=== PATIENT | female | born 1965 | race African-American/Black ===

== ENCOUNTER → 2016-10-08 | Outpatient (CLI) | payer OTHER ==
[~2016-10-08] MED LIST: AMLO10 PO; GLUCTES27 TOP; GLYB5TAB3 PO; METF500T PO; PRIN20TA2 PO; ZOCO40TA PO
[2016-10-08 11:07] LABS: AUTOMATED NEUTROPHIL # 4.6 TH/MM3 (1.8-7.7); BASOPHIL # 0.1 TH/MM3 (0-0.2); BASOPHIL % 0.9 % (0.0-2.0); EOSINOPHIL # 0.3 TH/MM3 (0-0.4); EOSINOPHIL % 4.1 % (0.0-4.0); HEMATOCRIT 37.1 % (35.0-46.0); HEMO FLAGS DIFF FINAL; LYMPH % 18.7 % (9.0-44.0); LYMPHOCYTE # 1.3 TH/MM3 (1.0-4.8); MEAN CORPUSCULAR HEMOGLOBIN 27.5 PG (27.0-34.0); MEAN CORPUSCULAR HGB CONC 33.5 % (32.0-36.0); MONO % 7.8 % (0.0-8.0); NEUT % 68.5 % (16.0-70.0); PLATELET COUNT 285 TH/MM3 (150-450); RED BLOOD COUNT 4.53 MIL/MM3 (4.00-5.30); RED CELL DISTRIBUTION WIDTH 15.8 % (11.6-17.2); WHITE BLOOD COUNT 6.7 TH/MM3 (4.0-11.0)
[2016-10-08 11:27] LABS: ALKALINE PHOSPHATASE 100 U/L (45-117); ALT (GPT) 32 U/L (10-53); ANION GAP 6 MEQ/L (5-15); AST (GOT) 14 U/L (15-37); BICARBONATE 28.8 MEQ/L (21.0-32.0); BLOOD UREA NITROGEN 16 MG/DL (7-18); CHLORIDE 103 MEQ/L (98-107); GLOMERULAR FILTRATION RATE 87 ML/MIN (>89); GLUCOSE,FASTING 236 MG/DL (74-99); HDL CHOLESTEROL 77.8 MG/DL (40.0-60.0); LDL CHOLESTEROL 109 MG/DL (0-99); POTASSIUM 4.1 MEQ/L (3.5-5.1); SODIUM (NA) 138 MEQ/L (136-145); TOTAL BILIRUBIN ADULT 0.5 MG/DL (0.2-1.0)
[2016-10-08 16:28] LABS: HEMOGLOBIN A1a 1.2 %; HEMOGLOBIN A1b 2.8 %; HEMOGLOBIN Ao 78.4 %; HEMOGLOBIN LA1C 3.1 %; HEMOGLOBIN P3 5.1 %
== END ==
LOC: CLAB 10:13
PROVIDERS: ATTEND Family Medicine
DX: E11.9 Type 2 diabetes mellitus without complications (principal); E78.5 Hyperlipidemia, unspecified; I10 Essential (primary) hypertension; E66.9 Obesity, unspecified
CPT/HCPCS: 36415; 80053; 80061; 83036; 84443; 85025

== ENCOUNTER 2017-03-16 18:06 | Inpatient (IN) | payer SELFPAY ==
[~2017-03-16] VITALS: Ht 170.2 cm; Wt 104.5 kg
[2017-03-16 18:40] VITALS: BP 183/86; PULSE 115; RESP 16; TEMP 98.6; O2SAT 97
[2017-03-16] MEDS ORDERED: SODIUM CHLOR 0.9% 1000 ML INJ 1,000 ML IV SCH (18:59)
--- NOTE | 2017-03-16 18:59 | PD ---
HPI Chief Complaint: Hypertension/Nausea/Vomitting/Back pain/Chills Time Seen by Provider: 18:47 Travel History International Travel<30 days: No Contact w/Intl Traveler<30days: No Traveled to known affect area: No History of Present Illness HPI 51-year-old Afro-[place] female presents the emergency department with sudden onset lower back pain, chills, nausea, and vomiting since this morning. Patient also states she's been out of her lisinopril for 2 weeks, which she takes with her amlodipine for her hypertension. Patient states no specific fever but has had chills through the day. She denies urinary symptoms. She denies diarrhea, or anterior abdominal pain. Patient continues to be nauseous but has not vomited since approximately 11 this morning. She denies any upper respiratory symptoms. Currently his pain is localized in the lower lumbar region, and does not localize to either flank. Pain is currently and 7/10. The patient is a type II diabetic for which she only takes metformin. Patient is allergic to hydrodiuril. PFSH Past Medical History Autoimmune Disease: No Anxiety: No Depression: No Cancer: No Cardiovascular Problems: Yes High Cholesterol: Yes Diabetes: Yes Diminished Hearing: No Endocrine: Yes Genitourinary: No Hypertension: Yes Immune Disorder: No Kidney Stones: Yes Musculoskeletal: Yes Neurologic: No Psychiatric: No Reproductive: No Respiratory: No Sickle Cell Disease: No Menopausal: Yes : 6 Para: 3 Miscarriage: 1 : 2 Past Surgical History Section: Yes (x 3) Genitourinary Surgery: Yes (Lithotripsy ) Gynecologic Surgery: Yes (3 c-sections) Hysterectomy: Yes (2011) Social History Alcohol Use: Yes (occasional) Tobacco Use: No Substance Use: No Allergies-Medications (Allergen,Severity, Reaction): Coded Allergies: Hydrodiuril (Verified Adverse Reaction, Intermediate, Nausea/Vomiting, ) Reported Meds & Prescriptions Reported Meds & Active Scripts Active Norvasc (Amlodipine Besylate) 10 Mg Tab 10 Mg PO DAILY Zocor (Simvastatin) 40 Mg Tab 40 Mg PO HS Prinivil (Lisinopril) 20 Mg Tab 20 Mg PO BID Metformin (Metformin HCl) 500 Mg Tab 2 Tab PO BIDPC With meals Glyburide 5 Mg Tab 5 Mg PO BID Take with meals at the same time each day Worlds Contour Next Blood Test Strips (Blood Glucose Test Strips) 1 Alanis Alanis 1 Strip TOP TID Review of Systems Except as stated in HPI: all other systems reviewed are Neg General / Constitutional: Positive: Chills, No: Fever Eyes: No: Visual changes HENT: No: Headaches Cardiovascular: No: Chest Pain or Discomfort Respiratory: No: Shortness of Breath Gastrointestinal: Positive: Nausea, Vomiting, Loss of Appetite, No: Diarrhea, Abdominal Pain Genitourinary: No: Urgency, Dysuria, Hematuria Musculoskeletal: Positive: Myalgias, No: Arthralgias, Limited ROM, Pain Skin: No Rash Neurologic: No: Weakness Psychiatric: No: Depression Endocrine: No: Polydipsia Hematologic/Lymphatic: No: Easy Bruising Physical Exam Narrative GENERAL: Patient appears in mild to moderate distress SKIN: Warm and dry. Normal color. Normal turgor. No diaphoresis. HEAD: Atraumatic. Normocephalic. EYES: Pupils equal and round. No scleral icterus. No injection or drainage. ENT: No nasal bleeding or discharge. Mucous membranes pink and moist. Pharynx is clear. Airway is patent. NECK: Trachea midline. No JVD. Supple and nontender. CARDIOVASCULAR: Regular rate and rhythm. RESPIRATORY: No accessory muscle use. Clear to auscultation. Breath sounds equal bilaterally. GASTROINTESTINAL: Abdomen soft, non-tender, nondistended. Hepatic and splenic margins not palpable. No CVA tenderness. MUSCULOSKELETAL: Extremities without clubbing, cyanosis, or edema. No obvious deformities. NEUROLOGICAL: Awake and alert. No obvious cranial nerve deficits. Motor grossly within normal limits. Five out of 5 muscle strength in the arms and legs. Normal speech. PSYCHIATRIC: Appropriate mood and affect; insight and judgment normal. Data Data Last Documented VS Vital Signs Date Time Temp Pulse Resp B/P Pulse Ox O2 Delivery O2 Flow Rate FiO2 03/16/17 19:00 110 16 97 Room Air 03/16/17 18:40 98.6 183/86 Orders Complete Blood Count With Diff (03/16/17 18:59) Comprehensive Metabolic Panel (03/16/17 18:59) Lipase (03/16/17 18:59) Urinalysis - C+S If Indicated (03/16/17 18:59) Iv Access Insert/Monitor (03/16/17 18:59) Ecg Monitoring (03/16/17 18:59) Oximetry (03/16/17 18:59) Ondansetron Inj (Zofran Inj) (03/16/17 19:00) Sodium Chlor 0.9% 1000 Ml Inj (Ns 1000 M (03/16/17 18:59) Sodium Chloride 0.9% Flush (Ns Flush) (03/16/17 19:00) Electrocardiogram (03/16/17 18:59) Ketorolac Inj (Toradol Inj) (03/16/17 19:00) Influenzae A/B Antigen (03/16/17 18:59) Lisinopril (Prinivil) (03/16/17 19:00) Lactic Acid (03/16/17 20:06) Ceftriaxone Inj (Rocephin Inj) (03/16/17 20:15) Urine Culture (03/16/17 19:00) Sodium Chlor 0.9% 1000 Ml Inj (Ns 1000 M (03/16/17 20:30) Admit To Inpatient (03/16/17 ) Vital Signs (Adult) Q4H (03/16/17 21:25) Activity Oob With Assistance (03/16/17 21:25) Disability Program Navigator / Telemetry .CONTINUOUS (03/16/17 21:25) Diet 1800 Ada Cons Carb (03/17/17 Breakfast) Diet Heart Healthy (03/17/17 Breakfast) Sodium Chloride 0.9% Flush (Ns Flush) (03/16/17 21:30) Sodium Chloride 0.9% Flush (Ns Flush) (03/17/17 09:00) Basic Metabolic Panel (Bmp) (03/17/17 06:00) Complete Blood Count With Diff (03/17/17 06:00) Case Management Consult (03/16/17 21:25) Naloxone Inj (Narcan Inj) (03/16/17 21:30) Inpatient Certification (03/16/17 ) Ceftriaxone Inj (Rocephin Inj) (03/17/17 20:00) Admit Order (Ed Use Only) (03/16/17 21:31) Labs Laboratory Tests Test 03/16/17 03/16/17 03/16/17 19:00 19:25 20:10 Urine Color YELLOW Urine Turbidity HAZY Urine pH 6.5 Urine Specific [place] 1.011 Urine Protein TRACE mg/dL Urine Glucose (UA) NEG mg/dL Urine Ketones TRACE mg/dL Urine Occult Blood SMALL Urine Nitrite NEG Urine Bilirubin NEG Urine Urobilinogen LESS THAN 2.0 MG/DL Urine Leukocyte Esterase LARGE Urine RBC 7 /hpf Urine WBC 36 /hpf Urine Squamous Epithelial 3 /hpf Cells Urine Bacteria OCC /hpf Microscopic Urinalysis Comment CULTURE INDICATED White Blood Count 20.8 TH/MM3 Red Blood Count 4.67 MIL/MM3 Hemoglobin 12.4 GM/DL Hematocrit 38.9 % Mean Corpuscular Volume 83.2 FL Mean Corpuscular Hemoglobin 26.6 PG Mean Corpuscular Hemoglobin 31.9 % Concent Red Cell Distribution Width 15.9 % Platelet Count 299 TH/MM3 Mean Platelet Volume 7.7 FL Neutrophils (%) (Auto) 93.9 % Lymphocytes (%) (Auto) 1.0 % Monocytes (%) (Auto) 4.7 % Eosinophils (%) (Auto) 0.0 % Basophils (%) (Auto) 0.4 % Neutrophils # (Auto) 19.5 TH/MM3 Lymphocytes # (Auto) 0.2 TH/MM3 Monocytes # (Auto) 1.0 TH/MM3 Eosinophils # (Auto) 0.0 TH/MM3 Basophils # (Auto) 0.1 TH/MM3 CBC Comment DIFF FINAL Differential Comment Sodium Level 139 MEQ/L Potassium Level 3.3 MEQ/L Chloride Level 104 MEQ/L Carbon Dioxide Level 25.3 MEQ/L Anion Gap 10 MEQ/L Blood Urea Nitrogen 13 MG/DL Creatinine 0.96 MG/DL Estimat Glomerular Filtration 74 ML/MIN Rate Random Glucose 217 MG/DL Calcium Level 9.0 MG/DL Total Bilirubin 1.1 MG/DL Aspartate Amino Transf 26 U/L (AST/SGOT) Alanine Aminotransferase 23 U/L (ALT/SGPT) Alkaline Phosphatase 111 U/L Total Protein 7.1 GM/DL Albumin 3.1 GM/DL Lipase 77 U/L Lactic Acid Level 2.4 mmol/L MDM Medical Decision Making Medical Screen Exam Complete: Yes Emergency Medical Condition: Yes Differential Diagnosis Nausea and vomiting. Viral illness. Influenza. Hypertension. Low back pain. Narrative Course Patient is medically stable at time of exam. Labs ordered including CBC, CMP, urinalysis, and rapid influenza A and B. IV access is obtained patient is given 30 mg Toradol IV as well as 20 mg lisinopril by mouth, and 4 mg Zofran IV. Patient is given 1000 mg normal saline bolus. EKG shows sinus tachycardia which is unchanged from previous. This is reviewed with Dr. Gonzalez. CBC shows elevated WBC of 20.8, with left shift. Lactic acid was added. Patient is given 1 g Rocephin IV. Urinalysis is sinus suggestive for urinary tract infection, and culture is pending. Potassium slightly low at 3.3, total bilirubin is 1.1, albumin is 3.1, and glucose is 217. Lactic acid is 2.4. Patient is given an additional 1000 mL was normal saline bolus. Patient discussed with Dr. Gonzalez who feels the patient may have urosepsis and meets sepsis criteria. Admission is recommended. 2110 hrs. call was placed to the hospitalist for admission. Patient was discussed with Dr. Stone, who agreed to admit the patient. Sepsis Criteria SIRS Criteria (2 or more): Heart rate over 90, WBC > 45094, < 4000 or > 10% bands Sepsis Criteria (SIRS+source): Infect source susp/known Severe Sepsis (+one): Lactate >2 Criteria Outcome: Meets sepsis criteria Diagnosis Primary Impression: Sepsis Qualified Code: A41.9 - Sepsis, due to unspecified organism Additional Impressions: Urinary tract infection Qualified Code: N30.00 - Acute cystitis without hematuria Hypertension Qualified Code: I10 - Essential hypertension Type 2 diabetes mellitus Qualified Code: E11.9 - Type 2 diabetes mellitus without complication, without long-term current use of insulin Admitting Information Admitting Physician Requests: Admit Condition: Stable Marco Bustillo Mar 16, 2017 18:59
[2017-03-16] MEDS ORDERED: KETOROLAC TROMETHAMINE 30 MG/ML (IVP) VIAL IVP ONE (19:00)
[2017-03-16] MEDS ORDERED: ONDANSETRON HCL 4 MG/2 ML VIAL IVP ONE (19:00)
[2017-03-16] MEDS ORDERED: LISINOPRIL 20 MG TAB PO ONE (19:00)
[2017-03-16] MEDS ORDERED: SODIUM CHLORIDE 0.9% FLUSH 10 ML FLUSH IV FLUSH PRN ×2 (19:00→21:30)
[2017-03-16 19:57] LABS: AUTOMATED NEUTROPHIL # 19.5 TH/MM3 (1.8-7.7); BASOPHIL # 0.1 TH/MM3 (0-0.2); BASOPHIL % 0.4 % (0.0-2.0); HEMATOCRIT 38.9 % (35.0-46.0); HEMO FLAGS DIFF FINAL; LYMPHOCYTE # 0.2 TH/MM3 (1.0-4.8); MEAN CELL VOLUME 83.2 FL (80.0-100.0); MEAN CORPUSCULAR HEMOGLOBIN 26.6 PG (27.0-34.0); MEAN CORPUSCULAR HGB CONC 31.9 % (32.0-36.0); MONO % 4.7 % (0.0-8.0); NEUT % 93.9 % (16.0-70.0); PLATELET COUNT 299 TH/MM3 (150-450); RED BLOOD COUNT 4.67 MIL/MM3 (4.00-5.30); RED CELL DISTRIBUTION WIDTH 15.9 % (11.6-17.2); WHITE BLOOD COUNT 20.8 TH/MM3 (4.0-11.0)
[2017-03-16 20:00] VITALS: BP 190/82; PULSE 102; RESP 18; O2SAT 93
[2017-03-16 20:11] LABS: BACTERIA, URINE OCC /hpf; BLOOD, URINE SMALL (NEG); COMMENT (UR) CULTURE INDICATED; CULTURE IF INDICATED CULTURE INDICATED; GLUCOSE,URINE NEG (NEG); KETONE, URINE TRACE mg/dL (NEG); NITRITE,URINE NEG (NEG); PH, URINE 6.5 (5.0-8.5); SQUAMOUS EPITHELIAL CELL URINE 3 /hpf (0-5); URINE COLOR YELLOW (YELLW/STRAW)
[2017-03-16] MEDS ORDERED: cefTRIAXone INJ 1,000 MG in SODIUM CHLORIDE 0.9% INJ 100 ML IV ONE (20:15)
[2017-03-16 20:21] LABS: ANION GAP 10 MEQ/L (5-15); AST (GOT) 26 U/L (15-37); BICARBONATE 25.3 MEQ/L (21.0-32.0); BLOOD UREA NITROGEN 13 MG/DL (7-18); CHLORIDE 104 MEQ/L (98-107); GLOMERULAR FILTRATION RATE 74 ML/MIN (>89); POTASSIUM 3.3 MEQ/L (3.5-5.1); SODIUM (NA) 139 MEQ/L (136-145)
[2017-03-16 20:22] LABS: ALT (GPT) 23 U/L (10-53)
[2017-03-16 20:24] LABS: ALKALINE PHOSPHATASE 111 U/L (45-117); TOTAL BILIRUBIN ADULT 1.1 MG/DL (0.2-1.0)
[2017-03-16] MEDS ORDERED: SODIUM CHLOR 0.9% 1000 ML INJ 1,000 ML IV ONE (20:30)
[2017-03-16 21:00] VITALS: BP 143/63; PULSE 108; RESP 18; O2SAT 97
[2017-03-16] MEDS ORDERED: NALOXONE HCL 0.4 MG/ML AMP IV PRN (21:30)
[2017-03-16 22:00] VITALS: BP_SYST 139; BP_SYST 143; BP_DIAS 63; PULSE 105; PULSE 108; RESP 18; O2SAT 96; O2SAT 97
[2017-03-17] VITALS (14 sets, daily range): BP systolic 138–162; BP diastolic 62–80; PULSE 82–123; RESP 14–18; TEMP 98.3–101.2; O2SAT 85–100
[2017-03-17] MEDS ORDERED: DIATRIZOATE MEGLUM/DIATRIZOATE SOD 9 ML CUP PO SCH (02:30)
--- NOTE | 2017-03-17 02:32 | HHI.HP ---
[facility] Griselda Armstrong MD Admission Diagnosis Sepsis/UTI/HTN Diagnoses: Travel History International Travel<30 Days: No Contact w/Intl Traveler <30 Da: No Traveled to Known Affected Are: No History of Present Illness pain in right flank and across the abdomen just started yesterday am was vomiting - about 4 x no black or red color vomit no burning or pain on urination went to restroom often than normal but not diarrhea had chills and shaking so daughter called 911 no cough no fever had hysterectomy prior, but no other abdominal sx except c section had hx of renal stone removed denies other symptoms such as chest pain/palpitations/shortness of breath/focal weakness. Denies any hematemesis/hematochezia/melena/hematuria. Review of Systems Except as stated in HPI: all other systems reviewed are Neg Past Family Social History Past Medical History htn- off lisinopril for 2 weeks as she ran out of it dm Hyperlipidemia enlarged heart hx of kidney stone Past Surgical History hysterectomy c section Allergies: Coded Allergies: Hydrodiuril (Verified Adverse Reaction, Intermediate, Nausea/Vomiting, ) Family History grandma - dm Social History no smoking/ no etoh/ no drugs Physical Exam Vital Signs Vital Signs Date Time Temp Pulse Resp B/P Pulse Ox O2 Delivery O2 Flow Rate FiO2 03/17/17 00:00 96 16 142/62 96 Nasal Cannula 2 03/16/17 22:00 105 18 139/63 96 Nasal Cannula 2 03/16/17 21:00 108 18 143/63 97 Nasal Cannula 2 03/16/17 20:00 102 18 190/82 93 Nasal Cannula 2 03/16/17 19:00 110 16 97 Room Air 03/16/17 18:40 98.6 115 16 183/86 97 Physical Exam GENERAL: This is a well-nourished, well-developed patient, in no apparent distress. SKIN: No rashes, ecchymoses or lesions. Cool and dry. HEAD: Atraumatic. Normocephalic. No temporal or scalp tenderness. EYES: No scleral icterus. No injection or drainage. ENT: Nose without bleeding, purulent drainage or septal hematoma. Airway patent. NECK: Trachea midline. No JVD CARDIOVASCULAR: Regular rate and rhythm without murmurs, gallops, or rubs. RESPIRATORY: Clear to auscultation. Breath sounds equal bilaterally. No wheezes , rales, or rhonchi. GASTROINTESTINAL: Abdomen soft, tenderness diffusely. Left flank pain. Abdomen is nondistended. No guarding. MUSCULOSKELETAL: Extremities without clubbing, cyanosis, or edema. No calf tenderness. NEUROLOGICAL: Awake and alert. Motor and sensory grossly within normal limits. Normal speech. Laboratory Laboratory Tests Test 03/16/17 03/16/17 03/16/17 19:00 19:25 20:10 Urine Color YELLOW Urine Turbidity HAZY Urine pH 6.5 Urine Specific [place] 1.011 Urine Protein TRACE Urine Glucose (UA) NEG Urine Ketones TRACE Urine Occult Blood SMALL Urine Nitrite NEG Urine Bilirubin NEG Urine Urobilinogen LESS THAN 2.0 Urine Leukocyte Esterase LARGE Urine RBC 7 Urine WBC 36 Urine Squamous Epithelial 3 Cells Urine Bacteria OCC Microscopic Urinalysis Comment CULTURE INDICATED White Blood Count 20.8 Red Blood Count 4.67 Hemoglobin 12.4 Hematocrit 38.9 Mean Corpuscular Volume 83.2 Mean Corpuscular Hemoglobin 26.6 Mean Corpuscular Hemoglobin 31.9 Concent Red Cell Distribution Width 15.9 Platelet Count 299 Mean Platelet Volume 7.7 Neutrophils (%) (Auto) 93.9 Lymphocytes (%) (Auto) 1.0 Monocytes (%) (Auto) 4.7 Eosinophils (%) (Auto) 0.0 Basophils (%) (Auto) 0.4 Neutrophils # (Auto) 19.5 Lymphocytes # (Auto) 0.2 Monocytes # (Auto) 1.0 Eosinophils # (Auto) 0.0 Basophils # (Auto) 0.1 CBC Comment DIFF FINAL Differential Comment Sodium Level 139 Potassium Level 3.3 Chloride Level 104 Carbon Dioxide Level 25.3 Anion Gap 10 Blood Urea Nitrogen 13 Creatinine 0.96 Estimat Glomerular Filtration 74 Rate Random Glucose 217 Calcium Level 9.0 Total Bilirubin 1.1 Aspartate Amino Transf 26 (AST/SGOT) Alanine Aminotransferase 23 (ALT/SGPT) Alkaline Phosphatase 111 Total Protein 7.1 Albumin 3.1 Lipase 77 Lactic Acid Level 2.4 Date/Time Procedure Status Source Growth 7/24/17 19:25 Influenza Types A,B Antigen (GIO) - Final Complete Nasal Washing NEGATIVE FOR FLU A AND B ANTIGEN.... 03/16/17 19:00 Urine Culture Received Urine Clean Catch Pending Result Diagram: 03/16/17192403/16/171924 Imaging Last 48 hours Impressions Abdomen/Pelvis CT 03/17/17 0000 Signed Impressions: Service Date/Time: Friday, March 17, 2017 03:45 - CONCLUSION: 1. There are multiple stones lined in the distal left ureter extending to the ureterovesical junction measuring up to 8 mm. This is causing mild left hydronephrosis and hydroureter and perinephric inflammation. 2. There are innumerable stones within the kidneys bilaterally measuring up to 10 mm. 3. There is a small amount of air within the left intrarenal collecting system. Bucky Nesbitt MD Assessment and Plan Assessment and Plan Impression: sepsis likely pyelonephritis Possible renal stones hypertension diabetes hyperlipidemia Plan: iv hydration pain control antibiotics Rocephin 1 g IV every 24 hours. We'll adjust if no improvement on antibiotics. Hold long-acting insulin and oral hypoglycemics. We'll monitor fingersticks and cover with sliding scale coverage. Obtain CT of abdomen and pelvis without IV contrast to rule out renal stones. This was done and personally reviewed later on. Reveals multiple renal stones bilaterally, with mild left hydronephrosis Consult urology DVT prophylaxisheparin Discussed Condition With patient, ER PA, nursing staff Physician Certification 2 Midnight Certification Type: Admission for Inpatient Services Order for Inpatient Services The services are ordered in accordance with Medicare regulations or non- Medicare payer requirements, as applicable. In the case of services not specified as inpatient-only, they are appropriately provided as inpatient services in accordance with the 2-midnight benchmark. Estimated LOS (days): 3 days is the estimated time the patient will need to remain in the hospital, assuming treatment plan goals are met and no additional complications. Post-Hospital Plan: Home Josee Stone MD Mar 17, 2017 02:31
[2017-03-17 04:13] LABS: AUTOMATED NEUTROPHIL # 17.9 TH/MM3 (1.8-7.7); BASOPHIL # 0.1 TH/MM3 (0-0.2); BASOPHIL % 0.3 % (0.0-2.0); EOSINOPHIL # 0.1 TH/MM3 (0-0.4); EOSINOPHIL % 0.3 % (0.0-4.0); HEMATOCRIT 34.5 % (35.0-46.0); HEMO FLAGS DIFF FINAL; LYMPH % 5.4 % (9.0-44.0); LYMPHOCYTE # 1.1 TH/MM3 (1.0-4.8); MEAN CELL VOLUME 83.2 FL (80.0-100.0); MEAN CORPUSCULAR HEMOGLOBIN 27.1 PG (27.0-34.0); MEAN CORPUSCULAR HGB CONC 32.6 % (32.0-36.0); MONO % 3.6 % (0.0-8.0); NEUT % 90.4 % (16.0-70.0); PLATELET COUNT 242 TH/MM3 (150-450); RED BLOOD COUNT 4.14 MIL/MM3 (4.00-5.30); RED CELL DISTRIBUTION WIDTH 15.9 % (11.6-17.2); WHITE BLOOD COUNT 19.8 TH/MM3 (4.0-11.0)
[2017-03-17 04:29] LABS: AMPHETAMINE, URINE NEG (NEG); BARBITURATES, URINE NEG (NEG); COCAINE, URINE NEG (NEG)
[2017-03-17 04:35] LABS: BICARBONATE 24.4 MEQ/L (21.0-32.0); POTASSIUM 3.8 MEQ/L (3.5-5.1)
--- NOTE | 2017-03-17 04:36 | RADRPT ---
EXAM DATE/TIME: 03/17/2017 03:45 [facility] COMPARISON: No previous studies available for comparison. INDICATIONS : Diffuse abdominal pain. ORAL CONTRAST: Prescribed oral contrast ingested. RADIATION DOSE: 17.13 CTDIvol (mGy) MEDICAL HISTORY : Cardiovascular disease. Hypertension. Renal calculi. SURGICAL HISTORY : section. Hysterectomy. ENCOUNTER: Initial ACUITY: 1 day PAIN SCALE: 8/10 LOCATION: Bilateral abdomen TECHNIQUE: Volumetric scanning of the abdomen and pelvis was performed. Using automated exposure control and ad justment of the mA and/or kV according to patient size, radiation dose was kept as low as reasonably achievable to obtain optimal diagnostic quality images. DICOM format image data is available electro nically for review and comparison. FINDINGS: LOWER LUNGS: The visualized lower lungs are clear. There is dependent atelectasis bilaterally. LIVER: Homogeneous density without lesion. There is no dilation of the biliary tree. Patient is post shankar cystectomy. SPLEEN: Normal size without lesion. PANCREAS: Within normal limits. KIDNEYS: Normal in size and shape. There are innumerable stones within the right renal collecting system with the largest in the renal pelvis measuring 10 mm. There are also innumerable stones in the left intrar enal collecting system with the largest measuring 10 mm. There is air in the collecting system. There is mild left hydronephrosis and hydroureter with perinephric stranding and there are multiple stones lined in the distal ureter extending to the ureterovesical junction. The largest stone distally vito ures 8 mm. ADRENAL GLANDS: Within normal limits. VASCULAR: There is no aortic aneurysm. There is mild atherosclerotic disease. BOWEL/MESENTERY: The stomach, small bowel, and colon demonstrate no acute abnormality. There is no free intraperitone al air or fluid. Small hiatal hernia is present. ABDOMINAL WALL: Within normal limits. RETROPERITONEUM: There is no lymphadenopathy. BLADDER: No wall thickening or mass. REPRODUCTIVE: Within normal limits. INGUINAL: There is no lymphadenopathy or hernia. MUSCULOSKELETAL: There degenerative changes of the lumbar spine with sclerosis at the SI joints bilaterally. CONCLUSION: 1. There are multiple stones lined in the distal left ureter extending to the ureterovesical junction measuring up to 8 mm. This is causing mild left hydronephrosis and hydroureter and perinephric infla mmation. 2. There are innumerable stones within the kidneys bilaterally measuring up to 10 mm. 3. There is a small amount of air within the left intrarenal collecting system. Bucky Nesbitt MD on March 17, 2017 at 4:30 Board Certified Radiologist. This report was verified electronically.
[2017-03-17] MEDS: SODIUM CHLOR 0.9% 1000 ML INJ 1,000 ML IV SCH ×3 (06:26→20:12)
[2017-03-17] MEDS: MORPHINE SULFATE 4 MG/ML INJ IV PUSH PRN ×2 (06:27→10:21)
[2017-03-17] MEDS: SODIUM CHLORIDE 0.9% FLUSH 10 ML FLUSH IV FLUSH SCH ×2 (09:14→20:12)
[2017-03-17] MEDS: LISINOPRIL 20 MG TAB PO SCH ×2 (09:14→20:12)
--- NOTE | 2017-03-17 12:33 | PD.CONS ---
[facility] Service Urology Consult Requested By Dr. Stone Reason for Consult Renal and ureteral calculi Primary Care Physician Griselda Armstrong MD Diagnosis: History of Present Illness 51-year-old female with history nephrolithiasis who presented to the emergency room with acute onset left flank pain. Workup included a CT scan of the abdomen and pelvis that demonstrated multiple bilateral renal calculi as well as multiple stones involving the left distal ureter causing mild left hydroureteronephrosis. Patient reports that she was treated with a percutaneous nephrolithotomy in the past. She had been feeling well up to the day prior to presentation to the emergency room. She denies fever, shaking chills or gross hematuria. At the time of consultation her pain was well- controlled. Review of Systems Constitutional: DENIES: Fever, Night Sweats Gastrointestinal: COMPLAINS OF: Abdominal pain (left lower abdomen) Genitourinary: DENIES: Hematuria Musculoskeletal: COMPLAINS OF: Back pain (left flank) Past Family Social History Past Medical History Nephrolithiasis Hypertension Diabetes mellitus Hyperlipidemia Questionable history congestive heart failure Past Surgical History Status post hysterectomy Status post section Reported Medications Refer to EMR Allergies: Coded Allergies: Hydrodiuril (Verified Adverse Reaction, Intermediate, Nausea/Vomiting, ) Active Ordered Medications Refer to EMR Family History Grandmother with diabetes mellitus Social History Denies tobacco, alcohol or intravenous drug abuse history Physical Exam Vital Signs Date Time Temp Pulse Resp B/P Pulse Ox O2 Delivery O2 Flow Rate FiO2 03/17/17 08:57 99.0 110 144/66 92 03/17/17 04:00 93 18 158/78 98 Room Air 03/17/17 00:00 96 16 142/62 96 Nasal Cannula 2 03/16/17 22:00 105 18 139/63 96 Nasal Cannula 2 03/16/17 21:00 108 18 143/63 97 Nasal Cannula 2 03/16/17 20:00 102 18 190/82 93 Nasal Cannula 2 03/16/17 19:00 110 16 97 Room Air 03/16/17 18:40 98.6 115 16 183/86 97 Physical Exam GENERAL: This is a well-nourished, well-developed patient, in no apparent distress. SKIN: No rashes, ecchymoses or lesions. Cool and dry. HEAD: Atraumatic. Normocephalic. No temporal or scalp tenderness. EYES: Pupils equal round and reactive. Extraocular motions intact. No scleral icterus. No injection or drainage. ENT: Nose without bleeding, purulent drainage or septal hematoma. Throat without erythema, tonsillar hypertrophy or exudate. Uvula midline. Airway patent. NECK: Trachea midline. No JVD or lymphadenopathy. Supple, nontender, no meningeal signs. CARDIOVASCULAR: Regular rate and rhythm without murmurs, gallops, or rubs. RESPIRATORY: Clear to auscultation. Breath sounds equal bilaterally. No wheezes , rales, or rhonchi. GASTROINTESTINAL: Abdomen soft, non-tender, nondistended. No hepato-splenomegaly , or palpable masses. No guarding. GENITOURINARY:No CVAT MUSCULOSKELETAL: Extremities without clubbing, cyanosis, or edema. No joint tenderness, effusion, or edema noted. No calf tenderness. Negative Homans sign bilaterally. NEUROLOGICAL: Awake and alert. Cranial nerves II through XII intact. Motor and sensory grossly within normal limits. Five out of 5 muscle strength in all muscle groups. Normal speech. Lab results reviewed: Yes Laboratory Tests Test 03/16/17 03/16/17 03/16/17 03/17/17 19:00 19:25 20:10 03:59 Urine Color YELLOW Urine Turbidity HAZY Urine pH 6.[address] 1.011 Urine Protein TRACE Urine Glucose (UA) NEG Urine Ketones TRACE Urine Occult Blood SMALL Urine Nitrite NEG Urine Bilirubin NEG Urine Urobilinogen LESS THAN 2.0 Urine Leukocyte Esterase LARGE Urine RBC 7 Urine WBC 36 Urine Squamous Epithelial 3 Cells Urine Bacteria OCC Microscopic Urinalysis Comment CULTURE INDICATED Urine Opiates Screen NEG Urine Barbiturates Screen NEG Urine Amphetamines Screen NEG Urine Benzodiazepines Screen NEG Urine Cocaine Screen NEG Urine Cannabinoids Screen NEG White Blood Count 20.8 19.8 Red Blood Count 4.67 4.14 Hemoglobin 12.4 11.2 Hematocrit 38.9 34.5 Mean Corpuscular Volume 83.2 83.2 Mean Corpuscular Hemoglobin 26.6 27.1 Mean Corpuscular Hemoglobin 31.9 32.6 Concent Red Cell Distribution Width 15.9 15.9 Platelet Count 299 242 Mean Platelet Volume 7.7 7.7 Neutrophils (%) (Auto) 93.9 90.4 Lymphocytes (%) (Auto) 1.0 5.4 Monocytes (%) (Auto) 4.7 3.6 Eosinophils (%) (Auto) 0.0 0.3 Basophils (%) (Auto) 0.4 0.3 Neutrophils # (Auto) 19.5 17.9 Lymphocytes # (Auto) 0.2 1.1 Monocytes # (Auto) 1.0 0.7 Eosinophils # (Auto) 0.0 0.1 Basophils # (Auto) 0.1 0.1 CBC Comment DIFF FINAL DIFF FINAL Differential Comment Sodium Level 139 140 Potassium Level 3.3 3.8 Chloride Level 104 107 Carbon Dioxide Level 25.3 24.4 Anion Gap 10 9 Blood Urea Nitrogen 13 16 Creatinine 0.96 1.17 Estimat Glomerular Filtration 74 59 Rate Random Glucose 217 210 Calcium Level 9.0 8.4 Total Bilirubin 1.1 Aspartate Amino Transf 26 (AST/SGOT) Alanine Aminotransferase 23 (ALT/SGPT) Alkaline Phosphatase 111 Total Protein 7.1 Albumin 3.1 Lipase 77 Lactic Acid Level 2.4 Date/Time Procedure Status Source Growth 03/16/17 19:25 Influenza Types A,B Antigen (GIO) - Final Complete Nasal Washing NEGATIVE FOR FLU A AND B ANTIGEN.... 03/16/17 19:00 Urine Culture Received Urine Clean Catch Pending Result Diagram: 03/17/17 0359 03/17/17 0359 Personally reviewed images: Yes Imaging Last Impressions Abdomen/Pelvis CT 03/17/17 0000 Signed Impressions: Service Date/Time: Friday, March 17, 2017 03:45 - CONCLUSION: 1. There are multiple stones lined in the distal left ureter extending to the ureterovesical junction measuring up to 8 mm. This is causing mild left hydronephrosis and hydroureter and perinephric inflammation. 2. There are innumerable stones within the kidneys bilaterally measuring up to 10 mm. 3. There is a small amount of air within the left intrarenal collecting system. Bucky Nesbitt MD Assessment and Plan Assessment and Plan UROLOGIC IMPRESSION: 1. Multiple obstructing left distal ureteral calculi 2. Multiple bilateral renal calculi RECOMMENDATIONS: 1. npo after midnight 2. Schedule for cysto, left rpg, left ureteroscopy with laser lithotripsy and possible left stent insertion for tomorrow 3. Continue analgesic support Ananda Joaquin MD Mar 17, 2017 12:33
[2017-03-17] MEDS: INSULIN ASPART SUPPLEMENTAL SCALE SQ SCH ×2 (15:42→22:13)
[2017-03-17] MEDS: HEPARIN SODIUM - SQ 10,000 UNITS/ML VIAL SQ SCH ×2 (15:42→22:12)
[2017-03-17] MEDS ORDERED: SODIUM CHLORID 0.9% 500 ML INJ 500 ML IV ONE (15:45)
[2017-03-17] MEDS ORDERED: oxyCODONE/ACETAMINOPHEN 5 MG/325 MG TAB PO PRN (15:45)
[2017-03-17] MEDS ORDERED: ACETAMINOPHEN 325 MG TAB PO PRN (15:45)
--- NOTE | 2017-03-17 16:01 | EKG ---
Date Performed: 03/16/2017 Time Performed: 19:20:22 PTAGE: 51 years EKG: SINUS TACHYCARDIA POSSIBLE LEFT ATRIAL ENLARGEMENT NONSPECIFIC ST & T-WAVE ABNORMALITY QRS voltage is not as high as in prior tracing. ST-T abnormalities slightly less prominent. ABNORMAL RHYT ECG PREVIOUS TRACING : 10/02/2014 20.51 DOCTOR: Sandeep Gonzalez Interpretating Date/Time 03/17/2017 16:00:18
--- NOTE | 2017-03-17 16:02 | HHI.FPPN ---
Addendum to progress note ADDENDUM Reason for addendum: Additonal documentation Additional information Came to see patient after I received a page that the patient was having some pain, fever and tachycardia. She was admitted this morning. Patient did not tolerate morphine, stated it made her head hurt. She endorsed fevers and chills. I added the below orders - NS 500 cc bolus x1 now - blood cultures to be obtained - stop morphine, started oxycodone 5 mg q6 for pain control - tylenol x 1 for fever (try to minimize acetaminophen use) - continue IV rocephin for urosepsis, has not yet been 24 hrs on abx, will follow her clinically and broaden as indicated. - her lactic acid was elevated on admission, will repeat - low dose sliding scale for her hyperglycemia - NPO at midnight for her procedure by urology I discussed this plan with the patient and nurse. Kae Mejia MD Mar 17, 2017 16:02
[2017-03-17] MEDS ORDERED: ONDANSETRON HCL 4 MG/2 ML VIAL IV PUSH ONE (19:15)
[2017-03-17] MEDS: cefTRIAXone INJ 1,000 MG in SODIUM CHLORIDE 0.9% INJ 100 ML IV SCH (20:11)
[2017-03-17] MEDS: PRAVASTATIN SOD 40 MG TAB PO SCH (20:12)
[2017-03-17] MEDS ORDERED: Vancomycin Consult Pharmacy 1 EA OTHER SCH (22:15)
[2017-03-17] MEDS ORDERED: VANCOMYCIN INJ 2,000 MG in SODIUM CHLORID 0.9% 500 ML INJ 500 ML IV SCH (23:00)
[2017-03-18] VITALS (18 sets, daily range): BP systolic 143–183; BP diastolic 73–90; PULSE 64–117; RESP 18–20; TEMP 98–98.9; O2SAT 90–97
[2017-03-18] MEDS ORDERED: SODIUM CHLORID 0.9% 500 ML IV PRN (01:45)
[2017-03-18] MEDS ORDERED: LACTATED RINGER'S 1000 ML IV PRN (01:45)
[2017-03-18] MEDS ORDERED: CHLORHEXIDINE GLUCONATE 2 % 1 PACK (2 CLOTHS) TOPICAL PRN (01:45)
[2017-03-18] MEDS ORDERED: METOPROLOL TARTRATE 25 MG TAB PO PRN (01:45)
[2017-03-18] MEDS ORDERED: POVIDONE IODINE 5% (ANTISEPSIS KIT) 4 APPLICATIONS EACH NARE PRN (01:45)
[2017-03-18] MEDS ORDERED: INSULIN HUMAN REGULAR 1,000 UNITS/10 ML VIAL SQ PRN (01:45)
[2017-03-18 05:41] LABS: BASOPHIL # 0.1 TH/MM3 (0-0.2); BASOPHIL % 0.4 % (0.0-2.0); EOSINOPHIL % 0.2 % (0.0-4.0); HEMATOCRIT 32.7 % (35.0-46.0); HEMO FLAGS DIFF FINAL; LYMPH % 5.2 % (9.0-44.0); LYMPHOCYTE # 1.1 TH/MM3 (1.0-4.8); MEAN CELL VOLUME 83.4 FL (80.0-100.0); MEAN CORPUSCULAR HEMOGLOBIN 26.2 PG (27.0-34.0); MEAN CORPUSCULAR HGB CONC 31.4 % (32.0-36.0); MONO % 6.5 % (0.0-8.0); NEUT % 87.7 % (16.0-70.0); PLATELET COUNT 198 TH/MM3 (150-450); RED BLOOD COUNT 3.92 MIL/MM3 (4.00-5.30); RED CELL DISTRIBUTION WIDTH 16.5 % (11.6-17.2); WHITE BLOOD COUNT 21.6 TH/MM3 (4.0-11.0)
[2017-03-18] MEDS: HEPARIN SODIUM - SQ 10,000 UNITS/ML VIAL SQ SCH ×3 (06:00→21:34)
[2017-03-18] MEDS: INSULIN ASPART SUPPLEMENTAL SCALE SQ SCH ×4 (06:02→21:37)
[2017-03-18 06:04] LABS: BICARBONATE 24.6 MEQ/L (21.0-32.0); POTASSIUM 3.6 MEQ/L (3.5-5.1)
--- NOTE | 2017-03-18 08:30 | HHI.PR ---
Subjective Remarks still with pain to the left flank. Tmax 101.2. still with nausea. d/w the RN at the bedside. Objective Vitals Vital Signs Date Time Temp Pulse Resp B/P Pulse Ox O2 Delivery O2 Flow Rate FiO2 03/18/17 06:00 95 03/18/17 05:00 86 03/18/17 04:00 98.1 75 18 143/73 95 03/18/17 04:00 78 03/18/17 04:00 95 Nasal Cannula 2.00 03/18/17 03:00 93 03/18/17 02:00 80 03/18/17 01:00 82 03/18/17 00:00 86 03/17/17 23:10 98.3 94 18 142/79 93 03/17/17 23:00 91 03/17/17 23:00 93 Nasal Cannula 2.00 03/17/17 22:00 86 03/17/17 21:00 98 03/17/17 20:00 100 03/17/17 19:45 93 Nasal Cannula 2.00 03/17/17 19:45 98.5 103 18 138/69 85 03/17/17 19:45 85 Room Air 03/17/17 19:00 106 03/17/17 17:15 16 03/17/17 16:30 100.9 123 18 138/71 98 03/17/17 15:33 123 03/17/17 15:31 100.9 123 16 138/71 98 03/17/17 13:37 101.2 82 14 162/80 100 03/17/17 08:57 99.0 110 144/66 92 I/O 03/17/17 03/17/17 03/17/17 03/18/17 03/18/17 03/18/17 06:59 14:59 22:59 06:59 14:59 22:59 Intake Total 1400 ml 1810 ml Output Total 450 ml 800 ml Balance 950 ml 1010 ml Intake Oral 600 ml 480 ml IV Total 800 ml 1330 ml Output Urine Total 450 ml 800 ml # Bowel Movements 0 Result Diagram: 03/18/17 0335 03/18/17 0335 Imaging Last Impressions Abdomen/Pelvis CT 03/17/17 0000 Signed Impressions: Service Date/Time: Friday, March 17, 2017 03:45 - CONCLUSION: 1. There are multiple stones lined in the distal left ureter extending to the ureterovesical junction measuring up to 8 mm. This is causing mild left hydronephrosis and hydroureter and perinephric inflammation. 2. There are innumerable stones within the kidneys bilaterally measuring up to 10 mm. 3. There is a small amount of air within the left intrarenal collecting system. Bucky Nesbitt MD Objective Remarks GENERAL: This is a well-nourished, well-developed patient, in no apparent distress. CARDIOVASCULAR: Regular rate and regular rhythm without murmurs, gallops, or rubs. RESPIRATORY: Clear to auscultation. Breath sounds equal bilaterally. No wheezes , rales, or rhonchi. GASTROINTESTINAL: Abdomen soft, left flank tenderness, nondistended. Normal, active bowel sounds MUSCULOSKELETAL: Extremities without clubbing, cyanosis, or edema. NEURO: Alert & Oriented x4 to person, place, time, situation. Moves all ext x4 Medications and IVs Current Medications Ondansetron HCl 4 mg 4 mg ONCE ONCE IVP Last administered on 03/16/17 19:40; Start 03/16/17 at 19:00; Stop 03/16/17 at 19:02; Status DC Sodium Chloride (NS 1000 ml Inj) 1,000 ml @ 1,000 mls/hr Q1H IV Last administered on 03/16/17 19:39; Start 03/16/17 at 18:59; Stop 03/16/17 at 19:58 ; Status DC Sodium Chloride (NS Flush) 2 ml UNSCH PRN IV FLUSH FLUSH AFTER USING IV ACCESS Last administered on 03/16/17 19:41; Start 03/16/17 at 19:00; Stop 03/16/17 at 21:31; Status DC Ketorolac Tromethamine (Toradol Inj) 30 mg ONCE ONCE IVP Last administered on 03/16/17 19:40; Start 03/16/17 at 19:00; Stop 03/16/17 at 19:02; Status DC Lisinopril 20 mg 20 mg ONCE ONCE PO Last administered on 03/16/17 19:41; Start 03/16/17 at 19:00; Stop 03/16/17 at 19:02; Status DC Ceftriaxone Sodium 1000 mg/ Sodium Chloride 100 ml @ 200 mls/hr ONCE ONCE IV Last administered on 03/16/17 20:34; Start 03/16/17 at 20:15; Stop 03/16/17 at 20:44; Status DC Sodium Chloride (NS 1000 ml Inj) 1,000 ml @ 999 mls/hr BOLUS ONCE IV Last administered on 03/16/17 20:34; Start 03/16/17 at 20:30; Stop 03/16/17 at 21:30 ; Status DC Sodium Chloride (NS Flush) 2 ml UNSCH PRN IV FLUSH FLUSH AFTER USING IV ACCESS ; Start 03/16/17 at 21:30 Sodium Chloride (NS Flush) 2 ml BID IV FLUSH Last administered on 03/17/17 09: 14; Start 03/17/17 at 09:00 Naloxone HCl 0.4 mg 0.4 mg UNSCH PRN IV SEE LABEL COMMENTS; Start 03/16/17 at 21:30 Ceftriaxone Sodium/Sodium Chloride (Rocephin Inj/NS Inj) 100 ml @ 200 mls/hr Q24H IV Last administered on 03/17/17 20:11; Start 03/17/17 at 20:00 Amlodipine Besylate (Norvasc) 10 mg DAILY PO Last administered on 03/17/17 09: 14; Start 03/17/17 at 09:00 Lisinopril (Prinivil) 20 mg BID PO Last administered on 03/17/17 20:12; Start 03/17/17 at 09:00 Pravastatin Sodium (Pravachol) 80 mg HS PO CM Last administered on 03/17/17 20: 12; Start 03/17/17 at 21:00 Diatrizoate Meglum/ Diatrizoate Sod 18 ml 18 ml UNSCH X1 PO Last administered on 03/17/17 02:48; Start 03/17/17 at 02:30; Stop 03/17/17 at 03:30; Status DC Sodium Chloride (NS 1000 ml Inj) 1,000 ml @ 100 mls/hr Q10H IV Last administered on 03/17/17 20:12; Start 03/17/17 at 05:30 Morphine Sulfate (Morphine Inj) 2 mg Q3H PRN IV PUSH pain >5 Last administered on 03/17/17 10:21; Start 03/17/17 at 06:00; Stop 03/17/17 at 15:34; Status DC Heparin Sodium (Porcine) (Heparin Inj) 5,000 units Q8HR SQ Last administered on 03/17/17 22:12; Start 03/17/17 at 14:00 Insulin Aspart (NovoLOG SUPPLEMENTAL SCALE) 1 ACHS SLIDING SCALE SQ Last administered on 03/17/17 22:13; Start 03/17/17 at 16:00 Oxycodone/ Acetaminophen 1 tab 1 tab Q6H PRN PO PAIN SCALE 5 TO 10; Start 03/17 at 15:45; Stop 03/17/17 at 15:56; Status DC Sodium Chloride (NS 500 ml Inj) 500 ml @ 500 mls/hr BOLUS ONCE IV Last administered on 03/17/17 15:45; Start 03/17/17 at 15:45; Stop 03/17/17 at 16:44 ; Status DC Acetaminophen (Tylenol) 325 mg Q4H PRN PO Fever; Start 03/17/17 at 15:45 Oxycodone HCl (Roxicodone) 5 mg Q6H PRN PO PAIN SCALE 5 TO 10 Last administered on 03/17/17 22:12; Start 03/17/17 at 16:00 Ondansetron HCl (Zofran Inj) 4 mg Q6H PRN IV PUSH NAUSEA; Start 03/17/17 at 19: 15 Ondansetron HCl 4 mg 4 mg NOW ONCE IV PUSH ; Start 03/17/17 at 19:15; Stop at 19:16; Status DC Pharmacy Profile Note 0 ml @ 0 mls/hr UNSCH OTHER ; Start 03/17/17 at 22:15 Vancomycin HCl 2000 mg/Sodium Chloride 500 ml @ 250 mls/hr DAILY@23 IV Last administered on 03/17/17 23:11; Start 03/17/17 at 23:00; Stop 03/18/17 at 02:00 ; Status DC Lactated Ringer's 1,000 ml @ 30 mls/hr Q24H PRN IV SEE LABEL COMMENTS; Start at 01:45; Stop 03/21/17 at 01:44 Sodium Chloride (NS 500 ml Inj) 500 ml @ 30 mls/hr [id number] PRN IV SEE LABEL COMMENTS; Start 03/18/17 at 01:45; Stop 03/21/17 at 01:44 Metoprolol Tartrate (Lopressor) 25 mg [employer]ACKJACK [employer] PRN PO SEE LABEL COMMENTS; Start 03/18/17 at 01:45; Stop 03/21/17 at 01:44 Povidone Iodine (Betadine 5% Antisepsis Kit) 1 applic [employer] PRN EACH NARE SEE LABEL COMMENTS; Start 03/18/17 at 01:45; Stop 03/21/17 at 01:44 Chlorhexidine Gluconate (Chlorhexidine 2% Cloth) 3 pack [employer] PRN TOPICAL SEE LABEL COMMENTS; Start 03/18/17 at 01:45; Stop 03/21/17 at 01:44 Insulin Human Regular (NovoLIN R INJ) See Protocol Table ... [employer]JACK [employer]OR PRN SQ SEE PROTOCOL TABLE; Start 03/18/17 at 01:45; Stop 03/21/17 at 01:44 A/P Assessment and Plan A/P sepsis due to pyelonephritis with nephrolithiasis and left hydronephrosis UC with gram negative yaneth continue with IV antibiotic- follow the cultures- monitor temps- CBC in am urology consult appreciated; plan for cystoscopy today. continue with pain control. hypertension ; continue lisinopril and norvasc- will monitor and adjust the regimen as needed. diabetes mellitus; accu-check with SSI hyperlipidemia; on statin DVT prophylaxis; subq Heparin- on hold for planned procedure. Brandon Clayton MD Mar 18, 2017 08:30
[2017-03-18] MEDS: LISINOPRIL 20 MG TAB PO SCH ×2 (08:34→21:26)
[2017-03-18] MEDS: SODIUM CHLORIDE 0.9% FLUSH 10 ML FLUSH IV FLUSH SCH ×2 (08:34→21:00)
[2017-03-18] MEDS: ONDANSETRON HCL 4 MG/2 ML VIAL IV PUSH PRN (08:34)
[2017-03-18] MEDS: SODIUM CHLOR 0.9% 1000 ML INJ 1,000 ML IV SCH ×2 (11:30→18:05)
[2017-03-18] MEDS ORDERED: ONDANSETRON HCL 4 MG/2 ML VIAL IV PUSH ONE (12:00)
[2017-03-18] MEDS ORDERED: PROPOFOL 200 MG/20 ML AMP IV ONE (12:00)
[2017-03-18] MEDS: VANCOMYCIN INJ 1,500 MG in SODIUM CHLORID 0.9% 500 ML INJ 500 ML IV SCH ×2 (15:00→15:47)
[2017-03-18] MEDS ORDERED: FAMOTIDINE 20 MG/2 ML VIAL ONE (16:02)
[2017-03-18] MEDS ORDERED: IOHEXOL 350 MG/ML 50 ML BTL (for RAD DIAG) OTHER ONE (17:02)
[2017-03-18] MEDS ORDERED: SUGAMMADEX SODIUM 200 MG/2 ML VIAL IV PUSH ONE ×2 (17:02)
--- NOTE | 2017-03-18 17:28 | PD.OP ---
Operative Report Date of Surgery: Mar 18, 2017 Preoperative Diagnosis: (1) Ureteral calculus, left Postoperative Diagnosis: (1) Ureteral calculus, left Procedure: Cystoscopy, left ureteroscopy, left retrograde pyelogram and left penitentiary ureteral stent placement Anesthesia: General Surgeon: Ananda Joaquin Gallery Assistant(s): None Operation and Findings: Indication for procedure: A very pleasant 51-year-old female with multiple bilateral renal calculi and multiple obstructing left distal ureteral calculi who presents now for cystoscopy, left ventricle pyelogram and left ureteral stent placement. Operative procedure in detail: Patient was brought to the operating room suite and placed supine on the cystoscopy table. She was next placed under general endotracheal and anesthesia. She was then prepped and draped in normal sterile fashion. After an appropriate timeout was undertaken I proceeded with cystoscopic evaluation utilizing the rigid cystoscope with a 20 [place]ese sheath and 30 lens. Both right and left ureteral orifices were correct anatomic position with clear reflux noted on the right and no reflux noted on the left. 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 I next attempted to pass a sensor 35 wire up the patient's left ureter however the wire kept coiling back upon itself due to the obstructing stones. The cystoscope was then exchanged for the self dilating ureteroscope and ureteroscopic evaluation was performed of the left distal ureter to facilitate passage of the wire. The scope was advanced approximately 2 cm from the ureteral orifice and multiple stones were visualized. The guidewire was then advanced around the stones and up into the left kidney. The ureteroscope was then exchanged for the rigid cystoscope and the guidewire was backloaded. A 5 [place]ese open-ended ureteral catheter was advanced over the wire approximately half-way up the ureter and the wire was withdrawn. There was purulent urine expressed from the open-ended catheter and a sample sent off to the left for culture and sensitivity. The guidewire was reintroduced and the open-ended ureteral catheter was exchanged for a 6 [place]ese 22 cm continuous churn buttermaker [place] stent. Once the stent was in proper position and the trailing string was removed. A 16 [place]ese 10 cc Mosley catheter was next placed and connected to gravity drainage. The patient tolerated the procedures without complications and was transferred to the PACU in satisfactory condition. Ananda Joaquin MD Mar 18, 2017 17:28
[2017-03-18] MEDS ORDERED: fentaNYL CITRATE 250 MCG/5 ML AMP ONE (17:49)
[2017-03-18] MEDS ORDERED: *ONDANSETRON 4 MG VIAL PERIprocedural Use ONLY ONE (17:54)
[2017-03-18] MEDS ORDERED: DO NOT ADM ANY ANTICOAGULANT DRUGS PRN (18:45)
[2017-03-18] MEDS: cefTRIAXone INJ 1,000 MG in SODIUM CHLORIDE 0.9% INJ 100 ML IV SCH (21:22)
[2017-03-18] MEDS: PRAVASTATIN SOD 40 MG TAB PO SCH (21:26)
[2017-03-19] VITALS (7 sets, daily range): BP systolic 158–187; BP diastolic 70–92; PULSE 78–100; RESP 16–20; TEMP 97.7–98.5; O2SAT 91–96
[2017-03-19] MEDS: HEPARIN SODIUM - SQ 10,000 UNITS/ML VIAL SQ SCH ×3 (04:58→23:17)
[2017-03-19] MEDS: INSULIN ASPART SUPPLEMENTAL SCALE SQ SCH ×4 (06:14→23:06)
[2017-03-19 07:35] LABS: AUTOMATED NEUTROPHIL # 16.5 TH/MM3 (1.8-7.7); BASOPHIL % 0.2 % (0.0-2.0); EOSINOPHIL # 0.3 TH/MM3 (0-0.4); EOSINOPHIL % 1.5 % (0.0-4.0); HEMATOCRIT 33.6 % (35.0-46.0); HEMO FLAGS DIFF FINAL; LYMPHOCYTE # 1.2 TH/MM3 (1.0-4.8); MEAN CORPUSCULAR HEMOGLOBIN 26.5 PG (27.0-34.0); MONO % 7.7 % (0.0-8.0); NEUT % 84.6 % (16.0-70.0); PLATELET COUNT 194 TH/MM3 (150-450); RED BLOOD COUNT 4.05 MIL/MM3 (4.00-5.30); RED CELL DISTRIBUTION WIDTH 16.4 % (11.6-17.2); WHITE BLOOD COUNT 19.6 TH/MM3 (4.0-11.0)
[2017-03-19] MEDS: LISINOPRIL 20 MG TAB PO SCH ×2 (07:59→23:16)
[2017-03-19] MEDS: VANCOMYCIN INJ 1,500 MG in SODIUM CHLORID 0.9% 500 ML INJ 500 ML IV SCH (08:00)
[2017-03-19] MEDS: SODIUM CHLOR 0.9% 1000 ML INJ 1,000 ML IV SCH ×2 (08:00→17:45)
[2017-03-19] MEDS: SODIUM CHLORIDE 0.9% FLUSH 10 ML FLUSH IV FLUSH SCH ×2 (08:00→23:14)
--- NOTE | 2017-03-19 11:53 | HHI.PR ---
Subjective Remarks looks and feels better today. afebrile. pain is better. Objective Vitals Vital Signs Date Time Temp Pulse Resp B/P Pulse Ox O2 Delivery O2 Flow Rate FiO2 03/19/17 10:07 18 03/19/17 09:55 91 Room Air 03/19/17 08:00 97.7 84 20 169/72 91 03/19/17 04:00 158/70 03/19/17 04:00 98.5 96 20 160/72 94 03/19/17 00:00 98.3 93 20 160/72 96 03/18/17 20:00 Room Air 03/18/17 20:00 98.0 93 20 170/86 97 03/18/17 20:00 89 03/18/17 19:00 98.0 99 20 179/86 90 03/18/17 18:30 98.2 87 24 155/70 94 Nasal Cannula 3 03/18/17 18:15 86 24 167/74 94 Nasal Cannula 3 03/18/17 18:00 96 24 160/73 95 Nasal Cannula 3 03/18/17 17:45 77 24 134/72 96 Nasal Cannula 3 03/18/17 17:41 98.5 73 20 141/73 95 Simple Mask 6 03/18/17 15:00 98.2 64 18 158/89 94 03/18/17 15:00 94 Room Air 03/18/17 15:00 91 03/18/17 14:13 98 03/18/17 13:31 96 03/18/17 12:00 98 I/O 03/18/17 03/18/17 03/18/17 03/19/17 03/19/17 03/19/17 06:59 14:59 22:59 06:59 14:59 22:59 Intake Total 1810 ml 2180 ml 903 ml Output Total 800 ml 1915 ml 1200 ml Balance 1010 ml 265 ml -297 ml Intake Oral 480 ml 360 ml 240 ml IV Total 1330 ml 1620 ml 663 ml Other 200 ml Output Urine Total 800 ml 1910 ml 1200 ml Estimated Blood Loss 5 ml # Bowel Movements 0 0 Result Diagram: 03/19/17 0601 03/19/17 0601 Imaging Last Impressions Abdomen/Pelvis CT 03/17/17 0000 Signed Impressions: Service Date/Time: [place], March 17, 2017 03:45 - CONCLUSION: 1. There are multiple stones lined in the distal left ureter extending to the ureterovesical junction measuring up to 8 mm. This is causing mild left hydronephrosis and hydroureter and perinephric inflammation. 2. There are innumerable stones within the kidneys bilaterally measuring up to 10 mm. 3. There is a small amount of air within the left intrarenal collecting system. Bucky Nesbitt MD Objective Remarks GENERAL: This is a well-nourished, well-developed patient, in no apparent distress. CARDIOVASCULAR: Regular rate and regular rhythm without murmurs, gallops, or rubs. RESPIRATORY: Clear to auscultation. Breath sounds equal bilaterally. No wheezes , rales, or rhonchi. GASTROINTESTINAL: Abdomen soft, left flank tenderness, nondistended. Normal, active bowel sounds MUSCULOSKELETAL: Extremities without clubbing, cyanosis, or edema. NEURO: Alert & Oriented x4 to person, place, time, situation. Moves all ext x4 Medications and IVs Current Medications Ondansetron HCl 4 mg 4 mg ONCE ONCE IVP Last administered on 03/16/17 19:40; Start 03/16/17 at 19:00; Stop 03/16/17 at 19:02; Status DC Sodium Chloride (NS 1000 ml Inj) 1,000 ml @ 1,000 mls/hr Q1H IV Last administered on 03/16/17 19:39; Start 03/16/17 at 18:59; Stop 03/16/17 at 19:58 ; Status DC Sodium Chloride (NS Flush) 2 ml UNSCH PRN IV FLUSH FLUSH AFTER USING IV ACCESS Last administered on 03/16/17 19:41; Start 03/16/17 at 19:00; Stop 03/16/17 at 21:31; Status DC Ketorolac Tromethamine (Toradol Inj) 30 mg ONCE ONCE IVP Last administered on 03/16/17 19:40; Start 03/16/17 at 19:00; Stop 03/16/17 at 19:02; Status DC Lisinopril 20 mg 20 mg ONCE ONCE PO Last administered on 03/16/17 19:41; Start 03/16/17 at 19:00; Stop 03/16/17 at 19:02; Status DC Ceftriaxone Sodium 1000 mg/ Sodium Chloride 100 ml @ 200 mls/hr ONCE ONCE IV Last administered on 03/16/17 20:34; Start 03/16/17 at 20:15; Stop 03/16/17 at 20:44; Status DC Sodium Chloride (NS 1000 ml Inj) 1,000 ml @ 999 mls/hr BOLUS ONCE IV Last administered on 03/16/17 20:34; Start 03/16/17 at 20:30; Stop 03/16/17 at 21:30 ; Status DC Sodium Chloride (NS Flush) 2 ml UNSCH PRN IV FLUSH FLUSH AFTER USING IV ACCESS ; Start 03/16/17 at 21:30 Sodium Chloride (NS Flush) 2 ml BID IV FLUSH Last administered on 03/17/17 09: 14; Start 03/17/17 at 09:00 Naloxone HCl 0.4 mg 0.4 mg UNSCH PRN IV SEE LABEL COMMENTS; Start 03/16/17 at 21:30 Ceftriaxone Sodium/Sodium Chloride (Rocephin Inj/NS Inj) 100 ml @ 200 mls/hr Q24H IV Last administered on 03/18/17 21:22; Start 03/17/17 at 20:00 Amlodipine Besylate (Norvasc) 10 mg DAILY PO Last administered on 03/19/17 07: 59; Start 03/17/17 at 09:00 Lisinopril (Prinivil) 20 mg BID PO Last administered on 03/19/17 07:59; Start 03/17/17 at 09:00 Pravastatin Sodium (Pravachol) 80 mg HS PO CM Last administered on 03/18/17 21: 26; Start 03/17/17 at 21:00 Diatrizoate Meglum/ Diatrizoate Sod 18 ml 18 ml UNSCH X1 PO Last administered on 03/17/17 02:48; Start 03/17/17 at 02:30; Stop 03/17/17 at 03:30; Status DC Sodium Chloride (NS 1000 ml Inj) 1,000 ml @ 100 mls/hr Q10H IV Last administered on 03/19/17 08:00; Start 03/17/17 at 05:30 Morphine Sulfate (Morphine Inj) 2 mg Q3H PRN IV PUSH pain >5 Last administered on 03/17/17 10:21; Start 03/17/17 at 06:00; Stop 03/17/17 at 15:34; Status DC Heparin Sodium (Porcine) (Heparin Inj) 5,000 units Q8HR SQ Last administered on 03/17/17 22:12; Start 03/17/17 at 14:00 Insulin Aspart (NovoLOG SUPPLEMENTAL SCALE) 1 ACHS SLIDING SCALE SQ Last administered on 03/19/17 06:14; Start 03/17/17 at 16:00 Oxycodone/ Acetaminophen 1 tab 1 tab Q6H PRN PO PAIN SCALE 5 TO 10; Start 03/17 at 15:45; Stop 03/17/17 at 15:56; Status DC Sodium Chloride (NS 500 ml Inj) 500 ml @ 500 mls/hr BOLUS ONCE IV Last administered on 03/17/17 15:45; Start 03/17/17 at 15:45; Stop 03/17/17 at 16:44 ; Status DC Acetaminophen (Tylenol) 325 mg Q4H PRN PO Fever; Start 03/17/17 at 15:45 Oxycodone HCl (Roxicodone) 5 mg Q6H PRN PO PAIN SCALE 5 TO 10 Last administered on 03/19/17 07:59; Start 03/17/17 at 16:00 Ondansetron HCl (Zofran Inj) 4 mg Q6H PRN IV PUSH NAUSEA Last administered on 08:34; Start 03/17/17 at 19:15 Ondansetron HCl 4 mg 4 mg NOW ONCE IV PUSH ; Start 03/17/17 at 19:15; Stop at 19:16; Status DC Pharmacy Profile Note 0 ml @ 0 mls/hr UNSCH OTHER ; Start 03/17/17 at 22:15 Vancomycin HCl 2000 mg/Sodium Chloride 500 ml @ 250 mls/hr DAILY@23 IV Last administered on 03/17/17 23:11; Start 03/17/17 at 23:00; Stop 03/18/17 at 02:00 ; Status DC Lactated Ringer's 1,000 ml @ 30 mls/hr Q24H PRN IV SEE LABEL COMMENTS; Start at 01:45; Stop 03/18/17 at 18:37; Status DC Sodium Chloride (NS 500 ml Inj) 500 ml @ 30 mls/hr [id number] PRN IV SEE LABEL COMMENTS; Start 03/18/17 at 01:45; Stop 03/18/17 at 18:37; Status DC Metoprolol Tartrate (Lopressor) 25 mg RADIOLOGIC TECHNOLOGY INSTRUCTOR PRN PO SEE LABEL COMMENTS; Start 03/18/17 at 01:45; Stop 03/18/17 at 18:37; Status DC Povidone Iodine (Betadine 5% Antisepsis Kit) 1 applic RADIOLOGIC TECHNOLOGY INSTRUCTOR PRN EACH NARE SEE LABEL COMMENTS; Start 03/18/17 at 01:45; Stop 03/18/17 at 18:37; Status DC Chlorhexidine Gluconate (Chlorhexidine 2% Cloth) 3 pack RADIOLOGIC TECHNOLOGY INSTRUCTOR PRN TOPICAL SEE LABEL COMMENTS; Start 03/18/17 at 01:45; Stop 03/18/17 at 18:37; Status DC Insulin Human Regular See Protocol Table ... RADIOLOGIC TECHNOLOGY INSTRUCTOR PRN SQ SEE PROTOCOL TABLE ; Start 03/18/17 at 01:45; Stop 03/18/17 at 18:37; Status DC Vancomycin HCl/ Sodium Chloride (Vancomycin Inj/ NS 500 ml Inj) 515 ml @ 250 mls/hr Q18H IV Last administered on 03/19/17 08:00; Start 03/18/17 at 15:00 Miscellaneous Information SPECIFIC LAB TO BE DRAWN:VANCOMYCIN TROUGH DATE TO... ONCE ONCE .XX ; Start 03/20/17 at 02:45; Stop 03/20/17 at 02:46 Famotidine (Pepcid Inj) 20 mg STK-MED ONCE .ROUTE ; Start 03/18/17 at 16:02; Stop 03/18/17 at 16:03; Status DC Sugammadex Sodium (Bridion Inj) 200 mg STK-MED ONCE IV PUSH ; Start 03/18/17 at 17:02; Stop 03/18/17 at 17:03; Status DC Fentanyl Citrate (fentaNYL INJ) 250 mcg STK-MED ONCE .ROUTE ; Start 03/18/17 at 17:49; Stop 03/18/17 at 17:50; Status DC Ondansetron HCl (*ZOFRAN INJ PERIprocedural ONLY) 4 mg STK-MED ONCE .ROUTE Last administered on 03/18/17 17:54; Start 03/18/17 at 17:54; Stop 03/18/17 at 17:55; Status DC Iohexol (Omnipaque 350 Inj) 50 ml STK-MED ONCE OTHER Last administered on t 17:02; Start 03/18/17 at 17:02; Stop 03/18/17 at 18:35; Status DC Miscellaneous Information ALL NURSING DEPARTME... 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 hypertension ; continue lisinopril and norvasc- will monitor and adjust the regimen as needed. diabetes mellitus; accu-check with SSI hyperlipidemia; on statin DVT prophylaxis; subq Heparin- on hold for planned procedure. Discharge Planning dc home tomorrow if cleared by urology and remains stable. Brandon Clayton MD Mar 19, 2017 11:52
--- NOTE | 2017-03-19 15:02 | HHI.PR ---
Subjective Patient symptoms today Sitting up and eating lunch Denies complaints Tolerating stent well Objective Vital Signs Vital Signs Date Time Temp Pulse Resp B/P Pulse Ox O2 Delivery O2 Flow Rate FiO2 03/19/17 12:00 97.7 100 20 160/86 91 03/19/17 11:48 91 Room Air 03/19/17 10:07 18 03/19/17 09:55 91 Room Air 03/19/17 08:00 97.7 84 20 169/72 91 03/19/17 04:00 158/70 03/19/17 04:00 98.5 96 20 160/72 94 03/19/17 00:00 98.3 93 20 160/72 96 03/18/17 20:00 Room Air 03/18/17 20:00 98.0 93 20 170/86 97 03/18/17 20:00 89 03/18/17 19:00 98.0 99 20 179/86 90 03/18/17 18:30 98.2 87 24 155/70 94 Nasal Cannula 3 03/18/17 18:15 86 24 167/74 94 Nasal Cannula 3 03/18/17 18:00 96 24 160/73 95 Nasal Cannula 3 03/18/17 17:45 77 24 134/72 96 Nasal Cannula 3 03/18/17 17:41 98.5 73 20 141/73 95 Simple Mask 6 Intake & Output 03/19/17 03/19/17 07:00 19:00 Intake Total 1663 ml 480 ml Output Total 2200 ml Balance -537 ml 480 ml Intake Oral 480 ml 480 ml IV Total 1183 ml Output Urine Total 2200 ml # Voids 3 # Bowel Movements 2 Result Diagram: 03/19/17 0603/19/17 0601 Objective Remarks Mosley catheter draining yellow urine Medications and IVs Current Medications Medications (Trade) Dose Ordered Sig/Rohit Route Start Time Stop Time Status Last Admin (NS Flush) 2 ml UNSCH PRN IV FLUSH 03/16/17 21:30 (NS Flush) 2 ml BID IV FLUSH 03/17/17 09:00 03/17/17 09:14 Naloxone HCl 0.4 mg 0.4 mg UNSCH PRN IV 03/16/17 21:30 (Rocephin Inj/NS Inj) 100 ml @ 200 mls/hr Q24H IV 03/17/17 20:00 03/18/17 21:22 (Norvasc) 10 mg DAILY PO 03/17/17 09:00 03/19/17 07:59 (Prinivil) 20 mg BID PO 03/17/17 09:00 03/19/17 07:59 Pravastatin Sodium 80 mg 80 mg HS PO 03/17/17 21:00 03/18/17 21:26 (NS 1000 ml Inj) 1,000 ml @ 100 mls/hr Q10H IV 03/17/17 05:30 03/19/17 08:00 (Heparin Inj) 5,000 units Q8HR SQ 03/17/17 14:00 03/17/17 22:12 (Tylenol) 325 mg Q4H PRN PO 03/17/17 15:45 (Roxicodone) 5 mg Q6H PRN PO 03/17/17 16:00 03/19/17 07:59 (Zofran Inj) 4 mg Q6H PRN IV PUSH 03/17/17 19:15 03/18/17 08:34 Miscellaneous Information SPECIFIC LAB TO BE DRAWN:VANCOMYCIN TROUGH DATE TO... ONCE ONCE .XX 03/20/17 02:45 03/20/17 02:46 Miscellaneous Information ALL NURSING DEPARTME... UNSCH PRN .XX 03/18/17 18:45 03/19/17 18:44 Assessment and Plan Assessment and Plan UROLOGIC IMPRESSION: 1. Multiple obstructing left distal ureteral calculi status post left longterm ureteral stent placement 2. Multiple bilateral renal calculi RECOMMENDATIONS: #1 okay to discharge home when medically stable on oral antibiotics #2 please arrange follow up office visit with me within the next 2-3 weeks for reassessment [phone] Ananda Joaquin MD Mar 19, 2017 15:02
[2017-03-19] MEDS: PRAVASTATIN SOD 40 MG TAB PO SCH (21:00)
[2017-03-19] MEDS: cefTRIAXone INJ 1,000 MG in SODIUM CHLORIDE 0.9% INJ 100 ML IV SCH (23:08)
[2017-03-19] MEDS: ONDANSETRON HCL 4 MG/2 ML VIAL IV PUSH PRN (23:11)
[2017-03-20] MEDS ORDERED: cloNIDine HCL 0.1 MG TAB PO ONE (01:00)
[2017-03-20] MEDS ORDERED: PHARMACY ORDERED LAB ONE (02:45)
[2017-03-20 04:30] VITALS: BP 163/79; PULSE 94; RESP 16; TEMP 97.8; O2SAT 95
[2017-03-20] MEDS: SODIUM CHLOR 0.9% 1000 ML INJ 1,000 ML IV SCH (04:32)
[2017-03-20] MEDS: INSULIN ASPART SUPPLEMENTAL SCALE SQ SCH (06:02)
[2017-03-20] MEDS: HEPARIN SODIUM - SQ 10,000 UNITS/ML VIAL SQ SCH (06:02)
[2017-03-20 06:54] LABS: AUTOMATED NEUTROPHIL # 9.3 TH/MM3 (1.8-7.7); BASOPHIL # 0.1 TH/MM3 (0-0.2); EOSINOPHIL # 0.5 TH/MM3 (0-0.4); EOSINOPHIL % 3.9 % (0.0-4.0); HEMATOCRIT 33.3 % (35.0-46.0); LYMPH % 9.6 % (9.0-44.0); LYMPHOCYTE # 1.2 TH/MM3 (1.0-4.8); MEAN CELL VOLUME 83.5 FL (80.0-100.0); MEAN CORPUSCULAR HEMOGLOBIN 26.5 PG (27.0-34.0); MEAN CORPUSCULAR HGB CONC 31.7 % (32.0-36.0); NEUT % 75.5 % (16.0-70.0); PLATELET COUNT 214 TH/MM3 (150-450); RED BLOOD COUNT 3.98 MIL/MM3 (4.00-5.30); RED CELL DISTRIBUTION WIDTH 16.4 % (11.6-17.2); WHITE BLOOD COUNT 12.3 TH/MM3 (4.0-11.0)
[2017-03-20 07:21] LABS: HEMO FLAGS AUTO DIFF
[2017-03-20 08:00] VITALS: BP 167/80; PULSE 83; RESP 18; TEMP 98.3; O2SAT 96
[2017-03-20] MEDS: LISINOPRIL 20 MG TAB PO SCH (08:12)
[2017-03-20] MEDS: SODIUM CHLORIDE 0.9% FLUSH 10 ML FLUSH IV FLUSH SCH (08:13)
[2017-03-20 08:39] LABS: BANDS 4 % (0-6); BASOPHILS 1 % (0-2); CORRECTED NUCLEATED RBC 1 /100 WBC (0-0); EOSINOPHILS 4 % (0-4); METAMYELOCYTES 2 % (0-1); NEUTROPHIL # MANUAL DIFF 9.6 TH/MM3 (1.8-7.7); PLASMA CELLS 1 % (0-0); POLYS (SEG NEUTROPHILS) 72 % (16-70); WBC DIFF SAMPLE 100
[2017-03-20 08:41] LABS: PLATELET ESTIMATE SMEAR NORMAL (NORMAL); PLATELET MORPHOLOGY NORMAL (NORMAL); SCAN/DIFF FINAL DIFF MANUAL
[2017-03-20 10:33] VITALS: O2SAT 92
[2017-03-20 12:00] VITALS: BP 160/74; PULSE 81; RESP 18; TEMP 97.9; O2SAT 96
--- NOTE | 2017-03-20 12:06 | HHI.PR ---
Subjective Remarks resting in no acute distress. pain has much improved. afebrile. Objective Vitals Vital Signs Date Time Temp Pulse Resp B/P Pulse Ox O2 Delivery O2 Flow Rate FiO2 03/20/17 04:30 97.8 94 16 163/79 95 03/19/17 23:45 98.5 91 16 187/91 93 178/90 03/19/17 20:35 98.1 100 16 170/84 96 168/92 03/19/17 20:00 Room Air 03/19/17 18:57 93 Room Air 03/19/17 18:53 18 03/19/17 16:00 98.0 78 20 158/75 93 I/O 03/19/17 03/19/17 03/19/17 03/20/17 03/20/17 03/20/17 07:00 15:00 23:00 07:00 15:00 23:00 Intake Total 903 ml 480 ml 2154 ml 637 ml Output Total 1200 ml 2550 ml 900 ml Balance -297 ml 480 ml -396 ml -263 ml Intake Oral 240 ml 480 ml 360 ml 0 ml IV Total 663 ml 1794 ml 637 ml Output Urine Total 1200 ml 2550 ml 900 ml # Voids 3 # Bowel Movements 2 2 0 Result Diagram: 03/20/17 0615 03/19/17 0601 Imaging Last Impressions Abdomen/Pelvis CT 03/17/17 0000 Signed Impressions: Service Date/Time: Friday, March 17, 2017 03:45 - CONCLUSION: 1. There are multiple stones lined in the distal left ureter extending to the ureterovesical junction measuring up to 8 mm. This is causing mild left hydronephrosis and hydroureter and perinephric inflammation. 2. There are innumerable stones within the kidneys bilaterally measuring up to 10 mm. 3. There is a small amount of air within the left intrarenal collecting system. Bucky Nesbitt MD Objective Remarks GENERAL: This is a well-nourished, well-developed patient, in no apparent distress. CARDIOVASCULAR: Regular rate and regular rhythm without murmurs, gallops, or rubs. RESPIRATORY: Clear to auscultation. Breath sounds equal bilaterally. No wheezes , rales, or rhonchi. GASTROINTESTINAL: Abdomen soft, left flank tenderness has much improved, nondistended. Normal, active bowel sounds MUSCULOSKELETAL: Extremities without clubbing, cyanosis, or edema. NEURO: Alert & Oriented x4 to person, place, time, situation. Moves all ext x4 Procedures Cystoscopy, left ureteroscopy, left retrograde pyelogram and left intermediate ureteral stent placement Medications and IVs Current Medications Ondansetron HCl 4 mg 4 mg ONCE ONCE IVP Last administered on 03/16/17 19:40; Start 03/16/17 at 19:00; Stop 03/16/17 at 19:02; Status DC Sodium Chloride (NS 1000 ml Inj) 1,000 ml @ 1,000 mls/hr Q1H IV Last administered on 03/16/17 19:39; Start 03/16/17 at 18:59; Stop 03/16/17 at 19:58 ; Status DC Sodium Chloride (NS Flush) 2 ml UNSCH PRN IV FLUSH FLUSH AFTER USING IV ACCESS Last administered on 03/16/17 19:41; Start 03/16/17 at 19:00; Stop 03/16/17 at 21:31; Status DC Ketorolac Tromethamine (Toradol Inj) 30 mg ONCE ONCE IVP Last administered on 03/16/17 19:40; Start 03/16/17 at 19:00; Stop 03/16/17 at 19:02; Status DC Lisinopril 20 mg 20 mg ONCE ONCE PO Last administered on 03/16/17 19:41; Start 03/16/17 at 19:00; Stop 03/16/17 at 19:02; Status DC Ceftriaxone Sodium 1000 mg/ Sodium Chloride 100 ml @ 200 mls/hr ONCE ONCE IV Last administered on 03/16/17 20:34; Start 03/16/17 at 20:15; Stop 03/16/17 at 20:44; Status DC Sodium Chloride (NS 1000 ml Inj) 1,000 ml @ 999 mls/hr BOLUS ONCE IV Last administered on 03/16/17 20:34; Start 03/16/17 at 20:30; Stop 03/16/17 at 21:30 ; Status DC Sodium Chloride (NS Flush) 2 ml UNSCH PRN IV FLUSH FLUSH AFTER USING IV ACCESS ; Start 03/16/17 at 21:30 Sodium Chloride (NS Flush) 2 ml BID IV FLUSH Last administered on 03/19/17 23: 14; Start 03/17/17 at 09:00 Naloxone HCl 0.4 mg 0.4 mg UNSCH PRN IV SEE LABEL COMMENTS; Start 03/16/17 at 21:30 Ceftriaxone Sodium/Sodium Chloride (Rocephin Inj/NS Inj) 100 ml @ 200 mls/hr Q24H IV Last administered on 03/19/17 23:08; Start 03/17/17 at 20:00 Amlodipine Besylate (Norvasc) 10 mg DAILY PO Last administered on 03/20/17 08: 12; Start 03/17/17 at 09:00 Lisinopril (Prinivil) 20 mg BID PO Last administered on 03/20/17 08:12; Start 03/17/17 at 09:00 Pravastatin Sodium (Pravachol) 80 mg HS PO CM Last administered on 03/18/17 21: 26; Start 03/17/17 at 21:00 Diatrizoate Meglum/ Diatrizoate Sod 18 ml 18 ml UNSCH X1 PO Last administered on 03/17/17 02:48; Start 03/17/17 at 02:30; Stop 03/17/17 at 03:30; Status DC Sodium Chloride (NS 1000 ml Inj) 1,000 ml @ 100 mls/hr Q10H IV Last administered on 03/20/17 04:32; Start 03/17/17 at 05:30 Morphine Sulfate (Morphine Inj) 2 mg Q3H PRN IV PUSH pain >5 Last administered on 03/17/17 10:21; Start 03/17/17 at 06:00; Stop 03/17/17 at 15:34; Status DC Heparin Sodium (Porcine) (Heparin Inj) 5,000 units Q8HR SQ Last administered on 03/20/17 06:02; Start 03/17/17 at 14:00 Insulin Aspart (NovoLOG SUPPLEMENTAL SCALE) 1 ACHS SLIDING SCALE SQ Last administered on 03/19/17 23:06; Start 03/17/17 at 16:00 Oxycodone/ Acetaminophen 1 tab 1 tab Q6H PRN PO PAIN SCALE 5 TO 10; Start 03/17 at 15:45; Stop 03/17/17 at 15:56; Status DC Sodium Chloride (NS 500 ml Inj) 500 ml @ 500 mls/hr BOLUS ONCE IV Last administered on 03/17/17 15:45; Start 03/17/17 at 15:45; Stop 03/17/17 at 16:44 ; Status DC Acetaminophen (Tylenol) 325 mg Q4H PRN PO Fever; Start 03/17/17 at 15:45 Oxycodone HCl (Roxicodone) 5 mg Q6H PRN PO PAIN SCALE 5 TO 10 Last administered on 03/20/17 08:17; Start 03/17/17 at 16:00 Ondansetron HCl (Zofran Inj) 4 mg Q6H PRN IV PUSH NAUSEA Last administered on 23:11; Start 03/17/17 at 19:15 Ondansetron HCl 4 mg 4 mg NOW ONCE IV PUSH ; Start 03/17/17 at 19:15; Stop at 19:16; Status DC Pharmacy Profile Note 0 ml @ 0 mls/hr UNSCH OTHER ; Start 03/17/17 at 22:15; Stop 03/19/17 at 11:54; Status DC Vancomycin HCl 2000 mg/Sodium Chloride 500 ml @ 250 mls/hr DAILY@23 IV Last administered on 03/17/17 23:11; Start 03/17/17 at 23:00; Stop 03/18/17 at 02:00 ; Status DC Lactated Ringer's 1,000 ml @ 30 mls/hr Q24H PRN IV SEE LABEL COMMENTS; Start at 01:45; Stop 03/18/17 at 18:37; Status DC Sodium Chloride (NS 500 ml Inj) 500 ml @ 30 mls/hr [id number] PRN IV SEE LABEL COMMENTS; Start 03/18/17 at 01:45; Stop 03/18/17 at 18:37; Status DC Metoprolol Tartrate (Lopressor) 25 mg NONPROFIT DIRECTOR PRN PO SEE LABEL COMMENTS; Start 03/18/17 at 01:45; Stop 03/18/17 at 18:37; Status DC Povidone Iodine (Betadine 5% Antisepsis Kit) 1 applic NONPROFIT DIRECTOR PRN EACH NARE SEE LABEL COMMENTS; Start 03/18/17 at 01:45; Stop 03/18/17 at 18:37; Status DC Chlorhexidine Gluconate (Chlorhexidine 2% Cloth) 3 pack NONPROFIT DIRECTOR PRN TOPICAL SEE LABEL COMMENTS; Start 03/18/17 at 01:45; Stop 03/18/17 at 18:37; Status DC Insulin Human Regular See Protocol Table ... NONPROFIT DIRECTOR PRN SQ SEE PROTOCOL TABLE ; Start 03/18/17 at 01:45; Stop 03/18/17 at 18:37; Status DC Vancomycin HCl/ Sodium Chloride (Vancomycin Inj/ NS 500 ml Inj) 515 ml @ 250 mls/hr Q18H IV Last administered on 03/19/17 08:00; Start 03/18/17 at 15:00; Stop 03/19/17 at 11:54; Status DC Miscellaneous Information SPECIFIC LAB TO BE DRAWN:VANCOMYCIN TROUGH DATE TO... ONCE ONCE .XX ; Start 03/20/17 at 02:45; Stop 03/20/17 at 02:46; Status Cancel Famotidine (Pepcid Inj) 20 mg STK-MED ONCE .ROUTE ; Start 03/18/17 at 16:02; Stop 03/18/17 at 16:03; Status DC Sugammadex Sodium (Bridion Inj) 200 mg STK-MED ONCE IV PUSH ; Start 03/18/17 at 17:02; Stop 03/18/17 at 17:03; Status DC Fentanyl Citrate (fentaNYL INJ) 250 mcg STK-MED ONCE .ROUTE ; Start 03/18/17 at 17:49; Stop 03/18/17 at 17:50; Status DC Ondansetron HCl (*ZOFRAN INJ PERIprocedural ONLY) 4 mg STK-MED ONCE .ROUTE Last administered on 03/18/17 17:54; Start 03/18/17 at 17:54; Stop 03/18/17 at 17:55; Status DC Iohexol (Omnipaque 350 Inj) 50 ml STK-MED ONCE OTHER Last administered on 17:02; Start 03/18/17 at 17:02; Stop 03/18/17 at 18:35; Status DC Miscellaneous Information ALL NURSING DEPARTME... UNSCH PRN .XX SEE LABEL COMMENTS; Start 03/18/17 at 18:45; Stop 03/19/17 at 18:44; Status DC Clonidine (Catapres) 0.1 mg ONCE ONCE PO Last administered on 03/20/17 01:09 ; Start 03/20/17 at 01:00; Stop 03/20/17 at 01:03; Status DC A/P Assessment and Plan A/P sepsis due to pyelonephritis with nephrolithiasis and left hydronephrosis- resolved. UC with e-coli switch to po antibiotic. 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 hypertension ; continue lisinopril and norvasc- will monitor and adjust the regimen as needed. diabetes mellitus; accu-check with SSI hyperlipidemia; on statin Discharge Planning dc home today with f/u by pcp and urology. see med list. d/w the patient. Brandon Clayton MD Mar 20, 2017 12:06
[2017-03-20] MEDS ORDERED: PRIN20TA2 PO (12:09)
[2017-03-20] MEDS ORDERED: NORC5TAB PO (12:09)
[2017-03-20] MEDS ORDERED: CIPR-9 PO (12:09)
--- NOTE | 2017-03-20 12:09 | HHI.DCPOC ---
Discharge Care Plan Diagnosis: (1) Sepsis (2) Ureteral calculus, left Your Health Problems Are: Urinary Difficulties Chronic Pain Goals to Promote Your Health * To prevent worsening of your condition and complications * To maintain your health at the optimal level Directions to Meet Your Goals Take your medications as prescribed Follow your dietary instruction Follow activity as directed Keep your appointments as scheduled Take your immunizations and boosters as scheduled If your symptoms worsen call your PCP, if no PCP go to Urgent Care Center or Emergency Room Smoking is Dangerous to Your Health. Avoid second hand smoke Call the 24-hour hour crisis hotline for domestic abuse at Brandon Clayton MD Mar 20, 2017 12:09
--- NOTE | 2017-03-20 12:10 | HHI.DS ---
Discharge Summary Admission Date Mar 16, 2017 at 21:33 Discharge Date: Mar 20, 2017 Admitting Diagnosis Sepsis/UTI/HTN (1) Ureteral calculus, left ICD Code: N20.1 Diagnosis: Principal (2) Sepsis ICD Code: A41.9 Diagnosis: Principal Procedures Cystoscopy, left ureteroscopy, left retrograde pyelogram and left terminal carman ureteral stent placement Brief History - From Admission pain in right flank and across the abdomen just started yesterday am was vomiting - about 4 x no black or red color vomit no burning or pain on urination went to restroom often than normal but not diarrhea had chills and shaking so daughter called 911 no cough no fever had hysterectomy prior, but no other abdominal sx except c section had hx of renal stone removed denies other symptoms such as chest pain/palpitations/shortness of breath/focal weakness. Denies any hematemesis/hematochezia/melena/hematuria. CBC/BMP: 03/20/17 0615 03/19/17 0601 Significant Findings Laboratory Tests Test 03/17/17 03/18/17 03/19/17 03/20/17 19:00 03:35 06:01 06:15 Lactic Acid Level 2.7 mmol/L (0.4-2.0) White Blood Count 21.6 TH/MM3 19.6 TH/MM3 12.3 TH/MM3 (4.0-11.0) (4.0-11.0) (4.0-11.0) Red Blood Count 3.92 MIL/MM3 3.98 MIL/MM3 (4.00-5.30) (4.00-5.30) Hemoglobin 10.2 GM/DL 10.7 GM/DL 10.5 GM/DL (11.6-15.3) (11.6-15.3) (11.6-15.3) Hematocrit 32.7 % 33.6 % 33.3 % (35.0-46.0) (35.0-46.0) (35.0-46.0) Mean Corpuscular Hemoglobin 26.2 PG 26.5 PG 26.5 PG (27.0-34.0) (27.0-34.0) (27.0-34.0) Mean Corpuscular Hemoglobin 31.4 % 31.7 % Concent (32.0-36.0) (32.0-36.0) Neutrophils (%) (Auto) 87.7 % 84.6 % 75.5 % (16.0-70.0) (16.0-70.0) (16.0-70.0) Lymphocytes (%) (Auto) 5.2 % 6.0 % (9.0-44.0) (9.0-44.0) Neutrophils # (Auto) 19.0 TH/MM3 16.5 TH/MM3 9.3 TH/MM3 (1.8-7.7) (1.8-7.7) (1.8-7.7) Monocytes # (Auto) 1.4 TH/MM3 1.5 TH/MM3 1.2 TH/MM3 (0-0.9) (0-0.9) (0-0.9) Creatinine 1.10 MG/DL 1.01 MG/DL (0.50-1.00) (0.50-1.00) Estimat Glomerular Filtration 63 ML/MIN (>89) 69 ML/MIN (>89) Rate Random Glucose 167 MG/DL (74-106) Calcium Level 8.4 MG/DL (8.5-10.1) Monocytes (%) (Auto) 10.0 % (0.0-8.0) Eosinophils # (Auto) 0.5 TH/MM3 (0-0.4) Neutrophils % (Manual) 72 % (16-70) Lymphocytes % 6 % (9-44) Monocytes % 10 % (0-8) Neutrophils # (Manual) 9.6 TH/MM3 (1.8-7.7) Metamyelocytes 2 % (0-1) Nucleated Red Blood Cells 1 /100 WBC (0-0) Plasma Cells 1 % (0-0) Imaging Last Impressions Abdomen/Pelvis CT 03/17/17 0000 Signed Impressions: Service Date/Time: Friday, March 17, 2017 03:45 - CONCLUSION: 1. There are multiple stones lined in the distal left ureter extending to the ureterovesical junction measuring up to 8 mm. This is causing mild left hydronephrosis and hydroureter and perinephric inflammation. 2. There are innumerable stones within the kidneys bilaterally measuring up to 10 mm. 3. There is a small amount of air within the left intrarenal collecting system. Bucky Nesbitt MD PE at Discharge GENERAL: This is a well-nourished, well-developed patient, in no apparent distress. CARDIOVASCULAR: Regular rate and regular rhythm without murmurs, gallops, or rubs. RESPIRATORY: Clear to auscultation. Breath sounds equal bilaterally. No wheezes , rales, or rhonchi. GASTROINTESTINAL: Abdomen soft, left flank tenderness has much improved, nondistended. Normal, active bowel sounds MUSCULOSKELETAL: Extremities without clubbing, cyanosis, or edema. NEURO: Alert & Oriented x4 to person, place, time, situation. Moves all ext x4 Hospital Course sepsis due to pyelonephritis with nephrolithiasis and left hydronephrosis- resolved. UC with e-coli switch to po antibiotic. urology consult appreciated-s/p Cystoscopy, left ureteroscopy, left retrograde pyelogram and left long-term ureteral stent placement continue with pain control. hypertension ; continue lisinopril and norvasc- will monitor and adjust the regimen as needed. diabetes mellitus; accu-check with SSI hyperlipidemia; on statin Pt Condition on Discharge: Good Discharge Disposition: Discharge Home Discharge Time: <= 30 minutes Discharge Instructions DIET: Follow Instructions for: Heart Healthy Diet, Diabetic Diet Activities you can perform: Regular-No Restrictions Follow up Referrals: PCP Follow-up Urology New Medications: Ciprofloxacin (Cipro) 500 Mg Tab 500 MG PO BID Infection Days 7 Ref 0 TAB Hydrocodone-Acetaminophen ([place]) 5-325 mg Tab 1 TAB PO Q6H PRN PAIN #14 Ref 0 TAB Continued Medications: Amlodipine (Norvasc) 10 Mg Tab 10 MG PO DAILY Blood Pressure Management #30 Ref 3 TAB Glucose Blood Test Strips (Samantha Contour Next Blood Test Strips) 1 Alanis Alanis 1 STRIP TOP TID #100 Ref 3 Glyburide (Glyburide) 5 Mg Tab 5 MG PO BID Take with meals at the same time each day Blood Sugar Management # 60 Ref 3 TAB Lisinopril (Prinivil) 20 Mg Tab 20 MG PO BID Blood Pressure Management #30 Ref 0 TAB (This prescription has been renewed) Metformin (Metformin) 500 Mg Tab 2 TAB PO BIDPC With meals Blood Sugar Management #60 Ref 3 TAB Simvastatin (Zocor) 40 Mg Tab 40 MG PO HS Cholesterol Management #30 Ref 3 TAB Brandon Clayton MD Mar 20, 2017 12:10
== END 2017-03-20 15:39 | disposition home or self-care (01) | DRG 872 ==
LOC: NEPC 18:06 → NEDA 21:33 → NEDH 03-17 01:33 → HCIS 03-17 13:16 → N04B 03-18 17:42
PROVIDERS: ADMIT Internal Medicine; ATTEND Internal Medicine
PROC: BT1F1ZZ Fluoroscopy of Left Kidney, Ureter and Bladder using Low Osmolar Contrast (ICD-10-PCS; 2017-03-18)
PROC: 0TJB8ZZ Inspection of Bladder, Via Natural or Artificial Opening Endoscopic (ICD-10-PCS; 2017-03-18)
PROC: 0T9B70Z Drainage of Bladder with Drainage Device, Via Natural or Artificial Opening (ICD-10-PCS; 2017-03-18)
PROC: 0T778DZ Dilation of Left Ureter with Intraluminal Device, Via Natural or Artificial Opening Endoscopic (ICD-10-PCS; principal; 2017-03-18 16:23)
DX: A41.9 Sepsis, unspecified organism (principal); E11.65 Type 2 diabetes mellitus with hyperglycemia; I10 Essential (primary) hypertension; N13.6 Pyonephrosis; B96.20 Unspecified Escherichia coli [E. coli] as the cause of diseases classified elsewhere; N39.0 Urinary tract infection, site not specified; Z79.84 Long term (current) use of oral hypoglycemic drugs; E78.00 Pure hypercholesterolemia, unspecified; Z87.442 Personal history of urinary calculi; E78.5 Hyperlipidemia, unspecified; Z83.3 Family history of diabetes mellitus; G89.29 Other chronic pain; Z90.710 Acquired absence of both cervix and uterus
CPT/HCPCS: 74176; 74420; 80048; 80053; 80307; 81001; 82565; 82948; 83605; 83690; 85007; 85025; 85027; 87015; 87040; 87077; 87086; 87102; 87116; 87186; 87206; 87804; 93005; 96361; 96365; 96375; C1769; J0696; J1644; J1815; J1885; J2270; J2405; J3010; J3370; J7030; J7040; Q9963; Q9967

== ENCOUNTER 2017-03-27 20:11 | Observation (INO) | payer OTHER ==
[~2017-03-27] VITALS: Ht 157.5 cm; Wt 96.0 kg
[~2017-03-27 20:11] MED LIST changes: +CIPR-9 PO; +NORC5TAB PO
[2017-03-27 20:17] VITALS: BP 186/103; PULSE 106; RESP 12; TEMP 98.6; O2SAT 97
[2017-03-27] MEDS ORDERED: KETOROLAC TROMETHAMINE 30 MG/ML (IVP) VIAL IVP ONE (22:00)
[2017-03-27] MEDS ORDERED: SODIUM CHLOR 0.9% 1000 ML INJ 1,000 ML IV ONE ×2 (22:00)
[2017-03-27] MEDS ORDERED: ONDANSETRON HCL 4 MG/2 ML VIAL IVP ONE (22:00)
--- NOTE | 2017-03-27 22:01 | PD ---
HPI Chief Complaint: Flank/Kidney Pain Time Seen by Provider: 21:51 Travel History International Travel<30 days: No Contact w/Intl Traveler<30days: No Traveled to known affect area: No History of Present Illness HPI 51 y/o female states she was just discharged from the hospital where she had a stent placed for kidney stone. She states she started having vomiting and abdominal pain tonight and she is about to run out of her medicines so she came in. She states that she is having issues with her insurance. Quality is nonbloody. Severity is multiple episodes. She denies any fever or other concurrent complaints. States she is taking her antibiotic like she should. She feels worse when she moves around. She denies other modifying factors. PFSH Past Medical History Autoimmune Disease: No Anxiety: No Depression: No Cancer: No Cardiovascular Problems: Yes High Cholesterol: Yes Diabetes: Yes Patient Takes Glucophage: Yes (metformin ) Diminished Hearing: No Endocrine: Yes Genitourinary: No Hypertension: Yes Immune Disorder: No Kidney Stones: Yes Musculoskeletal: Yes Neurologic: No Psychiatric: No Reproductive: No Respiratory: No Sickle Cell Disease: No Tetanus Vaccination: < 5 Years Influenza Vaccination: No ?: Not Menopausal: Yes : 6 Para: 3 Miscarriage: 1 : 2 Past Surgical History Section: Yes (x 3) Genitourinary Surgery: Yes (Lithotripsy ) Gynecologic Surgery: Yes (3 c-sections, hysterectomy) Hysterectomy: Yes (2011) Other Surgery: Yes Social History Alcohol Use: Yes (occasional) Tobacco Use: No Substance Use: No Allergies-Medications (Allergen,Severity, Reaction): Coded Allergies: Hydrodiuril (Verified Adverse Reaction, Intermediate, Nausea/Vomiting, 03/27) Reported Meds & Prescriptions Reported Meds & Active Scripts Active [place] (Hydrocodone-Acetaminophen) 5-325 mg Tab 1 Tab PO Q6H PRN Cipro (Ciprofloxacin HCl) 500 Mg Tab 500 Mg PO BID 7 Days Prinivil (Lisinopril) 20 Mg Tab 20 Mg PO BID Norvasc (Amlodipine Besylate) 10 Mg Tab 10 Mg PO DAILY Zocor (Simvastatin) 40 Mg Tab 40 Mg PO HS Metformin (Metformin HCl) 500 Mg Tab 2 Tab PO BIDPC With meals Glyburide 5 Mg Tab 5 Mg PO BID Take with meals at the same time each day Rupture Contour Next Blood Test Strips (Blood Glucose Test Strips) 1 Alanis Alanis 1 Strip TOP TID Review of Systems Except as stated in HPI: all other systems reviewed are Neg Physical Exam Narrative GENERAL: Well-nourished, well-developed patient. Well-appearing SKIN: Warm and dry. HEAD: Normocephalic and atraumatic. EYES: No injection or drainage. ENT: No nasal drainage noted. NECK: Supple, trachea midline. CARDIOVASCULAR: Regular rate and rhythm RESPIRATORY: No increased effort. No accessory muscle use. GASTROINTESTINAL: Abdomen soft, non-tender, nondistended. NEUROLOGICAL: Awake and alert. Motor and sensory grossly within normal limits. Normal speech. Data Data Last Documented VS Vital Signs Date Time Temp Pulse Resp B/P Pulse Ox O2 Delivery O2 Flow Rate FiO2 03/27/17 20:17 98.6 106 12 186/103 97 Room Air Orders Complete Blood Count With Diff (03/27/17 20:59) Comprehensive Metabolic Panel (03/27/17 20:59) Lipase (03/27/17 20:59) Urinalysis - C+S If Indicated (03/27/17 20:59) Ed Urine Pregnancytest Poc (03/27/17 20:59) Abdomen, Kub Only (03/27/17 ) Sodium Chlor 0.9% 1000 Ml Inj (Ns 1000 M (03/27/17 22:00) Iv Access Insert/Monitor (03/27/17 21:52) Ketorolac Inj (Toradol Inj) (03/27/17 22:00) Ondansetron Inj (Zofran Inj) (03/27/17 22:00) Sodium Chlor 0.9% 1000 Ml Inj (Ns 1000 M (03/27/17 22:00) Urine Culture (03/27/17 22:25) Ceftriaxone Inj (Rocephin Inj) (03/27/17 23:15) Admit Order (Ed Use Only) (03/27/17 23:20) Labs Laboratory Tests Test 03/27/17 22:25 White Blood Count 11.8 TH/MM3 Red Blood Count 4.87 MIL/MM3 Hemoglobin 12.8 GM/DL Hematocrit 40.4 % Mean Corpuscular Volume 82.9 FL Mean Corpuscular Hemoglobin 26.3 PG Mean Corpuscular Hemoglobin 31.7 % Concent Red Cell Distribution Width 16.5 % Platelet Count 384 TH/MM3 Mean Platelet Volume 7.2 FL Neutrophils (%) (Auto) 82.4 % Lymphocytes (%) (Auto) 9.6 % Monocytes (%) (Auto) 5.6 % Eosinophils (%) (Auto) 1.8 % Basophils (%) (Auto) 0.6 % Neutrophils # (Auto) 9.7 TH/MM3 Lymphocytes # (Auto) 1.1 TH/MM3 Monocytes # (Auto) 0.7 TH/MM3 Eosinophils # (Auto) 0.2 TH/MM3 Basophils # (Auto) 0.1 TH/MM3 CBC Comment DIFF FINAL Differential Comment Urine Color LIGHT-YELLOW Urine Turbidity HAZY Urine pH 6.0 Urine Specific [place] 1.042 Urine Protein 30 mg/dL Urine Glucose (UA) 70 mg/dL Urine Ketones NEG mg/dL Urine Occult Blood SMALL Urine Nitrite NEG Urine Bilirubin NEG Urine Urobilinogen LESS THAN 2.0 MG/DL Urine Leukocyte Esterase LARGE Urine RBC 9 /hpf Urine WBC /hpf Urine WBC Clumps FEW Urine Squamous Epithelial 3 /hpf Cells Urine Yeast with Hyphae FEW Microscopic Urinalysis Comment CULTURE INDICATED Sodium Level 138 MEQ/L Potassium Level 3.9 MEQ/L Chloride Level 102 MEQ/L Carbon Dioxide Level 28.6 MEQ/L Anion Gap 7 MEQ/L Blood Urea Nitrogen 11 MG/DL Creatinine 1.06 MG/DL Estimat Glomerular Filtration 66 ML/MIN Rate Random Glucose 260 MG/DL Calcium Level 9.7 MG/DL Total Bilirubin 0.6 MG/DL Aspartate Amino Transf 10 U/L (AST/SGOT) Alanine Aminotransferase 27 U/L (ALT/SGPT) Alkaline Phosphatase 199 U/L Total Protein 8.4 GM/DL Albumin 3.4 GM/DL Lipase 114 U/L [facility] Medical Decision Making Medical Screen Exam Complete: Yes Emergency Medical Condition: Yes Medical Record Reviewed: Yes (past history confirmed, recent hospitalization reviewed, 726 had stent placed with Dr. Joaquin, had Escherichia coli in urine) Interpretation(s) CBC & BMP Diagram 03/27/17 22:25 Last 24 hours Impressions Abdomen X-Ray 03/27/17 0000 Signed Impressions: Service Date/Time: Monday, March 27, 2017 21:59 - CONCLUSION: Left double J stent in place. 4 calcified left renal stones and one calcified stone in the right flank. Bert Rosen MD ua with signs of infection Differential Diagnosis Renal failure, UTI, postop pain Narrative Course Will check blood work, KUB, urinalysis and dose with IV fluids, Toradol, Zofran and reevaluate Given UTI despite home Cipro and vomiting will place in observation for IV fluids, antiemetics and antibiotic therapy especially since patient has a stent and recent sepsis visit. First dose Rocephin given Physician Communication Physician Communication dr busch agrees to admit Diagnosis Primary Impression: Urinary tract infection Qualified Code: N39.0 - Urinary tract infection with hematuria, site unspecified Additional Impressions: Vomiting Qualified Code: R11.2 - Nausea and vomiting, intractability of vomiting not specified, unspecified vomiting type Flank pain Admitting Information Admitting Physician Requests: Observation Patricia Beckman MD Mar 27, 2017 22:01
--- NOTE | 2017-03-27 22:41 | RADRPT ---
EXAM DATE/TIME: 03/27/2017 21:59 [place] COMPARISON: No previous studies available for comparison. INDICATIONS : Left side kidney stones. MEDICAL HISTORY : Cardiovascular disease. Hypertension Renal calculi. SURGICAL HISTORY : section. Hysterectomy. ENCOUNTER: Initial ACUITY: 1 day PAIN SCORE: 8/10 LOCATION: Left Abdomen FINDINGS: Double-J stent is present on the left side. There is contrast present in the urinary bladder. 4 [place] stones are seen projected over the left kidney, the largest is superomedial to the proximal lo op of the stent and measures 1.6 cm. There is a solitary calcification projects over the right flank measuring 8 mm. The visualized lower lungs are clear. No dilated loops of small or large bowel. CONCLUSION: Left double J stent in place. 4 calcified left renal stones and one calcified stone in the right fla nk. Bert Rosen MD on March 27, 2017 at 22:38 Board Certified Radiologist. This report was verified electronically.
[2017-03-27 22:47] LABS: AUTOMATED NEUTROPHIL # 9.7 TH/MM3 (1.8-7.7); BASOPHIL # 0.1 TH/MM3 (0-0.2); BASOPHIL % 0.6 % (0.0-2.0); EOSINOPHIL # 0.2 TH/MM3 (0-0.4); EOSINOPHIL % 1.8 % (0.0-4.0); HEMATOCRIT 40.4 % (35.0-46.0); HEMO FLAGS DIFF FINAL; LYMPH % 9.6 % (9.0-44.0); LYMPHOCYTE # 1.1 TH/MM3 (1.0-4.8); MEAN CELL VOLUME 82.9 FL (80.0-100.0); MEAN CORPUSCULAR HEMOGLOBIN 26.3 PG (27.0-34.0); MEAN CORPUSCULAR HGB CONC 31.7 % (32.0-36.0); MONO % 5.6 % (0.0-8.0); NEUT % 82.4 % (16.0-70.0); PLATELET COUNT 384 TH/MM3 (150-450); RED BLOOD COUNT 4.87 MIL/MM3 (4.00-5.30); RED CELL DISTRIBUTION WIDTH 16.5 % (11.6-17.2); WHITE BLOOD COUNT 11.8 TH/MM3 (4.0-11.0)
[2017-03-27 23:05] LABS: BLOOD, URINE SMALL (NEG); COMMENT (UR) CULTURE INDICATED; CULTURE IF INDICATED CULTURE INDICATED; GLUCOSE,URINE 70 mg/dL (NEG); KETONE, URINE NEG (NEG); NITRITE,URINE NEG (NEG); SQUAMOUS EPITHELIAL CELL URINE 3 /hpf (0-5); URINE COLOR LIGHT-YELLOW (YELLW/STRAW)
[2017-03-27 23:08] LABS: ANION GAP 7 MEQ/L (5-15); AST (GOT) 10 U/L (15-37); BICARBONATE 28.6 MEQ/L (21.0-32.0); BLOOD UREA NITROGEN 11 MG/DL (7-18); CHLORIDE 102 MEQ/L (98-107); GLOMERULAR FILTRATION RATE 66 ML/MIN (>89); POTASSIUM 3.9 MEQ/L (3.5-5.1); SODIUM (NA) 138 MEQ/L (136-145)
[2017-03-27 23:09] LABS: ALT (GPT) 27 U/L (10-53)
[2017-03-27 23:11] LABS: ALKALINE PHOSPHATASE 199 U/L (45-117); TOTAL BILIRUBIN ADULT 0.6 MG/DL (0.2-1.0)
[2017-03-27] MEDS ORDERED: cefTRIAXone INJ 1,000 MG in SODIUM CHLORIDE 0.9% INJ 100 ML IV ONE (23:15)
[2017-03-27] MEDS ORDERED: SENNOSIDES 8.6 MG TAB PO PRN (23:30)
[2017-03-27] MEDS ORDERED: MORPHINE SULFATE 4 MG/ML INJ IV PRN (23:30)
[2017-03-27] MEDS ORDERED: MAGNESIUM HYDROXIDE SUSP 30 ML CUP PO PRN (23:30)
[2017-03-27] MEDS ORDERED: PROCHLORPERAZINE INJ 10 MG/2 ML VIAL IV PUSH PRN (23:30)
[2017-03-27] MEDS ORDERED: DEXTROSE 50% IN WATER 50 ML VIAL(D50) IV PRN (23:30)
[2017-03-27] MEDS ORDERED: LACTULOSE SYRUP 20 GM/30 ML CUP PO PRN (23:30)
[2017-03-27] MEDS ORDERED: ACETAMINOPHEN 325 MG TAB PO PRN (23:30)
[2017-03-27] MEDS ORDERED: GLUCAGON 1 MG/ML VIAL OTHER PRN (23:30)
[2017-03-27] MEDS ORDERED: BISACODYL 10 MG SUPP RECTAL PRN (23:30)
[2017-03-27] MEDS ORDERED: SODIUM CHLORIDE 0.9% FLUSH 10 ML FLUSH IV FLUSH PRN (23:30)
[2017-03-28] VITALS (7 sets, daily range): BP systolic 131–161; BP diastolic 63–81; PULSE 72–97; RESP 18–24; TEMP 97.8–98.4; O2SAT 94–100
[2017-03-28] MEDS: SODIUM CHLOR 0.9% 1000 ML INJ 1,000 ML IV SCH ×3 (00:07→18:43)
--- NOTE | 2017-03-28 04:05 | HHI.HP ---
HPI Service [facility] Primary Care Physician Griselda Armstrong MD Admission Diagnosis uti, vomiting, ureteral stent Diagnoses: (1) Intractable nausea and vomiting Diagnosis: Principal (2) Renal stone Diagnosis: Principal (3) UTI (urinary tract infection) Diagnosis: Principal (4) HTN (hypertension) Diagnosis: Principal (5) DM (diabetes mellitus) Diagnosis: Principal Travel History International Travel<30 Days: No Contact w/Intl Traveler <30 Da: No Traveled to Known Affected Are: No History of Present Illness This is a 51-year-old female with a PMH of HTN, Hyperlipidemia, DM and Renal Stone who presented to the ER with complaints of ongoing nausea and vomiting in addition to complaints of abdominal pain. Recent admit 03/16-03/20/17 for similar complaints, found to have Left Renal Stone, s/p Cystoscopy/Retrograde Pyelogram and Ureteral Stent Placement by Dr. Joaquin on 03/18/17. Was d/c'd home on Cipro 500mg bid x7 days, unable to take medications due to ongoing nausea/vomiting. On arrival, BP 186/103, HR 106, O2 sat 97% on RA, Afebrile. W WBC 11.8. Creatinine 1.06, producing 1.01 on 03/19/17. UA with persistent UTI. Abdominal X-ray with left double-J stent in place, for calcified left renal stones and one calcified stone in the right flank. S/p IV Rocephin in ER in addition to analgesics/antiemetics w/ mild improvement. Review of Systems Except as stated in HPI: all other systems reviewed are Neg ROS: 14 point review of systems otherwise negative. Past Family Social History Past Medical History PMH: HTN, Hyperlipidemia, DM and Renal Stone Past Surgical History PAST SURGICAL HISTORY: , Lithotripsy, Hysterectomy Allergies: Coded Allergies: Hydrodiuril (Verified Adverse Reaction, Intermediate, Nausea/Vomiting, 03/27) Family History PAST FAMILY HISTORY: Reviewed, positive for DM. Social History PAST SOCIAL HISTORY: Occasional alcohol. Negative for tobacco or drugs. Physical Exam Vital Signs Vital Signs Date Time Temp Pulse Resp B/P Pulse Ox O2 Delivery O2 Flow Rate FiO2 03/28/17 00:50 98.2 89 18 143/66 96 03/27/17 20:17 98.6 106 12 186/103 97 Room Air Physical Exam PE: GENERAL: Middle-aged black female in no acute distress. HEENT: PERRLA, EOMI. No scleral icterus or conjunctival pallor. No lid lag or facial droop. CARDIOVASCULAR: Regular rate and rhythm. No obvious murmurs to auscultation. No chest tenderness to palpation. RESPIRATORY: No obvious rhonchi or wheezing. Clear to auscultation. Breath sounds equal bilaterally. GASTROINTESTINAL: Abdomen soft, non-tender, nondistended. BS normal. MUSCULOSKELETAL: Extremities without clubbing, cyanosis, or edema. No obvious deformities. NEUROLOGICAL: Awake, alert and oriented x4. No focal neurologic deficits. Moving both upper and lower extremities spontaneously. Laboratory Laboratory Tests Test 03/27/17 22:25 White Blood Count 11.8 Red Blood Count 4.87 Hemoglobin 12.8 Hematocrit 40.4 Mean Corpuscular Volume 82.9 Mean Corpuscular Hemoglobin 26.3 Mean Corpuscular Hemoglobin 31.7 Concent Red Cell Distribution Width 16.5 Platelet Count 384 Mean Platelet Volume 7.2 Neutrophils (%) (Auto) 82.4 Lymphocytes (%) (Auto) 9.6 Monocytes (%) (Auto) 5.6 Eosinophils (%) (Auto) 1.8 Basophils (%) (Auto) 0.6 Neutrophils # (Auto) 9.7 Lymphocytes # (Auto) 1.1 Monocytes # (Auto) 0.7 Eosinophils # (Auto) 0.2 Basophils # (Auto) 0.1 CBC Comment DIFF FINAL Differential Comment Urine Color LIGHT-YELLOW Urine Turbidity HAZY Urine pH 6.0 Urine Specific [place] 1.042 Urine Protein 30 Urine Glucose (UA) 70 Urine Ketones NEG Urine Occult Blood SMALL Urine Nitrite NEG Urine Bilirubin NEG Urine Urobilinogen LESS THAN 2.0 Urine Leukocyte Esterase LARGE Urine RBC 9 Urine WBC Urine WBC Clumps FEW Urine Squamous Epithelial 3 Cells Urine Yeast with Hyphae FEW Microscopic Urinalysis Comment CULTURE INDICATED Sodium Level 138 Potassium Level 3.9 Chloride Level 102 Carbon Dioxide Level 28.6 Anion Gap 7 Blood Urea Nitrogen 11 Creatinine 1.06 Estimat Glomerular Filtration 66 Rate Random Glucose 260 Calcium Level 9.7 Total Bilirubin 0.6 Aspartate Amino Transf 10 (AST/SGOT) Alanine Aminotransferase 27 (ALT/SGPT) Alkaline Phosphatase 199 Total Protein 8.4 Albumin 3.4 Lipase 114 Date/Time Procedure Status Source Growth 03/27/17 22:25 Urine Culture Received Urine Clean Catch Pending Result Diagram: 03/27/17222403/27/172224 Assessment and Plan Problem List: (1) Intractable nausea and vomiting ICD Code: R11.2 Status: Acute (2) Renal stone ICD Code: N20.0 Status: Acute (3) UTI (urinary tract infection) ICD Code: N39.0 Status: Acute (4) HTN (hypertension) ICD Code: I10 Status: Acute (5) DM (diabetes mellitus) ICD Code: E11.9 Status: Acute Assessment and Plan A/P: 1. Intractable Nausea/Vomiting: ongoing nausea/vomiting, unable to take PO. IVF for hydration, diet as tolerated, analgesics/antiemetics as needed. 2. Renal Stone: recent admit 03/16-03/20/17 w/ 8mm left UVJ stone and innumerable stones in kidneys bilaterally, s/p Stent Placement by Dr. Joaquin on 03/18/17. Abd X-ray w/ left double J stent in place, images reviewed by me. Consult Urology as needed, no emergent urologic intervention needed at this time. 3. UTI: Persistent. s/p Cipro 500mg bid, unable to take medications secondary to ongoing nausea/vomiting. S/p Rocephin IV in ER, will continue w/ IV Rocephin, follow up urine cultures. 4. DM: Sliding scale w/ Accu-Cheks. Hold Metformin for now. 5. HTN: BP 180's on arrival, likely compounded by nausea/vomiting, currently 143/66, HR 89. Monitor BP. 6. DVT Prophylaxis: SCD/teds. 7. Social work for DC planning as needed. 8. Case discussed at length with ER physician. Dianne Manzano MD Mar 28, 2017 04:05
[2017-03-28] MEDS: INSULIN ASPART SUPPLEMENTAL SCALE SQ SCH ×4 (07:30→21:00)
[2017-03-28] MEDS ORDERED: PNEUMOCOCCAL POLYVALENT INJ 25 MCG/0.5 ML SYR IM ONE (09:00)
[2017-03-28] MEDS: SODIUM CHLORIDE 0.9% FLUSH 10 ML FLUSH IV FLUSH SCH ×2 (09:00→20:59)
[2017-03-28 09:10] LABS: AUTOMATED NEUTROPHIL # 7.8 TH/MM3 (1.8-7.7); BASOPHIL # 0.1 TH/MM3 (0-0.2); BASOPHIL % 0.7 % (0.0-2.0); EOSINOPHIL # 0.3 TH/MM3 (0-0.4); HEMATOCRIT 35.9 % (35.0-46.0); HEMO FLAGS DIFF FINAL; LYMPH % 10.3 % (9.0-44.0); MEAN CELL VOLUME 82.4 FL (80.0-100.0); MEAN CORPUSCULAR HEMOGLOBIN 26.8 PG (27.0-34.0); MEAN CORPUSCULAR HGB CONC 32.5 % (32.0-36.0); PLATELET COUNT 338 TH/MM3 (150-450); RED BLOOD COUNT 4.35 MIL/MM3 (4.00-5.30); RED CELL DISTRIBUTION WIDTH 16.9 % (11.6-17.2); WHITE BLOOD COUNT 9.9 TH/MM3 (4.0-11.0)
[2017-03-28] MEDS: DOCUSATE SODIUM 50 MG/SENNA 8.6 MG TAB PO SCH ×2 (09:13→20:59)
[2017-03-28 11:07] LABS: ALKALINE PHOSPHATASE 158 U/L (45-117); ALT (GPT) 21 U/L (10-53); ANION GAP 8 MEQ/L (5-15); AST (GOT) 8 U/L (15-37); BLOOD UREA NITROGEN 9 MG/DL (7-18); CHLORIDE 108 MEQ/L (98-107); GLOMERULAR FILTRATION RATE 78 ML/MIN (>89); POTASSIUM 3.8 MEQ/L (3.5-5.1); SODIUM (NA) 143 MEQ/L (136-145); TOTAL BILIRUBIN ADULT 0.6 MG/DL (0.2-1.0)
[2017-03-28] MEDS: ACETAMINOPHEN/HYDROcodone 325 MG/5 MG TAB PO PRN (11:48)
--- NOTE | 2017-03-28 11:59 | HHI.PR ---
Subjective Remarks Follow up for abdominal pain, nausea/vomiting. The patient reports feeling better today, denies any abdominal pain, nausea/vomiting overnight. She was able to tolerate breakfast. She believes the nausea/vomiting is a result of significant pain from her kidney stones. Denies fevers/chills. Denies any dysuria. Objective Vitals Vital Signs Date Time Temp Pulse Resp B/P Pulse Ox O2 Delivery O2 Flow Rate FiO2 03/28/17 09:01 98.4 81 24 131/71 94 03/28/17 04:20 98.0 72 18 158/75 96 03/28/17 00:50 98.2 89 18 143/66 96 03/27/17 20:17 98.6 106 12 186/103 97 Room Air I/O 03/27/17 03/27/17 03/27/17 03/28/17 03/28/17 03/28/17 07:00 15:00 23:00 07:00 15:00 23:00 Intake Total 500 ml Balance 500 ml Intake Oral 500 ml Result Diagram: 03/28/17 0814 03/28/17 0814 Imaging Last Impressions Abdomen X-Ray 03/27/17 0000 Signed Impressions: Service Date/Time: Monday, March 27, 2017 21:59 - CONCLUSION: Left double J stent in place. 4 calcified left renal stones and one calcified stone in the right flank. Bert Rosen MD Objective Remarks GENERAL: Well-nourished, well-developed middle aged female patient in [facility]. SKIN: Warm and dry. No rash. HEENT: Normocephalic. Atraumatic. Pupils equal and round. Mucous membranes pink and moist. NECK: Supple. Trachea midline. CARDIOVASCULAR: Regular rate and rhythm. S1, S2 noted. No murmur appreciated. RESPIRATORY: No accessory muscle use. Clear to auscultation. Breath sounds equal bilaterally. GASTROINTESTINAL: Abdomen soft, non-tender, nondistended. Normoactive bowel sounds x4. MUSCULOSKELETAL: No obvious deformities. Extremities without clubbing, cyanosis , or edema. NEUROLOGICAL: Awake and alert. No obvious cranial nerve deficits. Motor grossly within normal limits. Normal speech. PSYCHIATRIC: Appropriate mood and affect; insight and judgment normal. Medications and IVs Current Medications Medications (Trade) Dose Ordered Sig/Rohit Route Start Time Stop Time Status Last Admin (Rocephin Inj/NS Inj) 100 ml @ 200 mls/hr Q24H IV 03/28/17 23:00 (D50w (Vial) Inj) 50 ml UNSCH PRN IV 03/27/17 23:30 Glucagon 1 mg 1 mg UNSCH PRN OTHER 03/27/17 23:30 (NS 1000 ml Inj) 1,000 ml @ 100 mls/hr Q10H IV 03/27/17 23:18 03/28/17 00:07 (NS Flush) 2 ml UNSCH PRN IV FLUSH 03/27/17 23:30 (NS Flush) 2 ml BID IV FLUSH 03/28/17 09:00 (Zofran Inj) 4 mg Q6H PRN IVP 03/27/17 23:30 (Tylenol) 650 mg Q6H PRN PO 03/27/17 23:30 ([place] 5-325 Mg) 1 tab Q4H PRN PO 03/27/17 23:30 (Morphine Inj) 2 mg Q3H PRN IV 03/27/17 23:30 (Gwen-Colace) 1 tab BID PO 03/28/17 09:00 03/28/17 09:13 (Milk Of Magnesia Liq) 30 ml Q12H PRN PO 03/27/17 23:30 (Senokot) 17.2 mg Q12H PRN PO 03/27/17 23:30 (Dulcolax Supp) 10 mg DAILY PRN RECTAL 03/27/17 23:30 (Lactulose Liq) 30 ml DAILY PRN PO 03/27/17 23:30 (Compazine Inj) 10 mg Q6H PRN IV PUSH 03/27/17 23:30 A/P Problem List: (1) Intractable nausea and vomiting ICD Code: R11.2 Status: Acute (2) Renal stone ICD Code: N20.0 Status: Acute (3) UTI (urinary tract infection) ICD Code: N39.0 Status: Acute (4) HTN (hypertension) ICD Code: I10 Status: Acute (5) DM (diabetes mellitus) ICD Code: E11.9 Status: Acute Assessment and Plan 51-year-old female with a PMH of HTN, Hyperlipidemia, DM and Renal Stone who presented to the ER with complaints of ongoing nausea and vomiting in addition to complaints of abdominal pain. Recent admit 03/16-03/20/17 for similar complaints, found to have Left Renal Stone, s/p Cystoscopy/Retrograde Pyelogram and Ureteral Stent Placement by Dr. Joaquin on 03/18/17. Was d/c'd home on Cipro 500mg bid x7 days, unable to take medications due to ongoing nausea/ vomiting. Intractable Nausea/Vomiting: unable to tolerate oral intake, persistent N/V. Suspect secondary to UTI and renal stones. Give IVF for hydration. Diet as tolerated. Analgesics/antiemetics as needed. Patient improving. Renal Stone: recent admit 03/16-03/20/17 w/ 8mm left UVJ stone and innumerable stones in kidneys bilaterally, s/p Stent Placement by Dr. Joaquin on 03/18/17. Abd X-ray w/ left double J stent in place, images reviewed. Outpatient follow up with urology, no emergent urologic intervention needed at this time. UTI: Persistent, Failed Outpatient. On Cipro 500mg bid at home, unable to take medications secondary to ongoing nausea/vomiting. Continue w/ IV Rocephin, follow up urine cultures. DM: Sliding scale w/ Accu-Cheks. Hold Metformin for now. HTN: BP 180's on arrival, likely compounded by nausea/vomiting, currently improved 131/71. Continue to monitor. DVT Prophylaxis: SCD/teds. Discharge Planning 1150hrs: Likely discharge later today if continues to tolerate oral intake with no further nausea/vomiting. 1700hrs: Patient reassessed, does not feel ready for discharge, still with some abdominal pain and nausea. Will hold off on discharge today. Maryam Crane PA-C Mar 28, 2017 11:58 am
[2017-03-28] MEDS ORDERED: HYDR-3516 PO (13:31)
[2017-03-28] MEDS: ONDANSETRON HCL 4 MG/2 ML VIAL IVP PRN (20:59)
[2017-03-28] MEDS ORDERED: cefTRIAXone INJ 1,000 MG in SODIUM CHLORIDE 0.9% INJ 100 ML IV SCH (23:00)
[2017-03-29 03:36] VITALS: BP 167/74; PULSE 80; RESP 18; TEMP 98.7; O2SAT 97
[2017-03-29] MEDS: SODIUM CHLOR 0.9% 1000 ML INJ 1,000 ML IV SCH (06:31)
[2017-03-29] MEDS: INSULIN ASPART SUPPLEMENTAL SCALE SQ SCH ×2 (06:31→12:52)
[2017-03-29 07:20] VITALS: BP 165/77; PULSE 88; RESP 20; TEMP 98.5; O2SAT 98
[2017-03-29] MEDS: ONDANSETRON HCL 4 MG/2 ML VIAL IVP PRN (08:31)
[2017-03-29] MEDS: SODIUM CHLORIDE 0.9% FLUSH 10 ML FLUSH IV FLUSH SCH (09:00)
[2017-03-29] MEDS: DOCUSATE SODIUM 50 MG/SENNA 8.6 MG TAB PO SCH (09:32)
--- NOTE | 2017-03-29 11:57 | HHI.PR ---
Subjective Remarks Follow up for abdominal pain, nausea/vomiting. The patient states she was feeling much better last night, no further nausea/vomiting, tolerated dinner, slept well; however upon awakening this morning she experienced persistent nausea with episode of vomiting (although unwitnessed by RN). She received Zofran, and did eat breakfast, so far kept down her meal. She reports persistent diffuse flank and low back pain. Denies diarrhea. Denies fevers/ chills. She has no other medical complaints at this time. Objective Vitals Vital Signs Date Time Temp Pulse Resp B/P Pulse Ox O2 Delivery O2 Flow Rate FiO2 03/29/17 07:20 98.5 88 20 165/77 98 03/29/17 03:36 98.7 80 18 167/74 97 03/28/17 23:40 97.8 76 21 140/63 100 03/28/17 19:26 98.1 81 18 139/65 98 03/28/17 17:30 98.3 97 18 161/81 95 03/28/17 12:14 97.8 81 20 160/73 96 Result Diagram: 03/28/17 0814 03/28/17 0814 Imaging Last Impressions Abdomen X-Ray 03/27/17 0000 Signed Impressions: Service Date/Time: Monday, March 27, 2017 21:59 - CONCLUSION: Left double J stent in place. 4 calcified left renal stones and one calcified stone in the right flank. Bert Rosen MD Objective Remarks GENERAL: Well-nourished, well-developed middle aged female patient in [facility]. Sleeping upon my arrival. SKIN: Warm and dry. No rash. HEENT: Normocephalic. Atraumatic. Pupils equal and round. Mucous membranes pink and moist. NECK: Supple. Trachea midline. CARDIOVASCULAR: Regular rate and rhythm. S1, S2 noted. No murmur appreciated. RESPIRATORY: No accessory muscle use. Clear to auscultation. Breath sounds equal bilaterally. GASTROINTESTINAL: Abdomen soft, non-tender, nondistended. Normoactive bowel sounds x4. MUSCULOSKELETAL: No obvious deformities. Extremities without clubbing, cyanosis , or edema. NEUROLOGICAL: Awake and alert. No obvious cranial nerve deficits. Motor grossly within normal limits. Normal speech. PSYCHIATRIC: Appropriate mood and affect; insight and judgment normal. Medications and IVs Current Medications Medications (Trade) Dose Ordered Sig/Rohit Route Start Time Stop Time Status Last Admin (Rocephin Inj/NS Inj) 100 ml @ 200 mls/hr Q24H IV 03/28/17 23:00 03/28/17 23:00 (D50w (Vial) Inj) 50 ml UNSCH PRN IV 03/27/17 23:30 Glucagon 1 mg 1 mg UNSCH PRN OTHER 03/27/17 23:30 (NS 1000 ml Inj) 1,000 ml @ 100 mls/hr Q10H IV 03/27/17 23:18 03/29/17 06:31 (NS Flush) 2 ml UNSCH PRN IV FLUSH 03/27/17 23:30 (NS Flush) 2 ml BID IV FLUSH 03/28/17 09:00 03/28/17 20:59 (Zofran Inj) 4 mg Q6H PRN IVP 03/27/17 23:30 03/29/17 08:31 (Tylenol) 650 mg Q6H PRN PO 03/27/17 23:30 ([place] 5-325 Mg) 1 tab Q4H PRN PO 03/27/17 23:30 03/28/17 11:48 (Morphine Inj) 2 mg Q3H PRN IV 03/27/17 23:30 (Gwen-Colace) 1 tab BID PO 03/28/17 09:00 03/29/17 09:32 (Milk Of Magnesia Liq) 30 ml Q12H PRN PO 03/27/17 23:30 (Senokot) 17.2 mg Q12H PRN PO 03/27/17 23:30 (Dulcolax Supp) 10 mg DAILY PRN RECTAL 03/27/17 23:30 (Lactulose Liq) 30 ml DAILY PRN PO 03/27/17 23:30 (Compazine Inj) 10 mg Q6H PRN IV PUSH 03/27/17 23:30 A/P Problem List: (1) Intractable nausea and vomiting ICD Code: R11.2 Status: Acute (2) Renal stone ICD Code: N20.0 Status: Acute (3) UTI (urinary tract infection) ICD Code: N39.0 Status: Acute (4) HTN (hypertension) ICD Code: I10 Status: Acute (5) DM (diabetes mellitus) ICD Code: E11.9 Status: Acute Assessment and Plan 51-year-old female with a PMH of HTN, Hyperlipidemia, DM and Renal Stone who presented to the ER with complaints of ongoing nausea and vomiting in addition to complaints of abdominal pain. Recent admit 03/16-03/20/17 for similar complaints, found to have Left Renal Stone, s/p Cystoscopy/Retrograde Pyelogram and Ureteral Stent Placement by Dr. Joaquin on 03/18/17. Was d/c'd home on Cipro 500mg bid x7 days, unable to take medications due to ongoing nausea/ vomiting. Intractable Nausea/Vomiting: unable to tolerate oral intake, persistent N/V. Suspect secondary to UTI and renal stones. Give IVF for hydration. Diet as tolerated. Analgesics/antiemetics as needed. Patient slowly improving. Renal Stone: recent admit 03/16-03/20/17 w/ 8mm left UVJ stone and innumerable stones in kidneys bilaterally, s/p Stent Placement by Dr. Joaquin on 03/18/17. Abd X-ray w/ left double J stent in place, images reviewed. Outpatient follow up with urology, no emergent urologic intervention needed at this time. UTI: Persistent, Failed Outpatient. On Cipro 500mg bid at home, unable to take medications secondary to ongoing nausea/vomiting. Continue w/ IV Rocephin, follow up urine cultures. Plan to resume po Cipro at discharge. DM: Sliding scale w/ Accu-Cheks. Hold Metformin for now. HTN: BP 180's on arrival, likely compounded by nausea/vomiting/pain, currently improved. Continue to monitor. DVT Prophylaxis: SCD/teds. Discharge Planning 1145hrs: Possible discharge today if no further vomiting. Will reassess after lunch. 1430hrs: Patient tolerated lunch. Stable for discharge. Will discharge home. Patient has been given information [facility] Discharge patient to home Condition on discharge: Improved Heart Healthy/Diabetic Diet as tolerated Ad Estefania activity Rx written: [place] 5/325mg q4h prn pain #30, Zofran ODT 4mg SL q6h prn N/V #30 Follow-up with primary care physician and urology Maryam Toure PA-C Mar 29, 2017 11:57
[2017-03-29 12:00] VITALS: BP 140/71; PULSE 88; RESP 18; TEMP 98.3; O2SAT 96
[2017-03-29] MEDS: ACETAMINOPHEN/HYDROcodone 325 MG/5 MG TAB PO PRN (12:59)
[2017-03-29] MEDS ORDERED: ZOFR4TAB3 SL (14:30)
--- NOTE | 2017-03-29 14:30 | HHI.DCPOC ---
Discharge Care Plan Diagnosis: (1) Intractable nausea and vomiting (2) Renal stone (3) Urinary tract infection (4) Flank pain (5) HTN (hypertension) (6) DM (diabetes mellitus) Goals to Promote Your Health * To prevent worsening of your condition and complications * To maintain your health at the optimal level Directions to Meet Your Goals Take your medications as prescribed Follow your dietary instruction Follow activity as directed Keep your appointments as scheduled Take your immunizations and boosters as scheduled If your symptoms worsen call your PCP, if no PCP go to Urgent Care Center or Emergency Room Smoking is Dangerous to Your Health. Avoid second hand smoke Call the 24-hour hour crisis hotline for domestic abuse at Maryam Crane PA-C Mar 29, 2017 14:30
[2017-04-22] MEDS ORDERED: DILA2TAB2 PO (11:35)
[2017-05-01] MEDS ORDERED: PRIN20TA2 PO (09:51)
[2017-05-11] MEDS ORDERED: TRAM50TA PO (13:19)
[2017-05-11] MEDS ORDERED: CEPH-459 PO (13:19)
[2017-05-20] MEDS ORDERED: PRIN20TA2 PO (09:57)
[2017-05-20] MEDS ORDERED: AMLO10 PO (09:57)
[2017-05-20] MEDS ORDERED: GLUCTES27 (09:57)
[2017-05-20] MEDS ORDERED: METF500T PO (09:57)
[2017-05-20] MEDS ORDERED: ZOCO40TA PO (09:57)
[2017-05-20] MEDS ORDERED: GLYB5TAB3 PO (09:57)
[2017-05-29] MEDS ORDERED: ZOFR4TAB3 SL (09:59)
[2017-06-02] MEDS ORDERED: TRAM50TA PO (14:34)
[2017-06-03] MEDS ORDERED: ULTR50TA5 PO (12:16)
[2017-06-03] MEDS ORDERED: CEPH-459 PO (12:16)
[2017-06-11] MEDS ORDERED: COLA100C PO (16:12)
[2017-06-15] MEDS ORDERED: COLA100C PO (13:16)
== END 2017-03-29 18:29 | disposition home or self-care (01) ==
LOC: NEPC 20:11 → NEDA 23:22 → NEPGCP 03-28 00:36
PROVIDERS: ADMIT Hospitalist; ATTEND Hospitalist
DX: R11.2 Nausea with vomiting, unspecified (principal); N20.0 Calculus of kidney; N39.0 Urinary tract infection, site not specified; R31.9 Hematuria, unspecified; I10 Essential (primary) hypertension; E78.5 Hyperlipidemia, unspecified; E78.00 Pure hypercholesterolemia, unspecified; E11.9 Type 2 diabetes mellitus without complications; Z79.899 Other long term (current) drug therapy; Z79.84 Long term (current) use of oral hypoglycemic drugs
CPT/HCPCS: 74000; 80053; 81001; 82948; 83690; 85025; 87086; 96361; 96365; 96372; 96375; 99285; G0378; J0696; J1815; J1885; J2405; J7030

== ENCOUNTER → 2017-05-11 | Day surgery (SDC) | payer OTHER ==
[~2017-05-11] VITALS: Ht 152.4 cm; Wt 88.6 kg
[~2017-05-11] MED LIST changes: +BACT800T5 PO; +CEPH-459 PO; +CHLORHEXIDINE GLUCONATE 2 % 1 PACK (2 CLOTHS) TOPICAL PRN; +CIPR500T2 PO; +COLA100C PO; +DILA2TAB2 PO; +DO NOT ADM ANY ANTICOAGULANT DRUGS PRN; +FAMOTIDINE 20 MG/2 ML VIAL ONE; +GLUCTES27; +INSULIN HUMAN REGULAR 1,000 UNITS/10 ML VIAL SQ PRN; +IOHEXOL 300 MG/ML 50 ML BTL (for RAD DIAG) OTHER ONE; +LACTATED RINGER'S 1000 ML IV PRN; +LEVEMIR SQ; +METOPROLOL TARTRATE 25 MG TAB PO PRN; +NAPR375T PO; -NORC5TAB PO; +NOVOLOGP2 SQ; +ONDANSETRON HCL 4 MG/2 ML VIAL IV PUSH ONE; +ONDANSETRON HCL 4 MG/2 ML VIAL IV PUSH PRN; +POVIDONE IODINE 5% (ANTISEPSIS KIT) 4 APPLICATIONS EACH NARE PRN; +PROPOFOL 200 MG/20 ML AMP IV ONE; +SODIUM CHLORID 0.9% 500 ML IV PRN; +TRAM50TA PO; +ULTR50TA5 PO; +ZOFR4TAB3 SL; +ceFAZolin 2 GM PREMIX 50 ML IV SCH; +traMADol HCL 50 MG TAB PO PRN
[2017-05-11 09:11] LABS: AUTOMATED NEUTROPHIL # 5.7 TH/MM3 (1.8-7.7); BASOPHIL # 0.1 TH/MM3 (0-0.2); BASOPHIL % 0.8 % (0.0-2.0); EOSINOPHIL # 0.3 TH/MM3 (0-0.4); EOSINOPHIL % 3.5 % (0.0-4.0); HEMATOCRIT 36.4 % (35.0-46.0); HEMO FLAGS DIFF FINAL; LYMPH % 13.9 % (9.0-44.0); LYMPHOCYTE # 1.1 TH/MM3 (1.0-4.8); MEAN CELL VOLUME 80.9 FL (80.0-100.0); MEAN CORPUSCULAR HEMOGLOBIN 25.9 PG (27.0-34.0); MEAN CORPUSCULAR HGB CONC 32.1 % (32.0-36.0); MONO % 8.3 % (0.0-8.0); NEUT % 73.5 % (16.0-70.0); PLATELET COUNT 329 TH/MM3 (150-450); RED BLOOD COUNT 4.49 MIL/MM3 (4.00-5.30); RED CELL DISTRIBUTION WIDTH 16.2 % (11.6-17.2); WHITE BLOOD COUNT 7.7 TH/MM3 (4.0-11.0)
--- NOTE | 2017-05-11 13:17 | PD.OP ---
Operative Report Date of Surgery: May 11, 2017 Preoperative Diagnosis: (1) Ureteral calculus, left Postoperative Diagnosis: (1) Ureteral calculus, left Procedure: Cystoscopy, endoscopic removal left ureteral stent, left ureteroscopy with laser lithotripsy, left retrograde pyelogram and left ureteral catheter placement. Anesthesia: General Surgeon: Ananda Joaquin Glass Mechanic(s): None Operation and Findings: Indication for procedure: The case of a pleasant 51-year-old female with a history of bilateral renal calculi and obstructing left distal ureteral calculi who is status post left stent placement and presents now for definitive management of the left distal ureteral calculi. Operative procedure in detail: Patient was brought to the operating suite and placed supine on the OR table. She was then placed under general anesthesia. She was then repositioned in the dorsolithotomy position and prepped and draped in normal sterile fashion. After appropriate timeout was undertaken proceeded with cystoscopic evaluation utilizing the rigid cystoscope with the 30 lens and the 20 German sheath. The previously placed left ureteral stent could be seen protruding from the left ureteral orifice and this was grasped flexible forceps and removed. A sensor 0.035 wire was next easily advanced up the patient's left ureter under fluoroscopic guidance advanced all the way up into the left renal pelvis. The cystoscope was next withdrawn and the guidewire stricture sterile drape with a hemostat. The self dilating ureteroscope was next utilized advanced alongside the previously past wire up to the point of the obstructing distal left ureteral stones. There were 3 stones remaining to the distal left ureter and they were broken down into small fragments utilizing 200 holmium laser fiber. The 2.4 German stone basket was next utilized to extract most of the larger stone fragments and these were sent off for chemical composition analysis. Ureteroscope was introduced and advanced all the way up to the left ureteropelvic junction and no additional ureteral stones were noted. The ureteroscope was withdrawn and the cystoscope was utilized and the previously past guidewire was back loaded through the cystoscope. A 6 German open-ended ureteral catheter was advanced over the wire under fluoroscopic guidance up into the left renal pelvis. With the catheter in place the wire was withdrawn and a retrograde pyelogram study performed, and the collecting system. The bladder was drained of all irrigant fluid and the cystoscope withdrawn. A 16 German 10 cc Mosley catheter was placed and the open-ended left ureteral catheter was secured to the Mosley via a connector. Both catheters were then placed to gravity drainage. The patient tolerated the procedures without complications and was transferred to the PACU in satisfactory condition. Ananda Joaquin MD May 11, 2017 13:17
[2017-05-11 14:39] VITALS: BP 160/83; PULSE 78; RESP 20; TEMP 97.8; O2SAT 95
== END | disposition home or self-care (01) ==
LOC: HEND 08:15
PROVIDERS: ATTEND Urology
DX: N20.2 Calculus of kidney with calculus of ureter (principal); Z01.818 Encounter for other preprocedural examination
CPT/HCPCS: 00918; 52356; 74420; 82365; 82370; 85025; 88300; C1769; J0690; J2405; J3010; J7120; Q9967

== ENCOUNTER 2017-05-25 11:38 | Inpatient (IN) | payer OTHER ==
[2017-05-25] VITALS (7 sets, daily range): BP systolic 152–209; BP diastolic 70–114; PULSE 57–90; RESP 13–18; TEMP 97.3–98.5; O2SAT 94–100
[~2017-05-25] VITALS: Ht 162.6 cm; Wt 89.9 kg
[~2017-05-25 11:38] MED LIST changes: -BACT800T5 PO; -CHLORHEXIDINE GLUCONATE 2 % 1 PACK (2 CLOTHS) TOPICAL PRN; -CIPR-9 PO; -CIPR500T2 PO; -COLA100C PO; -DO NOT ADM ANY ANTICOAGULANT DRUGS PRN; -FAMOTIDINE 20 MG/2 ML VIAL ONE; -GLUCTES27 TOP; -INSULIN HUMAN REGULAR 1,000 UNITS/10 ML VIAL SQ PRN; -IOHEXOL 300 MG/ML 50 ML BTL (for RAD DIAG) OTHER ONE; -LACTATED RINGER'S 1000 ML IV PRN; -LEVEMIR SQ; -METOPROLOL TARTRATE 25 MG TAB PO PRN; -NAPR375T PO; -NOVOLOGP2 SQ; -ONDANSETRON HCL 4 MG/2 ML VIAL IV PUSH ONE; -ONDANSETRON HCL 4 MG/2 ML VIAL IV PUSH PRN; -POVIDONE IODINE 5% (ANTISEPSIS KIT) 4 APPLICATIONS EACH NARE PRN; -PROPOFOL 200 MG/20 ML AMP IV ONE; -SODIUM CHLORID 0.9% 500 ML IV PRN; -ULTR50TA5 PO; -ZOFR4TAB3 SL; -ceFAZolin 2 GM PREMIX 50 ML IV SCH; -traMADol HCL 50 MG TAB PO PRN
--- NOTE | 2017-05-25 11:46 | PD ---
Physical Exam Time Seen by Provider: 11:44 Narrative Hx of kidney stones. Just had stent removed by Dr. Joaquin 05/11/2017. Pt now has right flank pain, acutely worse last night. N/V since 2am. Chilled no fever. Darkened urine. Hx. of diabetes, hypertension Data Data Last Documented VS Vital Signs Date Time Temp Pulse Resp B/P (MAP) Pulse Ox O2 Delivery O2 Flow Rate FiO2 05/25/17 14:20 20 05/25/17 13:32 61 208/94 (132) 100 Room Air 05/25/17 11:41 98.5 Orders Orders Basic Metabolic Panel (Bmp) (05/25/17 11:46) Complete Blood Count With Diff (05/25/17 11:46) Urinalysis - C+S If Indicated (05/25/17 11:46) Ct Abd/Pel W/O Iv Contrast (05/25/17 ) Sodium Chlor 0.9% 1000 Ml Inj (Ns 1000 M (05/25/17 13:15) Ketorolac Inj (Toradol Inj) (05/25/17 13:15) Ondansetron Inj (Zofran Inj) (05/25/17 13:15) Insulin Human Regular Inj (Novolin R Inj (05/25/17 13:15) Urine Culture (05/25/17 12:10) Ecg Monitoring (05/25/17 13:03) Iv Access Insert/Monitor (05/25/17 13:03) Sodium Chloride 0.9% Flush (Ns Flush) (05/25/17 13:15) Ceftriaxone Inj (Rocephin Inj) (05/25/17 14:00) Admit Order (Ed Use Only) (05/25/17 14:45) Consult Urology (05/25/17 ) Labs Laboratory Tests Test 05/25/17 12:00 05/25/17 12:10 05/25/17 13:20 Blood Urea Nitrogen 14 MG/DL Creatinine 1.06 MG/DL Random Glucose 415 MG/DL Calcium Level 9.4 MG/DL Sodium Level 135 MEQ/L Potassium Level 4.3 MEQ/L Chloride Level 101 MEQ/L Carbon Dioxide Level 24.1 MEQ/L Anion Gap 10 MEQ/L Estimat Glomerular Filtration Rate 66 ML/MIN Urine Color LIGHT-YELLOW Urine Turbidity HAZY Urine pH 6.5 Urine Specific [place] 1.012 Urine Protein TRACE mg/dL Urine Glucose (UA) 1000 mg/dL Urine Ketones 10 mg/dL Urine Occult Blood SMALL Urine Nitrite NEG Urine Bilirubin NEG Urine Urobilinogen LESS THAN 2.0 MG/DL Urine Leukocyte Esterase MOD Urine RBC 10 /hpf Urine WBC 31 /hpf Urine Squamous Epithelial Cells 4 /hpf Urine Transitional Epithelial Cells <1 /hpf Urine Bacteria OCC /hpf Microscopic Urinalysis Comment CULTURE INDICATED White Blood Count 11.4 TH/MM3 Red Blood Count 4.64 MIL/MM3 Hemoglobin 11.8 GM/DL Hematocrit 37.5 % Mean Corpuscular Volume 80.9 FL Mean Corpuscular Hemoglobin 25.5 PG Mean Corpuscular Hemoglobin Concent 31.5 % Red Cell Distribution Width 17.1 % Platelet Count 349 TH/MM3 Mean Platelet Volume 8.7 FL Neutrophils (%) (Auto) 91.2 % Lymphocytes (%) (Auto) 4.8 % Monocytes (%) (Auto) 3.7 % Eosinophils (%) (Auto) 0.0 % Basophils (%) (Auto) 0.3 % Neutrophils # (Auto) 10.4 TH/MM3 Lymphocytes # (Auto) 0.5 TH/MM3 Monocytes # (Auto) 0.4 TH/MM3 Eosinophils # (Auto) 0.0 TH/MM3 Basophils # (Auto) 0.0 TH/MM3 CBC Comment DIFF FINAL Differential Comment [facility] Medical Record Reviewed: Yes Supervised Visit with ANGELA: No Condition: Stable Meenakshi Alexandra May 25, 2017 11:46
--- NOTE | 2017-05-25 12:34 | RADRPT ---
EXAM DATE/TIME: 05/25/2017 12:07 [place] COMPARISON: CT ABDOMEN & PELVIS W/O CONTRAST, March 17, 2017, 3:45. INDICATIONS : Right flank pain today. ORAL CONTRAST: No oral contrast ingested. RADIATION DOSE: 25.37 CTDIvol (mGy) ; Patient body habitus MEDICAL HISTORY : Renal calculi. Hypertension. Diabetes mellitus type 2. SURGICAL HISTORY : Hysterectomy. section. ENCOUNTER: Initial ACUITY: 1 day PAIN SCALE: 9/10 LOCATION: Right flank TECHNIQUE: Volumetric scanning of the abdomen and pelvis was performed. Using automated exposure control and ad justment of the mA and/or kV according to patient size, radiation dose was kept as low as reasonably achievable to obtain optimal diagnostic quality images. DICOM format image data is available electro nically for review and comparison. FINDINGS: There are numerous calculi in the upper and lower poles of both kidneys ranging in size from about 1- 10 mm. On the right side there is mild right-sided hydronephrosis and a calculus at the right UPJ measuring up to 14 mm in length and about 7.5 mm in transverse diameter. There are also at least 3 calculi in the distal right ureter just above the bladder ranging in size f rom 3-5 mm. No left-sided hydronephrosis or renal calculi are identified. Lung bases are clear. No acute findings in the visualized liver, spleen, adrenals or pancreas. Mild c onstipation. No acute bony abnormalities. Chronic arthropathy at the sacroiliac joints with sclerosis . CONCLUSION: 1. Mild obstructive uropathy on the right with a 14 mm x 7.5 mm calculus at the right UPJ and multipl e 3-5 mm calculi in the distal right ureter. No left-sided obstructive uropathy. Numerous additional nonobstructing bilateral renal calculi. 2. Chronic bilateral sacroiliac joint arthropathy. Previous cholecystectomy. Appendix normal. Werner Thakur MD on May 25, 2017 at 12:26 Board Certified Radiologist. This report was verified electronically.
[2017-05-25 12:45] LABS: BICARBONATE 24.1 MEQ/L (21.0-32.0); POTASSIUM 4.3 MEQ/L (3.5-5.1)
[2017-05-25 13:00] LABS: BACTERIA, URINE OCC /hpf; BLOOD, URINE SMALL (NEG); COMMENT (UR) CULTURE INDICATED; CULTURE IF INDICATED CULTURE INDICATED; GLUCOSE,URINE 1000 mg/dL (NEG); KETONE, URINE 10 mg/dL (NEG); NITRITE,URINE NEG (NEG); PH, URINE 6.5 (5.0-8.5); SQUAMOUS EPITHELIAL CELL URINE 4 /hpf (0-5); TRANSITIONAL EPI CELLS, URINE <1 /hpf; URINE COLOR LIGHT-YELLOW (YELLW/STRAW)
--- NOTE | 2017-05-25 13:05 | PD ---
HPI Chief Complaint: Flank/Kidney Pain Time Seen by Provider: 12:52 Travel History International Travel<30 days: No Contact w/Intl Traveler<30days: No History of Present Illness HPI 51-year-old female presents to the emergency department for evaluation right flank pain, right abdominal pain that started at 2:00 this morning. She states she has history of left-sided kidney stones and this feels similar, but on the opposite side. Patient reports having removal of left ureteral strength, laser lithotripsy done on May 11, [address] Joaquin. Patient denies any fevers or chills. No chest pain or shortness of breath. She reports vomiting 6 -7 times today since 2 AM. No constipation or diarrhea. No blood in her stool. She reports history of . She states that she is on amlodipine , lisinopril, metformin, glyburide. She has not taken her medications due to vomiting. PFSH Past Medical History Asthma: No Autoimmune Disease: No Blood Disorders: No Anxiety: No Depression: No Heart Rhythm Problems: No Cancer: No Cardiovascular Problems: Yes (ANGINA, HYPERLIPIDEMIA) High Cholesterol: No Chemotherapy: No Chest Pain: No Congestive Heart Failure: No COPD: No Diabetes: Yes (TYPE 2) Diminished Hearing: No Endocrine: No Genitourinary: Yes (uti and kidney stones left side) Hepatitis: No Hiatal Hernia: No Hypertension: Yes Immune Disorder: No Kidney Stones: Yes Musculoskeletal: No Neurologic: No Psychiatric: No Reproductive: No Respiratory: Yes (SLEEP APNEA) Radiation Therapy: No Sickle Cell Disease: No Sleep Apnea: No Thyroid Disease: No Menopausal: Yes : 6 Para: 3 Miscarriage: 1 : 2 Past Surgical History Abdominal Surgery: No AICD: No Cardiac Surgery: No Section: Yes (x 3) Ear Surgery: No Endocrine Surgery: No Eye Surgery: No Genitourinary Surgery: Yes (Lithotripsy ) Gynecologic Surgery: Yes (3 c-sections, hysterectomy) Hysterectomy: Yes (2011) Joint Replacement: No Oral Surgery: No Pacemaker: No Thoracic Surgery: No Other Surgery: Yes Social History Alcohol Use: Yes (occasional) Tobacco Use: No Substance Use: No Allergies-Medications (Allergen,Severity, Reaction): Coded Allergies: acetaminophen (Verified Allergy, Severe, Itching, 05/25/17) hydrocodone (Verified Allergy, Severe, Itching, 05/25/17) hydromorphone (Verified Allergy, Intermediate, Rash, 05/25/17) hydrochlorothiazide (Unverified Adverse Reaction, Intermediate, Nausea/ Vomiting, 05/25/17) Reported Meds & Prescriptions Reported Meds & Active Scripts Active Samantha Contour Next Blood Test Strips (Blood Glucose Test Strips) 1 Alanis Alanis Strip .ROUTE DAILY Prinivil (Lisinopril) 20 Mg Tab 20 Mg PO BID Norvasc (Amlodipine Besylate) 10 Mg Tab 10 Mg PO DAILY Zocor (Simvastatin) 40 Mg Tab 40 Mg PO HS Metformin (Metformin HCl) 500 Mg Tab 2 Tab PO BIDPC With meals Glyburide 5 Mg Tab 5 Mg PO BID Take with meals at the same time each day Tramadol (Tramadol HCl) 50 Mg Tab 50 Mg PO Q6H PRN Review of Systems Except as stated in HPI: all other systems reviewed are Neg Physical Exam Narrative GENERAL: Well-nourished, well-developed female patient, afebrile. SKIN: Focused skin assessment warm/dry. HEAD: Normocephalic. Atraumatic. EYES: No scleral icterus. No injection or drainage. NECK: Supple, trachea midline. No JVD or lymphadenopathy. CARDIOVASCULAR: Regular rate and rhythm without murmurs, gallops, or rubs. RESPIRATORY: Breath sounds equal bilaterally. No accessory muscle use. Lungs sounds are clear to auscultation. GASTROINTESTINAL: Abdomen soft and nondistended. Patient has tenderness to the right upper and lower abdomen, right and left flank. MUSCULOSKELETAL: No cyanosis, or edema. BACK: Nontender without obvious deformity. Bilateral CVA tenderness. Data Data Last Documented VS Vital Signs Date Time Temp Pulse Resp B/P (MAP) Pulse Ox O2 Delivery O2 Flow Rate FiO2 05/25/17 14:20 20 05/25/17 13:32 61 208/94 (132) 100 Room Air 05/25/17 11:41 98.5 Orders Orders Basic Metabolic Panel (Bmp) (05/25/17 11:46) Complete Blood Count With Diff (05/25/17 11:46) Urinalysis - C+S If Indicated (05/25/17 11:46) Ct Abd/Pel W/O Iv Contrast (05/25/17 ) Sodium Chlor 0.9% 1000 Ml Inj (Ns 1000 M (05/25/17 13:15) Ketorolac Inj (Toradol Inj) (05/25/17 13:15) Ondansetron Inj (Zofran Inj) (05/25/17 13:15) Insulin Human Regular Inj (Novolin R Inj (05/25/17 13:15) Urine Culture (05/25/17 12:10) Ecg Monitoring (05/25/17 13:03) Iv Access Insert/Monitor (05/25/17 13:03) Sodium Chloride 0.9% Flush (Ns Flush) (05/25/17 13:15) Ceftriaxone Inj (Rocephin Inj) (05/25/17 14:00) Admit Order (Ed Use Only) (05/25/17 14:45) Consult Urology (05/25/17 ) Labs Laboratory Tests Test 05/25/17 12:00 05/25/17 12:10 05/25/17 13:20 Blood Urea Nitrogen 14 MG/DL Creatinine 1.06 MG/DL Random Glucose 415 MG/DL Calcium Level 9.4 MG/DL Sodium Level 135 MEQ/L Potassium Level 4.3 MEQ/L Chloride Level 101 MEQ/L Carbon Dioxide Level 24.1 MEQ/L Anion Gap 10 MEQ/L Estimat Glomerular Filtration Rate 66 ML/MIN Urine Color LIGHT-YELLOW Urine Turbidity HAZY Urine pH 6.5 Urine Specific [place] 1.012 Urine Protein TRACE mg/dL Urine Glucose (UA) 1000 mg/dL Urine Ketones 10 mg/dL Urine Occult Blood SMALL Urine Nitrite NEG Urine Bilirubin NEG Urine Urobilinogen LESS THAN 2.0 MG/DL Urine Leukocyte Esterase MOD Urine RBC 10 /hpf Urine WBC 31 /hpf Urine Squamous Epithelial Cells 4 /hpf Urine Transitional Epithelial Cells <1 /hpf Urine Bacteria OCC /hpf Microscopic Urinalysis Comment CULTURE INDICATED White Blood Count 11.4 TH/MM3 Red Blood Count 4.64 MIL/MM3 Hemoglobin 11.8 GM/DL Hematocrit 37.5 % Mean Corpuscular Volume 80.9 FL Mean Corpuscular Hemoglobin 25.5 PG Mean Corpuscular Hemoglobin Concent 31.5 % Red Cell Distribution Width 17.1 % Platelet Count 349 TH/MM3 Mean Platelet Volume 8.7 FL Neutrophils (%) (Auto) 91.2 % Lymphocytes (%) (Auto) 4.8 % Monocytes (%) (Auto) 3.7 % Eosinophils (%) (Auto) 0.0 % Basophils (%) (Auto) 0.3 % Neutrophils # (Auto) 10.4 TH/MM3 Lymphocytes # (Auto) 0.5 TH/MM3 Monocytes # (Auto) 0.4 TH/MM3 Eosinophils # (Auto) 0.0 TH/MM3 Basophils # (Auto) 0.0 TH/MM3 CBC Comment DIFF FINAL Differential Comment MDM Medical Decision Making Medical Screen Exam Complete: Yes Emergency Medical Condition: Yes Medical Record Reviewed: Yes Interpretation(s) ct abdomen/pelvis - CONCLUSION: 1. Mild obstructive uropathy on the right with a 14 mm x 7.5 mm calculus at the right UPJ and multiple 3-5 mm calculi in the distal right ureter. No left-sided obstructive uropathy. Numerous additional nonobstructing bilateral renal calculi. 2. Chronic bilateral sacroiliac joint arthropathy. Previous cholecystectomy. Appendix normal. Differential Diagnosis Nephrolithiasis versus hydronephrosis versus UTI versus pyelonephritis Narrative Course 51-year-old female presents to the emergency department for evaluation of right flank, right abdominal pain that started at 2 AM this morning. Patient's history kidney stones with recent lithotripsy, removal left ureteral stent on May 11, 2017. This is similar pain, but on the right side. CBC, BMP, UA , CT abdomen/pelvis without IV contrast are ordered in triage. CBC [-]. BMP shows creatinine 1.06, glucose 415. UA shows 1000 glucose, 10 ketones, moderate leukocyte esterase, 31 wbc's, occasional bacteria. CT abdomen /pelvis shows mild obstructive uropathy on the right with a 14 mm x 7.5 mm calculus at the right UPJ and multiple 3-5 mm calculi in the distal right ureter. No left-sided obstructive uropathy. Numerous additional nonobstructing bilateral renal calculi; Chronic bilateral sacroiliac joint arthropathy. Previous cholecystectomy. Appendix normal. Patient is given normal saline 1 L IV bolus, Zofran 4 mg IV, Toradol 30 mg IV, insulin 10 units subcutaneous. I attempted to contact the patient's urologist, Dr. Joaquin, but he is in surgery and is unable to talk to me at this time. I attempted to the contact the urologist retail operations manager, but he states that we need to speak to her urologist. The patient has quite a large stone in his elbow quite a bit of pain. Therefore , the patient will be admitted with a consult to Dr. Joaquin. The patient agrees to this. Dr. Kirby accepted admission. Diagnosis Primary Impression: Nephrolithiasis Additional Impression: UTI (urinary tract infection) Qualified Codes: N30.01 - Acute cystitis with hematuria Admitting Information Admitting Physician Requests: Admit Condition: Stable Nahomy Moreau HUGO May 25, 2017 13:05
[2017-05-25] MEDS ORDERED: ONDANSETRON HCL 4 MG/2 ML VIAL IV PUSH ONE (13:15)
[2017-05-25] MEDS ORDERED: SODIUM CHLOR 0.9% 1000 ML INJ 1,000 ML IV ONE (13:15)
[2017-05-25] MEDS ORDERED: INSULIN HUMAN REGULAR 1,000 UNITS/10 ML VIAL SQ ONE (13:15)
[2017-05-25] MEDS ORDERED: KETOROLAC TROMETHAMINE 30 MG/ML (IVP) VIAL IV PUSH ONE (13:15)
[2017-05-25 13:53] LABS: AUTOMATED NEUTROPHIL # 10.4 TH/MM3 (1.8-7.7); BASOPHIL % 0.3 % (0.0-2.0); HEMATOCRIT 37.5 % (35.0-46.0); HEMO FLAGS DIFF FINAL; LYMPH % 4.8 % (9.0-44.0); LYMPHOCYTE # 0.5 TH/MM3 (1.0-4.8); MEAN CELL VOLUME 80.9 FL (80.0-100.0); MEAN CORPUSCULAR HEMOGLOBIN 25.5 PG (27.0-34.0); MEAN CORPUSCULAR HGB CONC 31.5 % (32.0-36.0); MONO % 3.7 % (0.0-8.0); NEUT % 91.2 % (16.0-70.0); PLATELET COUNT 349 TH/MM3 (150-450); RED BLOOD COUNT 4.64 MIL/MM3 (4.00-5.30); RED CELL DISTRIBUTION WIDTH 17.1 % (11.6-17.2); WHITE BLOOD COUNT 11.4 TH/MM3 (4.0-11.0)
[2017-05-25] MEDS ORDERED: cefTRIAXone INJ 1,000 MG in SODIUM CHLORIDE 0.9% INJ 100 ML IV ONE (14:00)
[2017-05-25] MEDS ORDERED: ONDANSETRON HCL 4 MG/2 ML VIAL IVP PRN (15:00)
[2017-05-25] MEDS ORDERED: KETOROLAC TROMETHAMINE 30 MG/ML (IVP) VIAL IV PUSH PRN (15:00)
[2017-05-25] MEDS ORDERED: MAGNESIUM HYDROXIDE SUSP 30 ML CUP PO PRN (15:00)
[2017-05-25] MEDS ORDERED: SENNOSIDES 8.6 MG TAB PO PRN (15:00)
[2017-05-25] MEDS ORDERED: NALOXONE HCL 0.4 MG/ML AMP IV PUSH PRN (15:00)
[2017-05-25] MEDS ORDERED: LACTULOSE SYRUP 20 GM/30 ML CUP PO PRN (15:00)
[2017-05-25] MEDS ORDERED: BISACODYL 10 MG SUPP RECTAL PRN (15:00)
--- NOTE | 2017-05-25 15:11 | PD ---
Physical Exam Narrative I, Dr. Patten, have reviewed the advance practice practitioner's documentation and am in agreement, met with the patient face to face, made the diagnosis, and the medical decision making was done by me. *My assessment and Findings: Nephrolithiasis vs. pyelonephritis 51yo F with recent lithotripsy by Dr. Joaquin here with right sided flank pain since 2am. Associated with nausea and vomiting. Labs reviewed, mild leukocytosis. Glucose elevated at 415. Normal CO2. Normal anion gap. Pt given 10 units of insulin. UA showed moderate leukocyte, WBC 31. Pt given ceftriaxone. Pt given zofran and toradol for pain and nausea. Pt reevaluated at bedside and no longer nauseous. She said pain improved as well. Blood pressure elevated and pt did not take her home meds today so will give her usual amlodipine 10mg and lisinopril 20mg PO. CT a/p showed mild obstructive uropathy on right with a 14mm by 7.5mm calculus at UPJ. Attempted to call Dr. Joaquin but he is in the OR today and cannot reach him. Accepted to hospitalist Dr. Choi's service. Data Data Last Documented VS Vital Signs Date Time Temp Pulse Resp B/P (MAP) Pulse Ox O2 Delivery O2 Flow Rate FiO2 05/25/17 14:20 20 05/25/17 13:32 61 208/94 (132) 100 Room Air 05/25/17 11:41 98.5 Orders Orders Basic Metabolic Panel (Bmp) (05/25/17 11:46) Complete Blood Count With Diff (05/25/17 11:46) Urinalysis - C+S If Indicated (05/25/17 11:46) Ct Abd/Pel W/O Iv Contrast (05/25/17 ) Sodium Chlor 0.9% 1000 Ml Inj (Ns 1000 M (05/25/17 13:15) Ketorolac Inj (Toradol Inj) (05/25/17 13:15) Ondansetron Inj (Zofran Inj) (05/25/17 13:15) Insulin Human Regular Inj (Novolin R Inj (05/25/17 13:15) Urine Culture (05/25/17 12:10) Ecg Monitoring (05/25/17 13:03) Iv Access Insert/Monitor (05/25/17 13:03) Sodium Chloride 0.9% Flush (Ns Flush) (05/25/17 13:15) Ceftriaxone Inj (Rocephin Inj) (05/25/17 14:00) Admit Order (Ed Use Only) (05/25/17 14:45) Consult Urology (05/25/17 ) Labs Laboratory Tests Test 05/25/17 12:00 05/25/17 12:10 05/25/17 13:20 Blood Urea Nitrogen 14 MG/DL Creatinine 1.06 MG/DL Random Glucose 415 MG/DL Calcium Level 9.4 MG/DL Sodium Level 135 MEQ/L Potassium Level 4.3 MEQ/L Chloride Level 101 MEQ/L Carbon Dioxide Level 24.1 MEQ/L Anion Gap 10 MEQ/L Estimat Glomerular Filtration Rate 66 ML/MIN Urine Color LIGHT-YELLOW Urine Turbidity HAZY Urine pH 6.5 Urine Specific [place] 1.012 Urine Protein TRACE mg/dL Urine Glucose (UA) 1000 mg/dL Urine Ketones 10 mg/dL Urine Occult Blood SMALL Urine Nitrite NEG Urine Bilirubin NEG Urine Urobilinogen LESS THAN 2.0 MG/DL Urine Leukocyte Esterase MOD Urine RBC 10 /hpf Urine WBC 31 /hpf Urine Squamous Epithelial Cells 4 /hpf Urine Transitional Epithelial Cells <1 /hpf Urine Bacteria OCC /hpf Microscopic Urinalysis Comment CULTURE INDICATED White Blood Count 11.4 TH/MM3 Red Blood Count 4.64 MIL/MM3 Hemoglobin 11.8 GM/DL Hematocrit 37.5 % Mean Corpuscular Volume 80.9 FL Mean Corpuscular Hemoglobin 25.5 PG Mean Corpuscular Hemoglobin Concent 31.5 % Red Cell Distribution Width 17.1 % Platelet Count 349 TH/MM3 Mean Platelet Volume 8.7 FL Neutrophils (%) (Auto) 91.2 % Lymphocytes (%) (Auto) 4.8 % Monocytes (%) (Auto) 3.7 % Eosinophils (%) (Auto) 0.0 % Basophils (%) (Auto) 0.3 % Neutrophils # (Auto) 10.4 TH/MM3 Lymphocytes # (Auto) 0.5 TH/MM3 Monocytes # (Auto) 0.4 TH/MM3 Eosinophils # (Auto) 0.0 TH/MM3 Basophils # (Auto) 0.0 TH/MM3 CBC Comment DIFF FINAL Differential Comment MDM Supervised Visit with ANEGLA: Yes Diagnosis Primary Impression: Nephrolithiasis Admitting Information Admitting Physician Requests: Admit Condition: Stable Patten,Maria R DO May 25, 2017 15:11
[2017-05-25] MEDS ORDERED: LISINOPRIL 20 MG TAB PO ONE (15:15)
--- NOTE | 2017-05-25 15:44 | HHI.HP ---
[facility]ician Griselda Armstrong MD Admission Diagnosis nephrolithiasis, UTI Diagnoses: (1) Nephrolithiasis (2) Hyperlipidemia (3) Diabetes (4) HTN (hypertension) (5) Urinary tract infection Chief Complaint: Flank pain Travel History International Travel<30 Days: No Contact w/Intl Traveler <30 Da: No Traveled to Known Affected Are: No History of Present Illness The patient is a 51-year-old female with known history of nephrolithiasis. She presented to the emergency department with complaint of right flank pain that woke her from sleep at 2:00 this morning. She states that she cannot find a comfortable position. She has had nausea and vomiting. She denies diarrhea or constipation. Denies chest pain or dyspnea. She had left ureteral stent removed on 05/11/[address] Joaquin. She reports chills, but no fever or night sweats. Review of Systems Constitutional: COMPLAINS OF: Chills, DENIES: Fever, Night Sweats Eyes: DENIES: Blurred vision, Vision loss Ears, nose, mouth, throat: DENIES: Hearing loss Respiratory: DENIES: Cough, Wheezing, Sputum production, Shortness of breath Cardiovascular: DENIES: Chest pain, Palpitations, Dyspnea on Exertion, Lower Extremity Edema Gastrointestinal: COMPLAINS OF: Abdominal pain, Nausea, Vomiting, DENIES: Constipation, Diarrhea Genitourinary: DENIES: Urinary frequency, Urinary incontinence, Urgency, Hematuria, Dysuria, Nocturia Musculoskeletal: DENIES: Joint pain, Muscle aches Integumentary: DENIES: Pruritus, Rash Hematologic/lymphatic: DENIES: Bruising Neurologic: DENIES: Headache Past Family Social History Past Medical History Hyperlipidemia Diabetes mellitus Hypertension Nephrolithiasis Sleep apnea Past Surgical History section 3 Hysterectomy 2012 Cystoscopy with ureteral stent placement and removal Lithotripsy Reported Medications Prinivil (Lisinopril) 20 Mg Tab 20 Mg PO BID Norvasc (Amlodipine Besylate) 10 Mg Tab 10 Mg PO DAILY Zocor (Simvastatin) 40 Mg Tab 40 Mg PO HS Metformin (Metformin HCl) 500 Mg Tab 2 Tab PO BIDPC With meals Glyburide 5 Mg Tab 5 Mg PO BID Take with meals at the same time each day Tramadol (Tramadol HCl) 50 Mg Tab 50 Mg PO Q6H PRN Keflex (Cephalexin) 250 Mg Cap 250 Mg PO TID Dilaudid (Hydromorphone HCl) 2 Mg Tab 2 Mg PO Q6H PRN Allergies: Coded Allergies: acetaminophen (Verified Allergy, Severe, Itching, 05/25/17) hydrocodone (Verified Allergy, Severe, Itching, 05/25/17) hydromorphone (Verified Allergy, Intermediate, Rash, 05/25/17) hydrochlorothiazide (Unverified Adverse Reaction, Intermediate, Nausea/ Vomiting, 05/25/17) Family History Diabetes Social History Denies alcohol, tobacco, or illicit drug use. Physical Exam Vital Signs Vital Signs Date Time Temp Pulse Resp B/P (MAP) Pulse Ox O2 Delivery O2 Flow Rate FiO2 05/25/17 15:06 62 18 182/82 (115) 98 Room Air 05/25/17 14:59 66 16 182/83 (116) 100 Room Air 05/25/17 14:20 20 05/25/17 13:32 61 16 208/94 (132) 100 Room Air 05/25/17 11:41 98.5 90 13 209/114 (145) 97 Physical Exam GENERAL: Well-nourished, well-developed female in no acute distress. HEENT: Normocephalic, atraumatic. Pupils equal, round and reactive. Extraocular movements intact. No scleral icterus. No injection or drainage. Oropharynx is clear. Mucous membranes are moist. CARDIOVASCULAR: Regular rate and rhythm without murmurs, gallops, or rubs. RESPIRATORY: Clear to auscultation. No wheezes, rales, or rhonchi. Breathing is non-labored. GASTROINTESTINAL: Abdomen soft, nondistended. Tender to palpation on the right side, worse on the right flank. EXTREMITIES: No lower extremity edema. No calf tenderness. PSYCH: Alert and oriented x 3. Laboratory Laboratory Tests Test 05/25/17 12:00 05/25/17 12:10 05/25/17 13:20 Blood Urea Nitrogen 14 Creatinine 1.06 Random Glucose 415 Calcium Level 9.4 Sodium Level 135 Potassium Level 4.3 Chloride Level 101 Carbon Dioxide Level 24.1 Anion Gap 10 Estimat Glomerular Filtration Rate 66 Urine Color LIGHT-YELLOW Urine Turbidity HAZY Urine pH 6.5 Urine Specific [place] 1.012 Urine Protein TRACE Urine Glucose (UA) 1000 Urine Ketones 10 Urine Occult Blood SMALL Urine Nitrite NEG Urine Bilirubin NEG Urine Urobilinogen LESS THAN 2.0 Urine Leukocyte Esterase MOD Urine RBC 10 Urine WBC 31 Urine Squamous Epithelial Cells 4 Urine Transitional Epithelial Cells <1 Urine Bacteria OCC Microscopic Urinalysis Comment CULTURE INDICATED White Blood Count 11.4 Red Blood Count 4.64 Hemoglobin 11.8 Hematocrit 37.5 Mean Corpuscular Volume 80.9 Mean Corpuscular Hemoglobin 25.5 Mean Corpuscular Hemoglobin Concent 31.5 Red Cell Distribution Width 17.1 Platelet Count 349 Mean Platelet Volume 8.7 Neutrophils (%) (Auto) 91.2 Lymphocytes (%) (Auto) 4.8 Monocytes (%) (Auto) 3.7 Eosinophils (%) (Auto) 0.0 Basophils (%) (Auto) 0.3 Neutrophils # (Auto) 10.4 Lymphocytes # (Auto) 0.5 Monocytes # (Auto) 0.4 Eosinophils # (Auto) 0.0 Basophils # (Auto) 0.0 CBC Comment DIFF FINAL Differential Comment Date/Time Source Procedure Growth Status 05/25/17 12:10 Urine Random Urine Urine Culture Pending Received Result Diagram: 05/25/17 1320 05/25/17 1200 Imaging Last Impressions Abdomen/Pelvis CT 05/25/17 0000 Signed Impressions: Service Date/Time: Thursday, May 25, 2017 12:07 - CONCLUSION: 1. Mild obstructive uropathy on the right with a 14 mm x 7.5 mm calculus at the right UPJ and multiple 3-5 mm calculi in the distal right ureter. No left-sided obstructive uropathy. Numerous additional nonobstructing bilateral renal calculi. 2. Chronic bilateral sacroiliac joint arthropathy. Previous cholecystectomy. Appendix normal. Werner Thakur MD Caprini VTE Risk Assessment Caprini VTE Risk Assessment: Mod/High Risk (score >= 2) Caprini Risk Assessment Model Point Value = 1 Point Value = 2 Point Value = 3 Point Value = 5 Age 41-60 Minor surgery BMI > 25 kg/m2 Swollen legs Varicose veins or History of unexplained or recurrent spontaneous Oral contraceptives or hormone replacement Sepsis (< 1 month) Serious lung disease, including pneumonia (< 1 month) Abnormal pulmonary function Acute myocardial infarction Congestive heart failure (< 1 month) History of inflammatory bowel disease Medical patient at bed rest Age 61-74 Arthroscopic surgery Major open surgery (> 45 min) Laparoscopic surgery (> 45 min) Malignancy Confined to bed (> 72 hours) Immobilizing plaster cast Central venous access Age >= 75 History of VTE Family history of VTE Factor V Leiden Prothrombin [id number] Lupus anticoagulant Anticardiolipin antibodies Elevated serum homocysteine Heparin-induced thrombocytopenia Other congenital or acquired thrombophilia Stroke (< 1 month) Elective arthroplasty Hip, pelvis, or leg fracture Acute spinal cord injury (< 1 month) Prophylaxis Regimen Total Risk Factor Score Risk Level Prophylaxis Regimen 0-1 Low Early ambulation 2 Moderate Order ONE of the following: *Sequential Compression Device (SCD) *Heparin 5000 units SQ BID 3-4 Higher Order ONE of the following medications: *Heparin 5000 units SQ TID *Enoxaparin/Lovenox 40 mg SQ daily (WT < 150 kg, CrCl > 30 mL/min) *Enoxaparin/Lovenox 30 mg SQ daily (WT < 150 kg, CrCl > 10-29 mL/min) *Enoxaparin/Lovenox 30 mg SQ BID (WT < 150 kg, CrCl > 30 mL/min) AND/OR *Sequential Compression Device (SCD) 5 or more Highest Order ONE of the following medications: *Heparin 5000 units SQ TID (Preferred with Epidurals) *Enoxaparin/Lovenox 40 mg SQ daily (WT < 150 kg, CrCl > 30 mL/min) *Enoxaparin/Lovenox 30 mg SQ daily (WT < 150 kg, CrCl > 10-29 mL/min) *Enoxaparin/Lovenox 30 mg SQ BID (WT < 150 kg, CrCl > 30 mL/min) AND *Sequential Compression Device (SCD) Assessment and Plan Assessment and Plan 1. Nephrolithiasis with hydronephrosis on the right: Continue pain control, IV fluids. Consult urology. 2. UTI: Continue antibiotics. 3. Diabetes mellitus: Monitor Accu-Cheks and cover with sliding scale insulin. Hold metformin. Restart glyburide. 4. Hypertension: Continue Norvasc, lisinopril. 5. Hyperlipidemia: Continue simvastatin. 6. DVT prophylaxis: JON Jackson. Fede Kirby MD May 25, 2017 15:44
[2017-05-25] MEDS ORDERED: GLUCAGON 1 MG/ML VIAL OTHER PRN (15:45)
[2017-05-25] MEDS ORDERED: DEXTROSE 50% IN WATER 50 ML VIAL(D50) IV PUSH PRN (15:45)
[2017-05-25] MEDS: SODIUM CHLOR 0.9% 1000 ML INJ 1,000 ML IV SCH ×2 (15:58→21:17)
--- NOTE | 2017-05-25 17:26 | PD.CONS ---
HPI Service Urology Consult Requested By Reason for Consult Nephrolithiasis Primary Care Physician Griselda Armstrong MD Diagnosis: (1) Nephrolithiasis ICD Code: N20.0 - Calculus of kidney (2) Hyperlipidemia ICD Code: E78.5 - Hyperlipidemia, unspecified (3) Diabetes ICD Code: E11.9 - Type 2 diabetes mellitus without complications (4) HTN (hypertension) ICD Code: I10 - Essential (primary) hypertension (5) Urinary tract infection ICD Code: N39.0 - Urinary tract infection History of Present Illness 51yo female with history of DM as well as nephrolithiasis now admitted for right flank pain and large proximal right renal stones. Patient has been followed by Dr. Joaquin for her history of nephrolithiasis. She had ureteroscopy completed few weeks ago on the left for her stone burden. She had been doing well until last night where she developed significant right flank pain with N/V, sharp and stabbing, radiating to the right upper abdomen. Her pain remained persistent where she reported to the ED. CT scan identified a large right proximal ureteral stone, aaprox 1.4cm in size with a few smaller stones in the distal right ureter. Since admit her pain has been controlled, no fevers. No hematuria. She has a scheduled appt with Dr. Joaquin on May 28. Review of Systems ROS Limitations: Clinical Condition Constitutional: DENIES: Fever Endocrine: DENIES: Polyuria Eyes: DENIES: Blurred vision Ears, nose, mouth, throat: DENIES: Hearing loss Respiratory: DENIES: Apneas, Cough Cardiovascular: DENIES: Chest pain Gastrointestinal: COMPLAINS OF: Abdominal pain Genitourinary: DENIES: Urinary frequency, Urinary incontinence, Urgency, Hematuria Musculoskeletal: DENIES: Joint pain Integumentary: DENIES: Rash Hematologic/lymphatic: DENIES: Bruising Neurologic: DENIES: Headache Psychiatric: DENIES: Anxiety Except as stated in HPI: all other systems reviewed are Neg Past Family Social History Past Medical History Hyperlipidemia Diabetes mellitus Hypertension Nephrolithiasis Sleep apnea Past Surgical History section 3 Hysterectomy 2012 Cystoscopy with ureteral stent placement and removal Lithotripsy Reported Medications Reported Meds & Active Scripts Active Samantha Contour Next Blood Test Strips (Blood Glucose Test Strips) 1 Alanis Alanis Strip .ROUTE DAILY Prinivil (Lisinopril) 20 Mg Tab 20 Mg PO BID Norvasc (Amlodipine Besylate) 10 Mg Tab 10 Mg PO DAILY Zocor (Simvastatin) 40 Mg Tab 40 Mg PO HS Metformin (Metformin HCl) 500 Mg Tab 2 Tab PO BIDPC With meals Glyburide 5 Mg Tab 5 Mg PO BID Take with meals at the same time each day Tramadol (Tramadol HCl) 50 Mg Tab 50 Mg PO Q6H PRN Allergies: Coded Allergies: acetaminophen (Verified Allergy, Severe, Itching, 05/25/17) hydrocodone (Verified Allergy, Severe, Itching, 05/25/17) hydromorphone (Verified Allergy, Intermediate, Rash, 05/25/17) hydrochlorothiazide (Unverified Adverse Reaction, Intermediate, Nausea/ Vomiting, 05/25/17) Active Ordered Medications Current Medications Medications (Trade) Dose Ordered Sig/Rohit Route Start Time Stop Time Status Last Admin (NS Flush) 2 ml UNSCH PRN IVF 05/25/17 13:15 Sodium Chloride 1,000 ml @ 100 mls/hr Q10H IV 05/25/17 14:50 05/25/17 15:58 (Zofran Inj) 4 mg Q6H PRN IVP 05/25/17 15:00 (Toradol Inj) 15 mg Q6H PRN IV PUSH 05/25/17 15:00 05/30/17 14:59 (Toradol Inj) 30 mg Q6H PRN IV PUSH 05/25/17 15:00 05/30/17 14:59 (Narcan Inj) 0.4 mg UNSCH PRN IV PUSH 05/25/17 15:00 (Milk Of Magnesia Liq) 30 ml Q12H PRN PO 05/25/17 15:00 (Senokot) 17.2 mg Q12H PRN PO 05/25/17 15:00 (Dulcolax Supp) 10 mg DAILY PRN RECTAL 05/25/17 15:00 (Lactulose Liq) 30 ml DAILY PRN PO 05/25/17 15:00 Ceftriaxone Sodium 1000 mg/ Sodium Chloride 100 ml @ 200 mls/hr Q24H IV 05/26/17 14:00 (D50w (Vial) Inj) 50 ml UNSCH PRN IV PUSH 05/25/17 15:45 (Glucagon Inj) 1 mg UNSCH PRN OTHER 05/25/17 15:45 (NovoLOG SUPPLEMENTAL SCALE) 1 ACHS SLIDING SCALE SQ 05/25/17 17:00 (Norvasc) 10 mg DAILY PO 05/26/17 09:00 (Diabeta) 5 mg BID PO 05/25/17 21:00 (Prinivil) 20 mg BID PO 05/25/17 21:00 (Pravachol) 80 mg HS PO 05/25/17 21:00 Family History Diabetes Social History Denies alcohol, tobacco, or illicit drug use. Physical Exam Vital Signs Date Time Temp Pulse Resp B/P (MAP) Pulse Ox O2 Delivery O2 Flow Rate FiO2 05/25/17 16:25 05/25/17 16:10 62 16 168/87 (114) 96 Room Air 05/25/17 15:06 62 18 182/82 (115) 98 Room Air 05/25/17 14:59 66 16 182/83 (116) 100 Room Air 05/25/17 14:20 20 05/25/17 13:32 61 16 208/94 (132) 100 Room Air 05/25/17 11:41 98.5 90 13 209/114 (145) 97 Physical Exam GENERAL: This is a well-nourished, well-developed patient, in no apparent distress. SKIN: No rashes, ecchymoses or lesions. Cool and dry. HEAD: Atraumatic. Normocephalic EYES: Extraocular motions intact. No scleral icterus. No injection or drainage. ENT: Nose without bleeding, purulent drainage. Airway patent. NECK: Trachea midline.. CARDIOVASCULAR: Normal pulses RESPIRATORY: Nonlabored respirations GASTROINTESTINAL: Abdomen soft, non-tender, nondistended. MUSCULOSKELETAL: Extremities without clubbing, cyanosis, or edema. NEUROLOGICAL: Awake and alert. Motor and sensory grossly within normal limits. Normal speech. Lab results reviewed: Yes Laboratory Tests Test 05/25/17 12:00 05/25/17 12:10 05/25/17 13:20 Blood Urea Nitrogen 14 Creatinine 1.06 Random Glucose 415 Calcium Level 9.4 Sodium Level 135 Potassium Level 4.3 Chloride Level 101 Carbon Dioxide Level 24.1 Anion Gap 10 Estimat Glomerular Filtration Rate 66 Urine Color LIGHT-YELLOW Urine Turbidity HAZY Urine pH 6.5 Urine Specific [place] 1.012 Urine Protein TRACE Urine Glucose (UA) 1000 Urine Ketones 10 Urine Occult Blood SMALL Urine Nitrite NEG Urine Bilirubin NEG Urine Urobilinogen LESS THAN 2.0 Urine Leukocyte Esterase MOD Urine RBC 10 Urine WBC 31 Urine Squamous Epithelial Cells 4 Urine Transitional Epithelial Cells <1 Urine Bacteria OCC Microscopic Urinalysis Comment CULTURE INDICATED White Blood Count 11.4 Red Blood Count 4.64 Hemoglobin 11.8 Hematocrit 37.5 Mean Corpuscular Volume 80.9 Mean Corpuscular Hemoglobin 25.5 Mean Corpuscular Hemoglobin Concent 31.5 Red Cell Distribution Width 17.1 Platelet Count 349 Mean Platelet Volume 8.7 Neutrophils (%) (Auto) 91.2 Lymphocytes (%) (Auto) 4.8 Monocytes (%) (Auto) 3.7 Eosinophils (%) (Auto) 0.0 Basophils (%) (Auto) 0.3 Neutrophils # (Auto) 10.4 Lymphocytes # (Auto) 0.5 Monocytes # (Auto) 0.4 Eosinophils # (Auto) 0.0 Basophils # (Auto) 0.0 CBC Comment DIFF FINAL Differential Comment Date/Time Source Procedure Growth Status 05/25/17 12:10 Urine Random Urine Urine Culture Pending Received Result Diagram: 05/25/17 1320 05/25/17 1200 Personally reviewed images: Yes Imaging Last Impressions Abdomen/Pelvis CT 05/25/17 0000 Signed Impressions: Service Date/Time: Thursday, May 25, 2017 12:07 - CONCLUSION: 1. Mild obstructive uropathy on the right with a 14 mm x 7.5 mm calculus at the right UPJ and multiple 3-5 mm calculi in the distal right ureter. No left-sided obstructive uropathy. Numerous additional nonobstructing bilateral renal calculi. 2. Chronic bilateral sacroiliac joint arthropathy. Previous cholecystectomy. Appendix normal. Werner Thakur MD Assessment and Plan Problem List: (1) Flank pain ICD Code: R10.9 - Unspecified abdominal pain Status: Acute (2) Diabetes ICD Code: E11.9 - Type 2 diabetes mellitus without complications Status: Acute (3) Intractable nausea and vomiting ICD Code: R11.2 - Nausea with vomiting, unspecified Status: Acute Assessment and Plan -CT images reviewed. Right large proximal ureteral stone noted with mild hydronephrosis. Several stones noted within the right collecting system as well. There are several smaller stones noted in the right distal ureter and UVJ. -Left stone burden also identified, however these appear to be fragmented, without any obvious large single stone that would be of any concern -At this time, the patient is comfortable with pain controlled, no N/V -Patient would likely require right ureteral stent placement in anticipation for likely surgical intervention for her right stone burden in the future. -Patient may have a diet now, with NPO at midnight -Will discuss case with Dr. Joaquin in the am, with final plans to follow. Jose Cruz Rivera MD May 25, 2017 17:26
[2017-05-25] MEDS: INSULIN ASPART SUPPLEMENTAL SCALE SQ SCH ×2 (18:48→21:00)
[2017-05-25] MEDS: LISINOPRIL 20 MG TAB PO SCH (21:14)
[2017-05-25] MEDS: PRAVASTATIN SOD 80 MG TAB PO SCH (21:14)
[2017-05-25] MEDS: glyBURIDE 5 MG TAB PO SCH (21:14)
[2017-05-25] MEDS: KETOROLAC TROMETHAMINE 30 MG/ML (IVP) VIAL IV PUSH PRN (21:22)
[2017-05-25] MEDS: SODIUM CHLORIDE 0.9% FLUSH 10 ML FLUSH IVF PRN (21:24)
[2017-05-26] VITALS (7 sets, daily range): BP systolic 143–173; BP diastolic 68–89; PULSE 62–86; RESP 16–20; TEMP 95.6–98.7; O2SAT 94–100
[2017-05-26] MEDS: KETOROLAC TROMETHAMINE 30 MG/ML (IVP) VIAL IV PUSH PRN ×3 (06:31→20:45)
[2017-05-26] MEDS: glyBURIDE 5 MG TAB PO SCH ×2 (08:38→20:51)
[2017-05-26] MEDS: LISINOPRIL 20 MG TAB PO SCH ×2 (08:38→20:32)
[2017-05-26] MEDS: INSULIN ASPART SUPPLEMENTAL SCALE SQ SCH ×4 (08:39→20:39)
[2017-05-26 10:31] LABS: AUTOMATED NEUTROPHIL # 5.7 TH/MM3 (1.8-7.7); BASOPHIL # 0.1 TH/MM3 (0-0.2); BASOPHIL % 0.7 % (0.0-2.0); EOSINOPHIL # 0.2 TH/MM3 (0-0.4); EOSINOPHIL % 2.9 % (0.0-4.0); HEMATOCRIT 36.7 % (35.0-46.0); LYMPH % 15.6 % (9.0-44.0); LYMPHOCYTE # 1.2 TH/MM3 (1.0-4.8); MEAN CELL VOLUME 81.6 FL (80.0-100.0); MEAN CORPUSCULAR HEMOGLOBIN 26.2 PG (27.0-34.0); MEAN CORPUSCULAR HGB CONC 32.1 % (32.0-36.0); NEUT % 72.8 % (16.0-70.0); PLATELET COUNT 208 TH/MM3 (150-450); RED BLOOD COUNT 4.49 MIL/MM3 (4.00-5.30); RED CELL DISTRIBUTION WIDTH 17.3 % (11.6-17.2); WHITE BLOOD COUNT 7.8 TH/MM3 (4.0-11.0)
[2017-05-26 10:39] LABS: HEMO FLAGS AUTO DIFF
[2017-05-26 10:49] LABS: BICARBONATE 23.2 MEQ/L (21.0-32.0); POTASSIUM 4.1 MEQ/L (3.5-5.1)
[2017-05-26 11:12] LABS: SCAN/DIFF AUTO DIFF CONFIRMED
[2017-05-26 11:13] LABS: ACANTHOCYTES 1+ (NORMAL)
--- NOTE | 2017-05-26 11:38 | HHI.PR ---
Subjective Remarks Follow-up nephrolithiasis, UTI. Patient still having right flank pain, 6/10. No difficulty urinating. No chest pain, dyspnea, nausea, vomiting. Objective Vitals Vital Signs Date Time Temp Pulse Resp B/P (MAP) Pulse Ox O2 Delivery O2 Flow Rate FiO2 05/26/17 08:00 98.1 62 18 143/77 (99) 95 05/26/17 04:00 97.8 83 16 151/68 (95) 96 05/26/17 00:00 97.8 69 16 152/70 (97) 94 05/25/17 20:00 98.3 69 16 171/79 (109) 94 05/25/17 17:00 97.3 57 18 152/70 (97) 97 05/25/17 16:25 05/25/17 16:10 62 16 168/87 (114) 96 Room Air 05/25/17 15:06 62 18 182/82 (115) 98 Room Air 05/25/17 14:59 66 16 182/83 (116) 100 Room Air 05/25/17 14:20 20 05/25/17 13:32 61 16 208/94 (132) 100 Room Air 05/25/17 11:41 98.5 90 13 209/114 (145) 97 I/O 05/25/17 05/25/17 05/25/17 05/26/17 05/26/17 05/26/17 07:00 15:00 23:00 07:00 15:00 23:00 Intake Total 1100 ml 773 ml Output Total 3 ml Balance 1100 ml 770 ml Intake IV Total 1100 ml 773 ml Output Urine Total 3 ml # Bowel Movements 1 Result Diagram: 05/26/17 0852 05/26/17 0852 Imaging Last Impressions Abdomen/Pelvis CT 05/25/17 0000 Signed Impressions: Service Date/Time: Thursday, May 25, 2017 12:07 - CONCLUSION: 1. Mild obstructive uropathy on the right with a 14 mm x 7.5 mm calculus at the right UPJ and multiple 3-5 mm calculi in the distal right ureter. No left-sided obstructive uropathy. Numerous additional nonobstructing bilateral renal calculi. 2. Chronic bilateral sacroiliac joint arthropathy. Previous cholecystectomy. Appendix normal. Werner Thakur MD Objective Remarks General: No acute distress. Sitting up in a chair. Heart: Regular rate and rhythm. No murmur. Lungs: Clear to auscultation bilaterally. No wheezes, rales, or rhonchi. Breathing is nonlabored. Back: Right CVA tenderness. Abdomen: Soft, nontender, nondistended. Extremities: No lower extremity edema. Psych: Alert and oriented. Procedures None Urinary Catheter: No Vascular Central Line Catheter: No A/P Problem List: (1) Nephrolithiasis ICD Code: N20.0 - Calculus of kidney Status: Acute (2) Hyperlipidemia ICD Code: E78.5 - Hyperlipidemia, unspecified Status: Acute (3) Diabetes ICD Code: E11.9 - Type 2 diabetes mellitus without complications Status: Acute (4) HTN (hypertension) ICD Code: I10 - Essential (primary) hypertension Status: Acute (5) Urinary tract infection ICD Code: N39.0 - Urinary tract infection Status: Acute Assessment and Plan 1. Nephrolithiasis with hydronephrosis on the right: Continue pain control, IV fluids. Appreciate urology recommendations. May need surgical intervention. 2. UTI: Continue antibiotics. 3. Diabetes mellitus: Monitor Accu-Cheks and cover with sliding scale insulin. Hold metformin. Continue glyburide. 4. Hypertension: Continue Norvasc, lisinopril. 5. Hyperlipidemia: Continue simvastatin. 6. DVT prophylaxis: JON Jackson. Fede Kirby MD May 26, 2017 11:38
[2017-05-26] MEDS: SODIUM CHLOR 0.9% 1000 ML INJ 1,000 ML IV SCH ×2 (12:32→20:33)
[2017-05-26] MEDS ORDERED: cefTRIAXone INJ 1,000 MG in SODIUM CHLORIDE 0.9% INJ 100 ML IV SCH (14:00)
[2017-05-26] MEDS: PRAVASTATIN SOD 80 MG TAB PO SCH (20:33)
[2017-05-26] MEDS: SODIUM CHLORIDE 0.9% FLUSH 10 ML FLUSH IVF PRN (20:46)
[2017-05-27] VITALS: BP 185/76; PULSE 67; RESP 20; TEMP 99.2; O2SAT 97
[2017-05-27] MEDS: SODIUM CHLORIDE 0.9% FLUSH 10 ML FLUSH IVF PRN ×2 (01:47→03:35)
[2017-05-27] MEDS: KETOROLAC TROMETHAMINE 30 MG/ML (IVP) VIAL IV PUSH PRN (03:34)
[2017-05-27] MEDS: SODIUM CHLOR 0.9% 1000 ML INJ 1,000 ML IV SCH (03:34)
[2017-05-27 04:00] VITALS: BP 166/79; PULSE 70; RESP 20; TEMP 98.1; O2SAT 96
[2017-05-27 08:00] VITALS: BP 158/75; PULSE 70; RESP 18; TEMP 97.7; O2SAT 98
[2017-05-27] MEDS: LISINOPRIL 20 MG TAB PO SCH (08:35)
[2017-05-27] MEDS: INSULIN ASPART SUPPLEMENTAL SCALE SQ SCH ×2 (08:35→12:18)
[2017-05-27] MEDS: glyBURIDE 5 MG TAB PO SCH (08:37)
--- NOTE | 2017-05-27 11:29 | HHI.PR ---
Subjective Patient symptoms today Recent events noted. Presently feels fine with pain well managed and anxious to go home. Her only complaint is constipation. Objective Vital Signs Vital Signs Date Time Temp Pulse Resp B/P (MAP) Pulse Ox O2 Delivery O2 Flow Rate FiO2 05/27/17 08:00 97.7 70 18 158/75 (102) 98 05/27/17 04:00 98.1 70 20 166/79 (108) 96 05/27/17 00:00 99.2 67 20 185/76 (112) 97 05/26/17 20:00 98.7 69 20 173/89 (117) 100 05/26/17 16:30 95.6 80 20 157/79 (105) 100 05/26/17 16:00 96.1 86 20 161/87 (111) 98 05/26/17 13:36 20 05/26/17 12:00 98.5 85 20 144/85 (104) 100 Intake & Output 05/27/17 05/27/17 07:00 19:00 Intake Total 1182 ml Balance 1182 ml Intake Oral 240 ml IV Total 942 ml # Voids 5 Result Diagram: 05/26/1752 05/26/17851 Objective Remarks Abdomen soft, nondistended, nontender No CVA tenderness Medications and IVs Current Medications Medications (Trade) Dose Ordered Sig/Rohit Route Start Time Stop Time Status Last Admin (NS Flush) 2 ml UNSCH PRN IVF 05/25/17 13:15 05/27/17 03:35 Sodium Chloride 1,000 ml @ 100 mls/hr Q10H IV 05/25/17 14:50 05/27/17 03:34 (Zofran Inj) 4 mg Q6H PRN IVP 05/25/17 15:00 05/27/17 01:46 (Toradol Inj) 15 mg Q6H PRN IV PUSH 05/25/17 15:00 05/30/17 14:59 (Toradol Inj) 30 mg Q6H PRN IV PUSH 05/25/17 15:00 05/30/17 14:59 05/27/17 03:34 (Narcan Inj) 0.4 mg UNSCH PRN IV PUSH 05/25/17 15:00 (Milk Of Magnesia Liq) 30 ml Q12H PRN PO 05/25/17 15:00 (Senokot) 17.2 mg Q12H PRN PO 05/25/17 15:00 05/27/17 01:53 (Dulcolax Supp) 10 mg DAILY PRN RECTAL 05/25/17 15:00 (Lactulose Liq) 30 ml DAILY PRN PO 05/25/17 15:00 Ceftriaxone Sodium 1000 mg/ Sodium Chloride 100 ml @ 200 mls/hr Q24H IV 05/26/17 14:00 05/26/17 15:49 (D50w (Vial) Inj) 50 ml UNSCH PRN IV PUSH 05/25/17 15:45 (Glucagon Inj) 1 mg UNSCH PRN OTHER 05/25/17 15:45 (NovoLOG SUPPLEMENTAL SCALE) 1 ACHS SLIDING SCALE SQ 05/25/17 17:00 05/27/17 08:35 (Norvasc) 10 mg DAILY PO 05/26/17 09:00 05/27/17 08:35 (Diabeta) 5 mg BID PO 05/25/17 21:00 05/27/17 08:37 (Prinivil) 20 mg BID PO 05/25/17 21:00 05/27/17 08:35 (Pravachol) 80 mg HS PO 05/25/17 21:00 05/26/17 20:33 Assessment and Plan Problem List: (1) Flank pain ICD Code: R10.9 - Unspecified abdominal pain Status: Acute (2) Diabetes ICD Code: E11.9 - Type 2 diabetes mellitus without complications Status: Acute (3) Intractable nausea and vomiting ICD Code: R11.2 - Nausea with vomiting, unspecified Status: Acute Assessment and Plan -CT images reviewed. Right large proximal ureteral stone noted with mild hydronephrosis. Several stones noted within the right collecting system as well. There are several smaller stones noted in the right distal ureter and UVJ. -Left stone burden also identified, however these appear to be fragmented, without any obvious large single stone that would be of any concern -At this time, the patient is comfortable with pain controlled, no N/V -Patient would likely require right ureteral stent placement in anticipation for likely surgical intervention for her right stone burden in the future. -Patient may have a diet now, with NPO at midnight -Will discuss case with Dr. Joaquin in the am, with final plans to follow. May 27, 2017 Urologic impression: #1 obstructing right ureteral calculi #2 status post recent left ureteroscopy with laser lithotripsy #3 bilateral renal calculi Recommendations: #1 Dulcolax suppository 1 now #2 urologically stable to discharge home with oral pain medication #3 my office will contact patient to arrange cystoscopy, right retrograde pyelogram, right stent placement and right shockwave lithotripsy Ananda Joaquin MD May 27, 2017 11:29
[2017-05-27] MEDS ORDERED: BISACODYL 10 MG SUPP RECTAL ONE (12:00)
[2017-05-27] MEDS ORDERED: BACT800T5 PO (13:58)
[2017-05-27] MEDS ORDERED: NAPR375T PO (13:58)
--- NOTE | 2017-05-27 13:58 | HHI.DCPOC ---
Discharge Care Plan Diagnosis: (1) Renal stone (2) Urinary tract infection (3) HTN (hypertension) (4) DM (diabetes mellitus) Goals to Promote Your Health * To prevent worsening of your condition and complications * To maintain your health at the optimal level Directions to Meet Your Goals Take your medications as prescribed Follow your dietary instruction Follow activity as directed Keep your appointments as scheduled Take your immunizations and boosters as scheduled If your symptoms worsen call your PCP, if no PCP go to Urgent Care Center or Emergency Room Smoking is Dangerous to Your Health. Avoid second hand smoke Call the 24-hour hour crisis hotline for domestic abuse at Fede iKrby MD May 27, 2017 13:58
--- NOTE | 2017-05-27 14:01 | HHI.PR ---
Subjective Remarks Follow up nephrolithiasis, UTI. Patient still having right flank pain, but somewhat better today. Wants to go home. Cleared for discharge by urology. Objective Vitals Vital Signs Date Time Temp Pulse Resp B/P (MAP) Pulse Ox O2 Delivery O2 Flow Rate FiO2 05/27/17 08:00 97.7 70 18 158/75 (102) 98 05/27/17 04:00 98.1 70 20 166/79 (108) 96 05/27/17 00:00 99.2 67 20 185/76 (112) 97 05/26/17 20:00 98.7 69 20 173/89 (117) 100 05/26/17 16:30 95.6 80 20 157/79 (105) 100 05/26/17 16:00 96.1 86 20 161/87 (111) 98 I/O 05/26/17 05/26/17 05/26/17 05/27/17 05/27/17 05/27/17 07:00 15:00 23:00 07:00 15:00 23:00 Intake Total 773 ml 600 ml 942 ml Output Total 3 ml Balance 770 ml 600 ml 942 ml Intake Oral 600 ml IV Total 773 ml 942 ml Output Urine Total 3 ml # Voids 7 2 # Bowel Movements 1 0 Result Diagram: 05/26/17 0852 05/26/17 0852 Imaging Last Impressions Abdomen/Pelvis CT 05/25/17 0000 Signed Impressions: Service Date/Time: Thursday, May 25, 2017 12:07 - CONCLUSION: 1. Mild obstructive uropathy on the right with a 14 mm x 7.5 mm calculus at the right UPJ and multiple 3-5 mm calculi in the distal right ureter. No left-sided obstructive uropathy. Numerous additional nonobstructing bilateral renal calculi. 2. Chronic bilateral sacroiliac joint arthropathy. Previous cholecystectomy. Appendix normal. Werner Thakur MD Objective Remarks General: No acute distress. Sitting up in a chair. Heart: Regular rate and rhythm. No murmur. Lungs: Clear to auscultation bilaterally. No wheezes, rales, or rhonchi. Breathing is nonlabored. Back: Right flank tenderness. Abdomen: Soft, nontender, nondistended. Extremities: No lower extremity edema. Psych: Alert and oriented. Procedures None Urinary Catheter: No Vascular Central Line Catheter: No A/P Problem List: (1) Nephrolithiasis ICD Code: N20.0 - Calculus of kidney Status: Acute (2) Hyperlipidemia ICD Code: E78.5 - Hyperlipidemia, unspecified Status: Acute (3) Diabetes ICD Code: E11.9 - Type 2 diabetes mellitus without complications Status: Acute (4) HTN (hypertension) ICD Code: I10 - Essential (primary) hypertension Status: Acute (5) Urinary tract infection ICD Code: N39.0 - Urinary tract infection Status: Acute Assessment and Plan 1. Nephrolithiasis with hydronephrosis on the right: Continue pain control, IV fluids. Appreciate urology recommendations. Clear for discharge home by urology. Follow-up as outpatient. 2. UTI: Continue antibiotics. 3. Diabetes mellitus: Monitor Accu-Cheks and cover with sliding scale insulin. Hold metformin. Continue glyburide. 4. Hypertension: Continue Norvasc, lisinopril. 5. Hyperlipidemia: Continue simvastatin. 6. DVT prophylaxis: SCDs, JON florez. Discharge Planning Discharge home in stable condition. Diabetic diet. Activity as tolerated. Follow -up with urology, PCP. Fede Kirby MD May 27, 2017 14:01
[2017-05-29] MEDS ORDERED: ZOFR4TAB3 SL (09:59)
[2017-06-02] MEDS ORDERED: TRAM50TA PO (14:34)
[2017-06-03] MEDS ORDERED: ULTR50TA5 PO (12:16)
[2017-06-03] MEDS ORDERED: CEPH-459 PO (12:16)
[2017-06-11] MEDS ORDERED: COLA100C PO (16:12)
[2017-06-15] MEDS ORDERED: COLA100C PO (13:16)
== END 2017-05-27 15:26 | disposition home or self-care (01) | DRG 694 ==
LOC: NEPC 11:38 → NEDA 14:47 → N04B 16:31 → UNDODISIN 05-27 12:54
PROVIDERS: ADMIT Family Medicine; ATTEND Family Medicine
DX: N13.2 Hydronephrosis with renal and ureteral calculous obstruction (principal); N30.01 Acute cystitis with hematuria; I10 Essential (primary) hypertension; E11.9 Type 2 diabetes mellitus without complications; Z87.442 Personal history of urinary calculi; M12.9 Arthropathy, unspecified; E78.5 Hyperlipidemia, unspecified; G47.30 Sleep apnea, unspecified; Z90.710 Acquired absence of both cervix and uterus; Z90.49 Acquired absence of other specified parts of digestive tract; K59.00 Constipation, unspecified
CPT/HCPCS: 74176; 76937; 80048; 81001; 82948; 85025; 87086; 96361; 96365; 96372; 96375; J0696; J1815; J1885; J2405; J7030

== ENCOUNTER → 2017-06-03 | Day surgery (SDC) | payer OTHER ==
[~2017-06-03] VITALS: Ht 152.4 cm; Wt 86.5 kg
[~2017-06-03] MED LIST changes: +CHLORHEXIDINE GLUCONATE 2 % 1 PACK (2 CLOTHS) TOPICAL PRN; +CIPR500T2 PO; +COLA100C PO; -DILA2TAB2 PO; +DO NOT ADM ANY ANTICOAGULANT DRUGS PRN; +FAMOTIDINE 20 MG/2 ML VIAL ONE; +INSULIN HUMAN REGULAR 1,000 UNITS/10 ML VIAL SQ PRN; +IOHEXOL 350 MG/ML 50 ML BTL (for RAD DIAG) OTHER ONE; +LACTATED RINGER'S 1000 ML IV PRN; +LEVEMIR SQ; +METOPROLOL TARTRATE 25 MG TAB PO PRN; +NAPR375T PO; +NOVOLOGP2 SQ; +ONDANSETRON HCL 4 MG/2 ML VIAL IV PUSH PRN; +POVIDONE IODINE 5% (ANTISEPSIS KIT) 4 APPLICATIONS EACH NARE PRN; +SODIUM CHLORID 0.9% 500 ML IV PRN; +ULTR50TA5 PO; +ZOFR4TAB3 SL; +ceFAZolin 1,000 MG/NS 100 ML IV SCH; +traMADol HCL 50 MG TAB PO PRN
--- NOTE | 2017-06-03 08:34 | RADRPT ---
EXAM DATE/TIME: 06/03/2017 08:06 [facility] COMPARISON: CT ABDOMEN & PELVIS W/O CONTRAST, May 25, 2017, 12:07. ABDOMEN KUB ONLY, March 27, 2017, 21:59. INDICATIONS : Pre op lithotripsy. Right side kidney stone. MEDICAL HISTORY : Renal calculi. Hypertension. Diabetes mellitus type 2. SURGICAL HISTORY : Hysterectomy. section. ENCOUNTER: Initial ACUITY: 1 day PAIN SCORE: 0/10 LOCATION: Right Abdomen FINDINGS: A single portable supine view the abdomen is limited by the patient's body habitus. Faint calcificati ons are seen involving the right kidney. Accurate measurements are impossible due to there poor visua lization. Each stone measures grossly 1 cm in size. A total of 2 stones are discernible on this x-ray . Multiple stones are seen involving the left kidney. The largest stone measures 14 mm within the upp er pole. No discrete ureteral stones observed on either side at this study is quite limited for that evaluation. Venous calcifications overlie the pelvis. These are more abundant on the right. A normal bowel gas pattern is seen. CONCLUSION: Bilateral renal calculi as detailed above. Bert Daniels Jr., MD on June 03, 2017 at 8:30 Board Certified Radiologist. This report was verified electronically.
--- NOTE | 2017-06-03 12:11 | PD.OP ---
Operative Report Date of Surgery: Jun 03, 2017 Preoperative Diagnosis: (1) Ureteral calculus, right Postoperative Diagnosis: (1) Ureteral calculus, right Procedure: Cystoscopy, right retrograde pyelogram, right ureteral stent placement and extracorporeal shockwave lithotripsy right proximal ureteral calculus Anesthesia: General Surgeon: Ananda Joaquin Bridal Stylist Sales Consultant(s): None Operation and Findings: Indication for procedure: Case of a pleasant 51-year-old female with history bilateral nephrolithiasis who presents now with a large obstructing right proximal ureteral calculus as well as a few additional smaller distal right ureteral stones. Patient is scheduled to undergo cystoscopy right ureteral stent placement and shockwave lithotripsy of the larger right proximal ureteral calculus. Operative procedure in detail: Patient was brought to the operating room suite and placed supine on the OR table. She was then placed under general anesthesia. She was then repositioned in the dorsolithotomy position and prepped and draped in normal sterile fashion. After appropriate timeout was undertaken I proceeded with cystoscopic evaluation utilizing the rigid cystoscope with the 20 Slovak sheath and 30 lens. Both right and left ureteral orifices were in correct anatomic position. There was clear reflux on the left and no reflux on on the right. A 6 Slovak open-ended ureteral catheter was utilized and a right retrograde pyelogram study was performed. There was a large obstructing right proximal ureteral stone and questionable small stone involving the distal ureter. I then passed a sensor 0.035 wire through the open-ended catheter up into the right kidney and the open-ended catheter was exchanged for a [place] 6 Slovak 22 cm double-J stent. The stent was placed in the both cystoscopic and fluoroscopic guidance without difficulty. Once the stent was in proper position the trailing string was removed. The bladder was drained of fluid in cystoscope was withdrawn. The patient was then repositioned in the supine position and once again all pressure points radically padded. She then underwent localization of the right proximal ureteral calculus both with fluoroscopy and ultrasound. The Libboo Piezolith 3000 device was utilized and the right proximal stone treated with shockwave lithotripsy. The stone was treated with 3000 shocks with a maximum power level setting of 20. At the conclusion of the procedure the stone was somewhat spread out and cobol engineer in intensity consistent with at least some degree of fragmentation. The patient tolerated the procedures without complications and was transferred to the PACU in satisfactory condition. Ananda Joaquin MD Jun 03, 2017 12:11
[2017-06-03 13:27] VITALS: BP 156/77; PULSE 75; RESP 18; TEMP 96.7; O2SAT 100
== END | disposition home or self-care (01) ==
LOC: HSDC 07:22
PROVIDERS: ATTEND Urology
DX: N20.1 Calculus of ureter (principal); E11.9 Type 2 diabetes mellitus without complications; I10 Essential (primary) hypertension; G47.30 Sleep apnea, unspecified; E78.5 Hyperlipidemia, unspecified
CPT/HCPCS: 00872; 50590; 52332; 74000; C1769; J0690; J7120; Q9967

== ENCOUNTER 2017-06-09 08:13 | Observation (INO) | payer OTHER ==
[~2017-06-09] VITALS: Ht 152.4 cm; Wt 89.0 kg
[~2017-06-09 08:13] MED LIST changes: -CHLORHEXIDINE GLUCONATE 2 % 1 PACK (2 CLOTHS) TOPICAL PRN; -CIPR500T2 PO; -COLA100C PO; -DO NOT ADM ANY ANTICOAGULANT DRUGS PRN; -FAMOTIDINE 20 MG/2 ML VIAL ONE; -GLUCTES27; -INSULIN HUMAN REGULAR 1,000 UNITS/10 ML VIAL SQ PRN; -IOHEXOL 350 MG/ML 50 ML BTL (for RAD DIAG) OTHER ONE; -LACTATED RINGER'S 1000 ML IV PRN; -LEVEMIR SQ; -METOPROLOL TARTRATE 25 MG TAB PO PRN; -NOVOLOGP2 SQ; -ONDANSETRON HCL 4 MG/2 ML VIAL IV PUSH PRN; -POVIDONE IODINE 5% (ANTISEPSIS KIT) 4 APPLICATIONS EACH NARE PRN; -SODIUM CHLORID 0.9% 500 ML IV PRN; -ceFAZolin 1,000 MG/NS 100 ML IV SCH; -traMADol HCL 50 MG TAB PO PRN
[2017-06-09 08:15] VITALS: BP 205/105; PULSE 112; RESP 20; TEMP 98.3; O2SAT 97
--- NOTE | 2017-06-09 08:56 | PD ---
HPI Chief Complaint: GI Complaint Time Seen by Provider: 08:56 Travel History International Travel<30 days: No Contact w/Intl Traveler<30days: No Traveled to known affect area: No History of Present Illness HPI 51-year-old female came to the emergency room with history of constipation for past 7 days. Patient says she tried milk of magnesia as well as rectal suppository and neither yielded to any bowel movement. She has been passing gas. She was taking hydrocodone for pain since she recently had a procedure done where stent was put in which probably is the reason she has been constipated. Patient says that last month she had a stent put in the right side and she had similar episode of constipation then. Patient was tachycardic upon arrival in the ER. She was afebrile. She has been vomiting but mostly was coming out is clear mucus. Patient denies any fever or chills. She points to her entire abdomen for pain. No aggravating or relieving factors. Pain is 10 out of 10 as per her. [facility] Past Medical History Narrative Medical List of her past medical, surgical, social and family history is reviewed from the nursing note. Arthritis: No Asthma: No Autoimmune Disease: No Blood Disorders: No Anxiety: No Depression: No Heart Rhythm Problems: No Cancer: No Cardiovascular Problems: Yes (HTN) High Cholesterol: Yes Chemotherapy: No Chest Pain: No Congestive Heart Failure: No COPD: No Cerebrovascular Accident: No Diabetes: Yes Patient Takes Glucophage: Yes Diminished Hearing: No Endocrine: Yes Gastrointestinal Disorders: Yes GERD: Yes Genitourinary: Yes (STONES) Hepatitis: No Hiatal Hernia: No Hypertension: Yes Immune Disorder: No Kidney Stones: Yes Musculoskeletal: No Neurologic: No Psychiatric: No Reproductive: No Respiratory: No Migraines: Yes Radiation Therapy: No Renal Failure: No Seizures: No Sickle Cell Disease: No Sleep Apnea: Yes Thyroid Disease: No Ulcer: Yes Influenza Vaccination: No ?: Not Menopausal: Yes : 6 Para: 3 Miscarriage: 1 : 2 Past Surgical History Abdominal Surgery: No AICD: No Arteriovenous Shunt: No Cardiac Surgery: No Section: Yes (x 3) Ear Surgery: No Endocrine Surgery: No Eye Surgery: No Gynecologic Surgery: Yes (HYSTERECTOMY, 3 C-SECTIONS) Hysterectomy: Yes Insulin Pump: No Joint Replacement: No Oral Surgery: No Pacemaker: No Thoracic Surgery: No Other Surgery: Yes Family History Family Breast Cancer: Yes (great maternal aunt) Family Myocardial Infarction: Yes (maternal grandmother) Social History Alcohol Use: No Tobacco Use: No Substance Use: No Allergies-Medications (Allergen,Severity, Reaction): Coded Allergies: acetaminophen (Verified Allergy, Severe, Itching, 06/09/17) hydrocodone (Verified Allergy, Severe, Itching, 06/09/17) hydromorphone (Verified Allergy, Intermediate, Rash, 06/09/17) hydrochlorothiazide (Unverified Adverse Reaction, Intermediate, Nausea/ Vomiting, 06/09/17) Comments List of her allergies reviewed from the nursing note. Reported Meds & Prescriptions Reported Meds & Active Scripts Active Ultram (Tramadol HCl) 50 Mg Tab 50 Mg PO Q6H PRN Zofran Odt (Ondansetron Odt) 4 Mg Tab 4 Mg SL Q6HR PRN Naproxen 375 Mg Tab 375 Mg PO BID PRN Prinivil (Lisinopril) 20 Mg Tab 20 Mg PO BID Norvasc (Amlodipine Besylate) 10 Mg Tab 10 Mg PO DAILY Zocor (Simvastatin) 40 Mg Tab 40 Mg PO HS Metformin (Metformin HCl) 500 Mg Tab 2 Tab PO BIDPC With meals Glyburide 5 Mg Tab 5 Mg PO BID Take with meals at the same time each day Narrative Medication List of her home medications reviewed from the nursing note. Review of Systems Except as stated in HPI: all other systems reviewed are Neg Physical Exam Narrative GENERAL: Awake, alert, moderate to significant distress, anxious SKIN: Focused skin assessment warm/dry. HEAD: Atraumatic. Normocephalic. EYES: Pupils equal and round. No scleral icterus. No injection or drainage. ENT: No nasal bleeding or discharge. Dry mucous membrane NECK: Trachea midline. No JVD. CARDIOVASCULAR: Regular rate and rhythm. No murmur appreciated. RESPIRATORY: No accessory muscle use. Clear to auscultation. Breath sounds equal bilaterally. GASTROINTESTINAL: Abdomen soft, generalized tenderness and distended. Decreased bowel sounds. Hepatic and splenic margins not palpable. Rectal exam has a ball of firm stool in the rectal fold MUSCULOSKELETAL: No obvious deformities. No clubbing. No cyanosis. No edema. NEUROLOGICAL: Awake and alert. No obvious cranial nerve deficits. Motor grossly within normal limits. Normal speech. PSYCHIATRIC: Appropriate mood and affect; insight and judgment normal. Data Data Last Documented VS Vital Signs Date Time Temp Pulse Resp B/P (MAP) Pulse Ox O2 Delivery O2 Flow Rate FiO2 06/09/17 09:10 96 Room Air 06/09/17 08:15 98.3 112 20 Orders Orders Complete Blood Count With Diff (06/09/17 09:06) Comprehensive Metabolic Panel (06/09/17 09:06) Lactic Acid (06/09/17 09:06) Urinalysis - C+S If Indicated (06/09/17 09:06) Ct Abd/Pel W/O Iv Contrast (06/09/17 09:06) Iv Access Insert/Monitor (06/09/17 09:06) Ecg Monitoring (06/09/17 09:06) Oximetry (06/09/17 09:06) Ondansetron Inj (Zofran Inj) (06/09/17 09:15) Sodium Chlor 0.9% 1000 Ml Inj (Ns 1000 M (06/09/17 09:06) Sodium Chloride 0.9% Flush (Ns Flush) (06/09/17 09:15) Ketorolac Inj (Toradol Inj) (06/09/17 09:15) Urine Culture (06/09/17 08:26) Sodium Chlor 0.9% 1000 Ml Inj (Ns 1000 M (06/09/17 10:45) Insulin Human Regular Inj (Novolin R Inj (06/09/17 10:45) Enema (06/09/17 10:35) Ceftriaxone Inj (Rocephin Inj) (06/09/17 10:45) Labs Laboratory Tests Test 06/09/17 08:26 06/09/17 09:24 Urine Color LIGHT-YELLOW Urine Turbidity HAZY Urine pH 7.0 Urine Specific [place] 1.017 Urine Protein 30 mg/dL Urine Glucose (UA) 1000 mg/dL Urine Ketones NEG mg/dL Urine Occult Blood MOD Urine Nitrite NEG Urine Bilirubin NEG Urine Urobilinogen LESS THAN 2.0 MG/DL Urine Leukocyte Esterase LARGE Urine RBC 22 /hpf Urine WBC 120 /hpf Urine Squamous Epithelial Cells 1 /hpf Urine Bacteria RARE /hpf Urine Mucus FEW /lpf Urine Yeast (Budding) FEW Microscopic Urinalysis Comment CULTURE INDICATED White Blood Count 14.1 TH/MM3 Red Blood Count 5.17 MIL/MM3 Hemoglobin 13.1 GM/DL Hematocrit 42.1 % Mean Corpuscular Volume 81.3 FL Mean Corpuscular Hemoglobin 25.3 PG Mean Corpuscular Hemoglobin Concent 31.1 % Red Cell Distribution Width 17.3 % Platelet Count 326 TH/MM3 Mean Platelet Volume 9.3 FL Neutrophils (%) (Auto) 84.8 % Lymphocytes (%) (Auto) 7.3 % Monocytes (%) (Auto) 6.4 % Eosinophils (%) (Auto) 1.0 % Basophils (%) (Auto) 0.5 % Neutrophils # (Auto) 12.0 TH/MM3 Lymphocytes # (Auto) 1.0 TH/MM3 Monocytes # (Auto) 0.9 TH/MM3 Eosinophils # (Auto) 0.1 TH/MM3 Basophils # (Auto) 0.1 TH/MM3 CBC Comment DIFF FINAL Differential Comment Blood Urea Nitrogen 15 MG/DL Creatinine 1.49 MG/DL Random Glucose 599 MG/DL Total Protein 9.4 GM/DL Albumin 3.1 GM/DL Calcium Level 10.2 MG/DL Alkaline Phosphatase 207 U/L Aspartate Amino Transf (AST/SGOT) 34 U/L Alanine Aminotransferase (ALT/SGPT) 23 U/L Total Bilirubin 0.7 MG/DL Sodium Level 127 MEQ/L Potassium Level 5.8 MEQ/L Chloride Level 90 MEQ/L Carbon Dioxide Level 30.9 MEQ/L Anion Gap 6 MEQ/L Estimat Glomerular Filtration Rate 44 ML/MIN Lactic Acid Level 1.6 mmol/L MDM Medical Decision Making Medical Screen Exam Complete: Yes Emergency Medical Condition: Yes Medical Record Reviewed: Yes Differential Diagnosis Obstipation, perforated viscus, UTI, electrolyte abnormality, dehydration Narrative Course 10:50 AM blood test results are back. Patient has leukocytosis with left shift. Electrolytes show significant hyperglycemia and hyponatremia secondary to the hyperglycemia. Potassium is slightly elevated but again could be from the hyperglycemia. Lactic acid is within normal limit. UA is suggestive of UTI. Patient was initially given IV fluid bolus and pain medication. I've ordered second liter of IV fluid bolus, IV Rocephin for the UTI and 10 units of subcutaneous insulin. Patient is not in DKA. However given all these abnormalities altogether I would like to admit this patient. Awaiting for the residents to call back. I have also ordered a soapsuds enema for her. Critical Care Narrative Aggregate critical care time was 30 minutes. Time to perform other separately billable procedures was not included in the critical care time. My time did not include minutes spent treating any other patients simultaneously or on activities that did not directly contribute to the patient's treatment. The services I provided to this patient were to treat and/or prevent clinically significant deterioration that could result in: Sepsis, hyperglycemia, UTI I provided critical care services requiring my management, as noted below: Chart data review, documentation time, medication orders and management, vital sign assessments/reviewing monitor data, ordering and reviewing lab tests, ordering and interpreting/reviewing x-rays and diagnostic studies, care of the patient and discussion of the patient with the admitting physicians. Procedures EKG Prior to Arrival: No Diagnosis Primary Impression: SIRS (systemic inflammatory response syndrome) Additional Impressions: UTI (urinary tract infection) Qualified Codes: N39.0 - Urinary tract infection, site not specified History of ureter stent Hyperglycemia Intractable abdominal pain Admitting Information Admitting Physician Requests: Melissa Odonnell MD Jun 09, 2017 08:56
[2017-06-09] MEDS ORDERED: SODIUM CHLOR 0.9% 1000 ML INJ 1,000 ML IV SCH (09:06)
[2017-06-09 09:10] VITALS: O2SAT 96
[2017-06-09] MEDS ORDERED: SODIUM CHLORIDE 0.9% FLUSH 10 ML FLUSH IV FLUSH PRN ×3 (09:15→12:00)
[2017-06-09] MEDS ORDERED: ONDANSETRON HCL 4 MG/2 ML VIAL IVP ONE (09:15)
[2017-06-09] MEDS ORDERED: KETOROLAC TROMETHAMINE 30 MG/ML (IVP) VIAL IVP ONE (09:15)
[2017-06-09 09:48] LABS: BASOPHIL # 0.1 TH/MM3 (0-0.2); BASOPHIL % 0.5 % (0.0-2.0); EOSINOPHIL # 0.1 TH/MM3 (0-0.4); HEMATOCRIT 42.1 % (35.0-46.0); HEMO FLAGS DIFF FINAL; LYMPH % 7.3 % (9.0-44.0); MEAN CELL VOLUME 81.3 FL (80.0-100.0); MEAN CORPUSCULAR HEMOGLOBIN 25.3 PG (27.0-34.0); MEAN CORPUSCULAR HGB CONC 31.1 % (32.0-36.0); MONO % 6.4 % (0.0-8.0); NEUT % 84.8 % (16.0-70.0); PLATELET COUNT 326 TH/MM3 (150-450); RED BLOOD COUNT 5.17 MIL/MM3 (4.00-5.30); RED CELL DISTRIBUTION WIDTH 17.3 % (11.6-17.2); WHITE BLOOD COUNT 14.1 TH/MM3 (4.0-11.0)
[2017-06-09 09:49] LABS: BACTERIA, URINE RARE /hpf; BLOOD, URINE MOD (NEG); COMMENT (UR) CULTURE INDICATED; CULTURE IF INDICATED CULTURE INDICATED; GLUCOSE,URINE 1000 mg/dL (NEG); KETONE, URINE NEG (NEG); MUCUS URINE FEW /lpf (OCC); NITRITE,URINE NEG (NEG); SQUAMOUS EPITHELIAL CELL URINE 1 /hpf (0-5); URINE COLOR LIGHT-YELLOW (YELLW/STRAW)
[2017-06-09 10:22] LABS: ALKALINE PHOSPHATASE 207 U/L (45-117); ALT (GPT) 23 U/L (10-53); ANION GAP 6 MEQ/L (5-15); AST (GOT) 34 U/L (15-37); BICARBONATE 30.9 MEQ/L (21.0-32.0); BLOOD UREA NITROGEN 15 MG/DL (7-18); CHLORIDE 90 MEQ/L (98-107); GLOMERULAR FILTRATION RATE 44 ML/MIN (>89); SODIUM (NA) 127 MEQ/L (136-145); TOTAL BILIRUBIN ADULT 0.7 MG/DL (0.2-1.0)
[2017-06-09 10:23] LABS: POTASSIUM 5.8 MEQ/L (3.5-5.1)
--- NOTE | 2017-06-09 10:35 | RADRPT ---
EXAM DATE/TIME: 06/09/2017 09:58 [facility] COMPARISON: CT ABDOMEN & PELVIS W/O CONTRAST, May 25, 2017, 12:07. INDICATIONS : Abdominal pain. ORAL CONTRAST: No oral contrast ingested. RADIATION DOSE: 23.69 CTDIvol (mGy) MEDICAL HISTORY : Diabetes mellitus type 2. Hypertension. SURGICAL HISTORY : Hysterectomy. section.Renal stents ENCOUNTER: Initial ACUITY: 1 day PAIN SCALE: 5/10 LOCATION: Abdomen TECHNIQUE: Volumetric scanning of the abdomen and pelvis was performed. Using automated exposure control and ad justment of the mA and/or kV according to patient size, radiation dose was kept as low as reasonably achievable to obtain optimal diagnostic quality images. DICOM format image data is available electro nically for review and comparison. The lack of IV contrast limits the diagnosis for certain organ pa thology. FINDINGS: LOWER LUNGS: The visualized lower lungs are clear. LIVER: Homogeneous density without lesion. There is no dilation of the biliary tree. No gallbladder, surgi myrna removed. No new or significant changes. SPLEEN: Normal size without lesion. PANCREAS: Within normal limits. KIDNEYS: On today's exam there is now a right-sided double-J stents in place. There continues to be multiple p rominent bilateral renal calculi throughout both kidneys. No hydronephrosis is seen on the left side. The previously noted right hydronephrosis has improved following the stent placement. The stent appe ars to be in good position. There are 2 tiny ureteral stones in the mid right ureter adjacent to the stents. ADRENAL GLANDS: Within normal limits. VASCULAR: There is no aortic aneurysm. BOWEL/MESENTERY: The stomach, small bowel, and colon demonstrate no acute abnormality. There is no free intraperitone al air or fluid. The appendix is unremarkable. No inflammatory changes. ABDOMINAL WALL: Within normal limits. RETROPERITONEUM: There is no lymphadenopathy. BLADDER: Double J stent in place. Tiny stone in the base of the urinary bladder. REPRODUCTIVE: Within normal limits. INGUINAL: There is no lymphadenopathy or hernia. MUSCULOSKELETAL: Stable degenerative changes involving the SI joints bilaterally. Stable degenerative changes involvin g the lower lumbar spine. CONCLUSION: 1. Status post placement of a right-sided double J stent which appears to be in good position. 2. Multiple diffuse bilateral renal calculi. 3. There are 2 tiny stones in the mid right ureter adjacent to the double-J stent. 4. Tiny stone in the urinary bladder. 5. Otherwise, no other new or significant changes compared to the prior exam Jem Mari MD on June 09, 2017 at 10:28 Board Certified Radiologist. This report was verified electronically.
[2017-06-09] MEDS ORDERED: INSULIN HUMAN REGULAR 1,000 UNITS/10 ML VIAL SQ ONE (10:45)
[2017-06-09] MEDS ORDERED: cefTRIAXone INJ 1,000 MG in SODIUM CHLORIDE 0.9% INJ 100 ML IV ONE (10:45)
[2017-06-09] MEDS ORDERED: SODIUM CHLOR 0.9% 1000 ML INJ 1,000 ML IV ONE (10:45)
--- NOTE | 2017-06-09 11:34 | HHI.HP ---
[facility] Service Family Medicine Primary Care Physician Griselda Armstrong MD Admission Diagnosis SIRS, hyperglycemia, hyponatremia, constipation, intractable abdomin Diagnoses: International Travel<30 Days: No Contact w/Intl Traveler<30days: No Known Affected Area: No History of Present Illness Mrs. Whitaker is a pleasant 51yo female with a past medical history of hypertension and bilateral nephrolithiasis presenting today for constipation. She states that she is unable to have a bowel movement. Her last bowel movement was on 06/02. Of note, she had surgery on 06/[address] Joaquin for cystoscopy, right retrograde pyelogram, right ureteral stent placement, and extracorporeal shockwave lithotripsy of the right proximal ureteral calculus. She was given a tramadol prescription for pain. Since that time she says that she has been trying to have a bowel movement and is having pain in trying to do so. She has not had any problems with constipation in the past. She normally has formed, soft stools. Because of this constipation she stopped taking the tramadol yesterday. She has not been having any blood when she wipes. She also has been having nausea during this time period. She has been trying to vomit but only saliva comes up. She is already vomited a few times today. No blood in the vomit. She is also having abdominal pain for the past few days. Also some chest pain, that happened after she ate 2-3 days ago. She states that it felt like something was stuck in her chest. She vomited to bring it up and it helped. No shortness of breath. She has had no problems urinating. She has had dysuria, has had urinary frequency and urgency. And has had a bout of incontinence when she did not make it to the toilet on time. No hematuria. Her urine is not malodorous. No fevers or chills. Since the surgery she has not taken her metformin for her diabetes because she was informed that it interfered with her new kidney medications. She has never taken insulin. Also, she takes glyburide for her diabetes and continues to take it now. At home the past few days her sugars have been running in the 200 to 300s. Her last hemoglobin A1c was 8. She has not followed up with the PCP as of yet for post operative check. Review of Systems Constitutional: DENIES: Fever, Chills, Night Sweats Endocrine: COMPLAINS OF: Polydipsia, Polyuria Eyes: DENIES: Blurred vision Ears, nose, mouth, throat: DENIES: Hearing loss, Vertigo Respiratory: DENIES: Cough, Wheezing, Hemoptysis Cardiovascular: COMPLAINS OF: Chest pain, DENIES: Palpitations, Lower Extremity Edema Gastrointestinal: COMPLAINS OF: Constipation, Nausea, Vomiting, DENIES: Difficulty Swallowing Genitourinary: COMPLAINS OF: Urinary frequency, Urinary incontinence, Dysuria, Nocturia Musculoskeletal: DENIES: Joint pain, Muscle aches Integumentary: DENIES: Rash Neurologic: DENIES: Paresthesias Past Family Social History Past Medical History Diabetes HTN Kidney Stones Hyperlipidemia Past Surgical History Urinary stents Had a previous kidney surgery 20 yrs ago Hysterectomy 3 C-sections Reported Medications Reported Meds & Active Scripts Active Ultram (Tramadol HCl) 50 Mg Tab 50 Mg PO Q6H PRN Zofran Odt (Ondansetron Odt) 4 Mg Tab 4 Mg SL Q6HR PRN Naproxen 375 Mg Tab 375 Mg PO BID PRN Prinivil (Lisinopril) 20 Mg Tab 20 Mg PO BID Norvasc (Amlodipine Besylate) 10 Mg Tab 10 Mg PO DAILY Zocor (Simvastatin) 40 Mg Tab 40 Mg PO HS Metformin (Metformin HCl) 500 Mg Tab 2 Tab PO BIDPC With meals Glyburide 5 Mg Tab 5 Mg PO BID Take with meals at the same time each day Allergies: Coded Allergies: acetaminophen (Verified Allergy, Severe, Itching, 06/09/17) hydrocodone (Verified Allergy, Severe, Itching, 06/09/17) hydromorphone (Verified Allergy, Intermediate, Rash, 06/09/17) hydrochlorothiazide (Unverified Adverse Reaction, Intermediate, Nausea/ Vomiting, 06/09/17) Active Ordered Medications Current Medications Medications (Trade) Dose Ordered Sig/Rohit Route Start Time Stop Time Status Last Admin Sodium Chloride 1,000 ml @ 999 mls/hr BOLUS ONCE IV 06/09/17 10:45 06/09/17 11:45 06/09/17 10:52 (NS Flush) 2 ml UNSCH PRN IV FLUSH 06/09/17 11:15 (NS Flush) 2 ml BID IV FLUSH 06/09/17 21:00 Family History Mother- healthy Father- unsure of hx Siblings- healthy Social History Lives in apartment in [facility] [place] with youngest daughter has 3 kids Currently unemployed, 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 SKIN: No rashes, ecchymoses or lesions. Cool and dry. HEAD: Atraumatic. Normocephalic. No temporal or scalp tenderness. EYES: Pupils equal round and reactive. Extraocular motions intact. No scleral icterus. No injection or drainage. ENT: Nose without bleeding, purulent drainage or septal hematoma. Throat without erythema, tonsillar hypertrophy or exudate. Uvula midline. Airway patent. NECK: Trachea midline. No JVD or lymphadenopathy. Supple, nontender, no meningeal signs. CARDIOVASCULAR: Regular rate and rhythm without murmurs, gallops, or rubs. BACK: left CVA tenderness RESPIRATORY: Clear to auscultation. Breath sounds equal bilaterally. No wheezes , rales, or rhonchi. GASTROINTESTINAL: Abdomen soft, periumbilical tenderness, nondistended. No hepato-splenomegaly, or palpable masses. No guarding. MUSCULOSKELETAL: Extremities without clubbing, cyanosis, or edema. No joint tenderness, effusion, or edema noted. No calf tenderness. Negative Homans sign bilaterally. RECTUM: hard stool palpable about 2.5cm into the rectum NEUROLOGICAL: Awake and alert. Motor and sensory grossly within normal limits. Five out of 5 muscle strength in all muscle groups. Normal speech. Laboratory Laboratory Tests Test 06/09/17 08:26 06/09/17 09:24 Urine Color LIGHT-YELLOW Urine Turbidity HAZY Urine pH 7.0 Urine Specific [place] 1.017 Urine Protein 30 Urine Glucose (UA) 1000 Urine Ketones NEG Urine Occult Blood MOD Urine Nitrite NEG Urine Bilirubin NEG Urine Urobilinogen LESS THAN 2.0 Urine Leukocyte Esterase LARGE Urine RBC 22 Urine WBC 120 Urine Squamous Epithelial Cells 1 Urine Bacteria RARE Urine Mucus FEW Urine Yeast (Budding) FEW Microscopic Urinalysis Comment CULTURE INDICATED White Blood Count 14.1 Red Blood Count 5.17 Hemoglobin 13.1 Hematocrit 42.1 Mean Corpuscular Volume 81.3 Mean Corpuscular Hemoglobin 25.3 Mean Corpuscular Hemoglobin Concent 31.1 Red Cell Distribution Width 17.3 Platelet Count 326 Mean Platelet Volume 9.3 Neutrophils (%) (Auto) 84.8 Lymphocytes (%) (Auto) 7.3 Monocytes (%) (Auto) 6.4 Eosinophils (%) (Auto) 1.0 Basophils (%) (Auto) 0.5 Neutrophils # (Auto) 12.0 Lymphocytes # (Auto) 1.0 Monocytes # (Auto) 0.9 Eosinophils # (Auto) 0.1 Basophils # (Auto) 0.1 CBC Comment DIFF FINAL Differential Comment Blood Urea Nitrogen 15 Creatinine 1.49 Random Glucose 599 Total Protein 9.4 Albumin 3.1 Calcium Level 10.2 Alkaline Phosphatase 207 Aspartate Amino Transf (AST/SGOT) 34 Alanine Aminotransferase (ALT/SGPT) 23 Total Bilirubin 0.7 Sodium Level 127 Potassium Level 5.8 Chloride Level 90 Carbon Dioxide Level 30.9 Anion Gap 6 Estimat Glomerular Filtration Rate 44 Lactic Acid Level 1.6 Date/Time Source Procedure Growth Status 06/09/17 08:26 Urine Random Urine Urine Culture Pending Received Result Diagram: 06/09/1792306/09/17923 Imaging Last Impressions Abdomen/Pelvis CT 06/09/17905 Signed Impressions: Service Date/Time: Friday, June 09, 2017 09:58 - CONCLUSION: 1. Status post placement of a right-sided double J stent which appears to be in good position. 2. Multiple diffuse bilateral renal calculi. 3. There are 2 tiny stones in the mid right ureter adjacent to the double-J stent. 4. Tiny stone in the urinary bladder. 5. Otherwise, no other new or significant changes compared to the prior exam MD Francisco Sen VTE Risk Assessment Caprini VTE Risk Assessment: Mod/High Risk (score >= 2) Caprini Risk Assessment Model Point Value = 1 Point Value = 2 Point Value = 3 Point Value = 5 Age 41-60 Minor surgery BMI > 25 kg/m2 Swollen legs Varicose veins or History of unexplained or recurrent spontaneous Oral contraceptives or hormone replacement Sepsis (< 1 month) Serious lung disease, including pneumonia (< 1 month) Abnormal pulmonary function Acute myocardial infarction Congestive heart failure (< 1 month) History of inflammatory bowel disease Medical patient at bed rest Age 61-74 Arthroscopic surgery Major open surgery (> 45 min) Laparoscopic surgery (> 45 min) Malignancy Confined to bed (> 72 hours) Immobilizing plaster cast Central venous access Age >= 75 History of VTE Family history of VTE Factor V Leiden Prothrombin [id number] Lupus anticoagulant Anticardiolipin antibodies Elevated serum homocysteine Heparin-induced thrombocytopenia Other congenital or acquired thrombophilia Stroke (< 1 month) Elective arthroplasty Hip, pelvis, or leg fracture Acute spinal cord injury (< 1 month) Prophylaxis Regimen Total Risk Factor Score Risk Level Prophylaxis Regimen 0-1 Low Early ambulation 2 Moderate Order ONE of the following: *Sequential Compression Device (SCD) *Heparin 5000 units SQ BID 3-4 Higher Order ONE of the following medications: *Heparin 5000 units SQ TID *Enoxaparin/Lovenox 40 mg SQ daily (WT < 150 kg, CrCl > 30 mL/min) *Enoxaparin/Lovenox 30 mg SQ daily (WT < 150 kg, CrCl > 10-29 mL/min) *Enoxaparin/Lovenox 30 mg SQ BID (WT < 150 kg, CrCl > 30 mL/min) AND/OR *Sequential Compression Device (SCD) 5 or more Highest Order ONE of the following medications: *Heparin 5000 units SQ TID (Preferred with Epidurals) *Enoxaparin/Lovenox 40 mg SQ daily (WT < 150 kg, CrCl > 30 mL/min) *Enoxaparin/Lovenox 30 mg SQ daily (WT < 150 kg, CrCl > 10-29 mL/min) *Enoxaparin/Lovenox 30 mg SQ BID (WT < 150 kg, CrCl > 30 mL/min) AND *Sequential Compression Device (SCD) Assessment and Plan Assessment and Plan Ms. Whitaker is a 51yoAAF with a PMH of DM and nephrolithiasis presenting with constipation as the result of taking Tramadol for pain. She fits the criteria for SIRS for source of infection being UTI. She is also hyperglycemic from not taking her usual DM medications. Code Status Full code Discussed Condition With Dr. Mali Whitaker Problem List: (1) SIRS (systemic inflammatory response syndrome) ICD Codes: R65.10 - Systemic inflammatory response syndrome (SIRS) of non- infectious origin without acute organ dysfunction Status: Acute Plan: Patient with tachycardia and leukocytosis upon admission. Possible source of infection is UTI. Lactic acid is normal. * Treat UTI as below * Trending WBCs through daily CBCs * draw blood cultures if spikes fever (2) Fecal impaction in rectum ICD Codes: K56.41 - Fecal impaction Status: Acute Plan: Patient with 7 days of constipation. Likely due to taking Tramadol post surgery on 06/03. * Enema performed in ED- resulted in bowel movement * PRN constipation meds ordered (3) Hyperglycemia ICD Codes: R73.9 - Hyperglycemia, unspecified Status: Acute Plan: Patient has DM. Blood on admission at 599. Patient had stopped taking her metformin due to interaction with new kidney medications. Anion gap is closed, not concerned for DKA. * HbA1C ordered * Continue at home glyburide * Medium dose SSI * Accuchecks (4) UTI (urinary tract infection) ICD Codes: N39.0 - Urinary tract infection, site not specified Status: Acute Plan: UA shows large leukocyte esterase, WBCs, and rare bacteria. Culture indicated. CVA tenderness on exam * Rocephin 1g given in ED * Rocephin 1g IV qD * IVF (5) MELITON (acute kidney injury) ICD Codes: N17.9 - Acute kidney failure, unspecified Status: Acute Plan: Creatinine upon admission was 1.49. Last creatinine on 05/26 was 0.89. May be due to UTI (currently treating as above). * recheck BMP in AM (6) HTN (hypertension) ICD Codes: I10 - Essential (primary) hypertension Status: Acute Plan: Patient has HTN. Will start her back on her home meds. * Clonidine PRN for BP >180/100 (7) FEN Status: Acute Plan: Fluids: NS at 125 ml/hr Electrolytes: Monitor and replete as needed Nutrition: Clear liquid diet, advance as tolerated VTE ppx: Lovenox 40mg SQ q12h Problem Qualifiers (1) UTI (urinary tract infection): Qualified Codes: N39.0 - Urinary tract infection, site not specified (2) HTN (hypertension): Qualified Codes: I10 - Essential (primary) hypertension Tessy Varela MD R1 Jun 09, 2017 11:34
[2017-06-09] MEDS ORDERED: SENNOSIDES 8.6 MG TAB PO PRN (12:00)
[2017-06-09] MEDS ORDERED: MAGNESIUM HYDROXIDE SUSP 30 ML CUP PO PRN (12:00)
[2017-06-09] MEDS ORDERED: LACTULOSE SYRUP 20 GM/30 ML CUP PO PRN (12:00)
[2017-06-09] MEDS ORDERED: NALOXONE HCL 0.4 MG/ML AMP IV PUSH PRN (12:00)
[2017-06-09] MEDS ORDERED: ONDANSETRON HCL 4 MG/2 ML VIAL IVP PRN (12:00)
[2017-06-09] MEDS ORDERED: BISACODYL 10 MG SUPP RECTAL PRN (12:00)
[2017-06-09 12:47] VITALS: BP 159/77; PULSE 85; RESP 21; O2SAT 96
[2017-06-09 14:26] VITALS: BP 182/91; PULSE 85; RESP 20; TEMP 98; O2SAT 98
[2017-06-09] MEDS: DOCUSATE SODIUM 50 MG/SENNA 8.6 MG TAB PO SCH ×2 (15:40→21:09)
[2017-06-09] MEDS: ENOXAPARIN SODIUM 40 MG/0.4 ML SYRINGE SQ SCH (15:42)
[2017-06-09] MEDS: SODIUM CHLOR 0.9% 1000 ML INJ 1,000 ML IV SCH (15:45)
[2017-06-09] MEDS ORDERED: GLUCAGON 1 MG/ML VIAL OTHER PRN (17:45)
[2017-06-09] MEDS ORDERED: DEXTROSE 50% IN WATER 50 ML VIAL(D50) IV PUSH PRN (17:45)
[2017-06-09] MEDS ORDERED: INSULIN ASPART 1,000 UNITS/10 ML VIAL SQ ONE (18:30)
[2017-06-09 20:25] LABS: ANION GAP 8 MEQ/L (5-15); BICARBONATE 29.4 MEQ/L (21.0-32.0); BLOOD UREA NITROGEN 15 MG/DL (7-18); CHLORIDE 98 MEQ/L (98-107); GLOMERULAR FILTRATION RATE 44 ML/MIN (>89); POTASSIUM 4.5 MEQ/L (3.5-5.1); SODIUM (NA) 135 MEQ/L (136-145)
[2017-06-09 20:31] VITALS: BP 194/91; PULSE 89; RESP 19; TEMP 98.2; O2SAT 98
[2017-06-09] MEDS ORDERED: SODIUM CHLORIDE 0.9% FLUSH 10 ML FLUSH IV FLUSH SCH (21:00)
[2017-06-09] MEDS ORDERED: cloNIDine HCL 0.1 MG TAB PO PRN (21:00)
[2017-06-09] MEDS ORDERED: PRAVASTATIN SOD 80 MG TAB PO SCH (21:00)
[2017-06-09] MEDS: LISINOPRIL 20 MG TAB PO SCH (21:08)
[2017-06-09] MEDS: INSULIN ASPART SUPPLEMENTAL SCALE SQ SCH (21:08)
[2017-06-09] MEDS: SODIUM CHLORIDE 0.9% FLUSH 10 ML FLUSH IV FLUSH SCH (21:09)
[2017-06-09] MEDS: glyBURIDE 5 MG TAB PO SCH (21:46)
[2017-06-09 21:56] LABS: HEMOGLOBIN A1a 1.4 %; HEMOGLOBIN A1b 1.4 %; HEMOGLOBIN Ao 71.7 %; HEMOGLOBIN F 2.1 %; HEMOGLOBIN P3 6.4 %
[2017-06-09 23:27] VITALS: BP 138/80; PULSE 82; RESP 18; TEMP 98; O2SAT 98
[2017-06-10] MEDS: SODIUM CHLOR 0.9% 1000 ML INJ 1,000 ML IV SCH ×2 (01:26→14:54)
[2017-06-10 03:10] VITALS: BP 156/79; PULSE 84; RESP 18; TEMP 98; O2SAT 96
[2017-06-10] MEDS: INSULIN ASPART SUPPLEMENTAL SCALE SQ SCH ×2 (08:00→13:10)
[2017-06-10 08:33] LABS: AUTOMATED NEUTROPHIL # 7.9 TH/MM3 (1.8-7.7); BASOPHIL # 0.1 TH/MM3 (0-0.2); BASOPHIL % 0.7 % (0.0-2.0); EOSINOPHIL # 0.4 TH/MM3 (0-0.4); EOSINOPHIL % 3.3 % (0.0-4.0); HEMATOCRIT 33.9 % (35.0-46.0); HEMO FLAGS DIFF FINAL; LYMPH % 12.1 % (9.0-44.0); LYMPHOCYTE # 1.3 TH/MM3 (1.0-4.8); MEAN CORPUSCULAR HGB CONC 32.5 % (32.0-36.0); MONO % 10.3 % (0.0-8.0); NEUT % 73.6 % (16.0-70.0); PLATELET COUNT 221 TH/MM3 (150-450); RED BLOOD COUNT 4.24 MIL/MM3 (4.00-5.30); RED CELL DISTRIBUTION WIDTH 16.6 % (11.6-17.2); WHITE BLOOD COUNT 10.8 TH/MM3 (4.0-11.0)
[2017-06-10] MEDS: LISINOPRIL 20 MG TAB PO SCH (08:40)
[2017-06-10] MEDS: DOCUSATE SODIUM 50 MG/SENNA 8.6 MG TAB PO SCH (08:42)
[2017-06-10] MEDS: glyBURIDE 5 MG TAB PO SCH (08:43)
[2017-06-10] MEDS: SODIUM CHLORIDE 0.9% FLUSH 10 ML FLUSH IV FLUSH SCH (08:44)
[2017-06-10 08:46] LABS: APTT (PATIENT) 27.5 SEC (24.3-30.1); PROTHROMBIN TIME - PATIENT 10.7 SEC (9.8-11.6)
[2017-06-10 08:58] VITALS: BP 158/72; PULSE 80; RESP 24; TEMP 98.2; O2SAT 100
[2017-06-10 09:30] LABS: ALKALINE PHOSPHATASE 150 U/L (45-117); ALT (GPT) 16 U/L (10-53); ANION GAP 6 MEQ/L (5-15); AST (GOT) 9 U/L (15-37); BICARBONATE 27.7 MEQ/L (21.0-32.0); BLOOD UREA NITROGEN 14 MG/DL (7-18); CHLORIDE 103 MEQ/L (98-107); GLOMERULAR FILTRATION RATE 69 ML/MIN (>89); POTASSIUM 3.8 MEQ/L (3.5-5.1); SODIUM (NA) 137 MEQ/L (136-145); TOTAL BILIRUBIN ADULT 0.5 MG/DL (0.2-1.0)
[2017-06-10] MEDS ORDERED: cefTRIAXone INJ 1,000 MG in SODIUM CHLORIDE 0.9% INJ 100 ML IV SCH (10:00)
[2017-06-10 12:41] VITALS: BP 180/85; PULSE 91; RESP 24; TEMP 98; O2SAT 100
[2017-06-10 12:56] VITALS: BP 162/88
[2017-06-10] MEDS: ENOXAPARIN SODIUM 40 MG/0.4 ML SYRINGE SQ SCH (13:05)
--- NOTE | 2017-06-10 15:19 | HHI.FPPN ---
Subjective Remarks Patient states that she is doing well this morning. She is ready to go home. She has had 2 bowel movements this morning. She feels like she is back to her baseline. She asked about what pain medication she can take that doesn't cause constipation. She states that she was previously counseled that she could not take Tylenol because of her diabetes. She has a follow-up appointment with Dr. Joaquin on the . She states that she would feel comfortable with injecting insulin as long as someone shows her how and as long as it is a short-term regimen. No chest pain, no shortness of breath, no abdominal pain, no nausea or vomiting. No fevers or chills. (Tessy Varela MD R1) Objective Vitals Vital Signs Date Time Temp Pulse Resp B/P (MAP) Pulse Ox O2 Delivery O2 Flow Rate FiO2 06/10/17 12:56 162/88 (112) 06/10/17 12:41 98.0 91 24 180/85 (116) 100 06/10/17 08:58 98.2 80 24 158/72 (100) 100 06/10/17 03:10 98.0 84 18 156/79 (104) 96 06/10/17 01:09 Room Air 06/09/17 23:27 98.0 82 18 138/80 (99) 98 06/09/17 20:31 98.2 89 19 194/91 (125) 98 I/O 06/09/17 06/09/17 06/09/17 06/10/17 06/10/17 06/10/17 07:00 15:00 23:00 07:00 15:00 23:00 Intake Total 2100 ml 206 ml 1000 ml 1100 ml Balance 2100 ml 206 ml 1000 ml 1100 ml Intake IV Total 2100 ml 206 ml 1000 ml 1100 ml # Voids 1 4 3 # Bowel Movements 2 (Tessy Varela MD R1) Result Diagram: 06/10/17 0611 06/10/17610 Imaging Last Impressions Abdomen/Pelvis CT 06/09/17905 Signed Impressions: Service Date/Time: Friday, June 09, 2017 09:58 - CONCLUSION: 1. Status post placement of a right-sided double J stent which appears to be in good position. 2. Multiple diffuse bilateral renal calculi. 3. There are 2 tiny stones in the mid right ureter adjacent to the double-J stent. 4. Tiny stone in the urinary bladder. 5. Otherwise, no other new or significant changes compared to the prior exam Jem Mari MD Objective Remarks GENERAL: Well-nourished, well-developed obese patient laying in bed, in no acute distress. SKIN: Warm and dry. HEAD: Normocephalic. EYES: No scleral icterus. No injection or drainage. NECK: Supple, trachea midline. No JVD or lymphadenopathy. CARDIOVASCULAR: Regular rate and rhythm without murmurs, gallops, or rubs. RESPIRATORY: Breath sounds equal bilaterally. No accessory muscle use. GASTROINTESTINAL: Abdomen soft, non-tender, nondistended. EXTREMITIES: No cyanosis, or edema. NEUROLOGICAL: Awake, alert. Non-focal. (Tessy Varela MD R1) A/P Assessment and Plan Ms. Whitaker is a 51yoAAF with a PMH of DM and nephrolithiasis presenting with constipation as the result of taking Tramadol for pain. She fits the criteria for SIRS for source of infection being UTI. She is also hyperglycemic from not taking her usual DM medications. Discharge Planning discharge today after diabetes and insulin education. (Tessy Varela MD R1) Attending Attestation THIS CASE WAS DISCUSSED IN DETAIL WITH THE RESIDENT PHYSICIANS Dr Paredes,Dr Whitaker, Dr Ortega and Dr Zapien. PATIENT WAS INTERVIEWED AND EXAMINED. I HAVE REVIEWED THE RECORD AND AGREE WITH THE ABOVE NOTE AND PLAN OF CARE WAS DISCUSSED. I HAVE AUTHORIZED THE ORDERS (Juan Handy MD) Problem List: (1) SIRS (systemic inflammatory response syndrome) ICD Codes: R65.10 - Systemic inflammatory response syndrome (SIRS) of non- infectious origin without acute organ dysfunction Status: Resolved Plan: Patient with tachycardia and leukocytosis upon admission. Possible source of infection is UTI. Lactic acid is normal. * Treat UTI as below * Trending WBCs through daily CBCs * draw blood cultures if spikes fever * Tachycardia and leukocytosis resolved on 06/10 (2) Fecal impaction in rectum ICD Codes: K56.41 - Fecal impaction Status: Resolved Plan: Patient with 7 days of constipation. Likely due to taking Tramadol post surgery on 06/03. * Enema performed in ED- resulted in bowel movement * PRN constipation meds ordered (3) Hyperglycemia ICD Codes: R73.9 - Hyperglycemia, unspecified Status: Acute Plan: Patient has DM. Blood on admission at 599. Patient had stopped taking her metformin due to interaction with new kidney medications. Anion gap is closed, not concerned for DKA. * HbA1C 12.9. * Continue at home glyburide * Medium dose SSI * Accuchecks * Diabetes education (4) UTI (urinary tract infection) ICD Codes: N39.0 - Urinary tract infection, site not specified Status: Acute Plan: UA shows large leukocyte esterase, WBCs, and rare bacteria. Culture indicated. CVA tenderness on exam * Rocephin 1g given in ED * Rocephin 1g IV qD * IVF * Urine culture pending (5) MELITON (acute kidney injury) ICD Codes: N17.9 - Acute kidney failure, unspecified Status: Acute Plan: Creatinine upon admission was 1.49. Last creatinine on 05/26 was 0.89. May be due to UTI (currently treating as above). Has trended down to 1.02 on . * recheck BMP in AM (6) HTN (hypertension) ICD Codes: I10 - Essential (primary) hypertension Status: Acute Plan: Patient has HTN. Will start her back on her home meds. * Clonidine PRN for BP >180/100 (7) FEN Status: Acute Plan: Fluids: NS at 125 ml/hr Electrolytes: Monitor and replete as needed Nutrition: Clear liquid diet, advance as tolerated VTE ppx: Lovenox 40mg SQ q12h (Tessy Varela MD R1) Problem Qualifiers (1) UTI (urinary tract infection): Qualified Codes: N39.0 - Urinary tract infection, site not specified (2) HTN (hypertension): Qualified Codes: I10 - Essential (primary) hypertension Tessy Varela MD R1 Jun 10, 2017 15:19 Juan Handy MD Jun 10, 2017 18:48
[2017-06-10] MEDS ORDERED: NOVOLOGP2 SQ (15:53)
[2017-06-10] MEDS ORDERED: LEVEMIR SQ (15:53)
--- NOTE | 2017-06-10 15:55 | HHI.DCPOC ---
Discharge Care Plan Diagnosis: (1) SIRS (systemic inflammatory response syndrome) (2) Fecal impaction in rectum (3) MELITON (acute kidney injury) (4) Hyperglycemia Goals to Promote Your Health * To prevent worsening of your condition and complications * To maintain your health at the optimal level Directions to Meet Your Goals Take your medications as prescribed Follow your dietary instruction Follow activity as directed Keep your appointments as scheduled Take your immunizations and boosters as scheduled If your symptoms worsen call your PCP, if no PCP go to Urgent Care Center or Emergency Room Smoking is Dangerous to Your Health. Avoid second hand smoke Call the 24-hour hour crisis hotline for domestic abuse at Tessy Varela MD R1 Jun 10, 2017 15:55
[2017-06-10] MEDS ORDERED: CIPR500T2 PO (18:04)
[2017-06-11] MEDS ORDERED: COLA100C PO (16:12)
[2017-06-15] MEDS ORDERED: COLA100C PO (13:16)
== END 2017-06-10 16:40 | disposition home or self-care (01) ==
LOC: NEPE 08:13 → NEDA 11:06 → NEPFCDU 14:22
PROVIDERS: ADMIT Family Medicine; ATTEND Family Medicine
DX: R65.10 Systemic inflammatory response syndrome (SIRS) of non-infectious origin without acute organ dysfunction (principal); I10 Essential (primary) hypertension; E78.5 Hyperlipidemia, unspecified; K56.41 Fecal impaction; N39.0 Urinary tract infection, site not specified; R00.0 Tachycardia, unspecified; D72.829 Elevated white blood cell count, unspecified; E11.65 Type 2 diabetes mellitus with hyperglycemia; N17.9 Acute kidney failure, unspecified; K21.9 Gastro-esophageal reflux disease without esophagitis; G47.30 Sleep apnea, unspecified; E78.00 Pure hypercholesterolemia, unspecified; E87.1 Hypo-osmolality and hyponatremia; Z79.899 Other long term (current) drug therapy; Z79.84 Long term (current) use of oral hypoglycemic drugs
CPT/HCPCS: 74176; 80048; 80053; 81001; 82948; 83036; 83605; 85025; 85610; 85730; 87086; 96361; 96365; 96372; 96375; 99285; G0378; J0696; J1650; J1815; J1885; J2405; J7030

== ENCOUNTER → 2017-06-15 | Outpatient (CLI) | payer OTHER ==
[~2017-06-15] MED LIST changes: -CEPH-459 PO; +CIPR500T2 PO; +COLA100C PO; +LEVEMIR SQ; -METF500T PO; -NAPR375T PO; +NOVOLOGP2 SQ; -TRAM50TA PO; -ULTR50TA5 PO
--- NOTE | 2017-06-15 13:58 | RADRPT ---
EXAM DATE/TIME: 06/15/2017 13:32 [facility] COMPARISON: CT ABDOMEN & PELVIS W/O CONTRAST, June 09, 2017, 9:58. ABDOMEN KUB ONLY, June 03, 2017, 8:06. INDICATIONS : Abdominal pain, kidney stones. MEDICAL HISTORY : Diabetes mellitus type II. Hypertension Renal calculi. SURGICAL HISTORY : section. Renal stent ENCOUNTER: Initial ACUITY: 2 months PAIN SCORE: 8/10 LOCATION: lower abdomen FINDINGS: Double-J stent is present on the right side. Comparison is made to renal colic CT on 06/09/17. Ther e is a new 9 mm calcific density projected along the proximal one third of the right stent suggesting a migrated stone fragment. There are numerous small stone fragments in the lower pulmonary site whi ch measure up to 6 mm. And the left kidney, there are multiple varying size calcified stones in the upper, mid, and lower pole the largest is in the upper pole measuring 1.3 cm. No calcification seen along the left flank. Multiple calcified phleboliths are seen in the pelvis. CONCLUSION: There is a 9 mm calcification projected over the proximal right double-J stent suggesting a migrated stone into the proximal right shoulder. Numerous bilateral renal stones otherwise is stable. Bert Rosen MD on June 15, 2017 at 13:43 Board Certified Radiologist. This report was verified electronically.
== END ==
LOC: HRAD 13:17
PROVIDERS: ATTEND Urology
DX: N20.0 Calculus of kidney (principal)
CPT/HCPCS: 74000

== ENCOUNTER 2017-08-01 21:48 | Inpatient (IN) | payer OTHER ==
[~2017-08-01] VITALS: Ht 152.4 cm; Wt 91.5 kg
[~2017-08-01 21:48] MED LIST changes: -CIPR500T2 PO; -COLA100C PO; +COLA100C5 PO; +IBUP1TAB7 PO
[2017-08-01 21:52] VITALS: BP 204/86; PULSE 96; RESP 16; TEMP 98.6; O2SAT 97
[2017-08-01] MEDS ORDERED: SODIUM CHLOR 0.9% 1000 ML INJ 1,000 ML IV SCH (22:13)
[2017-08-01] MEDS ORDERED: SODIUM CHLORIDE 0.9% FLUSH 10 ML FLUSH IV FLUSH PRN (22:15)
[2017-08-01] MEDS ORDERED: ONDANSETRON HCL 4 MG/2 ML VIAL IVP ONE (22:15)
--- NOTE | 2017-08-01 22:19 | PD ---
HPI Chief Complaint: GI Complaint Time Seen by Provider: 22:07 Travel History International Travel<30 days: No Contact w/Intl Traveler<30days: No Traveled to known affect area: No History of Present Illness HPI 51-year-old female with history of kidney stones with recent right ureteral stent placement with lithotripsy with stent removal [address] Joaquin, here for evaluation of right flank pain, lower back pain, nausea, and vomiting. Symptoms started the day after her stent was removed. Emesis is clear, nonbloody. She is having a burning sensation in her epigastrium and mid chest which is intermittent. She reports that she feels constipated and has not had a bowel movement in a couple of days. History of sections. No other abdominal surgeries. Lower back pain/flank pain is sharp and radiates around to her right lower abdomen. She complains of some dysuria and pyuria, no hematuria. No fevers or chills. No trauma. No history of cardiac disease. PFSH Past Medical History Arthritis: No Asthma: No Autoimmune Disease: No Blood Disorders: No Anxiety: No Depression: No Heart Rhythm Problems: No Cancer: No Cardiovascular Problems: Yes (PT STATES THAT SHE HAS AN "ENLARGED HEART") High Cholesterol: Yes Chemotherapy: No Chest Pain: No Congestive Heart Failure: No COPD: No Cerebrovascular Accident: No Diabetes: Yes Patient Takes Glucophage: Yes Diminished Hearing: No Endocrine: Yes Gastrointestinal Disorders: Yes GERD: Yes Genitourinary: Yes (KIDNEY STONES) Hepatitis: No Hiatal Hernia: No Hypertension: Yes Immune Disorder: No Kidney Stones: Yes Musculoskeletal: No Neurologic: No Psychiatric: No Reproductive: No Respiratory: Yes Immunizations Current: Yes Migraines: Yes Radiation Therapy: No Renal Failure: No Seizures: No Sickle Cell Disease: No Sleep Apnea: Yes Thyroid Disease: No Ulcer: Yes Tetanus Vaccination: Unknown Influenza Vaccination: Yes ?: Not Menopausal: Yes : 6 Para: 3 Miscarriage: 1 : 2 Past Surgical History Abdominal Surgery: No AICD: No Arteriovenous Shunt: No Cardiac Surgery: No Section: Yes (x 3) Ear Surgery: No Endocrine Surgery: No Eye Surgery: No Gynecologic Surgery: Yes (HYSTERECTOMY, 3 C-SECTIONS) Hysterectomy: Yes Insulin Pump: No Joint Replacement: No Oral Surgery: No Pacemaker: No Thoracic Surgery: No Other Surgery: Yes Social History Alcohol Use: No Tobacco Use: No Substance Use: No Allergies-Medications (Allergen,Severity, Reaction): Coded Allergies: acetaminophen (Verified Allergy, Severe, Itching, 08/01/17) hydrocodone (Verified Allergy, Severe, Itching, 08/01/17) metformin (Verified Allergy, Severe, Constipation, 08/01/17) vomiting hydromorphone (Verified Allergy, Intermediate, Rash, 08/01/17) hydrochlorothiazide (Unverified Adverse Reaction, Intermediate, Nausea/ Vomiting, 08/01/17) Reported Meds & Prescriptions Reported Meds & Active Scripts Active Novolog Inj (Insulin Aspart) 1,000 Unit/10 Ml Vial 0 SQ DIRECTED Sliding Scale as directed. Before meals. For blood sugar 0-150 = 0 units (none) For 151-200 = 2 units For 201- 250 = 4 units For 251-300 = 6 units For 301-350 = 8 units For greater than 351 = 10 units Levemir Inj (Insulin Detemir) 1,000 unit/ 10 ML Vial 10 Units SQ HS 30 Days Do not mix with any other Insulin. Prinivil (Lisinopril) 20 Mg Tab 20 Mg PO BID Norvasc (Amlodipine Besylate) 10 Mg Tab 10 Mg PO DAILY Zocor (Simvastatin) 40 Mg Tab 40 Mg PO HS Glyburide 5 Mg Tab 5 Mg PO BID Take with meals at the same time each day Review of Systems Except as stated in HPI: all other systems reviewed are Neg Physical Exam Narrative GENERAL: Well-developed, well-nourished, overweight, sitting at the edge of stretcher in mild distress secondary to pain. SKIN: Focused skin assessment warm/dry. Circular lesion/scars on bilateral upper extremities which the patient states was from an allergic reaction and while ago.. No other rashes. HEAD: Atraumatic. Normocephalic. EYES: Pupils equal and round. No scleral icterus. No injection or drainage. ENT: Mucous membranes pink and moist. NECK: Trachea midline. No JVD. CARDIOVASCULAR: Regular rate and rhythm. No murmur appreciated. RESPIRATORY: No accessory muscle use. Clear to auscultation. Breath sounds equal bilaterally. GASTROINTESTINAL: Abdomen soft, nondistended. Mild diffuse tenderness without peritoneal signs. MUSCULOSKELETAL: No obvious deformities. No clubbing. No cyanosis. No edema. Moderate right CVA tenderness. No left CVA tenderness. Moderate midline lumbar spine tenderness without step-off. NEUROLOGICAL: Awake and alert. No obvious cranial nerve deficits. Motor grossly within normal limits. Normal speech. Normal motor/sensory to all 4 extremities. PSYCHIATRIC: Appropriate mood and affect; insight and judgment normal. Data Data Last Documented VS Vital Signs Date Time Temp Pulse Resp B/P (MAP) Pulse Ox O2 Delivery O2 Flow Rate FiO2 08/01/17 23:31 20 08/01/17 22:39 08/01/17 21:52 98.6 96 97 Room Air Orders Orders Complete Blood Count With Diff (08/01/17 22:13) Comprehensive Metabolic Panel (08/01/17 22:13) Lipase (08/01/17 22:13) Prothrombin Time / Inr (Pt) (08/01/17 22:13) Act Partial Throm Time (Ptt) (08/01/17 22:13) Urinalysis - C+S If Indicated (08/01/17 22:13) Ct Abd/Pel W/O Iv Contrast (08/01/17 22:13) Iv Access Insert/Monitor (08/01/17 22:13) Ecg Monitoring (08/01/17 22:13) Oximetry (08/01/17 22:13) Ondansetron Inj (Zofran Inj) (08/01/17 22:15) Sodium Chlor 0.9% 1000 Ml Inj (Ns 1000 M (08/01/17 22:13) Sodium Chloride 0.9% Flush (Ns Flush) (08/01/17 22:15) Electrocardiogram (08/01/17 22:13) Fentanyl Inj (Fentanyl Inj) (08/01/17 22:15) Ckmb (Isoenzyme) Profile (08/01/17 22:13) Troponin I (08/01/17 22:13) Chest, Single Ap (08/01/17 22:13) Ct Lumb Spine W/O Contrast (08/01/17 ) Urine Culture (08/01/17 23:25) Ceftriaxone Inj (Rocephin Inj) (08/02/17 00:30) Labs Laboratory Tests Test 08/01/17 22:30 08/01/17 23:20 08/01/17 23:25 Prothrombin Time 10.0 SEC Prothromb Time International Ratio 1.0 RATIO Activated Partial Thromboplast Time 27.1 SEC Blood Urea Nitrogen 27 MG/DL Creatinine 2.07 MG/DL Random Glucose 242 MG/DL Total Protein 9.6 GM/DL Albumin 3.1 GM/DL Calcium Level 9.4 MG/DL Alkaline Phosphatase 379 U/L Aspartate Amino Transf (AST/SGOT) 27 U/L Alanine Aminotransferase (ALT/SGPT) 39 U/L Total Bilirubin 0.3 MG/DL Sodium Level 138 MEQ/L Potassium Level 3.9 MEQ/L Chloride Level 102 MEQ/L Carbon Dioxide Level 25.7 MEQ/L Anion Gap 10 MEQ/L Estimat Glomerular Filtration Rate 30 ML/MIN Total Creatine Kinase 31 U/L Troponin I LESS THAN 0.02 NG/ML Lipase 186 U/L White Blood Count 14.0 TH/MM3 Red Blood Count 3.87 MIL/MM3 Hemoglobin 10.0 GM/DL Hematocrit 30.9 % Mean Corpuscular Volume 80.0 FL Mean Corpuscular Hemoglobin 26.0 PG Mean Corpuscular Hemoglobin Concent 32.4 % Red Cell Distribution Width 16.6 % Platelet Count 387 TH/MM3 Mean Platelet Volume 7.5 FL Neutrophils (%) (Auto) 83.2 % Lymphocytes (%) (Auto) 7.8 % Monocytes (%) (Auto) 6.3 % Eosinophils (%) (Auto) 2.1 % Basophils (%) (Auto) 0.6 % Neutrophils # (Auto) 11.6 TH/MM3 Lymphocytes # (Auto) 1.1 TH/MM3 Monocytes # (Auto) 0.9 TH/MM3 Eosinophils # (Auto) 0.3 TH/MM3 Basophils # (Auto) 0.1 TH/MM3 CBC Comment DIFF FINAL Differential Comment Urine Color LIGHT-YELLOW Urine Turbidity HAZY Urine pH 6.0 Urine Specific [place] 1.013 Urine Protein 30 mg/dL Urine Glucose (UA) 70 mg/dL Urine Ketones NEG mg/dL Urine Occult Blood TRACE Urine Nitrite NEG Urine Bilirubin NEG Urine Urobilinogen LESS THAN 2.0 MG/DL Urine Leukocyte Esterase LARGE Urine RBC 18 /hpf Urine WBC /hpf Urine WBC Clumps MOD Urine Squamous Epithelial Cells 17 /hpf Urine Yeast with Hyphae FEW Urine Yeast (Budding) RARE Microscopic Urinalysis Comment CULTURE INDICATED MDM Medical Decision Making Medical Screen Exam Complete: Yes Emergency Medical Condition: Yes Medical Record Reviewed: Yes Interpretation(s) EKG: Sinus, rate 83, normal axis, normal intervals, LVH, no acute ischemic abnormality. Differential Diagnosis Nephrolithiasis, ureterolithiasis, UTI, pyelonephritis, colitis, bowel obstruction, dehydration/metabolic abnormality, pancreatitis, GERD, hepatobiliary disease, ACS Narrative Course Initial vital signs show heart rate 96, blood pressure 204/86, pulse ox 97% on room air, oral temp 98.6 reason Fahrenheit. Repeat vital signs show heart rate 83, blood pressure 196/86. CBC: WBC 14, hemoglobin 10, hematocrit 30.9, platelets 387, neutrophils 83%. CMP is remarkable for random glucose 242, BUN 27, creatinine 2.07, GFR 30 which is slightly worse than her baseline. Bicarbonate is 25.7. She is not in DKA. Cardiac enzymes are negative. Lipase is 186. UA: Hazy, 30 protein, 70 glucose, trace occult blood, large the site esterase, 18 RBCs, innumerable WBCs moderate WBC clumps, rare budding yeast. Patient was given a dose of IV Rocephin for her UA results. Chest Xray: CONCLUSION: No acute disease. CT abdomen pelvis: CONCLUSION: 1. Right-sided obstructive uropathy with 8mm and 9 mm calcifications in the distal right ureter. Innumerable calculi in both kidneys. Patient reports allergy to Dilaudid and morphine. She was given 100 g of IV fentanyl as well as 4 mg of IV Zofran with improvement in her nausea and pain. Given obstructive uropathy with 2 fairly large distal ureteral stones on the right with slightly worsening renal function as well as UA findings suggestive of UTI, the patient will be admitted to the medical service with routine urology consultation. The patient is hemodynamically stable and is actually hypertensive with history of hypertension. She is not displaying any signs or symptoms of hypertensive crisis. Case discussed with hospitalist Dr. Art who will admit the patient to her service. Diagnosis Primary Impression: Obstructive uropathy Additional Impressions: Ureteral calculus, right UTI (urinary tract infection) Qualified Codes: N39.0 - Urinary tract infection, site not specified; R31.9 - Hematuria, unspecified MELITON (acute kidney injury) Admitting Information Admitting Physician Requests: Admit Mahesh Gama MD Aug 01, 2017 22:19
[2017-08-01 22:39] VITALS: RESP 20
--- NOTE | 2017-08-01 23:04 | RADRPT ---
EXAM DATE/TIME: 08/01/2017 22:31 [facility] COMPARISON: No previous studies available for comparison. INDICATIONS : Cough and heartburn. MEDICAL HISTORY : Diabetes mellitus type 2. Hypertension. SURGICAL HISTORY : Hysterectomy. section. Renal stents ENCOUNTER: Initial ACUITY: 1 week PAIN SCORE: 0/10 LOCATION: Bilateral chest FINDINGS: A single view of the chest demonstrates the lungs to be symmetrically aerated without evidence of mas s, infiltrate or effusion. The cardiomediastinal contours are unremarkable. Osseous structures are intact. CONCLUSION: No acute disease. Werner Thakur MD on August 01, 2017 at 23:02 Board Certified Radiologist. This report was verified electronically.
--- NOTE | 2017-08-01 23:08 | RADRPT ---
EXAM DATE/TIME: 08/01/2017 22:48 [facility] COMPARISON: No previous studies available for comparison. INDICATIONS : Right flank and back pain. Recent lithotripsy. ORAL CONTRAST: No oral contrast ingested. RADIATION DOSE: 18.72 CTDIvol (mGy) MEDICAL HISTORY : Cardiovascular disease. Hypertension. Renal calculi.Diabetes GERD SURGICAL HISTORY : Hysterectomy. Rt renal stent Lithotripsy ENCOUNTER: Initial ACUITY: 1 day PAIN SCALE: 7/10 LOCATION: Right flank TECHNIQUE: Volumetric scanning of the abdomen and pelvis was performed. Using automated exposure control and ad justment of the mA and/or kV according to patient size, radiation dose was kept as low as reasonably achievable to obtain optimal diagnostic quality images. DICOM format image data is available electro nically for review and comparison. FINDINGS: Lung bases are clear. No effusion. No acute findings in the liver, spleen, adrenals or pancreas. Prev ious films. Innumerable calculi in both kidneys. There is a right-sided obstructive uropathy with moderate hydronephrosis. At least 2 large calculi ar e present in the distal right ureter measuring about 8 mm and 9 mm in diameter. No bladder calculi. N o acute bony abnormalities. CONCLUSION: 1. Right-sided obstructive uropathy with 8mm and 9 mm calcifications in the distal right ureter. Innu merable calculi in both kidneys. Werner Thakur MD on August 01, 2017 at 23:03 Board Certified Radiologist. This report was verified electronically.
--- NOTE | 2017-08-01 23:14 | RADRPT ---
EXAM DATE/TIME: 08/01/2017 22:48 [facility] COMPARISON: CT ABDOMEN & PELVIS W/O CONTRAST, August 01, 2017, 22:48. INDICATIONS : Right flank and back pain. Recent lithotripsy. RADIATION DOSE: ; Reconstructed from previous dataset, no dose MEDICAL HISTORY : Cardiovascular disease. Hypertension. Renal calculi.Diabetes GERD SURGICAL HISTORY : Hysterectomy. Rt renal stent Lithotripsy ENCOUNTER: Initial ACUITY: 1 day PAIN SCALE: 7/10 LOCATION: Right flank low back TECHNIQUE: Volumetric scanning of the lumbar spine was performed. Multiplanar reconstructions in the sagittal, coronal and oblique axial planes were performed. Using automated exposure control and adjustment of the mA and/or kV according to patient size, radiation dose was kept as low as reasonably achievable t o obtain optimal diagnostic quality images. DICOM format image data is available electronically for review and comparison. FINDINGS: VERTEBRAE: Normal vertebral body height. ALIGNMENT: No evidence of subluxation. T12-L1: The thecal sac has a normal diameter. No evidence of disc bulge or protrusion. The neural foramina are patent bilaterally. L1-L2: The thecal sac has a normal diameter. No evidence of disc bulge or protrusion. The neural foramina are patent bilaterally. L2-L3: The thecal sac has a normal diameter. No evidence of disc bulge or protrusion. The neural foramina are patent bilaterally. L3-L4: The thecal sac has a normal diameter. No evidence of disc bulge or protrusion. The neural foramina are patent bilaterally. L4-L5: Moderate facet hypertrophic changes are seen, left greater than right. There is abnormal sclerosis at the bilateral sacroiliac joints with osteophytosis and erosive changes characteristic of sacroiliiti s. L5-S1: The thecal sac has a normal diameter. No evidence of disc bulge or protrusion. The neural foramina are patent bilaterally. Moderate facet hypertrophic changes are seen bilaterally. CONCLUSION: Sacroiliitis. Degenerative changes of the spine. Please refer to CT abdomen and pelvis report from [email or web address] for description of the kidneys and ureters. Eloy Wallace MD on August 01, 2017 at 23:10 Board Certified Radiologist. This report was verified electronically.
[2017-08-01 23:24] LABS: ALT (GPT) 39 U/L (10-53); ANION GAP 10 MEQ/L (5-15); AST (GOT) 27 U/L (15-37); BICARBONATE 25.7 MEQ/L (21.0-32.0); BLOOD UREA NITROGEN 27 MG/DL (7-18); CHLORIDE 102 MEQ/L (98-107); GLOMERULAR FILTRATION RATE 30 ML/MIN (>89); POTASSIUM 3.9 MEQ/L (3.5-5.1); SODIUM (NA) 138 MEQ/L (136-145)
[2017-08-01 23:26] LABS: APTT (PATIENT) 27.1 SEC (24.3-30.1)
[2017-08-01 23:28] LABS: ALKALINE PHOSPHATASE 379 U/L (45-117); TOTAL BILIRUBIN ADULT 0.3 MG/DL (0.2-1.0)
[2017-08-01 23:29] LABS: CREATINE KINASE 31 U/L (26-192)
[2017-08-02 00:15] LABS: BLOOD, URINE TRACE (NEG); COMMENT (UR) CULTURE INDICATED; CULTURE IF INDICATED CULTURE INDICATED; GLUCOSE,URINE 70 mg/dL (NEG); KETONE, URINE NEG (NEG); NITRITE,URINE NEG (NEG); SQUAMOUS EPITHELIAL CELL URINE 17 /hpf (0-5); URINE COLOR LIGHT-YELLOW (YELLW/STRAW)
[2017-08-02 00:17] LABS: AUTOMATED NEUTROPHIL # 11.6 TH/MM3 (1.8-7.7); BASOPHIL # 0.1 TH/MM3 (0-0.2); BASOPHIL % 0.6 % (0.0-2.0); EOSINOPHIL # 0.3 TH/MM3 (0-0.4); EOSINOPHIL % 2.1 % (0.0-4.0); HEMATOCRIT 30.9 % (35.0-46.0); HEMO FLAGS DIFF FINAL; LYMPH % 7.8 % (9.0-44.0); LYMPHOCYTE # 1.1 TH/MM3 (1.0-4.8); MEAN CORPUSCULAR HGB CONC 32.4 % (32.0-36.0); MONO % 6.3 % (0.0-8.0); NEUT % 83.2 % (16.0-70.0); PLATELET COUNT 387 TH/MM3 (150-450); RED BLOOD COUNT 3.87 MIL/MM3 (4.00-5.30); RED CELL DISTRIBUTION WIDTH 16.6 % (11.6-17.2)
[2017-08-02] MEDS ORDERED: cefTRIAXone INJ 1,000 MG in SODIUM CHLORIDE 0.9% INJ 100 ML IV ONE (00:30)
[2017-08-02] MEDS ORDERED: BISACODYL 10 MG SUPP RECTAL PRN (00:45)
[2017-08-02] MEDS ORDERED: ACETAMINOPHEN 325 MG TAB PO PRN (00:45)
[2017-08-02] MEDS ORDERED: DEXTROSE 50% IN WATER 50 ML VIAL(D50) IV PUSH PRN (00:45)
[2017-08-02] MEDS ORDERED: MAGNESIUM HYDROXIDE SUSP 30 ML CUP PO PRN (00:45)
[2017-08-02] MEDS ORDERED: LACTULOSE SYRUP 20 GM/30 ML CUP PO PRN (00:45)
[2017-08-02] MEDS ORDERED: SODIUM CHLORIDE 0.9% FLUSH 10 ML FLUSH IV FLUSH PRN (00:45)
[2017-08-02] MEDS ORDERED: GLUCAGON 1 MG/ML VIAL OTHER PRN (00:45)
[2017-08-02] MEDS ORDERED: NALOXONE HCL 0.4 MG/ML AMP IV PUSH PRN (00:45)
[2017-08-02] MEDS: SODIUM CHLOR 0.9% 1000 ML INJ 1,000 ML IV SCH ×3 (01:23→21:42)
[2017-08-02 02:39] VITALS: BP 191/89; PULSE 79; RESP 20; TEMP 97.4; O2SAT 100
[2017-08-02] MEDS ORDERED: diphenhydrAMINE HCL 50 MG CAP PO PRN (02:45)
[2017-08-02] MEDS: oxyCODONE/ACETAMINOPHEN 7.5 MG/325 MG TAB PO PRN ×3 (03:42→21:49)
--- NOTE | 2017-08-02 04:38 | HHI.HP ---
[facility] Primary [facility] Physician No Primary Care Physician Admission Diagnosis obstructive uropathy, ureterolithiasis, UTI, MELITON Diagnoses: Travel History International Travel<30 Days: No Contact w/Intl Traveler <30 Da: No Traveled to Known Affected Are: No History of Present Illness 51-year-old female with a past medical history significant for bilateral nephrolithiasis, status post bilateral stent placement and lithotripsy, hypertension, insulin-dependent diabetes mellitus and hyperlipidemia presents with severe right-sided flank pain. The patient reports that pain started on Thursday and has gotten significantly worse over the past several days. She a right ureteral stent removed on Thursday. She reports nausea/vomiting as she believes is secondary to the pain. CT of the abdomen/pelvis significant for right-sided obstructive uropathy with 8 and 9 mm calcifications in the distal right ureter. She has a leukocytosis of 14.0 with left shift. Creatinine 2.07 , baseline less than 1. UA consistent with UTI. Review of Systems Denies fever or chills Denies blurry vision, otorrhea, rhinorrhea Denies sore throat and cough No chest pain, palpitations, shortness of breath Positive right flank pain Denies constipation/diarrhea. Positive nausea/vomiting Denies muscle pain/weakness No rashes Past Family Social History Past Medical History Hypertension Insulin-dependent diabetes mellitus Hyperlipidemia Past Surgical History Hysterectomy 2 Bilateral ureteral stent placement with lithotripsy Reported Medications Reported Meds & Active Scripts Active Novolog Inj (Insulin Aspart) 1,000 Unit/10 Ml Vial 0 SQ DIRECTED Sliding Scale as directed. Before meals. For blood sugar 0-150 = 0 units (none) For 151-200 = 2 units For 201- 250 = 4 units For 251-300 = 6 units For 301-350 = 8 units For greater than 351 = 10 units Levemir Inj (Insulin Detemir) 1,000 unit/ 10 ML Vial 10 Units SQ HS 30 Days Do not mix with any other Insulin. Prinivil (Lisinopril) 20 Mg Tab 20 Mg PO BID Norvasc (Amlodipine Besylate) 10 Mg Tab 10 Mg PO DAILY Zocor (Simvastatin) 40 Mg Tab 40 Mg PO HS Glyburide 5 Mg Tab 5 Mg PO BID Take with meals at the same time each day Allergies: Coded Allergies: acetaminophen (Verified Allergy, Severe, Itching, 08/01/17) hydrocodone (Verified Allergy, Severe, Itching, 08/01/17) metformin (Verified Allergy, Severe, Constipation, 08/01/17) vomiting hydromorphone (Verified Allergy, Intermediate, Rash, 08/01/17) hydrochlorothiazide (Unverified Adverse Reaction, Intermediate, Nausea/ Vomiting, 08/01/17) Family History Maternal grandmother with diabetes mellitus Social History Denies alcohol, tobacco and illicit drugs Physical Exam Vital Signs Vital Signs Date Time Temp Pulse Resp B/P (MAP) Pulse Ox O2 Delivery O2 Flow Rate FiO2 08/02/17 02:39 97.4 79 20 191/89 (123) 100 08/01/17 23:31 20 08/01/17 22:39 20 08/01/17 21:52 98.6 96 16 204/86 (125) 97 Room Air Physical Exam GENERAL: Obese female lying in bed SKIN: No rashes, ecchymoses or lesions. Cool and dry. HEAD: Atraumatic. Normocephalic. No temporal or scalp tenderness. EYES: Pupils equal round and reactive. Extraocular motions intact. No scleral icterus. No injection or drainage. ENT: Nose without bleeding, purulent drainage or septal hematoma. Throat without erythema, tonsillar hypertrophy or exudate. Uvula midline. Airway patent. NECK: Trachea midline. No JVD or lymphadenopathy. Supple, nontender, no meningeal signs. CARDIOVASCULAR: Regular rate and rhythm without murmurs, gallops, or rubs. RESPIRATORY: Clear to auscultation. Breath sounds equal bilaterally. No wheezes , rales, or rhonchi. GASTROINTESTINAL: Abdomen soft, non-tender, nondistended. No hepato-splenomegaly , or palpable masses. No guarding. : Right CVA tenderness MUSCULOSKELETAL: Extremities without clubbing, cyanosis, or edema. No joint tenderness, effusion, or edema noted. No calf tenderness. NEUROLOGICAL: Awake and alert. Cranial nerves II through XII intact. Motor and sensory grossly within normal limits. Normal speech. Laboratory Laboratory Tests Test 08/01/17 22:30 08/01/17 23:20 08/01/17 23:25 Prothrombin Time 10.0 Prothromb Time International Ratio 1.0 Activated Partial Thromboplast Time 27.1 Blood Urea Nitrogen 27 Creatinine 2.07 Random Glucose 242 Total Protein 9.6 Albumin 3.1 Calcium Level 9.4 Alkaline Phosphatase 379 Aspartate Amino Transf (AST/SGOT) 27 Alanine Aminotransferase (ALT/SGPT) 39 Total Bilirubin 0.3 Sodium Level 138 Potassium Level 3.9 Chloride Level 102 Carbon Dioxide Level 25.7 Anion Gap 10 Estimat Glomerular Filtration Rate 30 Total Creatine Kinase 31 Troponin I LESS THAN 0.02 Lipase 186 White Blood Count 14.0 Red Blood Count 3.87 Hemoglobin 10.0 Hematocrit 30.9 Mean Corpuscular Volume 80.0 Mean Corpuscular Hemoglobin 26.0 Mean Corpuscular Hemoglobin Concent 32.4 Red Cell Distribution Width 16.6 Platelet Count 387 Mean Platelet Volume 7.5 Neutrophils (%) (Auto) 83.2 Lymphocytes (%) (Auto) 7.8 Monocytes (%) (Auto) 6.3 Eosinophils (%) (Auto) 2.1 Basophils (%) (Auto) 0.6 Neutrophils # (Auto) 11.6 Lymphocytes # (Auto) 1.1 Monocytes # (Auto) 0.9 Eosinophils # (Auto) 0.3 Basophils # (Auto) 0.1 CBC Comment DIFF FINAL Differential Comment Urine Color LIGHT-YELLOW Urine Turbidity HAZY Urine pH 6.0 Urine Specific [place] 1.013 Urine Protein 30 Urine Glucose (UA) 70 Urine Ketones NEG Urine Occult Blood TRACE Urine Nitrite NEG Urine Bilirubin NEG Urine Urobilinogen LESS THAN 2.0 Urine Leukocyte Esterase LARGE Urine RBC 18 Urine WBC Urine WBC Clumps MOD Urine Squamous Epithelial Cells 17 Urine Yeast with Hyphae FEW Urine Yeast (Budding) RARE Microscopic Urinalysis Comment CULTURE INDICATED Date/Time Source Procedure Growth Status 08/01/17 23:25 Urine Clean Catch Urine Culture Pending Received Result Diagram: 08/01/17231908/01/172229 Caprini VTE Risk Assessment Caprini VTE Risk Assessment: No/Low Risk (score <= 1) Caprini Risk Assessment Model Point Value = 1 Point Value = 2 Point Value = 3 Point Value = 5 Age 41-60 Minor surgery BMI > 25 kg/m2 Swollen legs Varicose veins or History of unexplained or recurrent spontaneous Oral contraceptives or hormone replacement Sepsis (< 1 month) Serious lung disease, including pneumonia (< 1 month) Abnormal pulmonary function Acute myocardial infarction Congestive heart failure (< 1 month) History of inflammatory bowel disease Medical patient at bed rest Age 61-74 Arthroscopic surgery Major open surgery (> 45 min) Laparoscopic surgery (> 45 min) Malignancy Confined to bed (> 72 hours) Immobilizing plaster cast Central venous access Age >= 75 History of VTE Family history of VTE Factor V Leiden Prothrombin [id number] Lupus anticoagulant Anticardiolipin antibodies Elevated serum homocysteine Heparin-induced thrombocytopenia Other congenital or acquired thrombophilia Stroke (< 1 month) Elective arthroplasty Hip, pelvis, or leg fracture Acute spinal cord injury (< 1 month) Prophylaxis Regimen Total Risk Factor Score Risk Level Prophylaxis Regimen 0-1 Low Early ambulation 2 Moderate Order ONE of the following: *Sequential Compression Device (SCD) *Heparin 5000 units SQ BID 3-4 Higher Order ONE of the following medications: *Heparin 5000 units SQ TID *Enoxaparin/Lovenox 40 mg SQ daily (WT < 150 kg, CrCl > 30 mL/min) *Enoxaparin/Lovenox 30 mg SQ daily (WT < 150 kg, CrCl > 10-29 mL/min) *Enoxaparin/Lovenox 30 mg SQ BID (WT < 150 kg, CrCl > 30 mL/min) AND/OR *Sequential Compression Device (SCD) 5 or more Highest Order ONE of the following medications: *Heparin 5000 units SQ TID (Preferred with Epidurals) *Enoxaparin/Lovenox 40 mg SQ daily (WT < 150 kg, CrCl > 30 mL/min) *Enoxaparin/Lovenox 30 mg SQ daily (WT < 150 kg, CrCl > 10-29 mL/min) *Enoxaparin/Lovenox 30 mg SQ BID (WT < 150 kg, CrCl > 30 mL/min) AND *Sequential Compression Device (SCD) Assessment and Plan Assessment and Plan Assessment/plan: 1. Nephrolithiasis/UTI CT of the abdomen/pelvis significant for right-sided obstructive uropathy with 8 and 9 mm calcifications in the distal right ureter Urology consulted, appreciate assistance Osvaldoephishiela for UTI Urine culture pending Percocet for pain 2. Diabetes mellitus Continue home Levemir Continue home SSI Monitor blood glucose 3. Hypertension/hyperlipidemia Continue home medications FEN NPO NS at 100 cc/hr Electrolytes: monitor and replete prn SCDs Case discussed with ER physician at length Physician Certification 2 Midnight Certification Type: Admission for Inpatient Services Order for Inpatient Services The services are ordered in accordance with Medicare regulations or non- Medicare payer requirements, as applicable. In the case of services not specified as inpatient-only, they are appropriately provided as inpatient services in accordance with the 2-midnight benchmark. Estimated LOS (days): 2 2 days is the estimated time the patient will need to remain in the hospital, assuming treatment plan goals are met and no additional complications. Post-Hospital Plan: Not yet determined Sri Art MD Aug 02, 2017 04:38
[2017-08-02 05:33] VITALS: BP 160/72; PULSE 78; RESP 20; TEMP 97.9; O2SAT 95
[2017-08-02 08:00] VITALS: BP 162/73; PULSE 74; RESP 20; TEMP 97.9; O2SAT 95
[2017-08-02] MEDS: INSULIN ASPART SUPPLEMENTAL SCALE SQ SCH ×4 (08:00→21:00)
--- NOTE | 2017-08-02 08:15 | HHI.PR ---
Subjective Remarks in no acute distress. complaining of pain to the right flank. no gross hematuria. afebrile. Objective Vitals Vital Signs Date Time Temp Pulse Resp B/P (MAP) Pulse Ox O2 Delivery O2 Flow Rate FiO2 08/02/17 05:33 97.9 78 20 160/72 (101) 95 08/02/17 02:39 97.4 79 20 191/89 (123) 100 08/01/17 23:31 20 08/01/17 22:39 20 08/01/17 21:52 98.6 96 16 204/86 (125) 97 Room Air I/O 08/01/17 08/01/17 08/01/17 08/02/17 08/02/17 08/02/17 07:00 15:00 23:00 07:00 15:00 23:00 # Voids 1 Result Diagram: 08/01/17 2320 08/01/172229 Imaging Last Impressions Chest X-Ray 08/01/172212 Signed Impressions: Service Date/Time: Tuesday, August 01, 2017 22:31 - CONCLUSION: No acute disease. Werner Thakur MD Abdomen/Pelvis CT 08/01/173 Signed Impressions: Service Date/Time: Tuesday, August 01, 2017 22:48 - CONCLUSION: 1. Right-sided obstructive uropathy with 8mm and 9 mm calcifications in the distal right ureter. Innumerable calculi in both kidneys. Werner Thakur MD Lumbar Spine CT 08/01/17 0000 Signed Impressions: Service Date/Time: Tuesday, August 01, 2017 22:48 - CONCLUSION: Sacroiliitis. Degenerative changes of the spine. Please refer to CT abdomen and pelvis report from August 01, 2017 for description of the kidneys and ureters. Eloy Wlalace MD Objective Remarks GENERAL: This is a well-nourished, well-developed patient, in no apparent distress. CARDIOVASCULAR: Regular rate and regular rhythm without murmurs, gallops, or rubs. RESPIRATORY: Clear to auscultation. Breath sounds equal bilaterally. No wheezes , rales, or rhonchi. GASTROINTESTINAL: Abdomen soft, right flank tenderness, nondistended. Normal, active bowel sounds MUSCULOSKELETAL: Extremities without clubbing, cyanosis, or edema. NEURO: Alert & Oriented x4 to person, place, time, situation. Moves all ext x4 Medications and IVs Current Medications Ondansetron HCl (Zofran Inj) 4 mg ONCE ONCE IVP Last administered on 22:41; Start 08/01/17 at 22:15; Stop 08/01/17 at 22:16; Status DC Sodium Chloride 1,000 ml @ 1,000 mls/hr Q1H IV Last administered on 08/01/17 22:40; Start 08/01/17 at 22:13; Stop 08/01/17 at 23:12; Status DC Sodium Chloride (NS Flush) 2 ml UNSCH PRN IV FLUSH FLUSH AFTER USING IV ACCESS Last administered on 08/01/17 22:41; Start 08/01/17 at 22:15; Stop 08/02/17 at 02:49; Status DC Fentanyl Citrate (fentaNYL INJ) 100 mcg ONCE ONCE IV PUSH Last administered on 08/01/17 22:40; Start 08/01/17 at 22:15; Stop 08/01/17 at 22:16; Status DC Ceftriaxone Sodium 1000 mg/ Sodium Chloride 100 ml @ 200 mls/hr ONCE ONCE IV Last administered on 08/02/17 01:23; Start 08/02/17 at 00:30; Stop 08/02/17 at 00:59; Status DC Sodium Chloride 1,000 ml @ 100 mls/hr Q10H IV Last administered on 08/02/17 01:23; Start 08/02/17 at 00:37 Sodium Chloride (NS Flush) 2 ml UNSCH PRN IV FLUSH FLUSH AFTER USING IV ACCESS ; Start 08/02/17 at 00:45 Sodium Chloride (NS Flush) 2 ml BID IV FLUSH ; Start 08/02/17 at 09:00 Acetaminophen (Tylenol) 650 mg Q4H PRN PO TEMP > 100.4; Start 08/02/17 at 00: 45 Ondansetron HCl (Zofran Inj) 4 mg Q6H PRN IVP NAUSEA OR VOMITING; Start at 00:45 Naloxone HCl (Narcan Inj) 0.4 mg UNSCH PRN IV PUSH SEE LABEL COMMENTS; Start 08/02/17 at 00:45 Senna/Docusate Sodium (Gwen-Colace) 1 tab BID PO ; Start 08/02/17 at 09:00 Magnesium Hydroxide (Milk Of Magnesia Liq) 30 ml Q12H PRN PO Mild constipation ; Start 08/02/17 at 00:45 Sennosides (Senokot) 17.2 mg Q12H PRN PO Moderate constipation; Start at 00:45 Bisacodyl (Dulcolax Supp) 10 mg DAILY PRN RECTAL SEVERE CONSITIPATION/ IF NPO; Start 08/02/17 at 00:45 Lactulose (Lactulose Liq) 30 ml DAILY PRN PO SEVERE CONSITIPATION/ IF PO; Start 08/02/17 at 00:45 Ceftriaxone Sodium 1000 mg/ Sodium Chloride 100 ml @ 200 mls/hr Q24H IV ; Start 08/02/17 at 23:59 Amlodipine Besylate (Norvasc) 10 mg DAILY PO ; Start 08/02/17 at 09:00 Insulin Detemir (Levemir Inj) 10 units HS SQ ; Start 08/02/17 at 21:00 Lisinopril (Prinivil) 20 mg BID PO ; Start 08/02/17 at 09:00 Pravastatin Sodium (Pravachol) 80 mg HS PO ; Start 08/02/17 at 21:00 Dextrose (D50w (Vial) Inj) 50 ml UNSCH PRN IV PUSH HYPOGLYCEMIA-SEE COMMENTS; Start 08/02/17 at 00:45 Glucagon (Glucagon Inj) 1 mg UNSCH PRN OTHER HYPOGLYCEMIA-SEE COMMENTS; Start 08/02/17 at 00:45 Insulin Aspart (NovoLOG SUPPLEMENTAL SCALE) 1 ACHS SLIDING SCALE SQ ; Start at 08:00 Oxycodone/ Acetaminophen (Percocet 7.5-325 Mg) 1 tab Q4H PRN PO pain 6-10 Last administered on 08/02/17t 03:42; Start 08/02/17 at 02:45 Diphenhydramine HCl (Benadryl) 50 mg Q6H PRN PO itching; Start 08/02/17 at 02: 45 Insulin Detemir (Levemir Inj) 10 units HS SQ ; Start 08/02/17 at 21:00; Stop 08/02/17 at 21:00; Status DC A/P Assessment and Plan A/P 1. Nephrolithiasis/UTI CT of the abdomen/pelvis significant for right-sided obstructive uropathy with 8 and 9 mm calcifications in the distal right ureter Urology consulted. Rocephin for UTI Urine culture pending Percocet for pain 2. Diabetes mellitus Continue home Levemir Continue home SSI Monitor blood glucose 3. Hypertension/hyperlipidemia Continue home medications will add vasotec prn DVT prophylaxis; SCD's- pending urology evaluation. Brandon Clayton MD Aug 02, 2017 08:15
[2017-08-02] MEDS: SODIUM CHLORIDE 0.9% FLUSH 10 ML FLUSH IV FLUSH SCH ×2 (08:22→21:40)
[2017-08-02] MEDS ORDERED: ENALAPRILAT 1.25 MG/ML VIAL IV PUSH PRN (08:30)
[2017-08-02] MEDS: LISINOPRIL 20 MG TAB PO SCH ×2 (08:44→21:39)
[2017-08-02] MEDS: DOCUSATE SODIUM 50 MG/SENNA 8.6 MG TAB PO SCH ×2 (08:44→21:39)
[2017-08-02] MEDS: ONDANSETRON HCL 4 MG/2 ML VIAL IVP PRN (08:44)
[2017-08-02 10:40] LABS: AUTOMATED NEUTROPHIL # 9.6 TH/MM3 (1.8-7.7); BASOPHIL # 0.1 TH/MM3 (0-0.2); BASOPHIL % 0.8 % (0.0-2.0); EOSINOPHIL # 0.3 TH/MM3 (0-0.4); EOSINOPHIL % 2.2 % (0.0-4.0); HEMATOCRIT 33.6 % (35.0-46.0); HEMO FLAGS DIFF FINAL; LYMPH % 10.3 % (9.0-44.0); LYMPHOCYTE # 1.2 TH/MM3 (1.0-4.8); MEAN CELL VOLUME 80.2 FL (80.0-100.0); MEAN CORPUSCULAR HEMOGLOBIN 25.7 PG (27.0-34.0); MEAN CORPUSCULAR HGB CONC 32.1 % (32.0-36.0); NEUT % 79.7 % (16.0-70.0); PLATELET COUNT 396 TH/MM3 (150-450); RED BLOOD COUNT 4.19 MIL/MM3 (4.00-5.30); RED CELL DISTRIBUTION WIDTH 16.8 % (11.6-17.2)
[2017-08-02 11:03] LABS: BICARBONATE 24.1 MEQ/L (21.0-32.0); POTASSIUM 4.4 MEQ/L (3.5-5.1)
--- NOTE | 2017-08-02 12:24 | MB ---
cc: JANNA PIMENTEL DATE OF CONSULTATION: 08/02/2017 REASON FOR CONSULTATION: HISTORY OF PRESENT ILLNESS: Ms. Whitaker is a 51-year-old female with history of bilateral nephrolithiasis who underwent lithotripsy and stent placement in the past by Dr. Joaquin. The stent was removed this past week in the office as the KUB did not show any stones present. The patient presented to the emergency room with significant pain and nausea and vomiting. CT scan was performed showing an 8 and 9 millimeter calcification in the distal right ureter with hydronephrosis on the right side. She also was noted to have nonobstructing stones on the left side without hydronephrosis on the left. Creatinine is currently 2.0. Her baseline is less than one. PAST MEDICAL HISTORY: 1. Hypertension. 2. Diabetes. 3. Hyperlipidemia. PAST SURGICAL HISTORY: 1. Lithotripsy with stent insertion. 2. x2. 3. Hysterectomy MEDICATIONS: Please refer to the chart. ALLERGIES: TYLENOL HYDROCODONE METFORMIN HYDROCHLOROTHIAZIDE HYDROMORPHON. FAMILY HISTORY: Notable for diabetes mellitus. SOCIAL HISTORY: She denies smoking, drinking or using drugs. REVIEW OF SYSTEMS: Denies chest pain, shortness of breath, denies right-sided flank pain, abdominal pain with nausea and vomiting, denies fever or chills, gait disturbance, bleeding disorder, heat or cold intolerance, skin lesions, psychiatric problems. The remainder of the review of systems is negative. PHYSICAL EXAMINATION: Vitals: Temperature is 97.9, heart rate 74, respiratory rate 21, 162/73 blood pressure. She is an obese 50-year-old female in no acute distress. HEENT: Normocephalic, atraumatic. Pupils equal, round, regular, extraocular movements intact. Neck is supple. Heart: Regular rate and rhythm. Lungs: Clear. Abdomen: There is right-sided lower quadrant tenderness with right CVA tenderness. Genitalia: Normal female external genitalia. Extremities: Show no cyanosis, clubbing or edema. Neuro: Cranial nerves II-XII are intact. Psych: Generalized mood. LABORATORY VALUES: White count 12.0, hemoglobin 10.8, hematocrit 33.6, platelet count 396, sodium is 139, potassium 4.4, chloride 107, CO2 24.1, BUN 23, creatinine 1.8, glucose of 213, PT is 10, INR is 1.0. PTT is 27.1. Urinalysis shows 18 red cells and numerous white cells. IMAGING STUDIES: Show right hydronephrosis with an 8-9 mm calculus in the right distal ureter. ASSESSMENT: The patient is a 51-year-old female with bilateral nephrolithiasis most likely uric acid in nature as the stones were not visualized on recent x-ray performed earlier this week after the stent was removed. PLAN: Will plan for cystoscopy, right ureteroscopy, laser lithotripsy, stone extraction and stent insertion to remove her distal right lower ureteral stones and then in the future she will need to have treatment for her left nonobstructing renal stones. Thank you for the consult and for allowing me participate in the care of this patient. Janna HARPER/LENA /11:39 AM /12:02 PM
[2017-08-02] MEDS ORDERED: GENTAMICIN SULFATE 80 MG/2 ML VIAL ONE (12:41)
--- NOTE | 2017-08-02 13:00 | PD.OP ---
Operative Report Date of Surgery: Aug 02, 2017 Preoperative Diagnosis: Right ureteral calculi with hydronephrosis Postoperative Diagnosis: Same Procedure: Cystoscopy with right ureteroscopy with laser lithotripsy stone extraction and right double-J stent insertion Anesthesia: GETA Surgeon: Patrick Noel Commercial Lending Assistant(s): None Resident Surgeon: None Operation and Findings: 51-year-old female with history of right ureteral calculi and underwent extra corporeal shockwave lithotripsy. Patient had a right double-J stent removed earlier this week. CT scan on admission showed an 8 and 9 mm distal right ureteral calculi causing obstruction. Decision was made to bring the patient to the operating room to undergo cystoscopy with right ureteroscopy laser lithotripsy and stone extraction with stent insertion. Risk and benefits discuss preoperative shows willing to proceed. Patient is brought to the operating room and identified by myself as Fransisca Whitaker. She was placed in the dorsal lithotomy position, prepped and draped in usual sterile fashion, received preprocedure antibiotics and general endotracheal tube anesthesia was administered. 22 [place] cystoscope was inserted in the bladder and aranda cystoscopy did not reveal any abnormalities. A 0.35 sensor wire was then passed up the right ureter and left in position. The rigid self dilating ureteroscope was then passed up to the mid ureter and the stone was visualized. Using the 365 laser fiber the stone was then fragmented up at a setting of 10 & 1000. A large amount of pus began to drain from the right ureter. Due to the risk of sepsis, decision was made then to place a right double-J stent and come back a later time to evacuate her prescription residual stone burden. A 6 [place] 22 cm right ureteral stent was placed over the wire without difficulty and left in good position a 16 [place] Mosley was left in place to drain the bladder. She will be observed overnight and continue on IV antibiotics. Patrick Noel DO Aug 02, 2017 13:00
[2017-08-02] MEDS ORDERED: *ONDANSETRON 4 MG VIAL PERIprocedural Use ONLY ONE (13:14)
[2017-08-02] MEDS ORDERED: *PROMETHAZINE 25 MG/ML VIAL PERIprocedural use ONLY ONE (13:15)
[2017-08-02] MEDS ORDERED: DO NOT ADM ANY ANTICOAGULANT DRUGS PRN (13:15)
--- NOTE | 2017-08-02 13:19 | EKG ---
Date Performed: 08/01/2017 Time Performed: 22:40:48 PTAGE: 51 years EKG: Sinus rhythm LEFT VENTRICULAR HYPERTROPHY AND ST-T CHANGE ABNORMAL ECG Compared to PREVIOUS TRACING , QRS voltage somewhat greater, otherwise no significant change. PREVIOU S TRACIN03/16/2017 19.20 DOCTOR: Kevin Wynn Interpretating Date/Time 08/02/2017 13:18:30
[2017-08-02] MEDS ORDERED: IOHEXOL 350 MG/ML 50 ML BTL (for RAD DIAG) OTHER ONE (13:20)
[2017-08-02 16:00] VITALS: BP 165/83; PULSE 87; RESP 20; TEMP 97.9; O2SAT 96
[2017-08-02 17:58] VITALS: O2SAT 96
[2017-08-02 20:00] VITALS: BP 151/95; PULSE 97; RESP 18; TEMP 97.9; O2SAT 99
[2017-08-02] MEDS: INSULIN DETEMIR 100 UNITS/ML VIAL SQ SCH (21:00)
[2017-08-02] MEDS ORDERED: INSULIN DETEMIR 100 UNITS/ML VIAL SQ SCH (21:00)
[2017-08-02] MEDS: PRAVASTATIN SOD 40 MG TAB PO SCH (21:40)
[2017-08-02] MEDS: SENNOSIDES 8.6 MG TAB PO PRN (21:48)
[2017-08-03] VITALS: BP 134/82; PULSE 83; RESP 20; TEMP 98; O2SAT 97
[2017-08-03] MEDS: cefTRIAXone INJ 1,000 MG in SODIUM CHLORIDE 0.9% INJ 100 ML IV SCH ×2 (00:10→23:35)
[2017-08-03 05:02] VITALS: BP 146/77; PULSE 74; RESP 20; TEMP 97.2; O2SAT 96
[2017-08-03] MEDS: SODIUM CHLOR 0.9% 1000 ML INJ 1,000 ML IV SCH (07:02)
[2017-08-03 08:00] VITALS: BP 143/84; PULSE 77; RESP 18; O2SAT 98
[2017-08-03] MEDS: INSULIN ASPART SUPPLEMENTAL SCALE SQ SCH ×5 (08:00→21:00)
[2017-08-03 08:39] LABS: BICARBONATE 23.4 MEQ/L (21.0-32.0); POTASSIUM 4.3 MEQ/L (3.5-5.1)
[2017-08-03] MEDS: LISINOPRIL 20 MG TAB PO SCH ×2 (08:47→22:22)
[2017-08-03] MEDS: DOCUSATE SODIUM 50 MG/SENNA 8.6 MG TAB PO SCH ×2 (08:47→22:22)
[2017-08-03] MEDS: ONDANSETRON HCL 4 MG/2 ML VIAL IVP PRN (08:48)
[2017-08-03] MEDS: SODIUM CHLORIDE 0.9% FLUSH 10 ML FLUSH IV FLUSH SCH ×2 (08:57→22:23)
--- NOTE | 2017-08-03 09:08 | HHI.PR ---
Subjective Patient symptoms today Pt seen and examined. Feeling better. Mosley with cloudy urine. Objective Vital Signs Vital Signs Date Time Temp Pulse Resp B/P (MAP) Pulse Ox O2 Delivery O2 Flow Rate FiO2 08/03/17 05:02 97.2 74 20 146/77 (100) 96 08/03/17 00:00 98.0 83 20 134/82 (99) 97 08/02/17 20:00 97.9 97 18 151/95 (113) 99 08/02/17 17:58 96 Nasal Cannula 2.00 08/02/17 16:00 97.9 87 20 165/83 (110) 96 08/02/17 13:39 97 16 171/84 (113) 100 Nasal Cannula 2 08/02/17 13:30 94 16 169/74 (105) 100 Nasal Cannula 2 08/02/17 13:15 95 16 164/80 (108) 99 Nasal Cannula 2 08/02/17 13:10 97.6 87 16 153/74 (100) 99 Nasal Cannula 2 08/02/17 10:08 16 Intake & Output 08/03/17 08/03/17 07:00 19:00 Intake Total 100 ml Output Total 1900 ml Balance -1800 ml Intake IV Total 100 ml Output Urine Total 1900 ml Result Diagram: 08/02/17 0834 08/03/17 0640 Objective Remarks Abd:soft,nt,nd Mosley: cloudy with sediment Medications and IVs Current Medications Medications (Trade) Dose Ordered Sig/Rohit Route Start Time Stop Time Status Last Admin Sodium Chloride 1,000 ml @ 100 mls/hr Q10H IV 08/02/17 00:37 08/03/17 07:02 (NS Flush) 2 ml UNSCH PRN IV FLUSH 08/02/17 00:45 (NS Flush) 2 ml BID IV FLUSH 08/02/17 09:00 08/02/17 21:40 (Tylenol) 650 mg Q4H PRN PO 08/02/17 00:45 (Zofran Inj) 4 mg Q6H PRN IVP 08/02/17 00:45 08/02/17 08:44 (Narcan Inj) 0.4 mg UNSCH PRN IV PUSH 08/02/17 00:45 (Gwen-Colace) 1 tab BID PO 08/02/17 09:00 08/02/17 21:39 (Milk Of Magnesia Liq) 30 ml Q12H PRN PO 08/02/17 00:45 (Senokot) 17.2 mg Q12H PRN PO 08/02/17 00:45 08/02/17 21:48 (Dulcolax Supp) 10 mg DAILY PRN RECTAL 08/02/17 00:45 (Lactulose Liq) 30 ml DAILY PRN PO 08/02/17 00:45 Ceftriaxone Sodium 1000 mg/ Sodium Chloride 100 ml @ 200 mls/hr Q24H IV 08/02/17 23:59 08/03/17 00:10 (Norvasc) 10 mg DAILY PO 08/02/17 09:00 08/02/17 08:44 (Levemir Inj) 10 units HS SQ 08/02/17 21:00 08/02/17 21:00 (Prinivil) 20 mg BID PO 08/02/17 09:00 08/02/17 21:39 (Pravachol) 80 mg HS PO 08/02/17 21:00 08/02/17 21:40 (D50w (Vial) Inj) 50 ml UNSCH PRN IV PUSH 08/02/17 00:45 (Glucagon Inj) 1 mg UNSCH PRN OTHER 08/02/17 00:45 (NovoLOG SUPPLEMENTAL SCALE) 1 ACHS SLIDING SCALE SQ 08/02/17 08:00 08/02/17 21:00 (Percocet 7.5-325 Mg) 1 tab Q4H PRN PO 08/02/17 02:45 08/02/17 21:49 (Benadryl) 50 mg Q6H PRN PO 08/02/17 02:45 (Vasotec Inj) 1.25 mg Q8H PRN IV PUSH 08/02/17 08:30 Miscellaneous Information ALL NURSING DEPARTME... UNSCH PRN .XX 08/02/17 13:15 08/03/17 13:14 Assessment and Plan Assessment and Plan 51 y.o female s/p right URS with laser litho and stent insertion Pt with residual right ureteral stones Will plan for void trial tomorrow and schedule outpatient URS with laser litho once infection has cleared. Patrick Noel DO Aug 03, 2017 09:08
--- NOTE | 2017-08-03 10:30 | HHI.PR ---
Subjective Remarks in no acute distress. pain is better. no fever. Objective Vitals Vital Signs Date Time Temp Pulse Resp B/P (MAP) Pulse Ox O2 Delivery O2 Flow Rate FiO2 08/03/17 05:02 97.2 74 20 146/77 (100) 96 08/03/17 00:00 98.0 83 20 134/82 (99) 97 08/02/17 20:00 97.9 97 18 151/95 (113) 99 08/02/17 17:58 96 Nasal Cannula 2.00 08/02/17 16:00 97.9 87 20 165/83 (110) 96 08/02/17 13:39 97 16 171/84 (113) 100 Nasal Cannula 2 08/02/17 13:30 94 16 169/74 (105) 100 Nasal Cannula 2 08/02/17 13:15 95 16 164/80 (108) 99 Nasal Cannula 2 08/02/17 13:10 97.6 87 16 153/74 (100) 99 Nasal Cannula 2 I/O 08/02/17 08/02/17 08/02/17 08/03/17 08/03/17 08/03/17 07:00 15:00 23:00 07:00 15:00 23:00 Intake Total 800 ml 100 ml Output Total 750 ml 1900 ml Balance 800 ml -750 ml -1800 ml Intake IV Total 100 ml Other 800 ml Output Urine Total 750 ml 1900 ml # Voids 1 # Bowel Movements 0 Result Diagram: 08/02/17 0834 08/03/17 0640 Imaging Last Impressions Chest X-Ray 08/01/172212 Signed Impressions: Service Date/Time: Tuesday, August 01, 2017 22:31 - CONCLUSION: No acute disease. Werner Thakur MD Abdomen/Pelvis CT 08/01/172212 Signed Impressions: Service Date/Time: Tuesday, August 01, 2017 22:48 - CONCLUSION: 1. Right-sided obstructive uropathy with 8mm and 9 mm calcifications in the distal right ureter. Innumerable calculi in both kidneys. Werner Thakur MD Lumbar Spine CT 08/01/17 0000 Signed Impressions: Service Date/Time: Tuesday, August 01, 2017 22:48 - CONCLUSION: Sacroiliitis. Degenerative changes of the spine. Please refer to CT abdomen and pelvis report from August 01, 2017 for description of the kidneys and ureters. Eloy Wallace MD Objective Remarks GENERAL: This is a well-nourished, well-developed patient, in no apparent distress. CARDIOVASCULAR: Regular rate and regular rhythm without murmurs, gallops, or rubs. RESPIRATORY: Clear to auscultation. Breath sounds equal bilaterally. No wheezes , rales, or rhonchi. GASTROINTESTINAL: Abdomen soft, right flank tenderness, nondistended. Normal, active bowel sounds MUSCULOSKELETAL: Extremities without clubbing, cyanosis, or edema. NEURO: Alert & Oriented x4 to person, place, time, situation. Moves all ext x4 Procedures Cystoscopy with right ureteroscopy with laser lithotripsy stone extraction and right double-J stent insertion Medications and IVs Current Medications Ondansetron HCl (Zofran Inj) 4 mg ONCE ONCE IVP Last administered on 22:41; Start 08/01/17 at 22:15; Stop 08/01/17 at 22:16; Status DC Sodium Chloride 1,000 ml @ 1,000 mls/hr Q1H IV Last administered on 08/01/17 22:40; Start 08/01/17 at 22:13; Stop 08/01/17 at 23:12; Status DC Sodium Chloride (NS Flush) 2 ml UNSCH PRN IV FLUSH FLUSH AFTER USING IV ACCESS Last administered on 08/01/17 22:41; Start 08/01/17 at 22:15; Stop 08/02/17 at 02:49; Status DC Fentanyl Citrate (fentaNYL INJ) 100 mcg ONCE ONCE IV PUSH Last administered on 08/01/17 22:40; Start 08/01/17 at 22:15; Stop 08/01/17 at 22:16; Status DC Ceftriaxone Sodium 1000 mg/ Sodium Chloride 100 ml @ 200 mls/hr ONCE ONCE IV Last administered on 08/02/17 01:23; Start 08/02/17 at 00:30; Stop 08/02/17 at 00:59; Status DC Sodium Chloride 1,000 ml @ 100 mls/hr Q10H IV Last administered on 08/03/17 07:02; Start 08/02/17 at 00:37 Sodium Chloride (NS Flush) 2 ml UNSCH PRN IV FLUSH FLUSH AFTER USING IV ACCESS ; Start 08/02/17 at 00:45 Sodium Chloride (NS Flush) 2 ml BID IV FLUSH Last administered on 08/03/17 08 :57; Start 08/02/17 at 09:00 Acetaminophen (Tylenol) 650 mg Q4H PRN PO TEMP > 100.4; Start 08/02/17 at 00: 45 Ondansetron HCl (Zofran Inj) 4 mg Q6H PRN IVP NAUSEA OR VOMITING Last administered on 08/03/17 08:48; Start 08/02/17 at 00:45 Naloxone HCl (Narcan Inj) 0.4 mg UNSCH PRN IV PUSH SEE LABEL COMMENTS; Start 08/02/17 at 00:45 Senna/Docusate Sodium (Gwen-Colace) 1 tab BID PO Last administered on 08:47; Start 08/02/17 at 09:00 Magnesium Hydroxide (Milk Of Magnesia Liq) 30 ml Q12H PRN PO Mild constipation Last administered on 08/03/17 08:48; Start 08/02/17 at 00:45 Sennosides (Senokot) 17.2 mg Q12H PRN PO Moderate constipation Last administered on 08/02/17 21:48; Start 08/02/17 at 00:45 Bisacodyl (Dulcolax Supp) 10 mg DAILY PRN RECTAL SEVERE CONSITIPATION/ IF NPO; Start 08/02/17 at 00:45 Lactulose (Lactulose Liq) 30 ml DAILY PRN PO SEVERE CONSITIPATION/ IF PO; Start 08/02/17 at 00:45 Ceftriaxone Sodium 1000 mg/ Sodium Chloride 100 ml @ 200 mls/hr Q24H IV Last administered on 08/03/17 00:10; Start 08/02/17 at 23:59 Amlodipine Besylate (Norvasc) 10 mg DAILY PO Last administered on 08/03/17 08 :47; Start 08/02/17 at 09:00 Insulin Detemir (Levemir Inj) 10 units HS SQ Last administered on 08/02/17 21 :00; Start 08/02/17 at 21:00 Lisinopril (Prinivil) 20 mg BID PO Last administered on 08/03/17 08:47; Start 08/02/17 at 09:00 Pravastatin Sodium (Pravachol) 80 mg HS PO Last administered on 08/02/17 21: 40; Start 08/02/17 at 21:00 Dextrose (D50w (Vial) Inj) 50 ml UNSCH PRN IV PUSH HYPOGLYCEMIA-SEE COMMENTS; Start 08/02/17 at 00:45 Glucagon (Glucagon Inj) 1 mg UNSCH PRN OTHER HYPOGLYCEMIA-SEE COMMENTS; Start 08/02/17 at 00:45 Insulin Aspart (NovoLOG SUPPLEMENTAL SCALE) 1 ACHS SLIDING SCALE SQ Last administered on 08/03/17 08:00; Start 08/02/17 at 08:00 Oxycodone/ Acetaminophen (Percocet 7.5-325 Mg) 1 tab Q4H PRN PO pain 6-10 Last administered on 08/02/17 21:49; Start 08/02/17 at 02:45 Diphenhydramine HCl (Benadryl) 50 mg Q6H PRN PO itching; Start 08/02/17 at 02: 45 Insulin Detemir (Levemir Inj) 10 units HS SQ ; Start 08/02/17 at 21:00; Stop 08/02/17 at 21:00; Status DC Enalaprilat (Vasotec Inj) 1.25 mg Q8H PRN IV PUSH SBP> OR = 180, DBP> OR = 100 ; Start 08/02/17 at 08:30 Gentamicin Sulfate (Gentamicin Inj) 80 mg STK-MED ONCE .ROUTE Last administered on 08/02/17 12:35; Start 08/02/17 at 12:41; Stop 08/02/17 at 12 :42; Status DC Miscellaneous Information ALL NURSING DEPARTME... UNSCH PRN .XX SEE LABEL COMMENTS; Start 08/02/17 at 13:15; Stop 08/03/17 at 13:14 Ondansetron HCl (*ZOFRAN INJ PERIprocedural ONLY) 4 mg STK-MED ONCE .ROUTE Last administered on 08/02/17 13:14; Start 08/02/17 at 13:14; Stop 08/02/17 at 13:15; Status DC Promethazine HCl (*PHENERGAN INJ PERIprocedural ONLY) 25 mg STK-MED ONCE .ROUTE Last administered on 08/02/17 13:15; Start 08/02/17 at 13:15; Stop at 13:16; Status DC Iohexol (Omnipaque 350 Inj) 50 ml ONCE ONCE OTHER Last administered on t 13:21; Start 08/02/17 at 13:20; Stop 08/02/17 at 13:21; Status DC A/P Assessment and Plan A/P 1. Nephrolithiasis/UTI CT of the abdomen/pelvis significant for right-sided obstructive uropathy with 8 and 9 mm calcifications in the distal right ureter Urology consulted- s/p Cystoscopy with right ureteroscopy with laser lithotripsy stone extraction and right double-J stent insertion Rocephin for UTI Urine culture pending Percocet for pain. voiding trial tomorrow. urology following. 2. Diabetes mellitus Continue home Levemir Continue home SSI Monitor blood glucose 3. Hypertension/hyperlipidemia Continue home medications vasotec prn 4. acute kidney injury- likely post-renal improving- continue IV fluid- BMP tomorrow. DVT prophylaxis; SCD's- pending urology evaluation. Discharge Planning dc home within the next 24-48 hrs if stable and when cleared by Urology. Brandon Clayton MD Aug 03, 2017 10:30
[2017-08-03] MEDS: oxyCODONE/ACETAMINOPHEN 7.5 MG/325 MG TAB PO PRN ×2 (11:42→22:36)
[2017-08-03 12:00] VITALS: BP 171/83; PULSE 79; RESP 18; TEMP 97.8; O2SAT 98
[2017-08-03 16:00] VITALS: BP 155/70; PULSE 72; RESP 18; TEMP 98; O2SAT 95
[2017-08-03 20:00] VITALS: BP 153/92; PULSE 86; RESP 18; TEMP 98.2; O2SAT 97
[2017-08-03] MEDS: INSULIN DETEMIR 100 UNITS/ML VIAL SQ SCH (21:00)
[2017-08-03] MEDS: PRAVASTATIN SOD 40 MG TAB PO SCH (22:22)
[2017-08-03] MEDS: SENNOSIDES 8.6 MG TAB PO PRN (22:31)
[2017-08-04] VITALS: BP 148/87; PULSE 79; RESP 18; TEMP 98; O2SAT 97
[2017-08-04] MEDS: SODIUM CHLOR 0.9% 1000 ML INJ 1,000 ML IV SCH ×2 (02:37→12:37)
[2017-08-04 04:00] VITALS: BP 154/75; PULSE 80; RESP 18; TEMP 97.8; O2SAT 95
[2017-08-04 08:00] VITALS: BP 178/79; PULSE 83; RESP 18; TEMP 98.4; O2SAT 96
[2017-08-04] MEDS: INSULIN ASPART SUPPLEMENTAL SCALE SQ SCH ×2 (08:00→14:10)
[2017-08-04 08:06] LABS: AUTOMATED NEUTROPHIL # 7.3 TH/MM3 (1.8-7.7); BASOPHIL # 0.1 TH/MM3 (0-0.2); BASOPHIL % 0.6 % (0.0-2.0); EOSINOPHIL # 0.3 TH/MM3 (0-0.4); EOSINOPHIL % 3.4 % (0.0-4.0); HEMATOCRIT 32.8 % (35.0-46.0); HEMO FLAGS DIFF FINAL; LYMPH % 14.8 % (9.0-44.0); LYMPHOCYTE # 1.5 TH/MM3 (1.0-4.8); MEAN CELL VOLUME 78.8 FL (80.0-100.0); MEAN CORPUSCULAR HEMOGLOBIN 25.3 PG (27.0-34.0); MEAN CORPUSCULAR HGB CONC 32.2 % (32.0-36.0); MONO % 8.7 % (0.0-8.0); NEUT % 72.5 % (16.0-70.0); PLATELET COUNT 358 TH/MM3 (150-450); RED BLOOD COUNT 4.16 MIL/MM3 (4.00-5.30); RED CELL DISTRIBUTION WIDTH 17.2 % (11.6-17.2); WHITE BLOOD COUNT 10.1 TH/MM3 (4.0-11.0)
--- NOTE | 2017-08-04 08:21 | HHI.PR ---
Subjective Remarks in no acute distress. pain is better. had mild nausea. afebrile. no other complaints. d/w the RN. Objective Vitals Vital Signs Date Time Temp Pulse Resp B/P (MAP) Pulse Ox O2 Delivery O2 Flow Rate FiO2 08/04/17 04:00 97.8 80 18 154/75 (101) 95 08/04/17 00:00 98.0 79 18 148/87 (107) 97 08/03/17 20:00 98.2 86 18 153/92 (112) 97 08/03/17 16:00 98.0 72 18 155/70 (98) 95 08/03/17 13:00 19 08/03/17 12:00 97.8 79 18 171/83 (112) 98 I/O 08/03/17 08/03/17 08/03/17 08/04/17 08/04/17 08/04/17 07:00 15:00 23:00 07:00 15:00 23:00 Intake Total 100 ml Output Total 1900 ml 1520 ml 2500 ml Balance -1800 ml -1520 ml -2500 ml Intake IV Total 100 ml Output Urine Total 1900 ml 1520 ml 2500 ml Result Diagram: 08/04/17 0705 08/03/17 0640 Imaging Last Impressions Chest X-Ray 08/01/172212 Signed Impressions: Service Date/Time: Tuesday, August 01, 2017 22:31 - CONCLUSION: No acute disease. Werner Thakur MD Abdomen/Pelvis CT 08/01/172212 Signed Impressions: Service Date/Time: Tuesday, August 01, 2017 22:48 - CONCLUSION: 1. Right-sided obstructive uropathy with 8mm and 9 mm calcifications in the distal right ureter. Innumerable calculi in both kidneys. Werner Thakur MD Lumbar Spine CT 08/01/17 0000 Signed Impressions: Service Date/Time: Tuesday, August 01, 2017 22:48 - CONCLUSION: Sacroiliitis. Degenerative changes of the spine. Please refer to CT abdomen and pelvis report from August 01, 2017 for description of the kidneys and ureters. Eloy Wallace MD Objective Remarks GENERAL: This is a well-nourished, well-developed patient, in no apparent distress. CARDIOVASCULAR: Regular rate and regular rhythm without murmurs, gallops, or rubs. RESPIRATORY: Clear to auscultation. Breath sounds equal bilaterally. No wheezes , rales, or rhonchi. GASTROINTESTINAL: Abdomen soft, right flank tenderness, nondistended. Normal, active bowel sounds MUSCULOSKELETAL: Extremities without clubbing, cyanosis, or edema. NEURO: Alert & Oriented x4 to person, place, time, situation. Moves all ext x4 Procedures Cystoscopy with right ureteroscopy with laser lithotripsy stone extraction and right double-J stent insertion Medications and IVs Current Medications Ondansetron HCl (Zofran Inj) 4 mg ONCE ONCE IVP Last administered on 22:41; Start 08/01/17 at 22:15; Stop 08/01/17 at 22:16; Status DC Sodium Chloride 1,000 ml @ 1,000 mls/hr Q1H IV Last administered on 08/01/17 22:40; Start 08/01/17 at 22:13; Stop 08/01/17 at 23:12; Status DC Sodium Chloride (NS Flush) 2 ml UNSCH PRN IV FLUSH FLUSH AFTER USING IV ACCESS Last administered on 08/01/17 22:41; Start 08/01/17 at 22:15; Stop 08/02/17 at 02:49; Status DC Fentanyl Citrate (fentaNYL INJ) 100 mcg ONCE ONCE IV PUSH Last administered on 08/01/17 22:40; Start 08/01/17 at 22:15; Stop 08/01/17 at 22:16; Status DC Ceftriaxone Sodium 1000 mg/ Sodium Chloride 100 ml @ 200 mls/hr ONCE ONCE IV Last administered on 08/02/17 01:23; Start 08/02/17 at 00:30; Stop 08/02/17 at 00:59; Status DC Sodium Chloride 1,000 ml @ 100 mls/hr Q10H IV Last administered on 08/04/17 02:37; Start 08/02/17 at 00:37 Sodium Chloride (NS Flush) 2 ml UNSCH PRN IV FLUSH FLUSH AFTER USING IV ACCESS ; Start 08/02/17 at 00:45 Sodium Chloride (NS Flush) 2 ml BID IV FLUSH Last administered on 08/03/17 22 :23; Start 08/02/17 at 09:00 Acetaminophen (Tylenol) 650 mg Q4H PRN PO TEMP > 100.4; Start 08/02/17 at 00: 45 Ondansetron HCl (Zofran Inj) 4 mg Q6H PRN IVP NAUSEA OR VOMITING Last administered on 08/03/17 08:48; Start 08/02/17 at 00:45 Naloxone HCl (Narcan Inj) 0.4 mg UNSCH PRN IV PUSH SEE LABEL COMMENTS; Start 08/02/17 at 00:45 Senna/Docusate Sodium (Gwen-Colace) 1 tab BID PO Last administered on 22:22; Start 08/02/17 at 09:00 Magnesium Hydroxide (Milk Of Magnesia Liq) 30 ml Q12H PRN PO Mild constipation Last administered on 08/03/17 08:48; Start 08/02/17 at 00:45 Sennosides (Senokot) 17.2 mg Q12H PRN PO Moderate constipation Last administered on 08/03/17 22:31; Start 08/02/17 at 00:45 Bisacodyl (Dulcolax Supp) 10 mg DAILY PRN RECTAL SEVERE CONSITIPATION/ IF NPO; Start 08/02/17 at 00:45 Lactulose (Lactulose Liq) 30 ml DAILY PRN PO SEVERE CONSITIPATION/ IF PO; Start 08/02/17 at 00:45 Ceftriaxone Sodium 1000 mg/ Sodium Chloride 100 ml @ 200 mls/hr Q24H IV Last administered on 08/03/17 23:35; Start 08/02/17 at 23:59 Amlodipine Besylate (Norvasc) 10 mg DAILY PO Last administered on 08/03/17 08 :47; Start 08/02/17 at 09:00 Insulin Detemir (Levemir Inj) 10 units HS SQ Last administered on 08/03/17 21 :00; Start 08/02/17 at 21:00 Lisinopril (Prinivil) 20 mg BID PO Last administered on 08/03/17 22:22; Start 08/02/17 at 09:00 Pravastatin Sodium (Pravachol) 80 mg HS PO Last administered on 08/03/17 22: 22; Start 08/02/17 at 21:00 Dextrose (D50w (Vial) Inj) 50 ml UNSCH PRN IV PUSH HYPOGLYCEMIA-SEE COMMENTS; Start 08/02/17 at 00:45 Glucagon (Glucagon Inj) 1 mg UNSCH PRN OTHER HYPOGLYCEMIA-SEE COMMENTS; Start 08/02/17 at 00:45 Insulin Aspart (NovoLOG SUPPLEMENTAL SCALE) 1 ACHS SLIDING SCALE SQ Last administered on 08/03/17 21:00; Start 08/02/17 at 08:00 Oxycodone/ Acetaminophen (Percocet 7.5-325 Mg) 1 tab Q4H PRN PO pain 6-10 Last administered on 08/03/17 22:36; Start 08/02/17 at 02:45 Diphenhydramine HCl (Benadryl) 50 mg Q6H PRN PO itching; Start 08/02/17 at 02: 45 Insulin Detemir (Levemir Inj) 10 units HS SQ ; Start 08/02/17 at 21:00; Stop 08/02/17 at 21:00; Status DC Enalaprilat (Vasotec Inj) 1.25 mg Q8H PRN IV PUSH SBP> OR = 180, DBP> OR = 100 ; Start 08/02/17 at 08:30 Gentamicin Sulfate (Gentamicin Inj) 80 mg STK-MED ONCE .ROUTE Last administered on 08/02/17 12:35; Start 08/02/17 at 12:41; Stop 08/02/17 at 12 :42; Status DC Miscellaneous Information ALL NURSING DEPARTME... UNSCH PRN .XX SEE LABEL COMMENTS; Start 08/02/17 at 13:15; Stop 08/03/17 at 13:14; Status DC Ondansetron HCl (*ZOFRAN INJ PERIprocedural ONLY) 4 mg STK-MED ONCE .ROUTE Last administered on 08/02/17 13:14; Start 08/02/17 at 13:14; Stop 08/02/17 at 13:15; Status DC Promethazine HCl (*PHENERGAN INJ PERIprocedural ONLY) 25 mg STK-MED ONCE .ROUTE Last administered on 08/02/17 13:15; Start 08/02/17 at 13:15; Stop at 13:16; Status DC Iohexol (Omnipaque 350 Inj) 50 ml ONCE ONCE OTHER Last administered on 13:21; Start 08/02/17 at 13:20; Stop 08/02/17 at 13:21; Status DC A/P Assessment and Plan A/P 1. Nephrolithiasis/UTI CT of the abdomen/pelvis significant for right-sided obstructive uropathy with 8 and 9 mm calcifications in the distal right ureter Urology consulted- s/p Cystoscopy with right ureteroscopy with laser lithotripsy stone extraction and right double-J stent insertion Rocephin for UTI- will switch to po upon discharge. Urine culture with mixed gram positive bacteria. continue pain control. voiding trial tomorrow. urology following. 2. Diabetes mellitus Continue home Levemir Continue home SSI Monitor blood glucose 3. Hypertension/hyperlipidemia Continue home medications vasotec prn 4. acute kidney injury- likely post-renal improving- continue IV fluid- DVT prophylaxis; SCD's- Discharge Planning dc home within the next 24 hrs if cleared by urology- pending the BMP today. see med list. f/u; pcp and urology. d/w the patient and RN. Brandon Clayton MD Aug 04, 2017 08:21
[2017-08-04] MEDS ORDERED: CIPR-9 PO (08:23)
[2017-08-04] MEDS ORDERED: NOVOLOGP2 SQ (08:23)
[2017-08-04] MEDS ORDERED: PERC5TAB12 PO (08:23)
[2017-08-04] MEDS ORDERED: LEVEMIR SQ (08:23)
--- NOTE | 2017-08-04 08:26 | HHI.DS ---
Discharge Summary Admission Date Aug 02, 2017 at 00:39 Discharge Date: Aug 04, 2017 Admitting Diagnosis obstructive uropathy, ureterolithiasis, UTI, MELITON (1) Nephrolithiasis ICD Code: N20.0 - Calculus of kidney Diagnosis: Principal Procedures Cystoscopy with right ureteroscopy with laser lithotripsy stone extraction and right double-J stent insertion Brief History - From Admission 51-year-old female with a past medical history significant for bilateral nephrolithiasis, status post bilateral stent placement and lithotripsy, hypertension, insulin-dependent diabetes mellitus and hyperlipidemia presents with severe right-sided flank pain. The patient reports that pain started on Thursday and has gotten significantly worse over the past several days. She a right ureteral stent removed on Thursday. She reports nausea/vomiting as she believes is secondary to the pain. CT of the abdomen/pelvis significant for right-sided obstructive uropathy with 8 and 9 mm calcifications in the distal right ureter. She has a leukocytosis of 14.0 with left shift. Creatinine 2.07 , baseline less than 1. UA consistent with UTI. CBC/BMP: 08/04/17 0705 08/03/17 0640 Significant Findings Laboratory Tests Test 08/01/17 22:30 08/01/17 23:20 08/01/17 23:25 08/02/17 08:34 Blood Urea Nitrogen 27 MG/DL (7-18) 23 MG/DL (7-18) Creatinine 2.07 MG/DL (0.50-1.00) 1.84 MG/DL (0.50-1.00) Random Glucose 242 MG/DL (74-106) 213 MG/DL (74-106) Total Protein 9.6 GM/DL (6.4-8.2) Albumin 3.1 GM/DL (3.4-5.0) Alkaline Phosphatase 379 U/L (45-117) Estimat Glomerular Filtration Rate 30 ML/MIN (>89) 35 ML/MIN (>89) Troponin I LESS THAN 0.02 NG/ML White Blood Count 14.0 TH/MM3 (4.0-11.0) 12.0 TH/MM3 (4.0-11.0) Red Blood Count 3.87 MIL/MM3 (4.00-5.30) Hemoglobin 10.0 GM/DL (11.6-15.3) 10.8 GM/DL (11.6-15.3) Hematocrit 30.9 % (35.0-46.0) 33.6 % (35.0-46.0) Mean Corpuscular Hemoglobin 26.0 PG (27.0-34.0) 25.7 PG (27.0-34.0) Neutrophils (%) (Auto) 83.2 % (16.0-70.0) 79.7 % (16.0-70.0) Lymphocytes (%) (Auto) 7.8 % (9.0-44.0) Neutrophils # (Auto) 11.6 TH/MM3 (1.8-7.7) 9.6 TH/MM3 (1.8-7.7) Urine Turbidity HAZY (CLEAR) Urine Protein 30 mg/dL (NEG-TRACE) Urine Glucose (UA) 70 mg/dL (NEG) Urine Occult Blood TRACE (NEG) Urine Leukocyte Esterase LARGE (NEG) Urine RBC 18 /hpf (0-3) Urine WBC Clumps MOD (NONE) Urine Yeast with Hyphae FEW (NONE) Urine Yeast (Budding) RARE (NONE) Test 08/03/17 06:40 08/04/17 07:05 Blood Urea Nitrogen 21 MG/DL (7-18) Creatinine 1.60 MG/DL (0.50-1.00) Random Glucose 190 MG/DL (74-106) Estimat Glomerular Filtration Rate 41 ML/MIN (>89) Hemoglobin 10.5 GM/DL (11.6-15.3) Hematocrit 32.8 % (35.0-46.0) Mean Corpuscular Volume 78.8 FL (80.0-100.0) Mean Corpuscular Hemoglobin 25.3 PG (27.0-34.0) Neutrophils (%) (Auto) 72.5 % (16.0-70.0) Monocytes (%) (Auto) 8.7 % (0.0-8.0) Imaging Last Impressions Chest X-Ray 08/01/17 9445 Signed Impressions: Service Date/Time: Tuesday, August 01, 2017 22:31 - CONCLUSION: No acute disease. Werner Thakur MD Abdomen/Pelvis CT 08/01/17 2213 Signed Impressions: Service Date/Time: Tuesday, August 01, 2017 22:48 - CONCLUSION: 1. Right-sided obstructive uropathy with 8mm and 9 mm calcifications in the distal right ureter. Innumerable calculi in both kidneys. Werner Thakur MD Lumbar Spine CT 08/01/17 0000 Signed Impressions: Service Date/Time: Tuesday, August 01, 2017 22:48 - CONCLUSION: Sacroiliitis. Degenerative changes of the spine. Please refer to CT abdomen and pelvis report from August 01, 2017 for description of the kidneys and ureters. Eloy Wallace MD PE at Discharge GENERAL: This is a well-nourished, well-developed patient, in no apparent distress. CARDIOVASCULAR: Regular rate and regular rhythm without murmurs, gallops, or rubs. RESPIRATORY: Clear to auscultation. Breath sounds equal bilaterally. No wheezes , rales, or rhonchi. GASTROINTESTINAL: Abdomen soft, right flank tenderness, nondistended. Normal, active bowel sounds MUSCULOSKELETAL: Extremities without clubbing, cyanosis, or edema. NEURO: Alert & Oriented x4 to person, place, time, situation. Moves all ext x4 Hospital Course patient was admitted with nephrolithiasis. urology consulted and patient underwent Cystoscopy with right ureteroscopy with laser lithotripsy stone extraction and right double-J stent insertion. pain improved. her renal function improved with IV fluid. patient will have a follow-up with her PCP and Urology as outpatient. Pt Condition on Discharge: Fair Discharge Disposition: Discharge Home Discharge Time: <= 30 minutes Discharge Instructions DIET: Follow Instructions for: Heart Healthy Diet, Diabetic Diet Activities you can perform: Regular-No Restrictions Follow up Referrals: PCP Follow-up Urology New Medications: Ciprofloxacin (Cipro) 500 Mg Tab 500 MG PO BID for Infection for 4 Days, #8 TAB 0 Refills Oxycodone-Acetaminophen (Percocet) 5-325 mg Tab 1 TAB PO Q6H PRN for PAIN, #14 TAB 0 Refills Continued Medications: Amlodipine (Norvasc) 10 Mg Tab 10 MG PO DAILY for Blood Pressure Management, #30 TAB 3 Refills Glyburide (Glyburide) 5 Mg Tab 5 MG PO BID for Blood Sugar Management, #60 TAB 3 Refills Take with meals at the same time each day Insulin Aspart Inj (Novolog Inj) 1,000 Unit/10 Ml Vial 0 SQ DIRECTED for Blood Sugar Management for 30 Days, ML 0 Refills (This prescription has been renewed) Sliding Scale as directed. Before meals. For blood sugar 0-150 = 0 units (none) For 151-200 = 2 units For 201- 250 = 4 units For 251-300 = 6 units For 301-350 = 8 units For greater than 351 = 10 units Insulin Detemir Inj (Levemir Inj) 1,000 unit/ 10 ML Vial 10 UNITS SQ HS for Blood Sugar Management for 30 Days, VIAL 0 Refills (This prescription has been renewed) Do not mix with any other Insulin. Lisinopril (Prinivil) 20 Mg Tab 20 MG PO BID for Blood Pressure Management, #30 TAB 3 Refills Simvastatin (Zocor) 40 Mg Tab 40 MG PO HS for Cholesterol Management, #30 TAB 3 Refills Brandon Clayton MD Aug 04, 2017 08:26
[2017-08-04 08:29] LABS: BICARBONATE 23.3 MEQ/L (21.0-32.0); POTASSIUM 4.3 MEQ/L (3.5-5.1)
[2017-08-04] MEDS: SODIUM CHLORIDE 0.9% FLUSH 10 ML FLUSH IV FLUSH SCH (09:00)
[2017-08-04] MEDS: LISINOPRIL 20 MG TAB PO SCH (09:08)
[2017-08-04] MEDS: DOCUSATE SODIUM 50 MG/SENNA 8.6 MG TAB PO SCH (09:08)
[2017-08-04] MEDS: ONDANSETRON HCL 4 MG/2 ML VIAL IVP PRN (09:09)
[2017-08-04] MEDS: oxyCODONE/ACETAMINOPHEN 7.5 MG/325 MG TAB PO PRN (09:20)
[2017-08-04 10:20] VITALS: RESP 17
--- NOTE | 2017-08-04 11:59 | HHI.PR ---
Subjective Patient symptoms today Pt seen and examined. Feeling better. Objective Vital Signs Vital Signs Date Time Temp Pulse Resp B/P (MAP) Pulse Ox O2 Delivery O2 Flow Rate FiO2 08/04/17 10:20 17 08/04/17 08:00 98.4 83 18 178/79 (112) 96 08/04/17 04:00 97.8 80 18 154/75 (101) 95 08/04/17 00:00 98.0 79 18 148/87 (107) 97 08/03/17 20:00 98.2 86 18 153/92 (112) 97 08/03/17 16:00 98.0 72 18 155/70 (98) 95 08/03/17 12:00 97.8 79 18 171/83 (112) 98 Intake & Output 08/04/17 08/04/17 07:00 19:00 Output Total 2500 ml Balance -2500 ml Output Urine Total 2500 ml Result Diagram: 08/04/1770408/04/17704 Objective Remarks Abd:soft,nt,nd Mosley: cloudy with sediment 08/04 Abd:soft,nt,nd Mosley with clear urine today Medications and IVs Current Medications Medications (Trade) Dose Ordered Sig/Rohit Route Start Time Stop Time Status Last Admin Sodium Chloride 1,000 ml @ 100 mls/hr Q10H IV 08/02/17 00:37 08/04/17 02:37 (NS Flush) 2 ml UNSCH PRN IV FLUSH 08/02/17 00:45 (NS Flush) 2 ml BID IV FLUSH 08/02/17 09:00 08/03/17 22:23 (Tylenol) 650 mg Q4H PRN PO 08/02/17 00:45 (Zofran Inj) 4 mg Q6H PRN IVP 08/02/17 00:45 08/04/17 09:09 (Narcan Inj) 0.4 mg UNSCH PRN IV PUSH 08/02/17 00:45 (Gwen-Colace) 1 tab BID PO 08/02/17 09:00 08/04/17 09:08 (Milk Of Magnesia Liq) 30 ml Q12H PRN PO 08/02/17 00:45 08/03/17 08:48 (Senokot) 17.2 mg Q12H PRN PO 08/02/17 00:45 08/03/17 22:31 (Dulcolax Supp) 10 mg DAILY PRN RECTAL 08/02/17 00:45 (Lactulose Liq) 30 ml DAILY PRN PO 08/02/17 00:45 08/04/17 09:19 Ceftriaxone Sodium 1000 mg/ Sodium Chloride 100 ml @ 200 mls/hr Q24H IV 08/02/17 23:59 08/03/17 23:35 (Norvasc) 10 mg DAILY PO 08/02/17 09:00 08/04/17 09:09 (Levemir Inj) 10 units HS SQ 08/02/17 21:00 08/03/17 21:00 (Prinivil) 20 mg BID PO 08/02/17 09:00 08/04/17 09:08 (Pravachol) 80 mg HS PO 08/02/17 21:00 08/03/17 22:22 (D50w (Vial) Inj) 50 ml UNSCH PRN IV PUSH 08/02/17 00:45 (Glucagon Inj) 1 mg UNSCH PRN OTHER 08/02/17 00:45 (NovoLOG SUPPLEMENTAL SCALE) 1 ACHS SLIDING SCALE SQ 08/02/17 08:00 08/03/17 21:00 (Percocet 7.5-325 Mg) 1 tab Q4H PRN PO 08/02/17 02:45 08/04/17 09:20 (Benadryl) 50 mg Q6H PRN PO 08/02/17 02:45 (Vasotec Inj) 1.25 mg Q8H PRN IV PUSH 08/02/17 08:30 Assessment and Plan Assessment and Plan 51 y.o female s/p right URS with laser litho and stent insertion Pt with residual right ureteral stones Will plan for void trial tomorrow and schedule outpatient URS with laser litho once infection has cleared. 08/04 51 y.o female s/p right URS with laser litho and stent insertion Pt with residual right ureteral stones. Will f/u as outpt in a few weeks to schedule right URS with laser litho and stone extraction Patrick Noel DO Aug 04, 2017 11:59
[2017-08-04] MEDS ORDERED: ZOFR4TAB PO (15:41)
== END 2017-08-04 17:24 | disposition home or self-care (01) | DRG 669 ==
LOC: NEPD 21:48 → NEDA 08-02 00:39 → N05A 08-02 02:09
PROVIDERS: ADMIT Family Medicine; ATTEND Internal Medicine
PROC: 0T768DZ Dilation of Right Ureter with Intraluminal Device, Via Natural or Artificial Opening Endoscopic (ICD-10-PCS; 2017-08-02)
PROC: 0TC68ZZ Extirpation of Matter from Right Ureter, Via Natural or Artificial Opening Endoscopic (ICD-10-PCS; principal; 2017-08-02 11:59)
DX: N13.2 Hydronephrosis with renal and ureteral calculous obstruction (principal); N17.9 Acute kidney failure, unspecified; I10 Essential (primary) hypertension; N39.0 Urinary tract infection, site not specified; E11.9 Type 2 diabetes mellitus without complications; E78.5 Hyperlipidemia, unspecified; Z87.442 Personal history of urinary calculi; Z79.4 Long term (current) use of insulin; Z88.5 Allergy status to narcotic agent; Z88.8 Allergy status to other drugs, medicaments and biological substances
CPT/HCPCS: 71010; 72131; 74176; 80048; 80053; 81001; 82365; 82370; 82550; 82948; 83690; 84484; 85025; 85610; 85730; 87086; 88300; 93005; 96361; 96374; 96375; J0696; J1580; J1815; J2405; J2550; J3010; J7030; Q9967

== ENCOUNTER → 2017-09-29 | Outpatient (CLI) | payer OTHER ==
[~2017-09-29] MED LIST changes: +CIPR-9 PO; -COLA100C5 PO; -IBUP1TAB7 PO; +PERC5TAB12 PO; +SUGAMMADEX SODIUM 200 MG/2 ML VIAL IV PUSH ONE; +ZOFR4TAB PO
--- NOTE | 2017-09-29 14:09 | RADRPT ---
EXAM DATE/TIME: 09/29/2017 13:01 [facility] COMPARISON: CT ABDOMEN & PELVIS W/O CONTRAST, August 01, 2017, 22:48. INDICATIONS : Right flank pain for 1 week. ORAL CONTRAST: No oral contrast ingested. RADIATION DOSE: 15.88 CTDIvol (mGy) MEDICAL HISTORY : None SURGICAL HISTORY : Hysterectomy. Right ureter stent ENCOUNTER: Initial ACUITY: 1 week PAIN SCALE: 4/10 LOCATION: Right flank TECHNIQUE: Volumetric scanning of the abdomen and pelvis was performed. Using automated exposure control and ad justment of the mA and/or kV according to patient size, radiation dose was kept as low as reasonably achievable to obtain optimal diagnostic quality images. DICOM format image data is available electro nically for review and comparison. FINDINGS: LOWER LUNGS: The visualized lower lungs are clear. LIVER: Homogeneous density without lesion. There is no dilation of the biliary tree. Status post cholecyst ectomy. No calcified gallstones. SPLEEN: Normal size without lesion. PANCREAS: Within normal limits. KIDNEYS: There are innumerable nonobstructing calcified bilateral renal calculi. The largest calculus is noted within the upper pole the left kidney measures 15 mm. An internal ureteral stent is noted on the rig ht. There are multiple tiny calcified stone fragments within the right distal ureter alongside the in ternal ureteral stent with the largest measuring 6 mm. No significant hydronephrosis is noted. ADRENAL GLANDS: Within normal limits. VASCULAR: There is no aortic aneurysm. BOWEL/MESENTERY: The stomach, small bowel, and colon demonstrate no acute abnormality. There is no free intraperitone al air or fluid. ABDOMINAL WALL: Within normal limits. RETROPERITONEUM: There is no lymphadenopathy. BLADDER: No wall thickening or mass. REPRODUCTIVE: Within normal limits. INGUINAL: There is no lymphadenopathy or hernia. MUSCULOSKELETAL: Sclerosis surrounds the sacroiliac joints bilaterally suggesting bilateral sacroiliitis. CONCLUSION: 1. Innumerable nonobstructing calcified bilateral renal calculi. The largest calculus is noted within the upper pole the left kidney measures 15 mm. An internal ureteral stent is noted on the right. The re are multiple tiny calcified stone fragments within the right distal ureter alongside the internal ureteral stent with the largest measuring 6 mm. No significant hydronephrosis is noted. 2. Bilateral sacroiliitis. Shashank Tripathi MD on September 29, 2017 at 14:01 Board Certified Radiologist. This report was verified electronically.
== END ==
LOC: HRAD 12:16
PROVIDERS: ATTEND Urology
DX: R10.9 Unspecified abdominal pain (principal)
CPT/HCPCS: 74176

== ENCOUNTER → 2017-10-12 | Day surgery (SDC) | payer OTHER ==
[~2017-10-12] VITALS: Ht 152.4 cm; Wt 88.7 kg
[~2017-10-12] MED LIST changes: +*ONDANSETRON 4 MG VIAL PERIprocedural Use ONLY ONE; +CEPH-459 PO; +CHLORHEXIDINE GLUCONATE 2 % 1 PACK (2 CLOTHS) TOPICAL PRN; -CIPR-9 PO; +DO NOT ADM ANY ANTICOAGULANT DRUGS PRN; +GLYCOPYRROLATE 1 MG/5 ML SYRINGE IV PUSH ONE; +LACTATED RINGER'S 1000 ML IV PRN; +LIDOCAINE HCL 1% PF 5 ML SYRINGE OTHER ONE; +MEPERIDINE HCL 50 MG/ML VIAL ONE; +METOPROLOL TARTRATE 25 MG TAB PO PRN; +MIDAZOLAM HCL 2 MG/2 ML VIAL ONE; +NEOSTIGMINE 5 MG/5 ML SYRINGE IV PUSH ONE; +ONDANSETRON HCL 4 MG/2 ML VIAL IV ONE; +ONDANSETRON HCL 4 MG/2 ML VIAL IV PUSH PRN; +PHENYLEPH/NS 1000 MCG/10 ML SYR IV ONE; +POVIDONE IODINE 5% (ANTISEPSIS KIT) 4 APPLICATIONS EACH NARE PRN; +PROPOFOL 200 MG/20 ML AMP IV ONE; +ROCURONIUM INJ 50 MG/5 ML SYRINGE IV PUSH ONE; +SODIUM CHLORID 0.9% 500 ML IV PRN; -SUGAMMADEX SODIUM 200 MG/2 ML VIAL IV PUSH ONE; +TRAM50 PO; -ZOFR4TAB PO; +ceFAZolin INJ 1,000 MG VIAL IV ONE; +traMADol HCL 50 MG TAB PO PRN
[2017-10-12 09:55] LABS: AUTOMATED NEUTROPHIL # 4.9 TH/MM3 (1.8-7.7); BASOPHIL # 0.1 TH/MM3 (0-0.2); BASOPHIL % 0.9 % (0.0-2.0); EOSINOPHIL # 0.3 TH/MM3 (0-0.4); EOSINOPHIL % 4.8 % (0.0-4.0); HEMATOCRIT 34.3 % (35.0-46.0); HEMOGLOBIN 11.3 GM/DL (11.6-15.3); LYMPH % 19.3 % (9.0-44.0); LYMPHOCYTE # 1.4 TH/MM3 (1.0-4.8); MEAN CORPUSCULAR HEMOGLOBIN 26.7 PG (27.0-34.0); MEAN CORPUSCULAR HGB CONC 32.9 % (32.0-36.0); MEAN PLATELET VOLUME 7.6 FL (7.0-11.0); MONO % 8.2 % (0.0-8.0); MONOCYTE # 0.6 TH/MM3 (0-0.9); NEUT % 66.8 % (16.0-70.0); PLATELET COUNT 301 TH/MM3 (150-450); RED BLOOD COUNT 4.24 MIL/MM3 (4.00-5.30); RED CELL DISTRIBUTION WIDTH 17.3 % (11.6-17.2); WHITE BLOOD COUNT 7.3 TH/MM3 (4.0-11.0)
[2017-10-12] MEDS: ceFAZolin INJ 1,000 MG VIAL IV ONE ×2 (10:48→11:33)
[2017-10-12] MEDS: IOHEXOL 350 MG/ML 50 ML BTL (for RAD DIAG) OTHER ONE ×2 (10:49→11:42)
--- NOTE | 2017-10-12 11:25 | PD.OP ---
Operative Report Date of Surgery: Oct 12, 2017 Preoperative Diagnosis: (1) Ureteral calculus, right Postoperative Diagnosis: (1) Ureteral calculus, right Procedure: Cystoscopy, right stent removal, right retrograde pyelogram, right ureteroscopy with laser lithotripsy and right open ended ureteral catheter placement Anesthesia: General Surgeon: Ananda Joaquin Line Patrolman(s): None Operation and Findings: Indication for procedures: Case of a pleasant 52-year-old female with history of right renal calculi who status post shockwave lithotripsy in the fall 2016. Patient had a right ureteral stent placed in July 2017 for several obstructing right ureteral stone fragments. Patient presents today for cystoscopy, removal of right stent and right ureteroscopy with laser lithotripsy. Operative procedure in detail: Patient was brought to the operating room suite and placed supine on the OR table. She was then placed under general anesthesia. She was then repositioned in the dorsolithotomy position and prepped and draped in normal sterile fashion. After an appropriate timeout was undertaken I proceeded with cystoscopic evaluation utilizing the rigid cystoscope with the 30 lens and 20 Iraqi sheath. The distal curl of the previously passed right double-J stent could easily be seen and was grasped with flexible forceps and removed. The stent was carefully inspected to ascertain that no stone fragments were left behind. I then was able to advance a sensor 0.035 wire up the patient's right ureter all the way up into the right renal pelvis. The cystoscope was removed and the wire secured to a sterile drape with a hemostat. The self dilating ureteroscope was next advanced along this wire and 2 distal ureteral stones were visualized. The stones were then broken up with the 200 m holmium laser fiber into multiple smaller stone fragments. The laser fiber was then exchanged for a 2.4 Iraqi stone basket and the larger fragments were extracted and sent off for chemical composition analysis. The ureteroscope was reintroduced and the entire ureter was visualized all the way up into the right renal pelvis and no additional stones were seen. A 6 Iraqi open-ended ureteral catheter was then advanced over the previously passed a wire and the wire withdrawn and a retrograde Polygram study performed. The open-ended catheter was left in place and secured to the Mosley via a connector both Mosley and this catheter then placed to gravity drainage. The patient tolerated the procedures without complications and was transferred to the PACU in satisfactory condition. Ananda Joaquin MD Oct 12, 2017 11:25
[2017-10-12 13:09] VITALS: BP 133/76; PULSE 87; RESP 18; TEMP 97.6; O2SAT 100
== END | disposition home or self-care (01) ==
LOC: HSDC 09:00 → EDSTATUS 11:30
PROVIDERS: ATTEND Urology
DX: N20.1 Calculus of ureter (principal); I10 Essential (primary) hypertension
CPT/HCPCS: 00862; 52353; 74420; 82365; 82370; 85025; 88300; C1769; J0690; J2175; J2250; J2370; J2405; J2710; J3010; Q9967

== ENCOUNTER 2017-12-18 18:23 | Observation (INO) | payer OTHER ==
[~2017-12-18] VITALS: Ht 152.4 cm; Wt 90.9 kg
[2017-12-18] VITALS (8 sets, daily range): BP systolic 165–215; BP diastolic 71–100; PULSE 70–95; RESP 16–18; TEMP 98.2–98.5; O2SAT 95–99
[~2017-12-18 18:23] MED LIST changes: -*ONDANSETRON 4 MG VIAL PERIprocedural Use ONLY ONE; -CHLORHEXIDINE GLUCONATE 2 % 1 PACK (2 CLOTHS) TOPICAL PRN; -DO NOT ADM ANY ANTICOAGULANT DRUGS PRN; -GLYCOPYRROLATE 1 MG/5 ML SYRINGE IV PUSH ONE; -LACTATED RINGER'S 1000 ML IV PRN; -LIDOCAINE HCL 1% PF 5 ML SYRINGE OTHER ONE; -MEPERIDINE HCL 50 MG/ML VIAL ONE; -METOPROLOL TARTRATE 25 MG TAB PO PRN; -MIDAZOLAM HCL 2 MG/2 ML VIAL ONE; -NEOSTIGMINE 5 MG/5 ML SYRINGE IV PUSH ONE; -ONDANSETRON HCL 4 MG/2 ML VIAL IV ONE; -ONDANSETRON HCL 4 MG/2 ML VIAL IV PUSH PRN; -PHENYLEPH/NS 1000 MCG/10 ML SYR IV ONE; -POVIDONE IODINE 5% (ANTISEPSIS KIT) 4 APPLICATIONS EACH NARE PRN; -PROPOFOL 200 MG/20 ML AMP IV ONE; -ROCURONIUM INJ 50 MG/5 ML SYRINGE IV PUSH ONE; -SODIUM CHLORID 0.9% 500 ML IV PRN; -ceFAZolin INJ 1,000 MG VIAL IV ONE; -traMADol HCL 50 MG TAB PO PRN
[2017-12-18] MEDS ORDERED: SODIUM CHLORIDE 0.9% FLUSH 10 ML FLUSH IV FLUSH PRN ×2 (19:15→22:00)
--- NOTE | 2017-12-18 19:23 | PD ---
HPI Chief Complaint: GI Complaint Time Seen by Provider: 19:11 Travel History International Travel<30 days: No Contact w/Intl Traveler<30days: No Traveled to known affect area: No History of Present Illness HPI 32-year-old female with PMH of HTN, DM, nephroureterolithiasis presents to the ED for evaluation of approximate 12 hour history of nausea, vomiting, multiple small well-formed stools. She also complains of 8/10 left sided flank pain. States this pain is crampy, similar to previous episodes of kidney stones. She denies fever, chills, chest pain, shortness of breath, dysuria, hematuria. She states she has been unable to take her blood pressure medications for 2 days. She states that she attempted to take Zofran but was unable to keep it down. PFSH Past Medical History Arthritis: No Asthma: No Autoimmune Disease: No Blood Disorders: No Anxiety: No Depression: No Heart Rhythm Problems: No Cancer: No Cardiovascular Problems: Yes (HTN ) High Cholesterol: Yes Chemotherapy: No Chest Pain: No Congestive Heart Failure: No COPD: No Cerebrovascular Accident: No Diabetes: Yes Patient Takes Glucophage: No Diminished Hearing: No Endocrine: Yes Gastrointestinal Disorders: Yes GERD: Yes Genitourinary: No Hepatitis: No Hiatal Hernia: No Hypertension: Yes Immune Disorder: No Kidney Stones: Yes Musculoskeletal: Yes (lower back pain) Neurologic: No Psychiatric: No Reproductive: No Respiratory: Yes (sleep apnea but does not have cpap) Immunizations Current: Yes Migraines: Yes Radiation Therapy: No Renal Failure: No Seizures: No Sickle Cell Disease: No Sleep Apnea: Yes Thyroid Disease: No Ulcer: Yes ?: Not Menopausal: Yes : 6 Para: 3 Miscarriage: 1 : 2 Past Surgical History Abdominal Surgery: Yes (c sections) AICD: No Arteriovenous Shunt: No Body Medical Devices: right ureteral stent Cardiac Surgery: No Section: Yes (x 3) Ear Surgery: No Endocrine Surgery: No Eye Surgery: No Genitourinary Surgery: Yes (KIDNEY STONE REMOVAL) Gynecologic Surgery: Yes (HYSTERECTOMY, 3 C-SECTIONS) Hysterectomy: Yes Insulin Pump: No Joint Replacement: No Oral Surgery: No Pacemaker: No Thoracic Surgery: No Other Surgery: Yes Social History Alcohol Use: No Tobacco Use: No Substance Use: No Allergies-Medications (Allergen,Severity, Reaction): Coded Allergies: acetaminophen (Verified Allergy, Severe, Itching, 08/01/17) hydrocodone (Verified Allergy, Severe, Itching, 08/01/17) metformin (Verified Allergy, Severe, Constipation, 08/01/17) vomiting hydromorphone (Verified Allergy, Intermediate, Rash, 08/01/17) hydrochlorothiazide (Verified Adverse Reaction, Intermediate, Nausea/ Vomiting, 10/09/17) Reported Meds & Prescriptions Reported Meds & Active Scripts Active Ultram (Tramadol HCl) 50 Mg Tab 50 Mg PO Q6H PRN Zofran Odt (Ondansetron Odt) 4 Mg Tab 4 Mg SL Q6HR PRN Novolog Inj (Insulin Aspart) 1,000 Unit/10 Ml Vial 0 SQ DIRECTED 30 Days Sliding Scale as directed. Before meals. For blood sugar 0-150 = 0 units (none) For 151-200 = 2 units For 201- 250 = 4 units For 251-300 = 6 units For 301-350 = 8 units For greater than 351 = 10 units Levemir Inj (Insulin Detemir) 1,000 unit/ 10 ML Vial 10 Units SQ HS 30 Days Do not mix with any other Insulin. Norvasc (Amlodipine Besylate) 10 Mg Tab 10 Mg PO DAILY Zocor (Simvastatin) 40 Mg Tab 40 Mg PO HS Glyburide 5 Mg Tab 5 Mg PO BID Take with meals at the same time each day Review of Systems Except as stated in HPI: all other systems reviewed are Neg Physical Exam Narrative GENERAL: Well-nourished, well-developed obese -[place] female no acute distress. SKIN: Focused skin assessment warm/dry. HEAD: Normocephalic. EYES: No scleral icterus. No injection or drainage. NECK: Supple, trachea midline. No JVD or lymphadenopathy. CARDIOVASCULAR: Regular rate and rhythm without murmurs, gallops, or rubs. RESPIRATORY: Breath sounds clear and equal bilaterally. No accessory muscle use. GASTROINTESTINAL: Abdomen soft, non-tender, nondistended. Positive left-sided flank pain. MUSCULOSKELETAL: No cyanosis, or edema. BACK: Nontender without obvious deformity. Positive left-sided CVA tenderness. Data Data Last Documented VS Vital Signs Date Time Temp Pulse Resp B/P (MAP) Pulse Ox O2 Delivery O2 Flow Rate FiO2 12/18/17 21:12 73 16 189/78 (115) 98 Room Air 12/18/17 18:44 98.5 Orders Orders Complete Blood Count With Diff (12/18/17 19:11) Comprehensive Metabolic Panel (12/18/17 19:11) Lipase (12/18/17 19:11) Prothrombin Time / Inr (Pt) (12/18/17 19:11) Act Partial Throm Time (Ptt) (12/18/17 19:11) Urinalysis - C+S If Indicated (12/18/17 19:11) Iv Access Insert/Monitor (12/18/17 19:11) Ecg Monitoring (12/18/17 19:11) Oximetry (12/18/17 19:11) Sodium Chloride 0.9% Flush (Ns Flush) (12/18/17 19:15) Blood Glucose (12/18/17 19:11) Ct Abd/Pel W/O Iv Contrast (12/18/17 19:22) Ketorolac Inj (Toradol Inj) (12/18/17 19:30) Ondansetron Inj (Zofran Inj) (12/18/17 19:30) Labetalol Inj (Trandate Inj) (12/18/17 19:45) Levofloxacin 750 Mg Premix Inj (Levaquin (12/18/17 21:15) Amlodipine (Norvasc) (12/18/17 21:15) Lisinopril (Prinivil) (12/18/17 21:15) Admit Order (Ed Use Only) (12/18/17 21:35) Labs Laboratory Tests Test 12/18/17 20:02 White Blood Count 23.4 TH/MM3 Red Blood Count 5.07 MIL/MM3 Hemoglobin 13.2 GM/DL Hematocrit 42.3 % Mean Corpuscular Volume 83.4 FL Mean Corpuscular Hemoglobin 26.1 PG Mean Corpuscular Hemoglobin Concent 31.3 % Red Cell Distribution Width 15.4 % Platelet Count 320 TH/MM3 Mean Platelet Volume 7.7 FL Neutrophils (%) (Auto) 95.2 % Lymphocytes (%) (Auto) 0.8 % Monocytes (%) (Auto) 3.7 % Eosinophils (%) (Auto) 0.0 % Basophils (%) (Auto) 0.3 % Neutrophils # (Auto) 22.3 TH/MM3 Lymphocytes # (Auto) 0.2 TH/MM3 Monocytes # (Auto) 0.9 TH/MM3 Eosinophils # (Auto) 0.0 TH/MM3 Basophils # (Auto) 0.1 TH/MM3 CBC Comment DIFF FINAL Differential Comment Prothrombin Time 10.0 SEC Prothromb Time International Ratio 1.0 RATIO Activated Partial Thromboplast Time 25.7 SEC Blood Urea Nitrogen 23 MG/DL Creatinine 1.62 MG/DL Random Glucose 192 MG/DL Total Protein 8.3 GM/DL Albumin 3.5 GM/DL Calcium Level 9.7 MG/DL Alkaline Phosphatase 109 U/L Aspartate Amino Transf (AST/SGOT) 15 U/L Alanine Aminotransferase (ALT/SGPT) 19 U/L Total Bilirubin 0.8 MG/DL Sodium Level 142 MEQ/L Potassium Level 3.9 MEQ/L Chloride Level 107 MEQ/L Carbon Dioxide Level 25.0 MEQ/L Anion Gap 10 MEQ/L Estimat Glomerular Filtration Rate 40 ML/MIN Lipase 73 U/L MDM Medical Decision Making Medical Screen Exam Complete: Yes Emergency Medical Condition: Yes Differential Diagnosis Hypertensive urgency versus nephroureterolithiasis versus intractable nausea and vomiting versus hyperglycemia versus other Narrative Course 32-year-old female with PMH of HTN, DM, kidney stones presents to the ED for evaluation of 12 hour history of nausea, vomiting, left-sided flank pain. Similar to previous episodes of kidney stones. She been unable to take her blood pressure medications for 2 days. Patient is afebril, BP 215/100 on presentation. On exam this is an obese black female in no acute distress. There is positive left-sided CVA tenderness and flank tenderness but exam is otherwise unremarkable. Patient was administered 10 mg labetalol, 30 mg Toradol , 4 mg Zofran IV. CBC: WBC 23.4 neutrophil predominant. Hemoglobin 13.2. INR 1.0. CMP: BUN 23, creatinine 1.62. GFR 40. Glucose 192. UA pending I spoke with Dr. Joaquin. He recommends IV antibiotics, gentle hydration, admission to medicine. He will see the patient tomorrow and plans likely ESWL. On recheck patient's BP 189/78. She was administered her at home dose of Norvasc and lisinopril. I discussed the results of the workup and the plan with the patient. She is agreeable to admission. I spoke with who agrees to accept the patient to [facility] Dec 18, 2017 19:23
[2017-12-18] MEDS ORDERED: KETOROLAC TROMETHAMINE 30 MG/ML (IVP) VIAL IV PUSH ONE (19:30)
[2017-12-18] MEDS ORDERED: ONDANSETRON HCL 4 MG/2 ML VIAL IV PUSH ONE (19:30)
[2017-12-18] MEDS ORDERED: LABETALOL HCL 100 MG/20 ML VIAL IV PUSH ONE (19:45)
--- NOTE | 2017-12-18 19:50 | RADRPT ---
EXAM DATE/TIME: 12/18/2017 19:32 [facility] COMPARISON: CT ABDOMEN & PELVIS W/O CONTRAST, September 29, 2017, 13:01. INDICATIONS : Left flank pain with nausea and vomiting. ORAL CONTRAST: No oral contrast ingested. RADIATION DOSE: 8.47 CTDIvol (mGy) MEDICAL HISTORY : Renal calculi. Hypertension. Diabetes mellitus type 2. SURGICAL HISTORY : section. Renal stent ENCOUNTER: Initial ACUITY: 1 day PAIN SCALE: 7/10 LOCATION: Left flank TECHNIQUE: Volumetric scanning of the abdomen and pelvis was performed. Using automated exposure control and ad justment of the mA and/or kV according to patient size, radiation dose was kept as low as reasonably achievable to obtain optimal diagnostic quality images. DICOM format image data is available electro nically for review and comparison. FINDINGS: LOWER LUNGS: The visualized lower lungs are clear. LIVER: Homogeneous density without lesion. There is no dilation of the biliary tree. No calcified gallston es. SPLEEN: Normal size without lesion. PANCREAS: Within normal limits. KIDNEYS: Numerous stones are again seen in the collecting systems of both kidneys. On the left, a 13 mm stone has migrated distally and is at the ureteropelvic junction. There is associated moderate left hydrone phrosis. There is left perinephric edema. Left kidney is swollen. No obstruction on the right. ADRENAL GLANDS: Within normal limits. VASCULAR: There is no aortic aneurysm. BOWEL/MESENTERY: The stomach, small bowel, and colon demonstrate no acute abnormality. There is no free intraperitone al air or fluid. ABDOMINAL WALL: Within normal limits. RETROPERITONEUM: There is no lymphadenopathy. BLADDER: No wall thickening or mass. REPRODUCTIVE: Within normal limits. INGUINAL: There is no lymphadenopathy or hernia. MUSCULOSKELETAL: No acute bony abnormality. CONCLUSION: 1. 13 mm left UPJ stone causing moderate obstructive uropathy. 2. Extensive bilateral nephrolithiasis, otherwise nonobstructing. Bucky Morrissey MD on December 18, 2017 at 19:44 Board Certified Radiologist. This report was verified electronically.
[2017-12-18 20:27] LABS: ALBUMIN 3.5 GM/DL (3.4-5.0); AST (GOT) 15 U/L (15-37); AUTOMATED NEUTROPHIL # 22.3 TH/MM3 (1.8-7.7); BASOPHIL # 0.1 TH/MM3 (0-0.2); BASOPHIL % 0.3 % (0.0-2.0); BLOOD UREA NITROGEN 23 MG/DL (7-18); CALCIUM 9.7 MG/DL (8.5-10.1); CREATININE 1.62 MG/DL (0.50-1.00); GLOMERULAR FILTRATION RATE 40 ML/MIN (>89); GLUCOSE,RANDOM 192 MG/DL (74-106); HEMATOCRIT 42.3 % (35.0-46.0); HEMOGLOBIN 13.2 GM/DL (11.6-15.3); LYMPH % 0.8 % (9.0-44.0); LYMPHOCYTE # 0.2 TH/MM3 (1.0-4.8); MEAN CELL VOLUME 83.4 FL (80.0-100.0); MEAN CORPUSCULAR HEMOGLOBIN 26.1 PG (27.0-34.0); MEAN CORPUSCULAR HGB CONC 31.3 % (32.0-36.0); MEAN PLATELET VOLUME 7.7 FL (7.0-11.0); MONO % 3.7 % (0.0-8.0); MONOCYTE # 0.9 TH/MM3 (0-0.9); NEUT % 95.2 % (16.0-70.0); PLATELET COUNT 320 TH/MM3 (150-450); RED BLOOD COUNT 5.07 MIL/MM3 (4.00-5.30); RED CELL DISTRIBUTION WIDTH 15.4 % (11.6-17.2); WHITE BLOOD COUNT 23.4 TH/MM3 (4.0-11.0)
[2017-12-18 20:29] LABS: ALT (GPT) 19 U/L (10-53)
[2017-12-18 20:30] LABS: ALKALINE PHOSPHATASE 109 U/L (45-117); TOTAL BILIRUBIN ADULT 0.8 MG/DL (0.2-1.0); TOTAL PROTEIN 8.3 GM/DL (6.4-8.2)
[2017-12-18 21:03] LABS: CHLORIDE 107 MEQ/L (98-107); SODIUM (NA) 142 MEQ/L (136-145)
[2017-12-18] MEDS ORDERED: LISINOPRIL 20 MG TAB PO ONE (21:15)
[2017-12-18] MEDS ORDERED: LEVOFLOXACIN 750 MG PREMIX INJ 150 ML IV ONE (21:15)
[2017-12-18] MEDS ORDERED: LACTULOSE SYRUP 20 GM/30 ML CUP PO PRN (22:00)
[2017-12-18] MEDS ORDERED: cloNIDine HCL 0.1 MG TAB PO PRN (22:00)
[2017-12-18] MEDS ORDERED: GLUCAGON 1 MG/ML VIAL OTHER PRN (22:00)
[2017-12-18] MEDS ORDERED: NALOXONE HCL 0.4 MG/ML AMP IV PUSH PRN (22:00)
[2017-12-18] MEDS ORDERED: ZOLPIDEM TARTRATE 5 MG TAB PO PRN (22:00)
[2017-12-18] MEDS ORDERED: DEXTROSE 50% IN WATER 50 ML VIAL(D50) IV PUSH PRN (22:00)
[2017-12-18] MEDS ORDERED: MORPHINE SULFATE 4 MG/ML INJ IV PUSH PRN (22:00)
[2017-12-18] MEDS ORDERED: diphenhydrAMINE HCL 50 MG/ML VIAL IV PUSH PRN (22:00)
[2017-12-18] MEDS ORDERED: SENNOSIDES 8.6 MG TAB PO PRN (22:00)
[2017-12-18] MEDS ORDERED: BISACODYL 10 MG SUPP RECTAL PRN (22:00)
[2017-12-18] MEDS ORDERED: ONDANSETRON HCL 4 MG/2 ML VIAL IVP PRN (22:00)
[2017-12-18] MEDS ORDERED: MORPHINE SULFATE 2 MG/ML SYRINGE IV PUSH PRN (22:00)
[2017-12-18] MEDS ORDERED: MAGNESIUM HYDROXIDE SUSP 30 ML CUP PO PRN (22:00)
[2017-12-18] MEDS: SODIUM CHLOR 0.9% 1000 ML INJ 1,000 ML IV SCH (22:10)
[2017-12-18] MEDS: cefTRIAXone INJ 1,000 MG in SODIUM CHLORIDE 0.9% INJ 100 ML IV SCH (22:10)
[2017-12-18] MEDS: traMADol HCL 50 MG TAB PO PRN ×2 (22:54→23:26)
[2017-12-18] MEDS ORDERED: METOCLOPRAMIDE HCL 10 MG/2 ML VIAL IV PRN (23:15)
[2017-12-18] MEDS ORDERED: hydrALAZINE HCL 20 MG/ML VIAL IV SCH (23:15)
[2017-12-18 23:18] LABS: BACTERIA, URINE FEW /hpf; BILIRUBIN, URINE NEG (NEG); BLOOD, URINE MOD (NEG); GLUCOSE,URINE TRACE mg/dL (NEG); KETONE, URINE NEG (NEG); NITRITE,URINE NEG (NEG); SQUAMOUS EPITHELIAL CELL URINE 8 /hpf (0-5); URINE COLOR LIGHT-YELLOW (YELLW/STRAW); URINE LEUKOCYTE ESTERASE LARGE (NEG); WHITE BLOOD CELL CLUMPS OCC
[2017-12-19 04:36] VITALS: BP 161/73; PULSE 99; RESP 18; TEMP 98.2; O2SAT 97
[2017-12-19 07:42] LABS: AUTOMATED NEUTROPHIL # 21.9 TH/MM3 (1.8-7.7); BASOPHIL % 0.2 % (0.0-2.0); HEMATOCRIT 37.4 % (35.0-46.0); LYMPH % 1.3 % (9.0-44.0); LYMPHOCYTE # 0.3 TH/MM3 (1.0-4.8); MEAN CELL VOLUME 83.2 FL (80.0-100.0); MEAN CORPUSCULAR HEMOGLOBIN 26.7 PG (27.0-34.0); MEAN CORPUSCULAR HGB CONC 32.1 % (32.0-36.0); MEAN PLATELET VOLUME 8.1 FL (7.0-11.0); MONO % 5.5 % (0.0-8.0); MONOCYTE # 1.3 TH/MM3 (0-0.9); PLATELET COUNT 258 TH/MM3 (150-450); RED CELL DISTRIBUTION WIDTH 15.5 % (11.6-17.2); WHITE BLOOD COUNT 23.5 TH/MM3 (4.0-11.0)
[2017-12-19 07:52] VITALS: BP 139/65; PULSE 93; RESP 16; TEMP 97.9; O2SAT 95
[2017-12-19 08:03] LABS: BICARBONATE 21.9 MEQ/L (21.0-32.0); CALCIUM 9.2 MG/DL (8.5-10.1); CREATININE 1.83 MG/DL (0.50-1.00)
[2017-12-19] MEDS: DOCUSATE SODIUM 50 MG/SENNA 8.6 MG TAB PO SCH ×2 (08:21→21:25)
[2017-12-19] MEDS: SODIUM CHLORIDE 0.9% FLUSH 10 ML FLUSH IV FLUSH SCH ×2 (08:22→21:00)
[2017-12-19] MEDS: SODIUM CHLOR 0.9% 1000 ML INJ 1,000 ML IV SCH ×2 (08:22→16:55)
[2017-12-19] MEDS: INSULIN ASPART SUPPLEMENTAL SCALE SQ SCH ×4 (08:28→21:25)
[2017-12-19] MEDS: traMADol HCL 50 MG TAB PO PRN (08:29)
--- NOTE | 2017-12-19 08:56 | HHI.HP ---
HPI Service [facility] Hospitalists Primary Care Physician Unknown Admission Diagnosis Left UPJ stone, leukocytosis, HTN Chief Complaint: N/V flank pain Travel History International Travel<30 Days: No Contact w/Intl Traveler <30 Da: No Traveled to Known Affected Are: No History of Present Illness This is a 52-year-old female with a past medical history significant for bilateral nephrolithiasis, status post bilateral stent placement and lithotripsy 08/04/[address] Noel with later stent removal on 10/12/[address] Joaquin, hypertension, insulin-dependent diabetes mellitus, CKD stage 3, obesity and hyperlipidemia presents with severe right-sided flank pain. Patient presented to to the ED last night for evaluation after approximate 12 hour history of nausea, vomiting, multiple small well-formed stools and 8/10 left sided flank pain. Patient describes the pain as crampy and similar to previous episodes of kidney stones. She states she has been unable to take her blood pressure medications for 2 days due to N/V. She states that she attempted to take Zofran but was unable to keep it down. Patient's blood pressure when she arrived to the emergency department was 215/100. Patient was given her home blood pressure regimen which includes amlodipine 10 mg. Patient was also given hydralazine 10 mg IV push labetalol 10 mg IV push and lisinopril 20 mg PO. Blood pressure has improved. Patient denies headaches, changes in vision, fever, chills, chest pain, shortness of breath, dysuria or hematuria. CT abdomen pelvis reveals a 13 mm left UPJ stone causing moderate obstructive uropathy. Extensive bilateral nephrolithiasis, otherwise nonobstructing Review of Systems Constitutional: DENIES: Fatigue, Fever, Chills Eyes: DENIES: Blurred vision, Diplopia, Vision loss Respiratory: DENIES: Cough, Sputum production, Shortness of breath Cardiovascular: DENIES: Chest pain, Palpitations, Dyspnea on Exertion, Lower Extremity Edema Gastrointestinal: COMPLAINS OF: Nausea, Vomiting, DENIES: Abdominal pain, Constipation, Diarrhea Musculoskeletal: COMPLAINS OF: Back pain Neurologic: DENIES: Abnormal gait, Headache, Localized weakness, Speech Problems Psychiatric: DENIES: Anxiety, Confusion, Depression Past Family Social History Past Medical History Hypertension Insulin-dependent diabetes mellitus CKD stage 3 Hyperlipidemia Past Surgical History Hysterectomy 2 Bilateral ureteral stent placement with lithotripsy 08/04/[address] Noel Ureteral stent removal 10/12/[address] Joaquin Reported Medications Ultram (Tramadol HCl) 50 Mg Tab 50 Mg PO Q6H PRN Zofran Odt (Ondansetron Odt) 4 Mg Tab 4 Mg SL Q6HR PRN Novolog Inj (Insulin Aspart) 1,000 Unit/10 Ml Vial 0 SQ DIRECTED 30 Days Sliding Scale as directed. Before meals. For blood sugar 0-150 = 0 units (none) For 151-200 = 2 units For 201- 250 = 4 units For 251-300 = 6 units For 301-350 = 8 units For greater than 351 = 10 units Levemir Inj (Insulin Detemir) 1,000 unit/ 10 ML Vial 10 Units SQ HS 30 Days Do not mix with any other Insulin. Norvasc (Amlodipine Besylate) 10 Mg Tab 10 Mg PO DAILY Zocor (Simvastatin) 40 Mg Tab 40 Mg PO HS Glyburide 5 Mg Tab 5 Mg PO BID Take with meals at the same time each day Allergies: Coded Allergies: acetaminophen (Verified Allergy, Severe, Itching, 08/01/17) hydrocodone (Verified Allergy, Severe, Itching, 08/01/17) metformin (Verified Allergy, Severe, Constipation, 08/01/17) vomiting hydromorphone (Verified Allergy, Intermediate, Rash, 08/01/17) hydrochlorothiazide (Verified Adverse Reaction, Intermediate, Nausea/ Vomiting, 10/09/17) Family History Maternal grandmother with diabetes mellitus Social History Denies alcohol, tobacco and illicit drugs Physical Exam Vital Signs Vital Signs Date Time Temp Pulse Resp B/P (MAP) Pulse Ox O2 Delivery O2 Flow Rate FiO2 12/19/17 07:52 97.9 93 16 139/65 (89) 95 12/19/17 04:36 98.2 99 18 161/73 (102) 97 12/18/17 23:53 98.2 95 18 168/71 (103) 99 12/18/17 23:32 12/18/17 23:23 165/79 (107) 12/18/17 22:54 70 16 195/97 (129) 98 Room Air 12/18/17 21:12 73 16 189/78 (115) 98 Room Air 12/18/17 19:54 70 16 189/85 (119) 98 Room Air 12/18/17 19:49 74 16 98 Room Air 12/18/17 19:19 95 Room Air 12/18/17 18:56 18 12/18/17 18:44 98.5 71 18 215/100 (138) 95 Physical Exam GENERAL: This is an obese, well-developed patient, SKIN: No rashes, ecchymoses or lesions. Cool and dry. HEAD: Atraumatic. Normocephalic. No temporal or scalp tenderness. EYES: Extraocular motions intact. No scleral icterus. No injection or drainage. CARDIOVASCULAR: Regular rate and rhythm RESPIRATORY: Clear to auscultation. Breath sounds equal bilaterally. GASTROINTESTINAL: Abdomen soft, non-tender, nondistended. GENITOURINARY: left CVA tenderness MUSCULOSKELETAL: Extremities without clubbing, cyanosis, or edema. No joint tenderness, effusion, or edema noted. No calf tenderness. Negative Homans sign bilaterally. NEUROLOGICAL: Awake and alert. No focal deficits appreciated. Motor and sensory grossly within normal limits. Five out of 5 muscle strength in all muscle groups. Normal speech. Laboratory Laboratory Tests Test 12/18/17 20:02 12/18/17 22:50 12/19/17 06:10 White Blood Count 23.4 23.5 Red Blood Count 5.07 4.50 Hemoglobin 13.2 12.0 Hematocrit 42.3 37.4 Mean Corpuscular Volume 83.4 83.2 Mean Corpuscular Hemoglobin 26.1 26.7 Mean Corpuscular Hemoglobin Concent 31.3 32.1 Red Cell Distribution Width 15.4 15.5 Platelet Count 320 258 Mean Platelet Volume 7.7 8.1 Neutrophils (%) (Auto) 95.2 93.0 Lymphocytes (%) (Auto) 0.8 1.3 Monocytes (%) (Auto) 3.7 5.5 Eosinophils (%) (Auto) 0.0 0.0 Basophils (%) (Auto) 0.3 0.2 Neutrophils # (Auto) 22.3 21.9 Lymphocytes # (Auto) 0.2 0.3 Monocytes # (Auto) 0.9 1.3 Eosinophils # (Auto) 0.0 0.0 Basophils # (Auto) 0.1 0.0 CBC Comment DIFF FINAL DIFF FINAL Differential Comment Prothrombin Time 10.0 Prothromb Time International Ratio 1.0 Activated Partial Thromboplast Time 25.7 Blood Urea Nitrogen 23 26 Creatinine 1.62 1.83 Random Glucose 192 180 Total Protein 8.3 Albumin 3.5 Calcium Level 9.7 9.2 Alkaline Phosphatase 109 Aspartate Amino Transf (AST/SGOT) 15 Alanine Aminotransferase (ALT/SGPT) 19 Total Bilirubin 0.8 Sodium Level 142 143 Potassium Level 3.9 4.0 Chloride Level 107 110 Carbon Dioxide Level 25.0 21.9 Anion Gap 10 11 Estimat Glomerular Filtration Rate 40 35 Lipase 73 Urine Color LIGHT-YELLOW Urine Turbidity HAZY Urine pH 6.0 Urine Specific [place] 1.013 Urine Protein 30 Urine Glucose (UA) TRACE Urine Ketones NEG Urine Occult Blood MOD Urine Nitrite NEG Urine Bilirubin NEG Urine Urobilinogen LESS THAN 2.0 Urine Leukocyte Esterase LARGE Urine RBC 92 Urine WBC Urine WBC Clumps OCC Urine Squamous Epithelial Cells 8 Urine Bacteria FEW Microscopic Urinalysis Comment CULTURE INDICATED Date/Time Source Procedure Growth Status 12/18/17 22:50 Urine Random Urine Urine Culture Pending Received Result Diagram: 12/19/17 0610 12/19/17609 Imaging Last Impressions Abdomen/Pelvis CT 12/18/171921 Signed Impressions: Service Date/Time: Monday, December 18, 2017 19:32 - CONCLUSION: 1. 13 mm left UPJ stone causing moderate obstructive uropathy. 2. Extensive bilateral nephrolithiasis, otherwise nonobstructing. MD Miri Weemsi VTE Risk Assessment Caprini VTE Risk Assessment: No/Low Risk (score <= 1) Caprini Risk Assessment Model Point Value = 1 Point Value = 2 Point Value = 3 Point Value = 5 Age 41-60 Minor surgery BMI > 25 kg/m2 Swollen legs Varicose veins or History of unexplained or recurrent spontaneous Oral contraceptives or hormone replacement Sepsis (< 1 month) Serious lung disease, including pneumonia (< 1 month) Abnormal pulmonary function Acute myocardial infarction Congestive heart failure (< 1 month) History of inflammatory bowel disease Medical patient at bed rest Age 61-74 Arthroscopic surgery Major open surgery (> 45 min) Laparoscopic surgery (> 45 min) Malignancy Confined to bed (> 72 hours) Immobilizing plaster cast Central venous access Age >= 75 History of VTE Family history of VTE Factor V Leiden Prothrombin [id number] Lupus anticoagulant Anticardiolipin antibodies Elevated serum homocysteine Heparin-induced thrombocytopenia Other congenital or acquired thrombophilia Stroke (< 1 month) Elective arthroplasty Hip, pelvis, or leg fracture Acute spinal cord injury (< 1 month) Prophylaxis Regimen Total Risk Factor Score Risk Level Prophylaxis Regimen 0-1 Low Early ambulation 2 Moderate Order ONE of the following: *Sequential Compression Device (SCD) *Heparin 5000 units SQ BID 3-4 Higher Order ONE of the following medications: *Heparin 5000 units SQ TID *Enoxaparin/Lovenox 40 mg SQ daily (WT < 150 kg, CrCl > 30 mL/min) *Enoxaparin/Lovenox 30 mg SQ daily (WT < 150 kg, CrCl > 10-29 mL/min) *Enoxaparin/Lovenox 30 mg SQ BID (WT < 150 kg, CrCl > 30 mL/min) AND/OR *Sequential Compression Device (SCD) 5 or more Highest Order ONE of the following medications: *Heparin 5000 units SQ TID (Preferred with Epidurals) *Enoxaparin/Lovenox 40 mg SQ daily (WT < 150 kg, CrCl > 30 mL/min) *Enoxaparin/Lovenox 30 mg SQ daily (WT < 150 kg, CrCl > 10-29 mL/min) *Enoxaparin/Lovenox 30 mg SQ BID (WT < 150 kg, CrCl > 30 mL/min) AND *Sequential Compression Device (SCD) Assessment and Plan Problem List: (1) Ureteral calculus, left ICD Codes: N20.1 - Calculus of ureter Status: Acute Plan: This is a 52-year-old female with a past medical history significant for bilateral nephrolithiasis, status post bilateral stent placement and lithotripsy 08/04/[address] Noel with later stent removal on 10/12/[address] Joaquin, hypertension, insulin-dependent diabetes mellitus, CKD stage 3, obesity and hyperlipidemia presents with severe right-sided flank pain. Patient presented to to the ED last night for evaluation after approximate 12 hour history of nausea, vomiting, multiple small well-formed stools and 8/10 left sided flank pain. Patient describes the pain as crampy and similar to previous episodes of kidney stones. CT abdomen pelvis reveals a 13 mm left UPJ stone causing moderate obstructive uropathy. Extensive bilateral nephrolithiasis, otherwise nonobstructing ER physician spoke to Dr. Joaquin who recommended IV antibiotics, gentle hydration with plans likely ESWL Patient currently NPO IV fluids for hydration Rocephin IV Morphine IV as well as Ultram PO as needed for pain Update: patient s/p Cystoscopy, left retrograde pyelogram and left ureteral stent placement12/19/[address] Joaquin after the procedure patient report she is no longer having pain (2) Hypertensive urgency ICD Codes: I10 - Hypertensive urgency Status: Acute Plan: On admission patient reported that she has been unable to take her blood pressure medications for 2 days due to N/V. She states that she attempted to take Zofran but was unable to keep it down. Patient's blood pressure when she arrived to the emergency department was 215/100. Patient was given her home blood pressure regimen which includes amlodipine 10 mg. Patient was also given hydralazine 10 mg IV push labetalol 10 mg IV push and lisinopril 20 mg PO. Blood pressure has improved. Patient denies headaches, changes in vision, chest pain, shortness of breath Continue home amlodipine 10 mg p.o. daily Clonidine as needed for hypertension (3) Urinary tract infection ICD Codes: N39.0 - Urinary tract infection Status: Acute Plan: White blood cell count 23.4 on admission Urinalysis reviewed and revealed large amount of leukocyte esterase innumerable white blood cells and bacteria Patient started on ceftriaxone IV daily Await urine culture to guide further antibiotic therapy (4) DM (diabetes mellitus) ICD Codes: E11.9 - Type 2 diabetes mellitus without complications Status: Acute Plan: Patient regularly uses a sliding scale insulin at home as well as Levemir 10 units subcu nightly and glyburide 5 mg p.o. twice daily Hold long-acting insulin and glyburide as patient is currently NPO Accu-Cheks before meals at bedtime with sliding scale insulin coverage (5) Intractable nausea and vomiting ICD Codes: R11.2 - Nausea with vomiting, unspecified Status: Acute Plan: Zofran as needed IV fluids for hydration Supportive care (6) Hyperlipidemia ICD Codes: E78.5 - Hyperlipidemia, unspecified Status: Acute Plan: Continue patient's home Zocor 40 mg PO nightly Assessment and Plan Patient examined. Assessment and plan formulated with Sharon Phillips PA-C. I agree with the above. Sharon Phillips Dec 19, 2017 08:56 Ty Coffey DO Dec 21, 2017 05:40
--- NOTE | 2017-12-19 09:56 | PD.CONS ---
[facility] Service Urology Consult Requested By Dr. Damon Primary Care Physician Unknown Diagnosis: (1) Ureteral calculus, left ICD Code: N20.1 - Calculus of ureter (2) Hypertensive urgency ICD Code: I10 - Hypertensive urgency (3) Urinary tract infection ICD Code: N39.0 - Urinary tract infection (4) DM (diabetes mellitus) ICD Code: E11.9 - Type 2 diabetes mellitus without complications (5) Intractable nausea and vomiting ICD Code: R11.2 - Nausea with vomiting, unspecified (6) Hyperlipidemia ICD Code: E78.5 - Hyperlipidemia, unspecified History of Present Illness 52-year-old female with history bilateral nephrolithiasis who status post multiple urologic procedures in the past who presented to the emergency room with complaints of severe left flank pain, nausea and vomiting. Patient was noted to have significant elevation of the white blood cell count. A CT scan of the abdomen and pelvis was performed that demonstrated bilateral renal calculi and an obstructing 13 mm left ureteropelvic junction calculus causing left hydronephrosis. Patient was started on intravenous antibiotics, pain management and a urology consult placed. At the time of consultation the patient was resting comfortably with her pain well controlled. A follow-up CBC demonstrated persistence of the leukocytosis. Review of Systems Constitutional: DENIES: Fever, Chills Gastrointestinal: COMPLAINS OF: Abdominal pain (Left side) Genitourinary: DENIES: Hematuria, Dysuria Musculoskeletal: COMPLAINS OF: Back pain (Left flank) Except as stated in HPI: all other systems reviewed are Neg Past Family Social History Past Medical History Diabetes mellitus Chronic kidney disease Hypertension Hyperlipidemia Past Surgical History Status post right ureteral stent placement Status post right ureteroscopy with laser lithotripsy Reported Medications Refer to EMR Allergies: Coded Allergies: acetaminophen (Verified Allergy, Severe, Itching, 08/01/17) hydrocodone (Verified Allergy, Severe, Itching, 08/01/17) metformin (Verified Allergy, Severe, Constipation, 08/01/17) vomiting hydromorphone (Verified Allergy, Intermediate, Rash, 08/01/17) hydrochlorothiazide (Verified Adverse Reaction, Intermediate, Nausea/ Vomiting, 10/09/17) Active Ordered Medications Refer to EMR Family History Reviewed and noncontributory Social History Denies tobacco, alcohol intravenous drug abuse history Physical Exam Vital Signs Date Time Temp Pulse Resp B/P (MAP) Pulse Ox O2 Delivery O2 Flow Rate FiO2 4/28/18 07:52 97.9 93 16 139/65 (89) 95 12/19/17 04:36 98.2 99 18 161/73 (102) 97 12/18/17 23:53 98.2 95 18 168/71 (103) 99 12/18/17 23:32 12/18/17 23:23 165/79 (107) 12/18/17 22:54 70 16 195/97 (129) 98 Room Air 12/18/17 21:12 73 16 189/78 (115) 98 Room Air 12/18/17 19:54 70 16 189/85 (119) 98 Room Air 12/18/17 19:49 74 16 98 Room Air 12/18/17 19:19 95 Room Air 12/18/17 18:56 18 12/18/17 18:44 98.5 71 18 215/100 (138) 95 Physical Exam GENERAL: This is a well-nourished, well-developed patient, in no apparent distress. SKIN: No rashes, ecchymoses or lesions. Cool and dry. HEAD: Atraumatic. Normocephalic. No temporal or scalp tenderness. EYES: Pupils equal round and reactive. Extraocular motions intact. No scleral icterus. No injection or drainage. ENT: Nose without bleeding, purulent drainage or septal hematoma. Throat without erythema, tonsillar hypertrophy or exudate. Uvula midline. Airway patent. NECK: Trachea midline. No JVD or lymphadenopathy. Supple, nontender, no meningeal signs. CARDIOVASCULAR: Regular rate and rhythm without murmurs, gallops, or rubs. RESPIRATORY: Clear to auscultation. Breath sounds equal bilaterally. No wheezes , rales, or rhonchi. GASTROINTESTINAL: Abdomen soft, non-tender, nondistended. No hepato-splenomegaly , or palpable masses. No guarding. GENITOURINARY: MUSCULOSKELETAL: Extremities without clubbing, cyanosis, or edema. No joint tenderness, effusion, or edema noted. No calf tenderness. Negative Homans sign bilaterally. NEUROLOGICAL: Awake and alert. Cranial nerves II through XII intact. Motor and sensory grossly within normal limits. Five out of 5 muscle strength in all muscle groups. Normal speech. Lab results reviewed: Yes Laboratory Tests Test 12/18/17 20:02 12/18/17 22:50 12/19/17 06:10 White Blood Count 23.4 23.5 Red Blood Count 5.07 4.50 Hemoglobin 13.2 12.0 Hematocrit 42.3 37.4 Mean Corpuscular Volume 83.4 83.2 Mean Corpuscular Hemoglobin 26.1 26.7 Mean Corpuscular Hemoglobin Concent 31.3 32.1 Red Cell Distribution Width 15.4 15.5 Platelet Count 320 258 Mean Platelet Volume 7.7 8.1 Neutrophils (%) (Auto) 95.2 93.0 Lymphocytes (%) (Auto) 0.8 1.3 Monocytes (%) (Auto) 3.7 5.5 Eosinophils (%) (Auto) 0.0 0.0 Basophils (%) (Auto) 0.3 0.2 Neutrophils # (Auto) 22.3 21.9 Lymphocytes # (Auto) 0.2 0.3 Monocytes # (Auto) 0.9 1.3 Eosinophils # (Auto) 0.0 0.0 Basophils # (Auto) 0.1 0.0 CBC Comment DIFF FINAL DIFF FINAL Differential Comment Prothrombin Time 10.0 Prothromb Time International Ratio 1.0 Activated Partial Thromboplast Time 25.7 Blood Urea Nitrogen 23 26 Creatinine 1.62 1.83 Random Glucose 192 180 Total Protein 8.3 Albumin 3.5 Calcium Level 9.7 9.2 Alkaline Phosphatase 109 Aspartate Amino Transf (AST/SGOT) 15 Alanine Aminotransferase (ALT/SGPT) 19 Total Bilirubin 0.8 Sodium Level 142 143 Potassium Level 3.9 4.0 Chloride Level 107 110 Carbon Dioxide Level 25.0 21.9 Anion Gap 10 11 Estimat Glomerular Filtration Rate 40 35 Lipase 73 Urine Color LIGHT-YELLOW Urine Turbidity HAZY Urine pH 6.0 Urine Specific [place] 1.013 Urine Protein 30 Urine Glucose (UA) TRACE Urine Ketones NEG Urine Occult Blood MOD Urine Nitrite NEG Urine Bilirubin NEG Urine Urobilinogen LESS THAN 2.0 Urine Leukocyte Esterase LARGE Urine RBC 92 Urine WBC Urine WBC Clumps OCC Urine Squamous Epithelial Cells 8 Urine Bacteria FEW Microscopic Urinalysis Comment CULTURE INDICATED Date/Time Source Procedure Growth Status 12/18/17 22:50 Urine Random Urine Urine Culture Pending Received Result Diagram: 12/19/17 0610 12/19/17 0610 Personally reviewed images: Yes Imaging Last Impressions Abdomen/Pelvis CT 12/18/171921 Signed Impressions: Service Date/Time: Monday, December 18, 2017 19:32 - CONCLUSION: 1. 13 mm left UPJ stone causing moderate obstructive uropathy. 2. Extensive bilateral nephrolithiasis, otherwise nonobstructing. Bucky Morrissey MD Assessment and Plan Assessment and Plan Urologic impression: 1. Obstructing 13 mm left ureteropelvic junction calculus 2. Leukocytosis related to obstructing calculus 3. Bilateral renal calculi Plan: 1. Keep the patient n.p.o. 2. Bring the patient to the operating room suite today for cystoscopy, left retrograde pyelogram and left ureteral stent placement 3. Patient will eventually require outpatient shockwave lithotripsy Ananda Joaquin MD Dec 19, 2017 09:55
[2017-12-19] MEDS ORDERED: LIDOCAINE HCL 1% PF 5 ML SYRINGE OTHER ONE (12:00)
[2017-12-19] MEDS ORDERED: ONDANSETRON HCL 4 MG/2 ML VIAL IV ONE (12:00)
[2017-12-19] MEDS ORDERED: PROPOFOL 200 MG/20 ML AMP IV ONE (12:00)
[2017-12-19] MEDS ORDERED: DEXAMETHASONE SOD PHOS 4 MG/ML VIAL IV ONE (12:00)
[2017-12-19] MEDS ORDERED: SUCCINYLCHOLINE CHLORIDE 100 MG/5 ML SYRINGE IV PUSH ONE (12:00)
[2017-12-19] MEDS ORDERED: IOHEXOL 350 MG/ML 50 ML BTL (for RAD DIAG) OTHER ONE (12:36)
--- NOTE | 2017-12-19 12:47 | PD.OP ---
Operative Report Date of Surgery: Dec 19, 2017 Preoperative Diagnosis: (1) Renal calculus, left Postoperative Diagnosis: (1) Renal calculus, left Procedure: Cystoscopy, left retrograde pyelogram and left ureteral stent placement Anesthesia: General Surgeon: Ananda Joaquin Waste Duster(s): None Operation and Findings: Indication for procedures: Case of a pleasant 52-year-old female who presents now with an obstructing left proximal ureteral calculus with hydronephrosis and leukocytosis. Operative procedure in detail: Patient was brought to the operating room suite placed supine on the cystoscopy table. She was then placed under general anesthesia. She was then repositioned in the dorsolithotomy position and prepped and draped in normal sterile fashion. After appropriate timeout was undertaken I proceeded with cystoscopic evaluation utilizing the rigid cystoscope with the 30 lens and 20 Mongolian sheath. Both right and left ureteral orifices were correct anatomic position. There was clear drainage noted from the right and no output from the left side. I then passed a sensor 0.035 wire of the patient's left ureter and was able to negotiate the wire around the obstructing proximal stone and further advanced a wire into the left renal pelvis. A 6 Mongolian open-ended catheter was then advanced over the wire and utilized to gently manipulate the stone back up into the left renal pelvis. The wire was then withdrawn and an aliquot of urine was obtained from the catheter and sent off for culture and sensitivity. A retrograde pyelogram study was next performed to outline the collecting system. The sensor wire was reintroduced and the open-ended catheter was exchanged for a optimal long-term 6 Mongolian 22 cm double-J stent. The stent was placed under both cystoscopic and fluoroscopic guidance without difficulty. Once the stent was in proper position the trailing string was removed. After stent was placed there was significant amount of purulent output noted coming from the stent and decision was made to place a Mosley catheter to facilitate bladder drainage. A 16 Mongolian 10 cc Mosley catheter was then placed and connected to gravity drainage. The patient tolerated the procedures without complications and was transferred to the PACU in satisfactory condition. Ananda Joaquin MD Dec 19, 2017 12:47
[2017-12-19] MEDS ORDERED: MIDAZOLAM HCL 2 MG/2 ML VIAL ONE (13:04)
[2017-12-19 14:59] VITALS: BP 142/64; PULSE 78; RESP 18; TEMP 97.6; O2SAT 94
[2017-12-19 16:27] VITALS: BP 140/62
[2017-12-19 19:17] VITALS: BP 137/56; PULSE 84; RESP 18; TEMP 98.1; O2SAT 96
[2017-12-19] MEDS: PRAVASTATIN SOD 80 MG TAB PO SCH (21:25)
[2017-12-19] MEDS: cefTRIAXone INJ 1,000 MG in SODIUM CHLORIDE 0.9% INJ 100 ML IV SCH (21:25)
[2017-12-19 22:51] VITALS: BP 134/63; PULSE 82; RESP 16; TEMP 98; O2SAT 97
[2017-12-20] VITALS (7 sets, daily range): BP systolic 142–203; BP diastolic 60–93; PULSE 75–114; RESP 15–18; TEMP 98–98.7; O2SAT 94–97
[2017-12-20] MEDS: SODIUM CHLOR 0.9% 1000 ML INJ 1,000 ML IV SCH (05:30)
[2017-12-20] MEDS: INSULIN ASPART SUPPLEMENTAL SCALE SQ SCH ×4 (08:34→21:47)
[2017-12-20] MEDS: SODIUM CHLORIDE 0.9% FLUSH 10 ML FLUSH IV FLUSH SCH ×2 (08:37→21:47)
[2017-12-20] MEDS: DOCUSATE SODIUM 50 MG/SENNA 8.6 MG TAB PO SCH ×2 (08:37→21:47)
[2017-12-20 10:51] LABS: AUTOMATED NEUTROPHIL # 15.8 TH/MM3 (1.8-7.7); BASOPHIL % 0.2 % (0.0-2.0); EOSINOPHIL % 0.1 % (0.0-4.0); HEMATOCRIT 37.6 % (35.0-46.0); HEMOGLOBIN 12.2 GM/DL (11.6-15.3); LYMPH % 3.4 % (9.0-44.0); LYMPHOCYTE # 0.6 TH/MM3 (1.0-4.8); MEAN CELL VOLUME 82.7 FL (80.0-100.0); MEAN CORPUSCULAR HEMOGLOBIN 26.9 PG (27.0-34.0); MEAN CORPUSCULAR HGB CONC 32.5 % (32.0-36.0); MONO % 5.9 % (0.0-8.0); NEUT % 90.4 % (16.0-70.0); PLATELET COUNT 256 TH/MM3 (150-450); RED BLOOD COUNT 4.54 MIL/MM3 (4.00-5.30); RED CELL DISTRIBUTION WIDTH 15.7 % (11.6-17.2); WHITE BLOOD COUNT 17.5 TH/MM3 (4.0-11.0)
[2017-12-20] MEDS: traMADol HCL 50 MG TAB PO PRN (10:52)
[2017-12-20 11:08] LABS: BICARBONATE 25.9 MEQ/L (21.0-32.0); CALCIUM 9.1 MG/DL (8.5-10.1); CREATININE 1.61 MG/DL (0.50-1.00)
--- NOTE | 2017-12-20 12:29 | HHI.PR ---
Subjective Patient symptoms today Postoperative day #1 Reports feeling better today Objective Vital Signs Vital Signs Date Time Temp Pulse Resp B/P (MAP) Pulse Ox O2 Delivery O2 Flow Rate FiO2 12/20/17 12:01 98.1 90 18 171/76 (107) 96 12/20/17 10:11 150/68 (95) 12/20/17 08:22 174/78 (110) 12/20/17 07:56 98.1 114 18 203/93 (129) 94 12/20/17 04:12 98.0 76 16 142/69 (93) 95 12/19/17 22:51 98.0 82 16 134/63 (86) 97 12/19/17 19:17 98.1 84 18 137/56 (83) 96 12/19/17 16:27 140/62 (88) 12/19/17 14:59 97.6 78 18 142/64 (90) 94 12/19/17 13:30 80 15 142/67 (92) 98 Room Air 12/19/17 13:15 81 19 138/64 (88) 98 Room Air 12/19/17 13:00 82 22 141/65 (90) 100 Nasal Cannula 2 12/19/17 12:57 98.4 83 24 136/60 (85) 100 Nasal Cannula 2 Intake & Output 12/20/17 12/20/17 07:00 19:00 Output Total 1250 ml 300 ml Balance -1250 ml -300 ml Output Urine Total 1250 ml 300 ml Result Diagram: 12/20/17 1029 12/20/17 1029 Objective Remarks No CVA tenderness Abdomen soft, nondistended, nontender Mosley catheter draining yellow urine with a small amount of sediment noted within the tubing Extremities well-perfused, nontender Medications and IVs Current Medications Medications (Trade) Dose Ordered Sig/Rohit Route Start Time Stop Time Status Last Admin (Norvasc) 10 mg DAILY PO 12/19/17 09:00 12/20/17 08:37 (Pravachol) 80 mg HS PO 12/19/17 21:00 12/19/17 21:25 (Catapres) 0.1 mg Q6H PRN PO 12/18/17 22:00 Sodium Chloride 1,000 ml @ 100 mls/hr Q10H IV 12/18/17 21:51 12/20/17 05:30 (NS Flush) 2 ml UNSCH PRN IV FLUSH 12/18/17 22:00 (NS Flush) 2 ml BID IV FLUSH 12/19/17 09:00 (Zofran Inj) 4 mg Q6H PRN IVP 12/18/17 22:00 (Ambien) 5 mg HS PRN PO 12/18/17 22:00 (Morphine Inj) 4 mg Q3H PRN IV PUSH 12/18/17 22:00 (Narcan Inj) 0.4 mg UNSCH PRN IV PUSH 12/18/17 22:00 (Gwen-Colace) 1 tab BID PO 12/19/17 09:00 12/20/17 08:37 (Milk Of Magnesia Liq) 30 ml Q12H PRN PO 12/18/17 22:00 (Senokot) 17.2 mg Q12H PRN PO 12/18/17 22:00 (Dulcolax Supp) 10 mg DAILY PRN RECTAL 12/18/17 22:00 (Lactulose Liq) 30 ml DAILY PRN PO 12/18/17 22:00 (D50w (Vial) Inj) 50 ml UNSCH PRN IV PUSH 12/18/17 22:00 (Glucagon Inj) 1 mg UNSCH PRN OTHER 12/18/17 22:00 (NovoLOG SUPPLEMENTAL SCALE) 1 ACHS SLIDING SCALE SQ 12/19/17 08:00 12/19/17 21:25 (Morphine Inj) 2 mg Q3H PRN IV PUSH 12/18/17 22:00 (Benadryl Inj) 25 mg Q6H PRN IV PUSH 12/18/17 22:00 (Ultram) 50 mg Q4H PRN PO 12/18/17 22:45 12/20/17 10:52 (Reglan Inj) 5 mg Q6H PRN IV 12/18/17 23:15 12/18/17 23:18 (Diflucan) 100 mg Q24H PO 12/20/17 12:00 Assessment and Plan Assessment and Plan Urologic impression: 1. Obstructing 13 mm left ureteropelvic junction calculus status post left stent placement 2. Leukocytosis trending downwards 3. Bilateral renal calculi Plan: 1. Agree with present antibiotic therapy 2. DC Mosley catheter tomorrow morning 3. Okay to discharge home after Mosley catheter removed when medically stable 4. Patient to contact my office after hospital discharge to make arrangements for left-sided outpatient shockwave lithotripsy [phone]. Ananda Joaquin MD Dec 20, 2017 12:29
[2017-12-20] MEDS: FLUCONAZOLE 100 MG TAB PO SCH (12:34)
[2017-12-20] MEDS ORDERED: NIFEdipine 60 MG SUSTAINED RELEASE TAB PO ONE (15:15)
--- NOTE | 2017-12-20 17:03 | HHI.PR ---
Subjective Remarks Patient reports feeling much better today minimal pain on her side earlier no pain at this point. Patient no longer having nausea Objective Vitals Vital Signs Date Time Temp Pulse Resp B/P (MAP) Pulse Ox O2 Delivery O2 Flow Rate FiO2 12/20/17 15:48 98.7 75 18 160/60 (93) 94 12/20/17 12:01 98.1 90 18 171/76 (107) 96 12/20/17 10:11 150/68 (95) 12/20/17 08:22 174/78 (110) 12/20/17 07:56 98.1 114 18 203/93 (129) 94 12/20/17 04:12 98.0 76 16 142/69 (93) 95 12/19/17 22:51 98.0 82 16 134/63 (86) 97 12/19/17 19:17 98.1 84 18 137/56 (83) 96 12/20/17 12/20/17 12/21/17 15:00 23:00 07:00 Intake Total 1000 ml Output Total 300 ml Balance -300 ml 1000 ml Intake IV Total 1000 ml Output Urine Total 300 ml Result Diagram: 12/20/17 1029 12/20/17 1029 Other Results Laboratory Tests Test 12/18/17 20:02 12/18/17 22:50 12/19/17 06:10 12/20/17 10:29 White Blood Count 23.4 TH/MM3 23.5 TH/MM3 17.5 TH/MM3 Red Blood Count 5.07 MIL/MM3 4.50 MIL/MM3 4.54 MIL/MM3 Hemoglobin 13.2 GM/DL 12.0 GM/DL 12.2 GM/DL Hematocrit 42.3 % 37.4 % 37.6 % Mean Corpuscular Volume 83.4 FL 83.2 FL 82.7 FL Mean Corpuscular Hemoglobin 26.1 PG 26.7 PG 26.9 PG Mean Corpuscular Hemoglobin Concent 31.3 % 32.1 % 32.5 % Red Cell Distribution Width 15.4 % 15.5 % 15.7 % Platelet Count 320 TH/MM3 258 TH/MM3 256 TH/MM3 Mean Platelet Volume 7.7 FL 8.1 FL 8.0 FL Neutrophils (%) (Auto) 95.2 % 93.0 % 90.4 % Lymphocytes (%) (Auto) 0.8 % 1.3 % 3.4 % Monocytes (%) (Auto) 3.7 % 5.5 % 5.9 % Eosinophils (%) (Auto) 0.0 % 0.0 % 0.1 % Basophils (%) (Auto) 0.3 % 0.2 % 0.2 % Neutrophils # (Auto) 22.3 TH/MM3 21.9 TH/MM3 15.8 TH/MM3 Lymphocytes # (Auto) 0.2 TH/MM3 0.3 TH/MM3 0.6 TH/MM3 Monocytes # (Auto) 0.9 TH/MM3 1.3 TH/MM3 1.0 TH/MM3 Eosinophils # (Auto) 0.0 TH/MM3 0.0 TH/MM3 0.0 TH/MM3 Basophils # (Auto) 0.1 TH/MM3 0.0 TH/MM3 0.0 TH/MM3 CBC Comment DIFF FINAL DIFF FINAL DIFF FINAL Differential Comment Prothrombin Time 10.0 SEC Prothromb Time International Ratio 1.0 RATIO Activated Partial Thromboplast Time 25.7 SEC Blood Urea Nitrogen 23 MG/DL 26 MG/DL 27 MG/DL Creatinine 1.62 MG/DL 1.83 MG/DL 1.61 MG/DL Random Glucose 192 MG/DL 180 MG/DL 178 MG/DL Total Protein 8.3 GM/DL Albumin 3.5 GM/DL Calcium Level 9.7 MG/DL 9.2 MG/DL 9.1 MG/DL Alkaline Phosphatase 109 U/L Aspartate Amino Transf (AST/SGOT) 15 U/L Alanine Aminotransferase (ALT/SGPT) 19 U/L Total Bilirubin 0.8 MG/DL Sodium Level 142 MEQ/L 143 MEQ/L 141 MEQ/L Potassium Level 3.9 MEQ/L 4.0 MEQ/L 4.3 MEQ/L Chloride Level 107 MEQ/L 110 MEQ/L 108 MEQ/L Carbon Dioxide Level 25.0 MEQ/L 21.9 MEQ/L 25.9 MEQ/L Anion Gap 10 MEQ/L 11 MEQ/L 7 MEQ/L Estimat Glomerular Filtration Rate 40 ML/MIN 35 ML/MIN 40 ML/MIN Lipase 73 U/L Urine Color LIGHT-YELLOW Urine Turbidity HAZY Urine pH 6.0 Urine Specific [place] 1.013 Urine Protein 30 mg/dL Urine Glucose (UA) TRACE mg/dL Urine Ketones NEG mg/dL Urine Occult Blood MOD Urine Nitrite NEG Urine Bilirubin NEG Urine Urobilinogen LESS THAN 2.0 MG/DL Urine Leukocyte Esterase LARGE Urine RBC 92 /hpf Urine WBC /hpf Urine WBC Clumps OCC Urine Squamous Epithelial Cells 8 /hpf Urine Bacteria FEW /hpf Microscopic Urinalysis Comment CULTURE INDICATED Imaging Last Impressions Abdomen/Pelvis CT 12/18/171921 Signed Impressions: Service Date/Time: Monday, December 18, 2017 19:32 - CONCLUSION: 1. 13 mm left UPJ stone causing moderate obstructive uropathy. 2. Extensive bilateral nephrolithiasis, otherwise nonobstructing. Bucky Morrissey MD Objective Remarks GENERAL: This is a well-nourished, well-developed patient, in no apparent distress. CARDIOVASCULAR: Regular rate and rhythm RESPIRATORY: Clear to auscultation. Breath sounds equal bilaterally. GASTROINTESTINAL: Abdomen soft, non-tender, nondistended. Normal active bowel sounds MUSCULOSKELETAL: Extremities without clubbing, cyanosis, or edema. NEURO: Alert & Oriented x4 to person, place, time, situation. Moves all ext x4 A/P Problem List: (1) Ureteral calculus, left ICD Codes: N20.1 - Calculus of ureter Status: Acute Plan: This is a 52-year-old female with a past medical history significant for bilateral nephrolithiasis, status post bilateral stent placement and lithotripsy 08/04/[address] Noel with later stent removal on 10/12/[address] Joaquin, hypertension, insulin-dependent diabetes mellitus, CKD stage 3, obesity and hyperlipidemia presents with severe right-sided flank pain. Patient presented to to the ED last night for evaluation after approximate 12 hour history of nausea, vomiting, multiple small well-formed stools and 8/10 left sided flank pain. Patient describes the pain as crampy and similar to previous episodes of kidney stones. CT abdomen pelvis reveals a 13 mm left UPJ stone causing moderate obstructive uropathy. Extensive bilateral nephrolithiasis, otherwise nonobstructing ER physician spoke to Dr. Joaquin who recommended IV antibiotics, gentle hydration with plans likely ESWL Patient currently NPO IV fluids for hydration Rocephin IV Morphine IV as well as Ultram PO as needed for pain s/p Cystoscopy, left retrograde pyelogram and left ureteral stent placement with Dr. Joaquin Urology recommending DC Mosley catheter tomorrow AM Urology cleared for discharge tomorrow once medically stable and Mosley DC'd Patiently to follow with urology outpatient after discharge (2) Hypertensive urgency ICD Codes: I10 - Hypertensive urgency Status: Acute Plan: On admission patient reported that she has been unable to take her blood pressure medications for 2 days due to N/V. She states that she attempted to take Zofran but was unable to keep it down. Patient's blood pressure when she arrived to the emergency department was 215/100. Patient was given her home blood pressure regimen which includes amlodipine 10 mg. Patient was also given hydralazine 10 mg IV push labetalol 10 mg IV push and lisinopril 20 mg PO. Blood pressure has improved. Patient denies headaches, changes in vision, chest pain, shortness of breath Blood pressure continues to run high on home amlodipine 10 mg p.o. daily DC amlodipine start nifedipine 60 mg twice daily Clonidine as needed for hypertension (3) Urinary tract infection ICD Codes: N39.0 - Urinary tract infection Status: Acute Plan: White blood cell count 23.4 on admission Urinalysis reviewed and revealed large amount of leukocyte esterase innumerable white blood cells and bacteria Patient started on ceftriaxone IV daily Urine culture revealed 50-100,000 mixed gram-positive lisha DC Rocephin Fluid culture retained from left renal pelvis growing Caro albicans Start Diflucan (4) DM (diabetes mellitus) ICD Codes: E11.9 - Type 2 diabetes mellitus without complications Status: Acute Plan: Patient regularly uses a sliding scale insulin at home as well as Levemir 10 units subcu nightly and glyburide 5 mg p.o. twice daily Hold long-acting insulin and glyburide as patient is currently NPO Accu-Cheks before meals at bedtime with sliding scale insulin coverage (5) Intractable nausea and vomiting ICD Codes: R11.2 - Nausea with vomiting, unspecified Status: Acute Plan: Zofran as needed IV fluids for hydration Supportive care (6) Hyperlipidemia ICD Codes: E78.5 - Hyperlipidemia, unspecified Status: Acute Plan: Continue patient's home Zocor 40 mg PO nightly Assessment and Plan Patient examined. Assessment and plan formulated with Sharon Phillips PA-C. I agree with the above. UA --> mixed lisha intraoperative UA --> yeast. Start diflucan. WBC (12/20) 17K Repeat CBC 12/21. change norvasc to BID procardia XL anticipate d/c to home in next 1-2 days. Sharon Phillips Dec 20, 2017 17:03 Ty Coffey DO Dec 21, 2017 05:03
[2017-12-20] MEDS: PRAVASTATIN SOD 80 MG TAB PO SCH (21:46)
[2017-12-20] MEDS: NIFEdipine 60 MG SUSTAINED RELEASE TAB PO SCH (21:46)
[2017-12-21 00:37] VITALS: BP 151/72; PULSE 80; RESP 16; TEMP 98.3; O2SAT 95
[2017-12-21] MEDS: traMADol HCL 50 MG TAB PO PRN (04:02)
[2017-12-21 04:16] VITALS: BP 137/67; PULSE 84; RESP 16; TEMP 98.2; O2SAT 92
[2017-12-21 05:42] LABS: AUTOMATED NEUTROPHIL # 9.2 TH/MM3 (1.8-7.7); BASOPHIL % 0.4 % (0.0-2.0); EOSINOPHIL # 0.4 TH/MM3 (0-0.4); EOSINOPHIL % 3.2 % (0.0-4.0); HEMOGLOBIN 11.4 GM/DL (11.6-15.3); LYMPH % 8.7 % (9.0-44.0); MEAN CELL VOLUME 82.4 FL (80.0-100.0); MEAN CORPUSCULAR HEMOGLOBIN 26.9 PG (27.0-34.0); MEAN CORPUSCULAR HGB CONC 32.6 % (32.0-36.0); MEAN PLATELET VOLUME 7.7 FL (7.0-11.0); MONO % 8.5 % (0.0-8.0); NEUT % 79.2 % (16.0-70.0); PLATELET COUNT 262 TH/MM3 (150-450); RED BLOOD COUNT 4.25 MIL/MM3 (4.00-5.30); RED CELL DISTRIBUTION WIDTH 15.7 % (11.6-17.2); WHITE BLOOD COUNT 11.6 TH/MM3 (4.0-11.0)
[2017-12-21 06:01] LABS: BICARBONATE 24.6 MEQ/L (21.0-32.0); CALCIUM 8.5 MG/DL (8.5-10.1); CREATININE 1.33 MG/DL (0.50-1.00)
[2017-12-21] MEDS ORDERED: DIFL100T PO ×2 (07:32→15:31)
[2017-12-21] MEDS ORDERED: NIFE60TA8 PO (07:32)
--- NOTE | 2017-12-21 07:39 | HHI.DS ---
Discharge Summary Admission Date Dec 18, 2017 at 21:37 Discharge Date: Dec 21, 2017 Admitting Diagnosis Left UPJ stone, leukocytosis, HTN (1) Ureteral calculus, left ICD Codes: N20.1 - Calculus of ureter Status: Acute (2) Hypertensive urgency ICD Codes: I10 - Hypertensive urgency Status: Acute (3) Urinary tract infection ICD Codes: N39.0 - Urinary tract infection Status: Acute (4) DM (diabetes mellitus) ICD Codes: E11.9 - Type 2 diabetes mellitus without complications Status: Acute (5) Intractable nausea and vomiting ICD Codes: R11.2 - Nausea with vomiting, unspecified Status: Acute (6) Hyperlipidemia ICD Codes: E78.5 - Hyperlipidemia, unspecified Status: Acute Consultants Dr. Joaquin, urologist Procedures Cystoscopy, left retrograde pyelogram and left ureteral stent placement12/19/[address] Joaquin Brief History This is a 52-year-old female with a past medical history significant for bilateral nephrolithiasis, status post bilateral stent placement and lithotripsy 08/04/[address] Noel with later stent removal on 10/12/[address] Joaquin, hypertension, insulin-dependent diabetes mellitus, CKD stage 3, obesity and hyperlipidemia presents with severe right-sided flank pain. Patient presented to to the ED last night for evaluation after approximate 12 hour history of nausea, vomiting, multiple small well-formed stools and 8/10 left sided flank pain. Patient describes the pain as crampy and similar to previous episodes of kidney stones. She states she has been unable to take her blood pressure medications for 2 days due to N/V. She states that she attempted to take Zofran but was unable to keep it down. Patient's blood pressure when she arrived to the emergency department was 215/100. Patient was given her home blood pressure regimen which includes amlodipine 10 mg. Patient was also given hydralazine 10 mg IV push labetalol 10 mg IV push and lisinopril 20 mg PO. Blood pressure has improved. Patient denies headaches, changes in vision, fever, chills, chest pain, shortness of breath, dysuria or hematuria. CT abdomen pelvis reveals a 13 mm left UPJ stone causing moderate obstructive uropathy. Extensive bilateral nephrolithiasis, otherwise nonobstructing CBC/BMP: 12/21/17 0521 12/21/17 0521 Significant Findings Laboratory Tests Test 12/18/17 20:02 12/18/17 22:50 12/19/17 06:10 12/20/17 10:29 White Blood Count 23.4 TH/MM3 (4.0-11.0) 23.5 TH/MM3 (4.0-11.0) 17.5 TH/MM3 (4.0-11.0) Mean Corpuscular Hemoglobin 26.1 PG (27.0-34.0) 26.7 PG (27.0-34.0) 26.9 PG (27.0-34.0) Mean Corpuscular Hemoglobin Concent 31.3 % (32.0-36.0) Neutrophils (%) (Auto) 95.2 % (16.0-70.0) 93.0 % (16.0-70.0) 90.4 % (16.0-70.0) Lymphocytes (%) (Auto) 0.8 % (9.0-44.0) 1.3 % (9.0-44.0) 3.4 % (9.0-44.0) Neutrophils # (Auto) 22.3 TH/MM3 (1.8-7.7) 21.9 TH/MM3 (1.8-7.7) 15.8 TH/MM3 (1.8-7.7) Lymphocytes # (Auto) 0.2 TH/MM3 (1.0-4.8) 0.3 TH/MM3 (1.0-4.8) 0.6 TH/MM3 (1.0-4.8) Blood Urea Nitrogen 23 MG/DL (7-18) 26 MG/DL (7-18) 27 MG/DL (7-18) Creatinine 1.62 MG/DL (0.50-1.00) 1.83 MG/DL (0.50-1.00) 1.61 MG/DL (0.50-1.00) Random Glucose 192 MG/DL (74-106) 180 MG/DL (74-106) 178 MG/DL (74-106) Total Protein 8.3 GM/DL (6.4-8.2) Estimat Glomerular Filtration Rate 40 ML/MIN (>89) 35 ML/MIN (>89) 40 ML/MIN (>89) Urine Turbidity HAZY (CLEAR) Urine Protein 30 mg/dL (NEG-TRACE) Urine Occult Blood MOD (NEG) Urine Leukocyte Esterase LARGE (NEG) Urine RBC 92 /hpf (0-3) Urine WBC Clumps OCC (NONE) Urine Bacteria FEW /hpf (NONE) Monocytes # (Auto) 1.3 TH/MM3 (0-0.9) 1.0 TH/MM3 (0-0.9) Chloride Level 110 MEQ/L (98-107) 108 MEQ/L (98-107) Test 12/21/17 05:21 White Blood Count 11.6 TH/MM3 (4.0-11.0) Hemoglobin 11.4 GM/DL (11.6-15.3) Mean Corpuscular Hemoglobin 26.9 PG (27.0-34.0) Neutrophils (%) (Auto) 79.2 % (16.0-70.0) Lymphocytes (%) (Auto) 8.7 % (9.0-44.0) Monocytes (%) (Auto) 8.5 % (0.0-8.0) Neutrophils # (Auto) 9.2 TH/MM3 (1.8-7.7) Monocytes # (Auto) 1.0 TH/MM3 (0-0.9) Blood Urea Nitrogen 26 MG/DL (7-18) Creatinine 1.33 MG/DL (0.50-1.00) Random Glucose 196 MG/DL (74-106) Chloride Level 109 MEQ/L (98-107) Estimat Glomerular Filtration Rate 50 ML/MIN (>89) Imaging Last Impressions Abdomen/Pelvis CT 12/18/17 192 Signed Impressions: Service Date/Time: Monday, December 18, 2017 19:32 - CONCLUSION: 1. 13 mm left UPJ stone causing moderate obstructive uropathy. 2. Extensive bilateral nephrolithiasis, otherwise nonobstructing. Bucky Morrissey MD PE at Discharge GENERAL: This is a well-nourished, well-developed patient, in no apparent distress. CARDIOVASCULAR: Regular rate and rhythm RESPIRATORY: Clear to auscultation. Breath sounds equal bilaterally. GASTROINTESTINAL: Abdomen soft, non-tender, nondistended. Normal active bowel sounds MUSCULOSKELETAL: Extremities without clubbing, cyanosis, or edema. NEURO: Alert & Oriented x4 to person, place, time, situation. Moves all ext x4 Hospital Course Ureteral calculus, left This is a 52-year-old female with a past medical history significant for bilateral nephrolithiasis, status post bilateral stent placement and lithotripsy 08/04/[address] Noel with later stent removal on 10/12/[address] Joaquin, hypertension, insulin-dependent diabetes mellitus, CKD stage 3, obesity and hyperlipidemia presents with severe right-sided flank pain. Patient presented to to the ED last night for evaluation after approximate 12 hour history of nausea, vomiting, multiple small well-formed stools and 8/10 left sided flank pain. Patient describes the pain as crampy and similar to previous episodes of kidney stones. CT abdomen pelvis reveals a 13 mm left UPJ stone causing moderate obstructive uropathy. Extensive bilateral nephrolithiasis, otherwise nonobstructing ER physician spoke to Dr. Joaquin who recommended IV antibiotics, gentle hydration with plans likely ESWL Patient currently NPO IV fluids for hydration Rocephin IV Morphine IV as well as Ultram PO as needed for pain s/p Cystoscopy, left retrograde pyelogram and left ureteral stent placement with Dr. Joaquin Urology recommending DC Mosley catheter tomorrow AM Urology cleared for discharge Patiently to follow with urology outpatient after discharge Hypertensive urgency- improved On admission patient reported that she has been unable to take her blood pressure medications for 2 days due to N/V. She states that she attempted to take Zofran but was unable to keep it down. Patient's blood pressure when she arrived to the emergency department was 215/100. Patient was given her home blood pressure regimen which includes amlodipine 10 mg. Patient was also given hydralazine 10 mg IV push labetalol 10 mg IV push and lisinopril 20 mg PO. Blood pressure has improved. Patient denies headaches, changes in vision, chest pain, shortness of breath Blood pressure continues to run high on home amlodipine 10 mg p.o. daily DC amlodipine start nifedipine 60 mg twice daily Clonidine as needed for hypertension Urinary tract infection White blood cell count 23.4 on admission Urinalysis reviewed and revealed large amount of leukocyte esterase innumerable white blood cells and bacteria Patient started on ceftriaxone IV daily Urine culture revealed 50-100,000 mixed gram-positive lisha DC Rocephin Fluid culture retained from left renal pelvis growing Caro albicans Start Diflucan DM (diabetes mellitus) Patient regularly uses a sliding scale insulin at home as well as Levemir 10 units subcu nightly and glyburide 5 mg p.o. twice daily Hold long-acting insulin and glyburide as patient is currently NPO Accu-Cheks before meals at bedtime with sliding scale insulin coverage Intractable nausea and vomiting Zofran as needed IV fluids for hydration Supportive care Hyperlipidemia Continue patient's home Zocor 40 mg PO nightly Pt Condition on Discharge: Stable Discharge Disposition: Discharge Home Discharge Instructions DIET: Follow Instructions for: Heart Healthy Diet, Diabetic Diet Activities you can perform: Regular-No Restrictions Follow up Referrals: PCP Follow-up - [address] Bullard Urology - 2-3 Days with Ananda Joaquin MD New Medications: Fluconazole (Diflucan) 100 Mg Tab 100 MG PO Q24H for antifungal, #5 TAB 0 Refills Nifedipine ER 24 HR (Nifedipine ER 24 HR) 60 Mg Tab 60 MG PO Q12HR for blood pressure, #60 TAB 0 Refills Continued Medications: Glyburide (Glyburide) 5 Mg Tab 5 MG PO BID for Blood Sugar Management, #60 TAB 3 Refills Take with meals at the same time each day Insulin Aspart Inj (Novolog Inj) 1,000 Unit/10 Ml Vial 0 SQ DIRECTED for Blood Sugar Management for 30 Days, ML 0 Refills Sliding Scale as directed. Before meals. For blood sugar 0-150 = 0 units (none) For 151-200 = 2 units For 201- 250 = 4 units For 251-300 = 6 units For 301-350 = 8 units For greater than 351 = 10 units Insulin Detemir Inj (Levemir Inj) 1,000 unit/ 10 ML Vial 10 UNITS SQ HS for Blood Sugar Management for 30 Days, VIAL 0 Refills Do not mix with any other Insulin. Ondansetron Odt (Zofran Odt) 4 Mg Tab 4 MG SL Q6HR PRN for Nausea/Vomiting, #30 TAB 0 Refills Simvastatin (Zocor) 40 Mg Tab 40 MG PO HS for Cholesterol Management, #30 TAB 3 Refills Tramadol (Ultram) 50 Mg Tab 50 MG PO Q6H PRN for PAIN, #20 TAB 0 Refills Discontinued Medications: Amlodipine (Norvasc) 10 Mg Tab 10 MG PO DAILY for Blood Pressure Management, #30 TAB 3 Refills Sharon Phillips Dec 21, 2017 07:39 Kevin Francois MD Dec 21, 2017 18:21
--- NOTE | 2017-12-21 07:40 | HHI.DCPOC ---
Discharge Care Plan Diagnosis: (1) Nephrolithiasis (2) Hypertensive urgency (3) Intractable nausea and vomiting Goals to Promote Your Health * To prevent worsening of your condition and complications * To maintain your health at the optimal level Directions to Meet Your Goals Take your medications as prescribed Follow your dietary instruction Follow activity as directed Keep your appointments as scheduled Take your immunizations and boosters as scheduled If your symptoms worsen call your PCP, if no PCP go to Urgent Care Center or Emergency Room Smoking is Dangerous to Your Health. Avoid second hand smoke Call the 24-hour hour crisis hotline for domestic abuse at Sharon Phillips Dec 21, 2017 07:40
[2017-12-21 07:52] VITALS: BP 128/69; PULSE 89; RESP 18; TEMP 98.1; O2SAT 95
[2017-12-21] MEDS: NIFEdipine 60 MG SUSTAINED RELEASE TAB PO SCH (08:39)
[2017-12-21] MEDS: SODIUM CHLORIDE 0.9% FLUSH 10 ML FLUSH IV FLUSH SCH (08:39)
[2017-12-21] MEDS: DOCUSATE SODIUM 50 MG/SENNA 8.6 MG TAB PO SCH (08:39)
[2017-12-21] MEDS: INSULIN ASPART SUPPLEMENTAL SCALE SQ SCH ×2 (09:35→13:50)
[2017-12-21 11:21] VITALS: BP 149/76; PULSE 88; RESP 16; TEMP 98.5; O2SAT 95
[2017-12-21] MEDS: FLUCONAZOLE 100 MG TAB PO SCH (12:35)
== END 2017-12-21 16:14 | disposition home or self-care (01) ==
LOC: NEPE 18:23 → INTOOBSV 21:37 → NEDA 21:37 → NEPGCP 23:28
PROVIDERS: ADMIT Hospitalist; ATTEND Hospitalist
DX: N13.2 Hydronephrosis with renal and ureteral calculous obstruction (principal); I16.0 Hypertensive urgency; N39.0 Urinary tract infection, site not specified; R11.2 Nausea with vomiting, unspecified; I12.9 Hypertensive chronic kidney disease with stage 1 through stage 4 chronic kidney disease, or unspecified chronic kidney disease; E11.22 Type 2 diabetes mellitus with diabetic chronic kidney disease; N18.3 Chronic kidney disease, stage 3 (moderate); E78.00 Pure hypercholesterolemia, unspecified; K21.9 Gastro-esophageal reflux disease without esophagitis; G47.30 Sleep apnea, unspecified; E66.9 Obesity, unspecified; Z79.899 Other long term (current) drug therapy; Z79.4 Long term (current) use of insulin
CPT/HCPCS: 00910; 52332; 74176; 74420; 80048; 80053; 81001; 82948; 83690; 85025; 85610; 85730; 87015; 87070; 87086; 87102; 87106; 87116; 87205; 87206; 96361; 96365; 96372; 96375; 96376; 99285; C1769; G0378; J0330; J0360; J0696; J1100; J1815; J1885; J1956; J2250; J2405; J2765; J3010; J7030; Q9967

== ENCOUNTER 2018-04-21 16:11 | Inpatient (IN) ==
[2018-04-21 17:35] LABS: Bacteria,Urine Occasional /hpf; Bilirubin,Urine Negative (Negative); Clarity,Urine Cloudy (Clear); Color,Urine Yellow (Yellw/Straw); Glucose,Urine (UA) 150 mg/dL (Negative); Leukocyte Esterase,Urine Large (Negative); Nitrite,Urine Negative (Negative); Specific Gravity,Urine 1.012 (1.002-1.035); Squamous Epithelial Cell,Urine 2 /hpf (0-5)
[2018-04-21] MEDS ORDERED: Sod Chloride 0.9% Inj 1,000 ML IV.SIG ONE (19:27)
[2018-04-21] MEDS ORDERED: Ketorolac Inj 30 MG/ML (IVP) Vial IV.PUSH ONE (19:27)
[2018-04-21 19:59] LABS: Baso # (Auto) 0.1 th/mm3 (0.0-0.2); Baso % (Auto) 0.4 % (0.0-2.0); Eos # (Auto) 0.1 th/mm3 (0.0-0.4); Eos % (Auto) 0.4 % (0.0-4.0); Hemoglobin 13.1 gm/dL (11.6-15.3); Lymph # (Auto) 0.6 th/mm3 (1.0-4.8); Lymph % (Auto) 4.8 % (9.0-44.0); Mean Corpuscular Hemoglobin 26.6 pg (27.0-34.0); Mean Corpuscular Volume 83.2 fL (80.0-100.0); Mean Platelet Volume 8.7 fL (7.0-11.0); Mono # (Auto) 0.8 th/mm3 (0.0-0.9); Mono % (Auto) 6.4 % (0.0-8.0); Neut # (Auto) 11.1 th/mm3 (1.8-7.7); Platelet Count 293 th/mm3 (150-450); Red Blood Count 4.93 mil/mm3 (4.00-5.30); Red Cell Distribution Width 15.3 % (11.6-17.2); White Blood Count 12.7 th/mm3 (4.0-11.0)
[2018-04-21 21:04] LABS: Albumin 3.3 g/dL (3.4-5.0); Calcium 9.7 mg/dL (8.5-10.1); Carbon Dioxide 27.7 meq/L (21.0-32.0); Potassium 3.9 meq/L (3.5-5.1); Total Protein 8.7 g/dL (6.4-8.2)
--- NOTE | 2018-04-21 21:04 | ED ---
HPI General Chief complaint: Abdominal Pain Stated complaint: kidney pain Time Seen by Provider: 04/21/18 19:11 Source: patient Mode of arrival: ambulatory Limitations: no limitations History of Present Illness HPI narrative: Patient is a 52 year old female who comes in complaining of left flank pain with nausea and vomiting. She was here a few days ago and has a history of a kidney stone with a ureteral stent in place. She says she was feeling better, but she started vomiting again today. She has tramadol at home which helps with her pain. She has an appointment with Dr. Joaquin on May 06. She is also concerned because she has been out of her blood pressure and diabetes medications for the past 2 months. She denies fever chills. She has been taking the Cipro that was prescribed to her. Severity is mild to moderate. Related Data Home Medications Medication Instructions Recorded Confirmed tramadol 50 mg PO Q6H PRN 03/16/18 04/21/18 Levemir U-100 Insulin 10 units SUB-Q HS 03/17/18 04/21/18 insulin aspart U-100 [Novolog 1 sliding scale dose SUB-Q ACHS 03/17/18 04/21/18 U-100 Insulin aspart] nifedipine 60 mg PO Q12HR 03/17/18 04/21/18 Previous Rx's Medication Instructions Recorded ciprofloxacin HCl [Cipro] 500 mg PO BID 7 Days #14 tab 04/18/18 Allergies Allergy/AdvReac Type Severity Reaction Status Date / Time acetaminophen Allergy Severe Itching Verified 04/18/18 12:35 hydrocodone Allergy Severe Itching Verified 04/18/18 12:35 metformin Allergy Severe Constipatio Verified 04/18/18 12:35 n hydromorphone Allergy Intermediate Rash Verified 04/18/18 12:35 hydrochlorothiazide AdvReac Intermediate Nausea/Vomi Verified 04/18/18 12:35 ting Review of Systems ROS: all other systems reviewed are negative Constitutional Denies chills and Denies fever(s) Cardiovascular Denies chest pain Respiratory Denies cough and Denies dyspnea Gastrointestinal Reports abdominal pain, Reports nausea and Reports vomiting Genitourinary Reports flank pain Musculoskeletal Denies myalgias and Denies arthralgias Integumentary/Breasts Denies lesions and Denies rash Neurologic Denies focal weakness and Denies numbness [facility] Medical History Medical History Back pain (Acute) High cholesterol (Acute) History of hysterectomy (Acute) Hypertension (Acute) Kidney stones (Acute) Surgical History Surgical History History of (Acute) History of lithotripsy (Acute) Social History Social History Substance History: No History of Abuse Second Hand Smoke Exposure: No Smoking Status: Never smoker How Often Do You Have a Drink Containing Alcohol: Never Recent Travel in [facility] within the Last 8 Weeks: No Recent Out of Country Travel within the Last 8 Weeks: No Immunization History Tetanus Immunization: Unsure Hx Influenza Vaccine This Season: No Exam Narrative Exam Narrative: GENERAL: Awake and alert, in no acute distress. SKIN: Focused skin assessment warm/dry. No wounds or signs of infection. HEAD: Atraumatic. Normocephalic. EYES: Pupils equal and round. No scleral icterus. ENT: Mucous membranes pink and moist. NECK: Trachea midline. No JVD. CARDIOVASCULAR: Regular rate and rhythm. No murmur appreciated. RESPIRATORY: No accessory muscle use. Clear to auscultation. Breath sounds equal bilaterally. GASTROINTESTINAL: Abdomen soft, nondistended. Left CVA tenderness. Tender to palpation of the left side of the abdomen. MUSCULOSKELETAL: No obvious deformities. No clubbing. No cyanosis. No edema. NEUROLOGICAL: Awake and alert. No obvious cranial nerve deficits. Motor grossly within normal limits. Normal speech. PSYCHIATRIC: Appropriate mood and affect; insight and judgment normal. Course Initial Documented Vital Signs Temperature 98.3 F 04/21/18 16:47 Pulse Rate 96 H 04/21/18 16:47 Respiratory Rate 18 04/21/18 16:47 Blood Pressure 232/115 H 04/21/18 16:47 Pulse Oximetry 98 04/21/18 16:47 Last Documented Vital Signs Temperature 98.3 F 04/21/18 16:47 Pulse Rate 66 04/21/18 21:50 Respiratory Rate 17 04/21/18 21:50 Blood Pressure 192/57 H 04/21/18 21:50 Pulse Oximetry 97 04/21/18 21:50 Medical Decision Making MDM Narrative Medical decision making narrative: Patient is a 52-year-old female comes in complaining of left flank pain with nausea and vomiting. This is her second visit this week for this. She does have an 11 mm stone in her ureter with a ureteral stent in place. She has been trying to manage this at home, but has been unsuccessful. Given IV fluids, pain medicine, Zofran here. I believe she would benefit from admission at this time. Medical Screen Exam Complete: Yes Emergency Medical Condition: Yes Medical Records Medical records reviewed: Yes I reviewed the patient's medical records. Lab Data Lab results reviewed: Yes I reviewed the patient's lab results. Result diagrams: 04/21/18 19:35 04/21/18 19:35 Lab Results 04/21/18 04/21/18 04/21/18 Range/Units 15:22 19:35 19:35 WBC 12.7 H (4.0-11.0) th/mm3 RBC 4.93 (4.00-5.30) mil/mm3 Hgb 13.1 (11.6-15.3) gm/dL Hct 41.0 (35.0-46.0) % MCV 83.2 (80.0-100.0) fL MCH 26.6 L (27.0-34.0) pg MCHC 32.0 (32.0-36.0) % RDW 15.3 (11.6-17.2) % Plt Count 293 (150-450) th/mm3 MPV 8.7 (7.0-11.0) fL Neut % (Auto) 88.0 H (16.0-70.0) % Lymph % (Auto) 4.8 L (9.0-44.0) % [place] % (Auto) 6.4 (0.0-8.0) % Eos % (Auto) 0.4 (0.0-4.0) % Baso % (Auto) 0.4 (0.0-2.0) % Neut # (Auto) 11.1 H (1.8-7.7) th/mm3 Lymph # (Auto) 0.6 L (1.0-4.8) th/mm3 [place] # (Auto) 0.8 (0.0-0.9) th/mm3 Eos # (Auto) 0.1 (0.0-0.4) th/mm3 Baso # (Auto) 0.1 (0.0-0.2) th/mm3 WBC Differential . Differential Comment Auto diff final Sodium 140 (136-145) meq/L Potassium 3.9 (3.5-5.1) meq/L Chloride 103 (98-107) meq/L Carbon Dioxide 27.7 (21.0-32.0) meq/L Anion Gap 9 (5-15) meq/L BUN 23 H (7-18) mg/dL Creatinine 1.77 H (0.50-1.00) mg/dL Estimated GFR 36 L (>89) mL/min Random Glucose 219 H (74-106) mg/dL Calcium 9.7 (8.5-10.1) mg/dL Total Bilirubin 0.7 (0.2-1.0) mg/dL Direct Bilirubin 0.2 (0.0-0.2) mg/dL Indirect Bilirubin 0.5 (0.0-0.8) mg/dL AST 15 (15-37) U/L ALT 23 (10-53) U/L Alkaline Phosphatase 163 H (45-117) U/L Total Protein 8.7 H (6.4-8.2) g/dL Albumin 3.3 L (3.4-5.0) g/dL Lipase 88 (73-393) U/L Urine Color Yellow (Yellw/Straw) Urine Clarity Cloudy H (Clear) Urine pH 5.0 (5.0-8.5) Ur Specific [place] 1.012 (1.002-1.035) Urine Protein 100 H (Neg-Trace) mg/dL Urine Glucose (UA) 150 H (Negative) mg/dL Urine Ketones Trace H (Negative) mg/dL Urine Occult Blood Moderate H (Negative) Urine Nitrate Negative (Negative) Urine Bilirubin Negative (Negative) Urine Urobilinogen Less than 2 (Less than 2) mg/dL Ur Leukocyte Esterase Large H (Negative) Urine RBC 34 H (0-3) /hpf Urine WBC (0-5) /hpf Ur Squamous Epith Cells 2 (0-5) /hpf Urine Bacteria Occasional H (None) /hpf Urine Yeast Few H (None) /hpf Micro UA Comment Culture indicated Ur Microscopic Review Not Reportable Urine Culture Comments Culture indicated Discharge Plan Discharge Disposition Patient Disposition: 30 Still Patient Discharge Condition Condition: Stable Discharge Details Diagnosis: Obstruction of left ureteropelvic junction due to stone, Vomiting Physicians Team ED Provider: Melissa Martinez Primary Care Provider: Primary Care Meka Gupta Rxs /Orders / Referrals /Forms Prescriptions: No Action ciprofloxacin HCl [Cipro] 500 mg tablet 500 mg PO BID 7 Days Qty: 14 RF: 0 tramadol 50 mg Tablet 50 mg PO Q6H PRN (Reason: Pain) RF: 0 insulin aspart U-100 [Novolog U-100 Insulin aspart] 100 unit/mL Solution 1 sliding scale dose SUB-Q ACHS RF: 0 nifedipine 60 mg Tablet Extended Release 60 mg PO Q12HR RF: 0 Levemir U-100 Insulin 10 units Sub-Q HS RF: 0 Discharge Interventions Interventions: Vital Signs Last Done: 04/21/18 21:50 Status ED Status: With Doctor
[2018-04-21] MEDS ORDERED: hydrALAZINE 25 MG Tablet PO ONE (22:05)
[2018-04-21] MEDS ORDERED: Prochlorperazine 25 MG Supp RECTAL PRN (22:10)
[2018-04-21] MEDS ORDERED: Bisacodyl 10 MG Supp RECTAL PRN (22:10)
--- NOTE | 2018-04-21 23:52 | P.HPIM ---
History of Present Illness Primary Care Physician: No Primary Care Physician History of Present Illness: 52-year-old female with a history of nephrolithiasis status post left ureteral stent in November by Dr. Medina, who presents with a four-day history of severe , constant left flank pain radiating to left lower quadrant. She reports nausea with nonbloody vomiting, unable to keep food, fluids, meds down over the past few days. Denies any chest pain or shortness of breath. Patient presented to the ER several days ago, and was prescribed Cipro which she has been taking. Denies any dysuria. Inpatient Certification: I certify that the inpatient services were ordered in accordance with Medicare regulations governing the order. This includes certification that hospital inpatient services are reasonable and necessary and in the case of services not specified as inpatient-only under 42 CFR 419.22(n), that they are appropriately provided as inpatient services in accordance to with the 2-midnight benchmark under 43 CFR 412.3(e) Estimated Total Length of Stay (Days): 2 Plans for Post Hospital Care: Home Review of Systems All other systems reviewed negative except as stated in HPI PMFSH - History History Provided By: Patient - Medical History Medical History: Medical History (Last Reviewed 04/21/18 @ 21:09 by Melissa Martinez MD) Back pain High cholesterol History of hysterectomy Hypertension Kidney stones - Surgical History Surgical History: Surgical History (Last Reviewed 04/21/18 @ 21:09 by Melissa Martinez MD) History of History of lithotripsy - Family History Family History: Family History (Last Updated 04/21/18 @ 23:51 by Jeff Monge MD) Father Family estrangement Mother Cataracts, bilateral - Tobacco History Second Hand Smoke Exposure: No Smoking Status: Never smoker - Alcohol History How Often Do You Have a Drink Containing Alcohol: Never - Substance Use History Substance History: No History of Abuse - Travel History Recent Travel in the [place] Within the Last 8 Weeks: No Recent Travel Out of the Country Within the Last 8 Weeks: No - Immunization History Tetanus Immunization: Unsure Hx Influenza Vaccine This Season: No Medications and Allergies Active Medications: Active Medications Al Hydroxide/Mg Hydroxide (Milk Of Magnesia Liq) 30 ml PO Q12H PRN PRN Reason: Mild Constipation Bisacodyl (Dulcolax Supp) 10 mg RECTAL DAILY PRN PRN Reason: SEVERE CONSITIPATION Sodium Chloride (Ns Inj) 1,000 mls @ 100 mls/hr IV.CONT .Q10H DONNA Ceftriaxone Sodium 2,000 mg/ (Sodium Chloride) 100 mls @ 200 mls/hr IV.SIG Q24H DONNA Last Admin: 04/21/18 23:12 Dose: 200 mls/hr Lactulose (Lactulose Liq) 30 ml PO DAILY PRN PRN Reason: SEVERE CONSITIPATION Metoclopramide HCl (Reglan Inj) 5 mg IV.PUSH Q6HR PRN; Protocol PRN Reason: NAUSEA OR VOMITING Ondansetron HCl (Zofran Inj) 4 mg IV.PUSH Q6H PRN PRN Reason: NAUSEA OR VOMITING Prochlorperazine (Compazine Supp) 25 mg RECTAL Q12HR PRN PRN Reason: NAUSEA OR VOMITING Sennosides (Senokot) 17.2 mg PO Q12H PRN PRN Reason: Moderate Constipation Sodium Chloride (Ns Flush) 2 ml IV.FLUSH PRN PRN PRN Reason: FLUSH AFTER USING IV ACCESS Allergies Allergy/AdvReac Type Severity Reaction Status Date / Time acetaminophen Allergy Severe Itching Verified 04/18/18 12:35 hydrocodone Allergy Severe Itching Verified 04/18/18 12:35 metformin Allergy Severe Constipatio Verified 04/18/18 12:35 n hydromorphone Allergy Intermediate Rash Verified 04/18/18 12:35 hydrochlorothiazide AdvReac Intermediate Nausea/Vomi Verified 04/18/18 12:35 ting Home Medications Medication Instructions Recorded Confirmed Type tramadol 50 mg PO Q6H PRN 03/16/18 04/21/18 History Levemir U-100 Insulin 10 units SUB-Q HS 03/17/18 04/21/18 History insulin aspart U-100 [Novolog 1 sliding scale dose SUB-Q ACHS 03/17/18 04/21/18 History U-100 Insulin aspart] nifedipine 60 mg PO Q12HR 03/17/18 04/21/18 History Exam Vital signs: Vital Signs 04/21/18 16:47 04/21/18 18:06 04/21/18 21:23 Temperature 98.3 F Pulse Rate 96 H 74 Respiratory Rate 18 17 Blood Pressure 232/115 H 207/99 H 210/92 H Pulse Oximetry 98 99 04/21/18 21:50 04/21/18 23:11 Temperature Pulse Rate 66 78 Respiratory Rate 17 18 Blood Pressure 192/57 H 175/77 H Pulse Oximetry 97 99 Intake & Output 04/21/18 04/21/18 04/22/18 06:59 18:59 06:59 Intake Total 1000 / 1000 Balance 1000 / 1000 Intake: IV 1000 / 1000 NS Inj 1,000 ML @ Wide Open IV. 1000 / 1000 SIG BOLUS ONE Rx#:[id number] Narrative: GENERAL: Patient lying in bed. Appears uncomfortable. Oriented 3. SKIN: Warm and dry. HEAD: Atraumatic. Normocephalic. EYES: Pupils equal and round. No scleral icterus. No injection or drainage. ENT: No nasal bleeding or discharge. Mucous membranes pink and moist. NECK: Trachea midline. No JVD. CARDIOVASCULAR: Regular rate and rhythm. RESPIRATORY: No accessory muscle use. Clear to auscultation. Breath sounds equal bilaterally. GASTROINTESTINAL: Abdomen soft, nondistended. Hepatic and splenic margins not palpable. Left lower abdomen, as well as left flank exquisitely tender to palpation. No rebound or guarding. MUSCULOSKELETAL: Extremities without clubbing, cyanosis, or edema. No obvious deformities. NEUROLOGICAL: Awake and alert. No obvious cranial nerve deficits. Motor grossly within normal limits. Five out of 5 muscle strength in the arms and legs. Normal speech. PSYCHIATRIC: Appropriate mood and affect; insight and judgment normal. Results - Labs CBC & Chem 7: 04/21/18 19:35 04/21/18 19:35 Labs: Short CBC 04/21/18 Range/Units 19:35 WBC 12.7 H (4.0-11.0) th/mm3 Hgb 13.1 (11.6-15.3) gm/dL Hct 41.0 (35.0-46.0) % Plt Count 293 (150-450) th/mm3 BMP 04/21/18 19:35 Sodium 140 Potassium 3.9 Chloride 103 Carbon Dioxide 27.7 BUN 23 H Creatinine 1.77 H Calcium 9.7 Liver Function 04/21/18 Range/Units 19:35 Total Bilirubin 0.7 (0.2-1.0) mg/dL Direct Bilirubin 0.2 (0.0-0.2) mg/dL AST 15 (15-37) U/L ALT 23 (10-53) U/L Alkaline Phosphatase 163 H (45-117) U/L Albumin 3.3 L (3.4-5.0) g/dL Urine 04/21/18 Range/Units 15:22 Urine Color Yellow (Yellw/Straw) Urine Clarity Cloudy H (Clear) Urine pH 5.0 (5.0-8.5) Ur Specific [place] 1.012 (1.002-1.035) Urine Protein 100 H (Neg-Trace) mg/dL Urine Glucose (UA) 150 H (Negative) mg/dL Caprini VTE Risk Assessment Caprini VTE Risk Assessment: No/Low Risk (score <= 1) Caprini Risk Assessment Model: Point Value = 1 Point Value = 2 Point Value = 3 Point Value = 5 Age 41-60 Minor surgery BMI > 25 kg/m2 Swollen legs Varicose veins or History of unexplained or recurrent spontaneous Oral contraceptives or hormone replacement Sepsis (< 1 month) Serious lung disease, including pneumonia (< 1 month) Abnormal pulmonary function Acute myocardial infarction Congestive heart failure (< 1 month) History of inflammatory bowel disease Medical patient at bed rest Age 61-74 Arthroscopic surgery Major open surgery (> 45 min) Laparoscopic surgery (> 45 min) Malignancy Confined to bed (> 72 hours) Immobilizing plaster cast Central venous access Age >= 75 History of VTE Family history of VTE Factor V Leiden Prothrombin [id number] Lupus anticoagulant Anticardiolipin antibodies Elevated serum homocysteine Heparin-induced thrombocytopenia Other congenital or acquired thrombophilia Stroke (< 1 month) Elective arthroplasty Hip, pelvis, or leg fracture Acute spinal cord injury (< 1 month) Prophylaxis Regimen: Total Risk Factor Score Risk Level Prophylaxis Regimen 0-1 Low Early ambulation 2 Moderate Order ONE of the following: *Sequential Compression Device (SCD) *Heparin 5000 units SQ BID 3-4 Higher Order ONE of the following medications: *Heparin 5000 units SQ TID *Enoxaparin/Lovenox 40 mg SQ daily (WT < 150 kg, CrCl > 30 mL/min) *Enoxaparin/Lovenox 30 mg SQ daily (WT < 150 kg, CrCl > 10-29 mL/min) *Enoxaparin/Lovenox 30 mg SQ BID (WT < 150 kg, CrCl > 30 mL/min) AND/OR *Sequential Compression Device (SCD) 5 or more Highest Order ONE of the following medications: *Heparin 5000 units SQ TID (Preferred with Epidurals) *Enoxaparin/Lovenox 40 mg SQ daily (WT < 150 kg, CrCl > 30 mL/min) *Enoxaparin/Lovenox 30 mg SQ daily (WT < 150 kg, CrCl > 10-29 mL/min) *Enoxaparin/Lovenox 30 mg SQ BID (WT < 150 kg, CrCl > 30 mL/min) AND *Sequential Compression Device (SCD) Assessment and Plan - Plan //Left-sided nephrolithiasis //Suspected UTI UA with innumerable white blood cells CT with nephrolithiasis on the last. We will place on Rocephin -Consult urology //Accelerated hypertension. Systolic blood pressure in the 180s. Will order as needed medications and monitor closely. //Diabetes mellitus. Chronic. Insulin sliding scale, diabetic diet when diet restarted. Discussed Condition With: Patient, nurse, ED physician.
--- NOTE | 2018-04-21 23:58 | US ---
EXAM DATE: 04/21/2018 11:30 PM EDT AGE/SEX: 52 years / Female INDICATIONS: Left side flank pain radiates anterior left side abdomen. CLINICAL DATA: This is the patient's initial encounter. Patient reports that signs and symptoms have been present for 1 day and indicates a pain score of 10/10. MEDICAL/SURGICAL HISTORY: . Hypertension. Renal calculi. Hysterectomy. . section. Lit hotripsy. COMPARISON: [facility] – [place], CT ABDOMEN & PELVIS W/O CONTRAST, 04/18/2018. . MEASUREMENTS: Right Kidney:__10.0 x 5.3 x 5.2 cm Left Kidney:__12.2 x 6.1 x 5.7 cm FINDINGS: There is mild right and [id number] left hydronephrosis, generally fairly similar to the recent comparison CT. The stone seen on the CT of the left ureteropelvic junction is not clearly visualized by ultrasound. There are scattered nonobstructing collecting system stones on both sides. There is al so a 2 cm benign-appearing cyst of the left mid zone. Urinary bladder within normal limits. Distal portions of the left ureteral stent can be seen in the l atter. CONCLUSION: Mild right and [id number] left hydronephrosis similar to the recent CT. Electronically signed by: Bucky Morrissey MD 04/21/2018 11:57 PM EDT
[2018-04-22] MEDS ORDERED: Dextrose 50% in Water 50 ML Vial IV.PUSH PRN (00:08)
[2018-04-22] MEDS: Sod Chloride 0.9% Inj 1,000 ML IV.CONT SCH ×2 (00:31→10:33)
[2018-04-22 06:17] LABS: Baso # (Auto) 0.1 th/mm3 (0.0-0.2); Baso % (Auto) 0.6 % (0.0-2.0); Eos # (Auto) 0.2 th/mm3 (0.0-0.4); Eos % (Auto) 1.7 % (0.0-4.0); Hemoglobin 12.2 gm/dL (11.6-15.3); Lymph # (Auto) 0.6 th/mm3 (1.0-4.8); Lymph % (Auto) 5.1 % (9.0-44.0); Mean Corpuscular HGB Conc 32.9 % (32.0-36.0); Mean Corpuscular Hemoglobin 26.8 pg (27.0-34.0); Mean Corpuscular Volume 81.6 fL (80.0-100.0); Mean Platelet Volume 8.3 fL (7.0-11.0); Mono % (Auto) 8.8 % (0.0-8.0); Neut # (Auto) 9.3 th/mm3 (1.8-7.7); Neut % (Auto) 83.8 % (16.0-70.0); Platelet Count 271 th/mm3 (150-450); Red Blood Count 4.54 mil/mm3 (4.00-5.30); Red Cell Distribution Width 14.8 % (11.6-17.2); White Blood Count 11.1 th/mm3 (4.0-11.0)
[2018-04-22 06:44] LABS: Alanine Aminotransferase 25 U/L (10-53); Albumin 2.5 g/dL (3.4-5.0); Alkaline Phosphatase 153 U/L (45-117); Anion Gap 10 meq/L (5-15); Aspartate Aminotransferase 29 U/L (15-37); Blood Urea Nitrogen 20 mg/dL (7-18); Calcium 8.6 mg/dL (8.5-10.1); Carbon Dioxide 25.9 meq/L (21.0-32.0); Chloride 106 meq/L (98-107); Glomerular Filtration Rate 40 mL/min (>89); Glucose,Random 217 mg/dL (74-106); Potassium 3.7 meq/L (3.5-5.1); Sodium 142 meq/L (136-145); Total Protein 7.5 g/dL (6.4-8.2)
[2018-04-22] MEDS: Insulin NovoLOG Aspart Correctional Sugar Inj SQ SCH ×2 (09:06→13:54)
[2018-04-22 11:47] VITALS: RESP 16
--- NOTE | 2018-04-22 12:20 | P.PNIM ---
Subjective Interval history: 52-year-old female with a history of nephrolithiasis status post left ureteral stent in November by Dr. Medina, who presents with a four-day history of severe , constant left flank pain radiating to left lower quadrant. She reports nausea with nonbloody vomiting, unable to keep food, fluids, meds down over the past few days. Denies any chest pain or shortness of breath. Patient presented to the ER several days ago, and was prescribed Cipro which she has been taking. Denies any dysuria. Physical Exam Vital signs: Vital Signs 04/21/18 16:47 04/21/18 18:06 04/21/18 21:23 Temperature 98.3 F Pulse Rate 96 H 74 Respiratory Rate 18 17 Blood Pressure 232/115 H 207/99 H 210/92 H Pulse Oximetry 98 99 04/21/18 21:50 04/21/18 23:11 04/22/18 00:42 Temperature 98.3 F Pulse Rate 66 78 77 Respiratory Rate 17 18 18 Blood Pressure 192/57 H 175/77 H 163/79 H Pulse Oximetry 97 99 98 04/22/18 04:00 04/22/18 07:40 04/22/18 10:02 Temperature 98.7 F 97.7 F Pulse Rate 68 71 Respiratory Rate 19 16 18 Blood Pressure 136/63 136/62 Pulse Oximetry 94 L 98 04/22/18 11:46 Temperature 98.5 F Pulse Rate 82 Respiratory Rate 16 Blood Pressure 164/76 H Pulse Oximetry 99 Intake & Output 04/21/18 04/22/18 04/22/18 18:59 06:59 18:59 Intake Total 1100 / 1100 1000 / 1000 Balance 1100 / 1100 1000 / 1000 Weight 85 kg Intake: IV 1100 / 1100 1000 / 1000 NS Inj 1,000 ML @ 100 mls/hr IV 1000 / 1000 .CONT .Q10H DONNA Rx#:[id number] NS Inj 1,000 ML @ Wide Open IV. 1000 / 1000 SIG BOLUS ONE Rx#:[id number] Rocephin Inj 2,000 MG In NS Inj 100 / 100 100 ML @ 200 mls/hr IV.SIG Q24H DONNA Rx#:[id number] Other: # Voids 1 Date of Last Bowel Movement 04/21/18 Weight On Admission 85 kg Narrative: GENERAL: Patient lying in bed. Appears uncomfortable. Oriented 3. SKIN: Warm and dry. HEAD: Atraumatic. Normocephalic. EYES: Pupils equal and round. No scleral icterus. No injection or drainage. ENT: No nasal bleeding or discharge. Mucous membranes pink and moist. NECK: Trachea midline. No JVD. CARDIOVASCULAR: Regular rate and rhythm. RESPIRATORY: No accessory muscle use. Clear to auscultation. Breath sounds equal bilaterally. GASTROINTESTINAL: Abdomen soft, nondistended. Hepatic and splenic margins not palpable. Left lower abdomen, as well as left flank exquisitely tender to palpation. No rebound or guarding. MUSCULOSKELETAL: Extremities without clubbing, cyanosis, or edema. No obvious deformities. NEUROLOGICAL: Awake and alert. No obvious cranial nerve deficits. Motor grossly within normal limits. Five out of 5 muscle strength in the arms and legs. Normal speech. PSYCHIATRIC: Appropriate mood and affect; insight and judgment normal. Results - Labs CBC & Chem 7: 04/22/18 05:25 04/22/18 05:25 Laboratory Results - last 24 hr 04/21/18 04/21/18 04/21/18 15:22 19:35 19:35 WBC 12.7 H RBC 4.93 Hgb 13.1 Hct 41.0 MCV 83.2 MCH 26.6 L MCHC 32.0 RDW 15.3 Plt Count 293 MPV 8.7 Neut % (Auto) 88.0 H Lymph % (Auto) 4.8 L [place] % (Auto) 6.4 Eos % (Auto) 0.4 Baso % (Auto) 0.4 Neut # (Auto) 11.1 H Lymph # (Auto) 0.6 L [place] # (Auto) 0.8 Eos # (Auto) 0.1 Baso # (Auto) 0.1 WBC Differential . Differential Comment Auto diff final Sodium 140 Potassium 3.9 Chloride 103 Carbon Dioxide 27.7 Anion Gap 9 BUN 23 H Creatinine 1.77 H Estimated GFR 36 L POC Glucose Random Glucose 219 H Calcium 9.7 Total Bilirubin 0.7 Direct Bilirubin 0.2 Indirect Bilirubin 0.5 AST 15 ALT 23 Alkaline Phosphatase 163 H Total Protein 8.7 H Albumin 3.3 L Lipase 88 Urine Color Yellow Urine Clarity Cloudy H Urine pH 5.0 Ur Specific [place] 1.012 Urine Protein 100 H Urine Glucose (UA) 150 H Urine Ketones Trace H Urine Occult Blood Moderate H Urine Nitrate Negative Urine Bilirubin Negative Urine Urobilinogen Less than 2 Ur Leukocyte Esterase Large H Urine RBC 34 H Urine WBC Ur Squamous Epith Cells 2 Urine Bacteria Occasional H Urine Yeast Few H Micro UA Comment Culture indicated Ur Microscopic Review Not Reportable Urine Culture Comments Culture indicated 04/22/18 04/22/18 04/22/18 05:25 05:25 08:25 WBC 11.1 H RBC 4.54 Hgb 12.2 Hct 37.0 MCV 81.6 MCH 26.8 L MCHC 32.9 RDW 14.8 Plt Count 271 MPV 8.3 Neut % (Auto) 83.8 H Lymph % (Auto) 5.1 L [place] % (Auto) 8.8 H Eos % (Auto) 1.7 Baso % (Auto) 0.6 Neut # (Auto) 9.3 H Lymph # (Auto) 0.6 L [place] # (Auto) 1.0 H Eos # (Auto) 0.2 Baso # (Auto) 0.1 WBC Differential . Differential Comment Auto diff final Sodium 142 Potassium 3.7 Chloride 106 Carbon Dioxide 25.9 Anion Gap 10 BUN 20 H Creatinine 1.64 H Estimated GFR 40 L POC Glucose 224 H Random Glucose 217 H Calcium 8.6 D Total Bilirubin 0.7 Direct Bilirubin Indirect Bilirubin AST 29 ALT 25 Alkaline Phosphatase 153 H Total Protein 7.5 D Albumin 2.5 L D Lipase Urine Color Urine Clarity Urine pH Ur Specific [place] Urine Protein Urine Glucose (UA) Urine Ketones Urine Occult Blood Urine Nitrate Urine Bilirubin Urine Urobilinogen Ur Leukocyte Esterase Urine RBC Urine WBC Ur Squamous Epith Cells Urine Bacteria Urine Yeast Micro UA Comment Ur Microscopic Review Urine Culture Comments - Imaging Impressions Abdomen/Bladder Ultrasound 04/21/18 00:00 CONCLUSION: Mild right and [id number] left hydronephrosis similar to the recent CT. Assessment and Plan - Plan Left-sided nephrolithiasis Suspected UTI UA with innumerable white blood cells CT with nephrolithiasis on the last. We will place on Rocephin -Consult urology Accelerated hypertension. Systolic blood pressure in the 180s. Will order as needed medications and monitor closely. NIFEDIPINE Diabetes mellitus. Chronic. Insulin sliding scale, diabetic diet when diet restarted. NONCOMPLIANCE DUE TO NO INSURANCE WILL CHECK TSH,FREE T 4, HGBA1C AM LABS GI AND DVT PROPHYLAXIS Code Status: FULL CODE Discussed Condition With: RN AND PT AND CASE MANAGEMENT Discharge Planning: PENDING UROLOGY CLEARANCE
--- NOTE | 2018-04-22 13:11 | P.CONURO ---
History of Present Illness Service: Consult date: 04/22/18 Requesting Physician: Jeff Monge Reason for Consult: Left ureteral calculus Primary Care Provider: No Primary Care Physician History of Present Illness: 52-year-old female with history recurrent nephrolithiasis who status post placement of a left ureteral stent in November of this year due to an obstructing left proximal ureteral calculus. Patient subsequently underwent extrapleural shockwave lithotripsy of this calculus several weeks ago. A follow-up CT scan demonstrated persistence of the stone. Patient presents now with ongoing left flank pain likely related to stent irritation along with a possible overlying UTI. Review of Systems All other systems reviewed negative except as stated in HPI PMFSH - History History Provided By: Patient - Medical History Medical History: Medical History (Last Reviewed 04/21/18 @ 21:09 by Melissa Martinez MD) Back pain High cholesterol History of hysterectomy Hypertension Kidney stones - Surgical History Surgical History: Surgical History (Last Reviewed 04/21/18 @ 21:09 by Melissa Martinez MD) History of History of lithotripsy - Family History Family History: Family History (Last Updated 04/21/18 @ 23:51 by Jeff Monge MD) Father Family estrangement Mother Cataracts, bilateral - Tobacco History Second Hand Smoke Exposure: No Smoking Status: Never smoker Tobacco Type: Cigarettes - Alcohol History How Often Do You Have a Drink Containing Alcohol: Monthly or less - Substance Use History Substance History: No History of Abuse - Travel History Recent Travel in the [place] Within the Last 8 Weeks: No Recent Travel Out of the Country Within the Last 8 Weeks: No - Immunization History Tetanus Immunization: Unsure Hx Influenza Vaccine This Season: No Medications and Allergies Active Medications: Active Medications Al Hydroxide/Mg Hydroxide (Milk Of Kaleb Liq) 30 ml PO Q12H PRN PRN Reason: Mild Constipation Bisacodyl (Dulcolax Supp) 10 mg RECTAL DAILY PRN PRN Reason: SEVERE CONSITIPATION Clonidine HCl (Catapres) 0.1 mg PO Q6H PRN PRN Reason: SBP>160, DBP>90 Last Admin: 04/22/18 00:53 Dose: 0.1 mg Dextrose (D50w Vial) 50 ml IV.PUSH UNSCH PRN PRN Reason: PER HYPOGLYCEMIA PROTOCOL Famotidine (Pepcid) 10 mg PO BID DONNA Glucagon (Glucagon Inj) 1 mg OTHER PRN PRN PRN Reason: for Hypoglycemia Protocol Sodium Chloride (Ns Inj) 1,000 mls @ 100 mls/hr IV.CONT .Q10H [facility] Last Admin: 04/22/18 10:33 Dose: 100 mls/hr Ceftriaxone Sodium 2,000 mg/ (Sodium Chloride) 100 mls @ 200 mls/hr IV.SIG Q24H [facility] Last Infusion: 04/22/18 00:46 Dose: Infused Insulin Aspart (Novolog Insulin Correctional Sugar Inj) 0 unit SQ ACHS [facility]; Protocol Last Admin: 04/22/18 09:06 Dose: Not Given Insulin Detemir (Levemir Inj) 10 unit SQ HS [facility] Lactulose (Lactulose Liq) 30 ml PO DAILY PRN PRN Reason: SEVERE CONSITIPATION Metoclopramide HCl (Reglan Inj) 5 mg IV.PUSH Q6HR PRN; Protocol PRN Reason: NAUSEA OR VOMITING Nifedipine (Procardia Xl) 60 mg PO Q12HR [facility] Last Admin: 04/22/18 08:23 Dose: 60 mg Ondansetron HCl (Zofran Inj) 4 mg IV.PUSH Q6H PRN PRN Reason: NAUSEA OR VOMITING Prochlorperazine (Compazine Supp) 25 mg RECTAL Q12HR PRN PRN Reason: NAUSEA OR VOMITING Sennosides (Senokot) 17.2 mg PO Q12H PRN PRN Reason: Moderate Constipation Sodium Chloride (Ns Flush) 2 ml IV.FLUSH PRN PRN PRN Reason: FLUSH AFTER USING IV ACCESS Tramadol HCl (Ultram) 50 mg PO Q6H PRN PRN Reason: PAIN SCALE 1 TO 10 Last Admin: 04/22/18 08:23 Dose: 50 mg Allergies Allergy/AdvReac Type Severity Reaction Status Date / Time acetaminophen Allergy Severe Itching Verified 04/18/18 12:35 hydrocodone Allergy Severe Itching Verified 04/18/18 12:35 metformin Allergy Severe Constipatio Verified 04/18/18 12:35 n hydromorphone Allergy Intermediate Rash Verified 04/18/18 12:35 hydrochlorothiazide AdvReac Intermediate Nausea/Vomi Verified 04/18/18 12:35 ting Home Medications Medication Instructions Recorded Confirmed Type tramadol 50 mg PO Q6H PRN 03/16/18 04/21/18 History Levemir U-100 Insulin 10 units SUB-Q HS 03/17/18 04/21/18 History insulin aspart U-100 [Novolog 1 sliding scale dose SUB-Q ACHS 03/17/18 04/21/18 History U-100 Insulin aspart] nifedipine 60 mg PO Q12HR 03/17/18 04/21/18 History Physical Exam Vital Signs - 24 hr 04/21/18 16:47 04/21/18 18:06 04/21/18 21:23 Temperature 98.3 F Pulse Rate 96 H 74 Respiratory Rate 18 17 Blood Pressure 232/115 H 207/99 H 210/92 H Pulse Oximetry 98 99 04/21/18 21:50 04/21/18 23:11 04/22/18 00:42 Temperature 98.3 F Pulse Rate 66 78 77 Respiratory Rate 17 18 18 Blood Pressure 192/57 H 175/77 H 163/79 H Pulse Oximetry 97 99 98 04/22/18 04:00 04/22/18 07:40 04/22/18 10:02 Temperature 98.7 F 97.7 F Pulse Rate 68 71 Respiratory Rate 19 16 18 Blood Pressure 136/63 136/62 Pulse Oximetry 94 L 98 04/22/18 11:46 Temperature 98.5 F Pulse Rate 82 Respiratory Rate 16 Blood Pressure 164/76 H Pulse Oximetry 99 Physical Exam: GENERAL: This is a well-nourished, well-developed patient, in no apparent distress. SKIN: No rashes, ecchymoses or lesions. Cool and dry. HEAD: Atraumatic. Normocephalic. No temporal or scalp tenderness. EYES: Pupils equal round and reactive. Extraocular motions intact. No scleral icterus. No injection or drainage. ENT: Nose without bleeding, purulent drainage or septal hematoma. Throat without erythema, tonsillar hypertrophy or exudate. Uvula midline. Airway patent. NECK: Trachea midline. No JVD or lymphadenopathy. Supple, nontender, no meningeal signs. CARDIOVASCULAR: Regular rate and rhythm without murmurs, gallops, or rubs. RESPIRATORY: Clear to auscultation. Breath sounds equal bilaterally. No wheezes , rales, or rhonchi. GASTROINTESTINAL: Abdomen soft, non-tender, nondistended. No hepato-splenomegaly , or palpable masses. No guarding. GENITOURINARY: No CVA tenderness, bladder not distended MUSCULOSKELETAL: Extremities without clubbing, cyanosis, or edema. No joint tenderness, effusion, or edema noted. No calf tenderness. Negative Homans sign bilaterally. NEUROLOGICAL: Awake and alert. Cranial nerves II through XII intact. Motor and sensory grossly within normal limits. Five out of 5 muscle strength in all muscle groups. Normal speech. Laboratory Results - last 24 hr 04/21/18 04/21/18 04/21/18 15:22 19:35 19:35 WBC 12.7 H RBC 4.93 Hgb 13.1 Hct 41.0 MCV 83.2 MCH 26.6 L MCHC 32.0 RDW 15.3 Plt Count 293 MPV 8.7 Neut % (Auto) 88.0 H Lymph % (Auto) 4.8 L [place] % (Auto) 6.4 Eos % (Auto) 0.4 Baso % (Auto) 0.4 Neut # (Auto) 11.1 H Lymph # (Auto) 0.6 L [place] # (Auto) 0.8 Eos # (Auto) 0.1 Baso # (Auto) 0.1 WBC Differential . Differential Comment Auto diff final Sodium 140 Potassium 3.9 Chloride 103 Carbon Dioxide 27.7 Anion Gap 9 BUN 23 H Creatinine 1.77 H Estimated GFR 36 L POC Glucose Random Glucose 219 H Calcium 9.7 Total Bilirubin 0.7 Direct Bilirubin 0.2 Indirect Bilirubin 0.5 AST 15 ALT 23 Alkaline Phosphatase 163 H Total Protein 8.7 H Albumin 3.3 L Lipase 88 TSH Free T4 Urine Color Yellow Urine Clarity Cloudy H Urine pH 5.0 Ur Specific [place] 1.012 Urine Protein 100 H Urine Glucose (UA) 150 H Urine Ketones Trace H Urine Occult Blood Moderate H Urine Nitrate Negative Urine Bilirubin Negative Urine Urobilinogen Less than 2 Ur Leukocyte Esterase Large H Urine RBC 34 H Urine WBC Ur Squamous Epith Cells 2 Urine Bacteria Occasional H Urine Yeast Few H Micro UA Comment Culture indicated Ur Microscopic Review Not Reportable Urine Culture Comments Culture indicated 04/22/18 04/22/18 04/22/18 05:25 05:25 05:25 WBC 11.1 H RBC 4.54 Hgb 12.2 Hct 37.0 MCV 81.6 MCH 26.8 L MCHC 32.9 RDW 14.8 Plt Count 271 MPV 8.3 Neut % (Auto) 83.8 H Lymph % (Auto) 5.1 L [place] % (Auto) 8.8 H Eos % (Auto) 1.7 Baso % (Auto) 0.6 Neut # (Auto) 9.3 H Lymph # (Auto) 0.6 L [place] # (Auto) 1.0 H Eos # (Auto) 0.2 Baso # (Auto) 0.1 WBC Differential . Differential Comment Auto diff final Sodium 142 Potassium 3.7 Chloride 106 Carbon Dioxide 25.9 Anion Gap 10 BUN 20 H Creatinine 1.64 H Estimated GFR 40 L POC Glucose Random Glucose 217 H Calcium 8.6 D Total Bilirubin 0.7 Direct Bilirubin Indirect Bilirubin AST 29 ALT 25 Alkaline Phosphatase 153 H Total Protein 7.5 D Albumin 2.5 L D Lipase TSH Free T4 1.09 Urine Color Urine Clarity Urine pH Ur Specific [place] Urine Protein Urine Glucose (UA) Urine Ketones Urine Occult Blood Urine Nitrate Urine Bilirubin Urine Urobilinogen Ur Leukocyte Esterase Urine RBC Urine WBC Ur Squamous Epith Cells Urine Bacteria Urine Yeast Micro UA Comment Ur Microscopic Review Urine Culture Comments 04/22/18 04/22/18 05:25 08:25 WBC RBC Hgb Hct MCV MCH MCHC RDW Plt Count MPV Neut % (Auto) Lymph % (Auto) [place] % (Auto) Eos % (Auto) Baso % (Auto) Neut # (Auto) Lymph # (Auto) [place] # (Auto) Eos # (Auto) Baso # (Auto) WBC Differential Differential Comment Sodium Potassium Chloride Carbon Dioxide Anion Gap BUN Creatinine Estimated GFR POC Glucose 224 H Random Glucose Calcium Total Bilirubin Direct Bilirubin Indirect Bilirubin AST ALT Alkaline Phosphatase Total Protein Albumin Lipase TSH 1.330 Free T4 Urine Color Urine Clarity Urine pH Ur Specific [place] Urine Protein Urine Glucose (UA) Urine Ketones Urine Occult Blood Urine Nitrate Urine Bilirubin Urine Urobilinogen Ur Leukocyte Esterase Urine RBC Urine WBC Ur Squamous Epith Cells Urine Bacteria Urine Yeast Micro UA Comment Ur Microscopic Review Urine Culture Comments Result Diagrams: 04/22/18 05:25 04/22/18 05:25 Imaging: ITS Impressions Abdomen/Bladder Ultrasound 04/21/18 00:00 CONCLUSION: Mild right and [id number] left hydronephrosis similar to the recent CT. Assessment and Plan - Assessment (1) Ureteral calculus, left Code(s): N20.1 - Calculus of ureter Status: Acute - Plan Urologic impression: 1. 11 mm left proximal ureteral calculus 2. Status post left stent placement and recent left extra corporeal shockwave lithotripsy 3. Persistence of left ureteral stone despite treatment with shockwave lithotripsy 4. Present symptoms related to stent irritation and possible urinary tract infection Recommendations: 1. Agree with present antibiotic therapy 2. May discharge home when clinically stable 3. Tamsulosin 0.4 mg by mouth daily for stent irritative symptoms 4. Zofran ODT as needed nausea 5. My office will contact patient to make arrangements for more aggressive urologic care to include left ureteroscopy with laser lithotripsy to be performed as an outpatient
[2018-04-22 15:39] LABS: Hemoglobin A1c 10.5 % (4.3-6.0)
--- NOTE | 2018-04-22 16:13 | P.DS ---
Date of admission: 04/21/18 22:10 Primary care physician: No Primary Care Physician Attending physician on discharge: James Chowdhury Anticipated date of discharge: 04/22/18 Brief History from admission: 52-year-old female with a history of nephrolithiasis status post left ureteral stent in November by Dr. Medina, who presents with a four-day history of severe , constant left flank pain radiating to left lower quadrant. She reports nausea with nonbloody vomiting, unable to keep food, fluids, meds down over the past few days. Denies any chest pain or shortness of breath. Patient presented to the ER several days ago, and was prescribed Cipro which she has been taking. Denies any dysuria. 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 (6) Ureteral calculus, left Status: Chronic (7) Vomiting Status: Resolved DS: Medications - Discharge Medications Prescriptions: cefuroxime axetil 500 mg PO Q12H #28 tab insulin aspart U-100 [Novolog U-100 Insulin aspart] 1 sliding scale dose SUB-Q ACHS #3 vial Levemir U-100 Insulin 10 units SUB-Q HS #2 vial nifedipine 60 mg PO Q12HR #60 tab prochlorperazine 25 mg NE Q12HR PRN #10 ea PRN Reason: Nausea Or Vomiting sennosides [Senna Lax] 17.2 mg PO Q12H PRN #120 tab PRN Reason: Moderate Constipation tamsulosin [Flomax] 0.4 mg PO DAILY #30 cap tramadol 50 mg PO Q6H PRN #60 tab PRN Reason: Pain DS: Summary Hospital Course: 52-year-old female with a history of nephrolithiasis status post left ureteral stent in November by Dr. Medina, who presents with a four-day history of severe , constant left flank pain radiating to left lower quadrant. She reports nausea with nonbloody vomiting, unable to keep food, fluids, meds down over the past few days. Denies any chest pain or shortness of breath. Patient presented to the ER several days ago, and was prescribed Cipro which she has been taking. Denies any dysuria. HAS BEEN CLEARED BY UROLOGY WILL DC TO HOME WITH RX FOR TRAMADOL #6O E-FORCSE HAS BEEN CHECKED E-FORCSE Prescription Drug Monitoring Database has been queried and verified prior to prescribing the controlled substance. Acute pain exception. This patient has normal, predicted, physiological, and time limited response to an adverse mechanical stimulus associated with surgery, trauma, or acute illness as described in my notes. There is a lack of alternative treatment options other than to include the prescribed narcotic treatment for this condition. WILL SWITCH TO CEFUROXIME AND FLOMAX - Time Spent with Patient Total time spent providing and/or coordinating discharge services: Greater than 30 minutes - Quality: VTE Deep Vein Thrombosis/Pulmonary Embolism Present on Admission: No Exam Vital signs: Vital Signs 04/21/18 16:47 04/21/18 18:06 04/21/18 21:23 Temperature 98.3 F Pulse Rate 96 H 74 Respiratory Rate 18 17 Blood Pressure 232/115 H 207/99 H 210/92 H Pulse Oximetry 98 99 04/21/18 21:50 04/21/18 23:11 04/22/18 00:42 Temperature 98.3 F Pulse Rate 66 78 77 Respiratory Rate 17 18 18 Blood Pressure 192/57 H 175/77 H 163/79 H Pulse Oximetry 97 99 98 04/22/18 04:00 04/22/18 07:40 04/22/18 10:02 Temperature 98.7 F 97.7 F Pulse Rate 68 71 Respiratory Rate 19 16 18 Blood Pressure 136/63 136/62 Pulse Oximetry 94 L 98 04/22/18 11:46 Temperature 98.5 F Pulse Rate 82 Respiratory Rate 16 Blood Pressure 164/76 H Pulse Oximetry 99 Intake & Output 04/21/18 04/22/18 04/22/18 18:59 06:59 18:59 Intake Total 1100 / 1100 1000 / 1000 Balance 1100 / 1100 1000 / 1000 Weight 85 kg Intake: IV 1100 / 1100 1000 / 1000 NS Inj 1,000 ML @ 100 mls/hr IV 1000 / 1000 .CONT .Q10H DONNA Rx#:[id number] NS Inj 1,000 ML @ Wide Open IV. 1000 / 1000 SIG BOLUS ONE Rx#:[id number] Rocephin Inj 2,000 MG In NS Inj 100 / 100 100 ML @ 200 mls/hr IV.SIG Q24H DONNA Rx#:[id number] Other: # Voids 1 Date of Last Bowel Movement 04/21/18 Weight On Admission 85 kg Narrative: GENERAL: Patient lying in bed. Appears uncomfortable. Oriented 3. SKIN: Warm and dry. HEAD: Atraumatic. Normocephalic. EYES: Pupils equal and round. No scleral icterus. No injection or drainage. ENT: No nasal bleeding or discharge. Mucous membranes pink and moist. NECK: Trachea midline. No JVD. CARDIOVASCULAR: Regular rate and rhythm. RESPIRATORY: No accessory muscle use. Clear to auscultation. Breath sounds equal bilaterally. GASTROINTESTINAL: Abdomen soft, nondistended. Hepatic and splenic margins not palpable. Left lower abdomen, as well as left flank exquisitely tender to palpation. No rebound or guarding. MUSCULOSKELETAL: Extremities without clubbing, cyanosis, or edema. No obvious deformities. NEUROLOGICAL: Awake and alert. No obvious cranial nerve deficits. Motor grossly within normal limits. Five out of 5 muscle strength in the arms and legs. Normal speech. PSYCHIATRIC: Appropriate mood and affect; insight and judgment normal. Results Procedures completed during hospitalization: NONE Completed studies during hospitalization: Laboratory Results WBC 11.1 th/mm3 (4.0-11.0) H 04/22/18 05:25 RBC 4.54 mil/mm3 (4.00-5.30) 04/22/18 05:25 Hgb 12.2 gm/dL (11.6-15.3) 04/22/18 05:25 Hct 37.0 % (35.0-46.0) 04/22/18 05:25 MCV 81.6 fL (80.0-100.0) 04/22/18 05:25 MCH 26.8 pg (27.0-34.0) L 04/22/18 05:25 MCHC 32.9 % (32.0-36.0) 04/22/18 05:25 RDW 14.8 % (11.6-17.2) 04/22/18 05:25 Plt Count 271 th/mm3 (150-450) 04/22/18 05:25 MPV 8.3 fL (7.0-11.0) 04/22/18 05:25 Neut % (Auto) 83.8 % (16.0-70.0) H 04/22/18 05:25 Lymph % (Auto) 5.1 % (9.0-44.0) L 04/22/18 05:25 [place] % (Auto) 8.8 % (0.0-8.0) H 04/22/18 05:25 Eos % (Auto) 1.7 % (0.0-4.0) 04/22/18 05:25 Baso % (Auto) 0.6 % (0.0-2.0) 04/22/18 05:25 Neut # (Auto) 9.3 th/mm3 (1.8-7.7) H 04/22/18 05:25 Lymph # (Auto) 0.6 th/mm3 (1.0-4.8) L 04/22/18 05:25 [place] # (Auto) 1.0 th/mm3 (0.0-0.9) H 04/22/18 05:25 Eos # (Auto) 0.2 th/mm3 (0.0-0.4) 04/22/18 05:25 Baso # (Auto) 0.1 th/mm3 (0.0-0.2) 04/22/18 05:25 WBC Differential . 04/22/18 05:25 Differential Comment Auto diff final 04/22/18 05:25 Sodium 142 meq/L (136-145) 04/22/18 05:25 Potassium 3.7 meq/L (3.5-5.1) 04/22/18 05:25 Chloride 106 meq/L (98-107) 04/22/18 05:25 Carbon Dioxide 25.9 meq/L (21.0-32.0) 04/22/18 05:25 Anion Gap 10 meq/L (5-15) 04/22/18 05:25 BUN 20 mg/dL (7-18) H 04/22/18 05:25 Creatinine 1.64 mg/dL (0.50-1.00) H 04/22/18 05:25 Estimated GFR 40 mL/min (>89) L 04/22/18 05:25 POC Glucose 157 mg/dl (68-110) H 04/22/18 13:54 Random Glucose 217 mg/dL (74-106) H 04/22/18 05:25 Calcium 8.6 mg/dL (8.5-10.1) D 04/22/18 05:25 Total Bilirubin 0.7 mg/dL (0.2-1.0) 04/22/18 05:25 Direct Bilirubin 0.2 mg/dL (0.0-0.2) 04/21/18 19:35 Indirect Bilirubin 0.5 mg/dL (0.0-0.8) 04/21/18 19:35 AST 29 U/L (15-37) 04/22/18 05:25 ALT 25 U/L (10-53) 04/22/18 05:25 Alkaline Phosphatase 153 U/L (45-117) H 04/22/18 05:25 Total Protein 7.5 g/dL (6.4-8.2) D 04/22/18 05:25 Albumin 2.5 g/dL (3.4-5.0) L D 04/22/18 05:25 Lipase 88 U/L (73-393) 04/21/18 19:35 TSH 1.330 uIU/mL (0.358-3.740) 04/22/18 05:25 Free T4 1.09 ng/dL (0.76-1.46) 04/22/18 05:25 Urine Color Yellow (Yellw/Straw) 04/21/18 15:22 Urine Clarity Cloudy (Clear) H 04/21/18 15:22 Urine pH 5.0 (5.0-8.5) 04/21/18 15:22 Ur Specific [place] 1.012 (1.002-1.035) 04/21/18 15:22 Urine Protein 100 mg/dL (Neg-Trace) H 04/21/18 15:22 Urine Glucose (UA) 150 mg/dL (Negative) H 04/21/18 15:22 Urine Ketones Trace mg/dL (Negative) H 04/21/18 15:22 Urine Occult Blood Moderate (Negative) H 04/21/18 15:22 Urine Nitrate Negative (Negative) 04/21/18 15:22 Urine Bilirubin Negative (Negative) 04/21/18 15:22 Urine Urobilinogen Less than 2 mg/dL (Less than 2) 04/21/18 15:22 Ur Leukocyte Esterase Large (Negative) H 04/21/18 15:22 Urine RBC 34 /hpf (0-3) H 04/21/18 15:22 Urine WBC /hpf (0-5) 04/21/18 15:22 Ur Squamous Epith Cells 2 /hpf (0-5) 04/21/18 15:22 Urine Bacteria Occasional /hpf (None) H 04/21/18 15:22 Urine Yeast Few /hpf (None) H 04/21/18 15:22 Micro UA Comment Culture indicated 04/21/18 15:22 Ur Microscopic Review Not Reportable 04/21/18 15:22 Urine Culture Comments Culture indicated 04/21/18 15:22 Impressions Abdomen/Bladder Ultrasound 04/21/18 00:00 CONCLUSION: Mild right and [id number] left hydronephrosis similar to the recent CT. Labs on day of discharge: Labs from last 24 hours 04/22/18 04/22/18 04/22/18 13:54 08:25 05:25 WBC RBC Hgb Hct MCV MCH MCHC RDW Plt Count MPV Neut % (Auto) Lymph % (Auto) [place] % (Auto) Eos % (Auto) Baso % (Auto) Neut # (Auto) Lymph # (Auto) [place] # (Auto) Eos # (Auto) Baso # (Auto) WBC Differential Differential Comment Sodium Potassium Chloride Carbon Dioxide Anion Gap BUN Creatinine Estimated GFR POC Glucose 157 H 224 H Random Glucose Hemoglobin A1c Calcium Total Bilirubin Direct Bilirubin Indirect Bilirubin AST ALT Alkaline Phosphatase Total Protein Albumin Lipase TSH 1.330 Free T4 Urine Color Urine Clarity Urine pH Ur Specific [place] Urine Protein Urine Glucose (UA) Urine Ketones Urine Occult Blood Urine Nitrate Urine Bilirubin Urine Urobilinogen Ur Leukocyte Esterase Urine RBC Urine WBC Ur Squamous Epith Cells Urine Bacteria Urine Yeast Micro UA Comment Ur Microscopic Review Urine Culture Comments 04/22/18 04/22/18 04/22/18 05:25 05:25 05:25 WBC RBC Hgb Hct MCV MCH MCHC RDW Plt Count MPV Neut % (Auto) Lymph % (Auto) [place] % (Auto) Eos % (Auto) Baso % (Auto) Neut # (Auto) Lymph # (Auto) [place] # (Auto) Eos # (Auto) Baso # (Auto) WBC Differential Differential Comment Sodium 142 Potassium 3.7 Chloride 106 Carbon Dioxide 25.9 Anion Gap 10 BUN 20 H Creatinine 1.64 H Estimated GFR 40 L POC Glucose Random Glucose 217 H Hemoglobin A1c Pending Calcium 8.6 D Total Bilirubin 0.7 Direct Bilirubin Indirect Bilirubin AST 29 ALT 25 Alkaline Phosphatase 153 H Total Protein 7.5 D Albumin 2.5 L D Lipase TSH Free T4 1.09 Urine Color Urine Clarity Urine pH Ur Specific [place] Urine Protein Urine Glucose (UA) Urine Ketones Urine Occult Blood Urine Nitrate Urine Bilirubin Urine Urobilinogen Ur Leukocyte Esterase Urine RBC Urine WBC Ur Squamous Epith Cells Urine Bacteria Urine Yeast Micro UA Comment Ur Microscopic Review Urine Culture Comments 04/22/18 04/21/18 04/21/18 05:25 19:35 19:35 WBC 11.1 H 12.7 H RBC 4.54 4.93 Hgb 12.2 13.1 Hct 37.0 41.0 MCV 81.6 83.2 MCH 26.8 L 26.6 L MCHC 32.9 32.0 RDW 14.8 15.3 Plt Count 271 293 MPV 8.3 8.7 Neut % (Auto) 83.8 H 88.0 H Lymph % (Auto) 5.1 L 4.8 L [place] % (Auto) 8.8 H 6.4 Eos % (Auto) 1.7 0.4 Baso % (Auto) 0.6 0.4 Neut # (Auto) 9.3 H 11.1 H Lymph # (Auto) 0.6 L 0.6 L [place] # (Auto) 1.0 H 0.8 Eos # (Auto) 0.2 0.1 Baso # (Auto) 0.1 0.1 WBC Differential . . Differential Comment Auto diff final Auto diff final Sodium 140 Potassium 3.9 Chloride 103 Carbon Dioxide 27.7 Anion Gap 9 BUN 23 H Creatinine 1.77 H Estimated GFR 36 L POC Glucose Random Glucose 219 H Hemoglobin A1c Calcium 9.7 Total Bilirubin 0.7 Direct Bilirubin 0.2 Indirect Bilirubin 0.5 AST 15 ALT 23 Alkaline Phosphatase 163 H Total Protein 8.7 H Albumin 3.3 L Lipase 88 TSH Free T4 Urine Color Urine Clarity Urine pH Ur Specific [place] Urine Protein Urine Glucose (UA) Urine Ketones Urine Occult Blood Urine Nitrate Urine Bilirubin Urine Urobilinogen Ur Leukocyte Esterase Urine RBC Urine WBC Ur Squamous Epith Cells Urine Bacteria Urine Yeast Micro UA Comment Ur Microscopic Review Urine Culture Comments 04/21/18 15:22 WBC RBC Hgb Hct MCV MCH MCHC RDW Plt Count MPV Neut % (Auto) Lymph % (Auto) [place] % (Auto) Eos % (Auto) Baso % (Auto) Neut # (Auto) Lymph # (Auto) [place] # (Auto) Eos # (Auto) Baso # (Auto) WBC Differential Differential Comment Sodium Potassium Chloride Carbon Dioxide Anion Gap BUN Creatinine Estimated GFR POC Glucose Random Glucose Hemoglobin A1c Calcium Total Bilirubin Direct Bilirubin Indirect Bilirubin AST ALT Alkaline Phosphatase Total Protein Albumin Lipase TSH Free T4 Urine Color Yellow Urine Clarity Cloudy H Urine pH 5.0 Ur Specific [place] 1.012 Urine Protein 100 H Urine Glucose (UA) 150 H Urine Ketones Trace H Urine Occult Blood Moderate H Urine Nitrate Negative Urine Bilirubin Negative Urine Urobilinogen Less than 2 Ur Leukocyte Esterase Large H Urine RBC 34 H Urine WBC Ur Squamous Epith Cells 2 Urine Bacteria Occasional H Urine Yeast Few H Micro UA Comment Culture indicated Ur Microscopic Review Not Reportable Urine Culture Comments Culture indicated - Impressions ITS Impressions Abdomen/Bladder Ultrasound 04/21/18 00:00 CONCLUSION: Mild right and [id number] left hydronephrosis similar to the recent CT. Discharge Plan - Discharge Disposition Patient Disposition: 01 Discharge Home - Discharge Condition Condition: Stable - Discharge Order Discharge Orders: Discharge Order (Routine); Ordered 04/22/18 Ordered By: James Chowdhury - Discharge Details Anticipated Discharge Date: 04/22/18 Discharge Comment: DC TO HOME - Physicians Team Primary Care Provider: Primary Care Candy,No Attending Provider: James Chowdhury Other Providers: Ananda Joaquin MD
[2018-04-22 16:19] VITALS: PULSE 93; TEMP 98.6; O2SAT 94
[2018-04-22 16:41] VITALS: BP 160/81
[2018-04-22] MEDS ORDERED: Insulin Detemir Inj 1,000 UNIT/10 ML Vial SQ SCH (21:00)
[2018-04-22] MEDS ORDERED: Famotidine 20 MG Tablet PO SCH (21:00)
== END 2018-04-22 16:53 | disposition home or self-care (01) ==
LOC: NEPC 16:11 → NEDA 22:10 → NEPGCP 04-22 00:19
PROVIDERS: ADMIT Hospitalist; ATTEND Hospitalist